=== PATIENT | female | born 1955 ===

== ENCOUNTER 2018-05-30 10:29 | Emergency (ER) | payer OTHER ==
[~2018-05-30] VITALS: Ht 165.1 cm; Wt 97.5 kg
[~2018-05-30 10:29] MED LIST: AMLO5 PO; NARCAN4 MG NS; Nyamyc15 GM TP; OXYC10TA19; PREG75 PO
[2018-05-30 11:00] LABS: BASOPHILS ABSOLUTE AUTO 0.07 K/mm3 (0.00-0.23); BASOPHILS PERCENT AUTO 1 % (0-2); EOSINOPHILS ABSOLUTE AUTO 0.19 K/mm3 (0.00-0.68); EOSINOPHILS PERCENT AUTO 2 % (0-6); Hematocrit 42.1 % (33.0-51.0); Hemoglobin 13.3 g/dL (11.5-16.0); IMMATURE GRAN ABSOLUTE AUTO 0.04 K/mm3 (0.00-0.10); IMMATURE GRAN PERCENT AUTO 0 % (0-1); LYMPHOCYTES ABSOLUTE AUTO 2.17 K/mm3 (0.84-5.20); LYMPHOCYTES PERCENT AUTO 20 % (21-46); MONOCYTES ABSOLUTE AUTO 0.64 K/mm3 (0.16-1.47); MONOCYTES PERCENT AUTO 6 % (4-13); Mean Corpuscular HGB Conc 31.6 g/dL (31.5-36.5); Mean Corpuscular Volume 92 fL (80-100); Mean Platelet Volume 9.4 fL (9.1-12.4); NEUTROPHILS ABSOLUTE AUTO 7.63 K/mm3 (1.96-9.15); NEUTROPHILS PERCENT AUTO 71 % (41-73); Platelet Count 291 K/mm3 (150-400); RDW Coefficient Variation 13.8 % (11.7-14.2); RDW Standard Deviation 47.1 fL (35.1-46.3); Red Blood Cell Count 4.59 M/mm3 (3.80-5.20); White Blood Cell Count 10.74 K/mm3 (4.00-11.30)
[2018-05-30 11:32] LABS: Alanine Aminotransfer (ALT/SGP 18 U/L (12-78); Albumin, Blood 2.9 g/dL (3.4-5.0); Albumin/Globulin Ratio 0.7 (0.8-1.8); Alk Phos 85 U/L (50-136); Anion Gap 10 mmol/L (6-16); Aspartate Aminotrans (AST/SGOT 23 U/L (12-37); Bilirubin, Total 0.5 mg/dL (0.1-1.0); Blood Urea Nitrogen 13 mg/dL (8-24); CO2, Blood 24 mmol/L (21-32); Chloride, Blood 104 mmol/L (98-108); Creatinine, Blood 0.65 mg/dL (0.40-1.00); Globulin, Blood 4.3 g/dL (2.2-4.0); Glomerular Filtration Rate >60 (60-); Glucose, Blood 186 mg/dL (70-99); Potassium, Blood 4.2 mmol/L (3.5-5.5); Sodium, Blood 138 mmol/L (136-145); Total Protein, Blood 7.2 g/dL (6.4-8.2)
[2018-05-30 13:06] LABS: Source, Urine Clean Catch
[2018-05-30 13:09] LABS: Bilirubin, Urine Neg (Neg); Blood, Urine 3+ (Neg); Glucose Qualitative, Urine Neg (Neg); Ketones, Urine Neg (Neg); Leukocyte Esterase, Urine 3+ (Neg); Nitrite, Urine Neg (Neg); Protein, Urine 2+ (Neg); Urobilinogen, Urine NORM (Normal); pH, Urine 6.5 (5.0-8.0)
[2018-05-30 13:24] LABS: Appearance, Urine Hazy (Clear); Color, Urine Yellow (P-Yellow)
[2018-05-30 13:25] LABS: Bacteria Many /hpf; Squamous Epithelial Cells Mod /hpf (Few); White Blood Cells, Urine TNTC /hpf (0-5)
[2018-05-30] MEDS ORDERED: CEPH500 PO (13:33)
== END 2018-05-30 14:40 | disposition home or self-care (01) ==
LOC: ER 10:29
PROVIDERS: Emergency Medicine
DX: N30.90 Cystitis, unspecified without hematuria (principal); K59.00 Constipation, unspecified; E78.5 Hyperlipidemia, unspecified; I10 Essential (primary) hypertension; Z79.899 Other long term (current) drug therapy; Z79.891 Long term (current) use of opiate analgesic
CPT/HCPCS: 36415; 74177; 80053; 81001; 85025; 87077; 87086; 87186; 96361; 96374; 96375; 99284-25; J1885; J2405; J7030; Q9967

== ENCOUNTER 2018-06-06 18:44 | Emergency (ER) | payer OTHER ==
[~2018-06-06] VITALS: Ht 165.1 cm; Wt 96.6 kg
[~2018-06-06 18:44] MED LIST changes: +CEPH500 PO
[2018-06-06 23:00] LABS: Calcium, Ionized (POC) 1.14 mmol/L (1.10-1.46); Chloride (POC) 104 mmol/L (98-108); Creatinine (POC) 0.5 mg/dL (0.6-1.0); Glucose (ISTAT POC) 96 mg/dL (70-99); Hemoglobin (POC) 13.3 g/dL (12.0-16.0); Potassium (POC) 4.1 mmol/L (3.5-5.5); Sodium (POC) 141 mmol/L (135-148); Total CO2 (POC) 22 mmol/L (21-32)
== END 2018-06-06 23:34 | disposition home or self-care (01) ==
LOC: ER 18:44
PROVIDERS: Emergency Medicine
DX: M79.604 Pain in right leg (principal); M79.605 Pain in left leg; Z79.891 Long term (current) use of opiate analgesic; Z79.899 Other long term (current) drug therapy; I10 Essential (primary) hypertension; Z87.891 Personal history of nicotine dependence
CPT/HCPCS: 36415; 80047; 85014; 93971; 99284-25

== ENCOUNTER 2018-07-21 17:45 | Inpatient (IN) | payer OTHER ==
[~2018-07-21] VITALS: Ht 162.6 cm; Wt 102.7 kg
[~2018-07-21 17:45] MED LIST changes: +Nyamyc15 GM TOP; -Nyamyc15 GM TP
[2018-07-21 19:38] LABS: BASOPHILS ABSOLUTE AUTO 0.03 K/mm3 (0.00-0.23); BASOPHILS PERCENT AUTO 1 % (0-2); EOSINOPHILS ABSOLUTE AUTO 0.23 K/mm3 (0.00-0.68); EOSINOPHILS PERCENT AUTO 5 % (0-6); Hematocrit 47.5 % (33.0-51.0); Hemoglobin 14.7 g/dL (11.5-16.0); IMMATURE GRAN ABSOLUTE AUTO 0.02 K/mm3 (0.00-0.10); IMMATURE GRAN PERCENT AUTO 0 % (0-1); LYMPHOCYTES ABSOLUTE AUTO 2.24 K/mm3 (0.84-5.20); LYMPHOCYTES PERCENT AUTO 45 % (21-46); MONOCYTES ABSOLUTE AUTO 0.48 K/mm3 (0.16-1.47); MONOCYTES PERCENT AUTO 10 % (4-13); Mean Corpuscular HGB 27.3 pg (26.0-34.0); Mean Corpuscular HGB Conc 30.9 g/dL (31.5-36.5); Mean Corpuscular Volume 88 fL (80-100); Mean Platelet Volume 9.8 fL (9.1-12.4); NEUTROPHILS ABSOLUTE AUTO 1.96 K/mm3 (1.96-9.15); NEUTROPHILS PERCENT AUTO 40 % (41-73); Platelet Count 202 K/mm3 (150-400); RDW Coefficient Variation 15.7 % (11.7-14.2); RDW Standard Deviation 50.9 fL (35.1-46.3); Red Blood Cell Count 5.38 M/mm3 (3.80-5.20); White Blood Cell Count 4.96 K/mm3 (4.00-11.30)
[2018-07-21 20:00] LABS: Alanine Aminotransfer (ALT/SGP 24 U/L (12-78); Albumin, Blood 2.9 g/dL (3.4-5.0); Albumin/Globulin Ratio 0.6 (0.8-1.8); Alk Phos 85 U/L (50-136); Anion Gap 5 mmol/L (6-16); Aspartate Aminotrans (AST/SGOT 55 U/L (12-37); Bilirubin, Total 0.3 mg/dL (0.1-1.0); Blood Urea Nitrogen 14 mg/dL (8-24); CO2, Blood 27 mmol/L (21-32); Calcium, Blood 8.4 mg/dL (8.5-10.1); Chloride, Blood 104 mmol/L (98-108); Creatinine, Blood 0.58 mg/dL (0.40-1.00); Globulin, Blood 4.9 g/dL (2.2-4.0); Glomerular Filtration Rate >60 (60-); Glucose, Blood 158 mg/dL (70-99); Potassium, Blood 4.2 mmol/L (3.5-5.5); Sodium, Blood 136 mmol/L (136-145); Total Protein, Blood 7.8 g/dL (6.4-8.2)
[2018-07-21 20:53] LABS: Source, Urine Clean Catch
[2018-07-21 20:56] LABS: Bilirubin, Urine Neg (Neg); Blood, Urine 2+ (Neg); Glucose Qualitative, Urine Neg (Neg); Ketones, Urine Neg (Neg); Leukocyte Esterase, Urine Neg (Neg); Nitrite, Urine Neg (Neg); Protein, Urine Neg (Neg); Urobilinogen, Urine NORM (Normal)
[2018-07-21 21:02] LABS: Appearance, Urine Clear (Clear); Color, Urine Yellow (P-Yellow)
[2018-07-21 21:05] LABS: Bacteria Not Seen /hpf; Squamous Epithelial Cells Not Seen /hpf (Few); White Blood Cells, Urine 0-2 /hpf (0-5)
[2018-07-21] MEDS ORDERED: LINZESS290 MCG PO (21:53)
[2018-07-21] MEDS ORDERED: PREG150 PO (21:53)
[2018-07-21] MEDS ORDERED: OXYC5 PO (21:53)
[2018-07-21] MEDS ORDERED: ACET325 PO (21:54)
[2018-07-21] MEDS ORDERED: Zanaflex4 MG PO (21:54)
[2018-07-22 00:12] LABS: Creatine Kinase MB 3.3 ng/mL (0.0-3.6); Creatine Kinase MB Index 0.3 (0.0-4.0)
[2018-07-22 04:53] LABS: Hemoglobin 14.2 g/dL (11.5-16.0); Mean Corpuscular HGB Conc 31.6 g/dL (31.5-36.5); Mean Corpuscular Volume 86 fL (80-100); Mean Platelet Volume 9.8 fL (9.1-12.4); Platelet Count 220 K/mm3 (150-400); RDW Coefficient Variation 15.7 % (11.7-14.2); Red Blood Cell Count 5.26 M/mm3 (3.80-5.20); White Blood Cell Count 8.22 K/mm3 (4.00-11.30)
[2018-07-22 05:11] LABS: Alanine Aminotransfer (ALT/SGP 24 U/L (12-78); Albumin, Blood 2.8 g/dL (3.4-5.0); Albumin/Globulin Ratio 0.6 (0.8-1.8); Alk Phos 79 U/L (50-136); Anion Gap 9 mmol/L (6-16); Aspartate Aminotrans (AST/SGOT 54 U/L (12-37); Bilirubin, Total 0.5 mg/dL (0.1-1.0); Blood Urea Nitrogen 13 mg/dL (8-24); Bun/Creatinine Ratio 18.4 (12.0-20.0); CO2, Blood 22 mmol/L (21-32); Calcium, Blood 8.2 mg/dL (8.5-10.1); Chloride, Blood 108 mmol/L (98-108); Creatinine, Blood 0.71 mg/dL (0.40-1.00); Globulin, Blood 4.4 g/dL (2.2-4.0); Glomerular Filtration Rate >60 (60-); Glucose, Blood 154 mg/dL (70-99); Sodium, Blood 139 mmol/L (136-145); Total Protein, Blood 7.2 g/dL (6.4-8.2)
--- NOTE | 2018-07-22 06:28 | NUR ---
SHIFT SUMMARY PT ARRIVED TO ROOM APPROX 0130. LIFTING ASSISTANCE NEEDED TO GET FROM STRETCHER TO BED. C/O PAIN AND MOANING CONSTANTLY. MEDICATED FOR PAIN X3 PAIN NOT RELEIVED GOT ORDER FOR OT IV DILAUDID. HR 138 DR PAIGE ORDERED IV METOPROLOL. HR WENT TO 103 AFTER ADMINISTRATION BUT BACK UP INTO 120'S HOUR OR SO AFTER. CONSTANT MOANING EVEN AFTER PAIN MEDS. ANY TOUCH OR REPOSITION SHE WILL SCREAM OUT IN PAIN. NOT ABLE TO MOVE LEGS. GONZALEZ DRAINING.
--- NOTE | 2018-07-22 08:30 | NUR ---
PATIENT DID NOT EAT BREAKFST THIS SHIFT DUE TO BEING NPO AT THIS TIME.
--- NOTE | 2018-07-22 12:23 | NUR ---
PATIENT DID NOT EAT LUNCH THIS SHIFT DUE TO BEING NPO AT THIS TIME.
--- NOTE | 2018-07-22 15:23 | NUR ---
PT TO DAY SURGURY VIA BED AT THIS TIME. MEDICATED WITH 1MG DILAUDID IV AND 4MG OF ZOFRAN IV PRIOR TO TRANSFER. CEFAZOLIN SENT WITH DAY SURGERY RN'S.
--- NOTE | 2018-07-22 15:25 | NUR ---
INTO SDS VIA BED. PT REPORTS 9/10 LEFT THIGH PAIN. PT WAS MEDICATED FOR PAIN AND NAUSEA PRIOR TO DEPARTURE FROM ROOM 306.TEMP 100.4. HR TRENDING 120-130'S. LUNGS COARSE THROUGH OUT. MOIST, NON-PRODUCTIVE COUGH NOTED. SATS TRENDING IN THE 80'S- O2 VIA NASAL CANULA APPLIED AND TITRATED UP TO 4 LITERS TO KEEP SATS>90%. DUO NEB GIVEN. HISTORY AND ALLERGIES REVIEWED. NPO STATUS CONFIRMED.
--- NOTE | 2018-07-22 16:30 | NUR ---
PT CONTINUES TO REPORT 9/10 LEFT THIGH PAIN. HR CONTINUES 120'S. TEMP 101.3. MAINTAINS SATS>90% ON 4 LITERS NASAL CANULA. BP 142/65. MED WITH FENTANYL 50 MCG IVP X [address] DEL ROSARIO ORDERS.
--- NOTE | 2018-07-22 16:41 | NUR ---
LEFT THIGH WOUND DEMARCATED THE AREA APPEARS TO BE GETTING LARGER. THERE IS A BLISTER IN THE CENTER OF TH WOUND BED. THE SURROUNDING DEMARCATED AREA APPEARS PURPLISH IN COLOR.
--- NOTE | 2018-07-22 17:35 | NUR ---
DR. CUEVAS UPDATED THAT PT TEMP 101.3. HR TRENDING 120-130'S, AND THAT LUNGS COARSE THROUGH OUT. MADE AWARE THAT PT REQUIRING 4 LITERS NASAL CANULA TO MAINTAIN SATS>90%. DR. CUEVAS MADE AWARE OF THE APPEARANCE OF THE LEFT THIGH WOUND AND THAT THE AREA HAS BEEN DEMARCATED. ORDER GIVEN FOR STAT CXR AND LACTIC ACID.
--- NOTE | 2018-07-22 17:49 | NUR ---
PATIENT DID NOT EAT DINNER THIS SHIFT DUE TO BEING NPO AT THIS TIME.
--- NOTE | 2018-07-22 18:24 | NUR ---
STAT PORTABLE CHEST XRAY DONE AND LACTIC ACID DRAWN AND SENT TO LAB.
--- NOTE | 2018-07-22 19:14 | NUR ---
07/22/181913 Jasmina Sheridan NO PAS PLACED DUE TO EMERGENCY PER PHYSICIAN
--- NOTE | 2018-07-22 20:00 | NUR ---
ASSUMED CARE OF PT PT TO ICU 6 FROM OR. REPORT RCV'D FROM DR. DEL ROSARIO. PT TO ROOM INTUBATED BEING BAGGED BY MEDICAL STAFF. RT AT BEDSIDE TO ASSIST IN PLACING PT ON VENT. VENT SETTINGS AC 14/400/5/50%. PROPOFOL STARTED AT 45 MCG/KG/MIN TO ASSIST IN SEDATION. PT HAS GONZALEZ ON ARRIVAL THAT IS DRAINING CLEAR YELLOW URINE. WOUND VAC PLACED ON PT'S LEFT BUTTOCK. SEROSANGUOUS FLUID DRAINING. ON ASSESSMENT PT HAS MULTIPLE PRESSURE ULCERS ON HER BUTTOCKS BILATERALLY, HIPS, COCCYX AND AN AREA OF WEEPING BLISTERS ON HER RIGHT UPPER ARM. PT PLACED IN CONTACT PRECAUTIONS DUE TO POSSIBILITY OF NECROTIZING SOFT TISSUE INFECTION PER DR. LAFLEUR. VSS AT THIS TIME. DR LAFLEUR TO TAKE PT BACK TO OR IN THE MORNING AROUND 10 AM. PT'S AT BEDSIDE, STATES THAT " HAD SURGERY IN DECEMBER ON HER NECK" AND THAT SHE WAS IN [facility] 04/2018 BECAUSE SHE WAS "HAVING TROUBLE WALKING". PER , WAS MAKING [employer] AND WAS ABLE TO USE THE WALKER BUT HER INSURANCE MADE HER LEAVE. PT'S STATES [facility] COMES TO THEIR HOME 4 TIMES A WEEK BUT THAT HE IS "HAVING A HARD TIME TAKING CARE OF HER". STATES THAT NEEDS TO HAVE CT DONE ON HER NECK BUT THAT SHE IS UNABLE TO LAY FLAT ENOUGH FOR PROCEDURE TO BE DONE. PT'S STATES THAT HE SLEEPS IN A RECLINER IN THE PT'S ROOM SO THAT HE CAN ASSIST HER TO "GET UP AND USE THE RESTROOM". PER , PRIOR TO ADMISSION PT HAS BEEN "WHEELCHAIR FOR QUITE AWHILE" AND THAT PRIOR TO ADMISSION PT "FELL AND WAS BEDBOUND FOR 2-3 DAYS". STATES THAT HE "TRIED HIS BEST TO CLEAN HER UP BUT SHE WAS INCONTINENT AND HE WAS UNABLE TO GET ASSISTANCE". STATES THAT HE "HOPES PT WILL BE RELEASED TO REHAB FACILITY FOR MORE ASSISTANCE". SEE FULL SHIFT ASSESSMENT.
[2018-07-22 21:34] LABS: PCO2 Arterial 44.5 mmHg (35-45); pH Blood Arterial 7.33 (7.35-7.45)
--- NOTE | 2018-07-23 00:47 | NUR ---
PT'S OFELIA RING IS PLACED IN LABELED SPECIMIN CUP IN LOCK BOX.
--- NOTE | 2018-07-23 03:17 | NUR ---
PT NOW HAS BLISTERS ON HER RIGHT OUTER THIGH AND RIGHT INNER KNEE CONSISTENT WITH BLISTERS FOUND ON LIANA (DR LAFLEUR AWARE). DURING BED BATH AND SKIN CARE PT WAS GRIMACING, HR, AND RR INCREASED DESPITE SEDATION AND PAIN MEDICATION ADMINISTRATION. PT WAS VERY STIFF WITH LEGS PULLED UP AND TOGETHER. PT GRIMACED WHILE LOTION WAS BEING APPLIED TO LEGS AND HAD FACIAL GRIMACING.
[2018-07-23 03:29] LABS: Hematocrit 42.7 % (33.0-51.0); Hemoglobin 13.5 g/dL (11.5-16.0); Mean Corpuscular HGB 27.4 pg (26.0-34.0); Mean Corpuscular HGB Conc 31.6 g/dL (31.5-36.5); Mean Corpuscular Volume 87 fL (80-100); Mean Platelet Volume 9.3 fL (9.1-12.4); Platelet Count 200 K/mm3 (150-400); RDW Coefficient Variation 15.5 % (11.7-14.2); RDW Standard Deviation 49.8 fL (35.1-46.3); Red Blood Cell Count 4.93 M/mm3 (3.80-5.20); White Blood Cell Count 4.85 K/mm3 (4.00-11.30)
[2018-07-23 03:45] LABS: Anion Gap 9 mmol/L (6-16); Blood Urea Nitrogen 10 mg/dL (8-24); Bun/Creatinine Ratio 16.3 (12.0-20.0); CO2, Blood 24 mmol/L (21-32); Calcium, Blood 7.8 mg/dL (8.5-10.1); Chloride, Blood 107 mmol/L (98-108); Creatinine, Blood 0.61 mg/dL (0.40-1.00); Glomerular Filtration Rate >60 (60-); Glucose, Blood 271 mg/dL (70-99); Potassium, Blood 3.7 mmol/L (3.5-5.5); Sodium, Blood 140 mmol/L (136-145)
--- NOTE | 2018-07-23 06:03 | NUR ---
SHIFT SUMMARY PT INTUBATED WITH VENT SETTINGS AC 14/400/5/35% AND SEDATED WITH PROPOFOL 55 MCG/KG/MIN. PT OPENS EYES TO HER NAME AND IS ABLE TO FOLLOW COMMANDS. PT WAKES EASILY WITH REDUCTION OF PROPOFOL AND HAS INCREASED RR AND HR WELL FACIAL GRIMACING WITH ANY REPOSITIONING. PT'S LEGS ARE CONTRACTED AND STIFF.(SEE PREVIOUS NOTE) PT APPEARS TO BE IN SEVERE PAIN WHEN SKIN CARE AND BATHING DONE ON PT'S LOWER BODY INCLUDING EV AREA AND LEGS BILATERALLY. GONZALEZ PATENT AND DRAINING, 2800 ML URINARY OUTPUT OVERNIGHT. WOUND VAC INTACT DRAINING 500 ML OF SEROSANGUINOUS FLUID. PT HAS BEEN AFEBRILE AND VSS THROUGHOUT SHIFT. PLEASE SEE PREVIOUS NOTES. WILL REPORT TO DAYSHIFT NURSE.
--- NOTE | 2018-07-23 07:20 | NUR ---
START OF SHIFT NOTE: RECEIVED REPORT FROM DARYA ENCINAS, ASSUMED CARE, PATIENT IS MECHANICALLY VENTILATED AT THIS TIME, SETTINGS A/C 14/5 VT 400, FiO2 35 %, PROPOFOL AT 55, HOWEVER, PATIENT WILL GRIMACE WITH SLIGHTEST TOUCH, BLISTERS AND DRY SKIN NOTED ON RIGHT UPPER ARM IN DELTOID AREA, BLISTERING AND REDNESS ALSO NOTED ON RIGHT LOWER EXTREMITY, PATIENT HAS WOUND VAC IN PLACE DUE TO ABSCESS ON LEFT BUTTOCK, GONZALEZ CATHETER IN PLACE, DRAINING LIGHT YELLOW URINE, OVERALL SKIN APPEARANCE IS DRY AND SCALY,PATIENT IN NSR, LS CLEAR BUT DIMINISHED, BT'S HYPOACTIVE, PATIENT FOR POSSIBLE I&D LATER TODAY, CALL LIGHT IN REACH, WILL CONTINUE TO MONITOR.
--- NOTE | 2018-07-23 10:34 | NUR ---
DR. CUEVAS IN TO SEE PATIENT, NEW ORDERS RECEIVED, DR. LAFLEUR ALSO AT BEDSIDE, UPDATED ON PATIENT CONDITION, IN TO SEE PATIENT, SIGNED CONSENT FOR PROCEDURE TODAY, LEROY BLANDON, NOTIFIED THAT CONSENT IS ON HAND.
--- NOTE | 2018-07-23 12:15 | NUR ---
07/23/18 1215 Qamar Smith PATIENT ARRIVED TO OR FROM ICU INTUBATED, GONZALEZ CATH IN PLACE, PATIENT ON SCHEDULED ABX, PATIENT RETURNED TO ICU INTUBATED
--- NOTE | 2018-07-23 12:30 | NUR ---
pATIENT WAS TAKEN TO OR WITH BED AND TRANSPORT VENT AT 11:25, AT [facility], SIGNED CONSENT, PATIENT WAS RETURNED TO ROOM AT 12:20, PER JERRELL SAHU NO MORE TISSUE WAS REMOVED, NEW WOUND VAC APPLIED TO BE CHANGED EVERY 3 DAYS, PATIENT REPOSITIONED IN BED, PLACEDON MONITOR, HOOKED UP TO IV MEDICATIONS, CALL LIGHT IN REACH,WILL CONTINUE TO MONITOR.
--- NOTE | 2018-07-23 14:56 | NUR ---
DR. ANAYA IN TO SEE PATIENT, PROPOFOL OFF TO WAKE PATIENT AND POSSIBLY EXTUBATE.
--- NOTE | 2018-07-23 15:41 | NUR ---
PER DR. ANAYA, PROPOFOL OFF, PATIENT ON PRESSURE SUPPORT, PATIENT IS ABLE TO FOLLOW COMMANDS, AWAKE, ABLE TO ANSWER YES AND NO QUESTION BY NODDING OR SHAKING HEAD, SPONTANEOUS BREATHING TRIAL ONGOING, IF PATIENT DOES WELL, EXTUBATE IN 15 MINUTES.
--- NOTE | 2018-07-23 16:30 | NUR ---
PATIENT WAS EXTUBATED AT 16:30, RAY MOORE RT, AT BEDSIDE EXTUBATING PATIENT, ALSO THIS RN WAS PRESENT, PATIENT TOLERATED WELL, GOOD COUGH, SECRETIONS SUCTIONED, PATIENT ABLE TO VERBALIZE NEEDS, ANSWERS APPROPRIATELY, C/O GENERALIZED PAIN OVERALL, CALL LIGHT IN REACH, WILL CONTINUE TO MONITOR.
--- NOTE | 2018-07-23 17:40 | NUR ---
SHIFT SUMMARY NOTE: PATIENT MECHANICALLY VENTILATED AT BEGINNING OF SHIFT, SETTINGS: 16/5 VT 400, FiO2 35 %, PATIENT HAS WOUND VAC ON LEFT BUTTOCK, WILL RETURN TO OR FOR I&D TODAY, BLISTERS NOTED DURING SHIFT ASSESSMENT ON RIGHT SHOULDER AND RIGHT LATERAL AND MEDIAL LEG, DR. ANAYA, DR. CUEVAS, AND DR. LAFLEUR AWARE, GONZALEZ CATHETER IN PLACE, PATIENT IS IN EXTREME PAIN, GRIMACES DESPITE SEDATION WITH PROPOFOL AT 55 MCG, MEDICATED WITH 25 MCG OF FENTANYL, PATIENT APPEARED LESS PAINFUL AND WAS SLEEPING, TAKEN TO OR AT 1100 AM, RETURNED AT 1230, CONTINUES TO BE INTUBATED, WOUND VAC WAS CHANGED DURING PROCEDURE, NO OUTPUT OF YET, PATIENT WAS PLACED ON SPONTANEOUS BREATHING TRIAL, AND EXTUBATED AT 1630, TOLERATED WELL, ABLE TO VERBALIZE NEEDS WITHOUT ANY PROBLEM, FOLLOWS COMMANDS, MEDICATED FOR PAIN WITH FENTANYL, REPOSITIONED, PLACED ON 2L NC AND SATING AT 95 %, CALL LIGHT IN REACH, WILL CONTINUE TO MONITOR, AND GIVE REPORT TO ONCOMING DISPATCH ASSOCIATE.
--- NOTE | 2018-07-23 22:06 | NUR ---
ASSUMED CARE OF PT PT PLEASANT, ALERT, AND ORIENTED LAYING IN BED. PT REPORTS SEVERE 10/10 PAIN WITH REPOSITIONING DUE TO ARTHRITIS AND PREVIOUS NECK SURGERY. GONZALEZ PATENT AND DRAINING. WOUND VAC ON LEFT BUTTOCKS, DRAINING MINIMAL SEROSANGUIOUS FLUID. PT ON 2L O2 VIA NC. SEE FULL SHIFT SUMMARY.
[2018-07-24 06:08] LABS: BASOPHILS ABSOLUTE AUTO 0.01 K/mm3 (0.00-0.23); BASOPHILS PERCENT AUTO 0 % (0-2); EOSINOPHILS PERCENT AUTO 0 % (0-6); Hematocrit 36.4 % (33.0-51.0); Hemoglobin 11.5 g/dL (11.5-16.0); IMMATURE GRAN ABSOLUTE AUTO 0.01 K/mm3 (0.00-0.10); IMMATURE GRAN PERCENT AUTO 0 % (0-1); LYMPHOCYTES ABSOLUTE AUTO 1.74 K/mm3 (0.84-5.20); LYMPHOCYTES PERCENT AUTO 30 % (21-46); MONOCYTES ABSOLUTE AUTO 0.58 K/mm3 (0.16-1.47); MONOCYTES PERCENT AUTO 10 % (4-13); Mean Corpuscular HGB 27.6 pg (26.0-34.0); Mean Corpuscular HGB Conc 31.6 g/dL (31.5-36.5); Mean Corpuscular Volume 88 fL (80-100); Mean Platelet Volume 9.2 fL (9.1-12.4); NEUTROPHILS ABSOLUTE AUTO 3.46 K/mm3 (1.96-9.15); NEUTROPHILS PERCENT AUTO 60 % (41-73); Platelet Count 176 K/mm3 (150-400); RDW Coefficient Variation 15.6 % (11.7-14.2); Red Blood Cell Count 4.16 M/mm3 (3.80-5.20)
[2018-07-24 06:28] LABS: Anion Gap 6 mmol/L (6-16); Blood Urea Nitrogen 9 mg/dL (8-24); Bun/Creatinine Ratio 16.1 (12.0-20.0); CO2, Blood 27 mmol/L (21-32); Calcium, Blood 7.7 mg/dL (8.5-10.1); Chloride, Blood 113 mmol/L (98-108); Creatinine, Blood 0.56 mg/dL (0.40-1.00); Glomerular Filtration Rate >60 (60-); Glucose, Blood 146 mg/dL (70-99); Potassium, Blood 3.8 mmol/L (3.5-5.5); Sodium, Blood 146 mmol/L (136-145)
[2018-07-24 06:30] LABS: Vancomycin, Trough 15.3 ug/mL (5.0-10.0)
--- NOTE | 2018-07-24 07:15 | NUR ---
START OF SHIFT NOTE: RECEIVED REPORT FROM CE PHILLIPS RN, ASSUMED CARE, PATIENT IS RESTING COMFORTABLY AT THIS TIME, CONTINUOUS TO C/O CHRONIC PAIN, BUT STATED "THE PAIN MEDICATION TOOK THE EDGE OFF", SECOND PIV STARTED ON MARCIE D/T MULTIPLE ANTIBIOTIC INFUSIONS, TOLERATED WELL, PATIENT ABLE TO SWALLOW SOME ICE CHIPS, LUNGS SOUNDS DIMINISHED, PATIENT RECEIVING BREATHING TREATMENT, NSR, GONZALEZ CATHETER IN PLACE, BLISTERS ON RIGHT SHOULDER AND RIGHT LATERAL AND MEDIAL LEG ARE UNCHANGED, NO CHANGE IN SIZE AND APPEARANCE NOTED, DR. CUEVAS IN TO SEE PATIENT, NEW ORDERS RECEIVED, CALL LIGHT IN REACH, WILL CONTINUE TO MONITOR.
--- NOTE | 2018-07-24 10:00 | NUR ---
DR. ANAYA IN TO SEE PATIENT, CHEST XRAY ORDERED, DONE, NO NEW ORDERS RECEIVED FROM DR. ANAYA.
--- NOTE | 2018-07-24 10:30 | NUR ---
DR. LAFLEUR IN TO SEE PATIENT, NO NEW ORDERS RECEIVED.
--- NOTE | 2018-07-24 16:26 | NUR ---
FAMILY AT BEDSIDE, UPDATE GIVEN TO AND SON.
--- NOTE | 2018-07-24 17:55 | NUR ---
SHIFT SUMMARY NOTE: PATIENT IS ALERT AND ORIENTED, 2L NC SATING IN MID TO UPPER 90'S, SINUS TACHY, HYPOACTIVE BOWEL TONES, GONZALEZ CATHETER IN PLACE WITH URINE OUTPUT OF 2.5 L, RECEIVED DILAUDID 1 MG IV FREQUENTLY FOR GENERALIZED PAIN, MOSTLY 12/31, REPOSITIONED FREQUENTLY, HAS WOUND VAC TO LEFT BUTTOCK AND BLISTERS ON RIGHT SHOULDER AND RIGHT LATERAL AND MEDIAL LEG, C/O SPASMS WITH SLIGHTEST TOUCH, CONTINUES ON VANCOMYCIN, ZOSYN, AND CLEOCIN, PATIENT IS NOW ON GENERAL DIET, FINGER FOODS D/T POSITIONING WHILE EATING, EATS WITH GOOD APPETITE, DRINKS GOOD AMOUNT OF WATER, PATIENT IS NOW SURGICAL/MEDICAL STATUS WITH TELEMETRY, AND SON AT BEDSIDE, UPDATE ON PATIENT CONDITION PROVIDED, CALL LIGHT IN REACH, WILL CONTINUE TO MONITOR AND GIVE REPORT TO ONCOMING YARDING SUPERVISOR.
--- NOTE | 2018-07-24 18:43 | NUR ---
REPORT CALLED TO DARYA ROSENTHAL, ON MEDICAL FLOOR, PATIENT TO GO TO ROOM 231, WILL PACK UP ALL BELONGINGS AND PATIENT WILL BE MOVED VIA BED.
[2018-07-25 05:43] LABS: Anion Gap 7 mmol/L (6-16); Blood Urea Nitrogen 12 mg/dL (8-24); CO2, Blood 27 mmol/L (21-32); Calcium, Blood 7.7 mg/dL (8.5-10.1); Chloride, Blood 107 mmol/L (98-108); Creatinine, Blood 0.57 mg/dL (0.40-1.00); Glomerular Filtration Rate >60 (60-); Glucose, Blood 168 mg/dL (70-99); Potassium, Blood 3.5 mmol/L (3.5-5.5); Sodium, Blood 141 mmol/L (136-145)
--- NOTE | 2018-07-25 07:43 | NUR ---
SUMMARY: NO ACUTE CHANGE TONIGHT. PT VSS, A/O, TELE WNL. WOUND VAC INTACT, NO NEW DRAINAGE NOTED. PT GIVEN IV ANTIBIOTICS POSITIONED FOR COMFORT. PO AND IV PAIN MEDS GIVEN PRN SEE EMAR. MEPALIX PLACED AT COCCYX. PT ABLE TO SLEEP WELL, NO SAFETY CONCERNS AT THIS TIME.
--- NOTE | 2018-07-25 11:02 | NUR ---
pt worked with pt/ot still hurting additional po oxy given earlier pt had only 1 tab vs 2 tab
--- NOTE | 2018-07-25 11:36 | NUR ---
dr santiago office called message left no dermatology on for consult will call again this afternoon
--- NOTE | 2018-07-25 13:35 | NUR ---
dr martinez office called to see pt after clinic
--- NOTE | 2018-07-25 14:45 | NUR ---
PT VISITING WITH SPOUSE 2 TAB PO OXY GIVEN WILL REPOSITION IN 45 MIN
--- NOTE | 2018-07-25 16:11 | NUR ---
dr martinez by to see pt [facility] biopsy to r upper arm
--- NOTE | 2018-07-26 05:56 | NUR ---
PT VSS T/O NIGHT. PT REMAINS VERY PAINFUL W/EVEN SLIGHT MVMT. PAIN MGD PER EMAR, PT APPEARS TO SLEEP SOUNDLY AFTER MED GIVEN. PT IS RESISTANT FOR NON PHARM OPTIONS FOR PAIN CONTROL, IS ABLE TO BE DISTRACTED EASILY. PT ONLY ALLOWING MINIMAL REPOSITIONING, NEEDS MUCH ENCOURAGEMENT TO PARTICIPATE W/MOBILITY. WOUND VAC INTACT W/SMALL AMT SS DRCORONA. PT EDIS REG PO, NO C/O N/V. PT USING CALL LIGHT FOR ASSISTANCE, WILL CONT TO MONITOR UNTIL REP GIVEN TO ONCOMING RN.
--- NOTE | 2018-07-26 11:13 | NUR ---
ECHOCARDIOGRAM COMPLETE
--- NOTE | 2018-07-26 14:21 | NUR ---
PT TO CT AT THIS TIME. PT VERY PAINFUL WITH TRANSFER TO [facility]. PT WAS GIVEN FENTANYL TO HELP PT TOLERATE CT SCAN.
--- NOTE | 2018-07-26 19:25 | NUR ---
SHIFT SUMMARY PT HAS BEEN PAINFUL T/O THE DAY. SHE IS RESISTANT TO REPOSITIONING R/T PAIN. SHE HAS HAD PO PAIN MEDICATION ROUTINELY. SHE REPORTS HER PAIN IS 7/10 OR GREATER AT BASELINE. PT EDUCATED ABOUT IMPORTANCE OF REPOSITIONING AND ASSISTED. WOUND VAC DRESSING CHANGED TODAY. VSS. REPORT GIVEN TO RAYMOND LACKEY.
--- NOTE | 2018-07-27 04:48 | NUR ---
PT HAD NO CHANGES T/O NIGHT, PT REMAINS PAINFUL W/ANY MOVEMENT, ONLY ALLOWING MINIMAL REPOSITIONING. PT MEDICATED PER EMAR, APPEARS PT SLEEP IN BETWEEN ROUNDINGS. 1LO2 NC IN PLACE, PT ENC TO COUGH AND DEEP BREATHE. WOUND VAC INTACT W/GOOD SX, SMALL AMT SS DRNG. PT USING CALL LIGHT FOR ASSISTANCE, WILL CONT TO MONITOR UNTIL REP GIVEN TO ONCOMING RN.
--- NOTE | 2018-07-27 18:19 | NUR ---
SHIFT SUMMARY PT HAS HAD NO CHANGES T/O SHIFT. PT STILL HAS ONLY REPOSITIONING WHEN TOLERATED DUE TO PAIN WITH ANY MVMT. MEDICATED PER EMAR. WOUND VAC DRAINING SS FLUID, FOAM COMPRESSED WITH NO LEAKS.
--- NOTE | 2018-07-28 06:07 | NUR ---
SHIFT SUMMARY: NO ACUTE CHANGES OVER NIGHT. PT PAINFUL; COMPLAINING OF PAIN IN LEGS AND BACK. DESCRIBES PAIN CRAMPING. MANAGED WITH PO PAIN MEDS PER EMAR. GIVEN 10 MG OXY AND TYLENOL. PT REPOSITIONED FREQ. WOUND VAC DRAINING SS FLUID. GONZALEZ PATENT AND DRAINING.
[2018-07-28 06:30] LABS: Hematocrit 39.1 % (33.0-51.0); Hemoglobin 12.3 g/dL (11.5-16.0); Mean Corpuscular HGB 27.3 pg (26.0-34.0); Mean Corpuscular HGB Conc 31.5 g/dL (31.5-36.5); Mean Corpuscular Volume 87 fL (80-100); Mean Platelet Volume 9.8 fL (9.1-12.4); Platelet Count 234 K/mm3 (150-400); RDW Coefficient Variation 15.2 % (11.7-14.2); RDW Standard Deviation 48.6 fL (35.1-46.3); Red Blood Cell Count 4.51 M/mm3 (3.80-5.20); White Blood Cell Count 8.34 K/mm3 (4.00-11.30)
[2018-07-28 06:51] LABS: Albumin, Blood 2.5 g/dL (3.4-5.0); Anion Gap 7 mmol/L (6-16); Blood Urea Nitrogen 8 mg/dL (8-24); CO2, Blood 29 mmol/L (21-32); Calcium, Blood 8.2 mg/dL (8.5-10.1); Chloride, Blood 103 mmol/L (98-108); Glomerular Filtration Rate >60 (60-); Glucose, Blood 125 mg/dL (70-99); Phosphorus, Blood 2.5 mg/dL (2.5-4.9); Potassium, Blood 3.4 mmol/L (3.5-5.5); Sodium, Blood 139 mmol/L (136-145)
--- NOTE | 2018-07-28 07:45 | NUR ---
PERMISSION TO TREAT PATIENT GAVE STUDENT NURSE PERMISSION TO TREAT AND ACCESS RECORDS ON 07/28/2018
--- NOTE | 2018-07-29 04:33 | NUR ---
SHIFT SUMMARY: PT S/P I&D. PROVENA WOUND VAC IN PLACE; FOAM COMPRESSED; DRAINING SS FLUID. PAIN MANAGED WITH OXY Q6. TYLENOL GIVEN FOR FEVER OF 101. TEMP DECREASED TO 97.9. PT REPOSITIONED SEVERAL TIMES THROUGHOUT NIGHT. GONZALEZ PATENT AND DRAINING. PT REPORTS BEING COMFORTABLE AND IS IN NO APARENT DISTRESS.
[2018-07-29 04:58] LABS: BASOPHILS ABSOLUTE AUTO 0.02 K/mm3 (0.00-0.23); BASOPHILS PERCENT AUTO 0 % (0-2); EOSINOPHILS ABSOLUTE AUTO 0.29 K/mm3 (0.00-0.68); EOSINOPHILS PERCENT AUTO 4 % (0-6); Hematocrit 38.8 % (33.0-51.0); IMMATURE GRAN ABSOLUTE AUTO 0.03 K/mm3 (0.00-0.10); IMMATURE GRAN PERCENT AUTO 0 % (0-1); LYMPHOCYTES PERCENT AUTO 33 % (21-46); MONOCYTES ABSOLUTE AUTO 0.87 K/mm3 (0.16-1.47); MONOCYTES PERCENT AUTO 11 % (4-13); Mean Corpuscular HGB 26.8 pg (26.0-34.0); Mean Corpuscular HGB Conc 30.9 g/dL (31.5-36.5); Mean Corpuscular Volume 87 fL (80-100); Mean Platelet Volume 9.3 fL (9.1-12.4); NEUTROPHILS ABSOLUTE AUTO 4.28 K/mm3 (1.96-9.15); NEUTROPHILS PERCENT AUTO 52 % (41-73); Platelet Count 248 K/mm3 (150-400); RDW Coefficient Variation 15.1 % (11.7-14.2); RDW Standard Deviation 48.4 fL (35.1-46.3); Red Blood Cell Count 4.48 M/mm3 (3.80-5.20); White Blood Cell Count 8.19 K/mm3 (4.00-11.30)
[2018-07-29 05:18] LABS: Anion Gap 6 mmol/L (6-16); Blood Urea Nitrogen 5 mg/dL (8-24); Bun/Creatinine Ratio 10.9 (12.0-20.0); CO2, Blood 30 mmol/L (21-32); Calcium, Blood 8.3 mg/dL (8.5-10.1); Chloride, Blood 105 mmol/L (98-108); Creatinine, Blood 0.46 mg/dL (0.40-1.00); Glomerular Filtration Rate >60 (60-); Glucose, Blood 118 mg/dL (70-99); Potassium, Blood 3.5 mmol/L (3.5-5.5); Sodium, Blood 141 mmol/L (136-145)
--- NOTE | 2018-07-29 18:42 | NUR ---
SUMMARY NO ACUTE CHANGES THROUGH THE DAY. PT IS TOLERATING PO INTAKE. PAIN MANAGED WITH PO MEDICATION. WOUND VAC WAS CHANGED THIS AFTERNOON, WOUND REMAINS WNL. PT TOLERATED PROCEDURE WITH NO PROBLEMS. NEW IV STARTED IN FA. WCMARIUM. CALL LIGHT IN REACH.
--- NOTE | 2018-07-30 07:30 | NUR ---
PT SLEEPY WAKES BREIFLY THEN FALLS BACK TO SLEEP
--- NOTE | 2018-07-30 08:15 | NUR ---
PT STILL SLEEPING BREAKFST TRAY DELIVERED WILL HOLD PO MEDS
--- NOTE | 2018-07-30 08:51 | NUR ---
SUMMARY PT REQUIRING IV SUBLIMAZE AND MUSCLE RELAXANT FOR IMPROVED PAIN CONTROL. GONZALEZ AND WOUND VAC MAINTAINED.
--- NOTE | 2018-07-30 09:22 | NUR ---
IV MEDS GIVEN PT STILL ASLEEP
--- NOTE | 2018-07-30 10:19 | NUR ---
PT AWAKE REPOSITIONED PT HAD SMALL LOOSE BM MEDS GIVEN PT STATED SHE HAD NOT SLEPT WELL LAST NIGHT AND WAS HAVING MUSCLE SPASMS AND TOOK A MUSCLE RELAXER STATED SHE FEELS MUCH BETTER PAIN CURRENTLY 6/10 HEATED UP BREAKFAST
--- NOTE | 2018-07-30 16:10 | NUR ---
PT HAD ANOTHER BM ALSO REPOSTIONED PT TENDS TO WANT TO STAY LONGER ON HER SIDE THAT IS AFFECTED WE CONT TO ENCOURAGE HER TO STAY ON THE OTHERSIDE PO OXY GIVEN
--- NOTE | 2018-07-30 17:26 | NUR ---
PT HAD ANOTHER MED SIZE BM AND REPSOSITIONED
--- NOTE | 2018-07-31 07:57 | NUR ---
SUMMARY PT REPORTED MUSCLE RELAXANTS AND IV PAIN MEDS HELPED PAIN.
--- NOTE | 2018-07-31 10:04 | NUR ---
dr botello by to see pt
--- NOTE | 2018-07-31 11:40 | NUR ---
PT REQ MORE PAIN MEDS 1 TAB MUSCLE REALAXER GIVEN NOT DUE FOR ORAL PAIN MEDS YET
--- NOTE | 2018-07-31 17:33 | NUR ---
PT EATING DINNER AT BEDSIDE EARLIER REMOVED SUTURES TO R ARM
[2018-08-01 06:02] LABS: BASOPHILS ABSOLUTE AUTO 0.04 K/mm3 (0.00-0.23); BASOPHILS PERCENT AUTO 1 % (0-2); EOSINOPHILS ABSOLUTE AUTO 0.24 K/mm3 (0.00-0.68); EOSINOPHILS PERCENT AUTO 3 % (0-6); Hematocrit 36.4 % (33.0-51.0); Hemoglobin 11.3 g/dL (11.5-16.0); IMMATURE GRAN ABSOLUTE AUTO 0.03 K/mm3 (0.00-0.10); IMMATURE GRAN PERCENT AUTO 0 % (0-1); LYMPHOCYTES PERCENT AUTO 31 % (21-46); MONOCYTES ABSOLUTE AUTO 0.95 K/mm3 (0.16-1.47); MONOCYTES PERCENT AUTO 12 % (4-13); Mean Corpuscular HGB 26.6 pg (26.0-34.0); Mean Corpuscular Volume 86 fL (80-100); Mean Platelet Volume 9.8 fL (9.1-12.4); NEUTROPHILS ABSOLUTE AUTO 4.21 K/mm3 (1.96-9.15); NEUTROPHILS PERCENT AUTO 53 % (41-73); Platelet Count 261 K/mm3 (150-400); RDW Coefficient Variation 15.3 % (11.7-14.2); RDW Standard Deviation 48.2 fL (35.1-46.3); Red Blood Cell Count 4.25 M/mm3 (3.80-5.20); White Blood Cell Count 7.97 K/mm3 (4.00-11.30)
[2018-08-01 06:24] LABS: Albumin, Blood 2.4 g/dL (3.4-5.0); Anion Gap 7 mmol/L (6-16); Blood Urea Nitrogen 6 mg/dL (8-24); Bun/Creatinine Ratio 12.5 (12.0-20.0); CO2, Blood 27 mmol/L (21-32); Calcium, Blood 8.3 mg/dL (8.5-10.1); Chloride, Blood 105 mmol/L (98-108); Creatinine, Blood 0.48 mg/dL (0.40-1.00); Glomerular Filtration Rate >60 (60-); Glucose, Blood 136 mg/dL (70-99); Phosphorus, Blood 3.1 mg/dL (2.5-4.9); Potassium, Blood 3.8 mmol/L (3.5-5.5); Sodium, Blood 139 mmol/L (136-145)
--- NOTE | 2018-08-01 07:27 | NUR ---
SUMMARY PT CONTINUES TO REQUIRE MUSCLE RELAXANTS AND PAIN MEDS. REPOSITIONING PER STAFF. WOUND VAC REMAINS INTACT AND ACTIVE.
--- NOTE | 2018-08-01 13:58 | NUR ---
PATIENT PERMISSION PATIENT GAVE PERMISSION FOR THIS STUDENT NURSE TO PROVIDE CARE ON 08/02/2018 FROM 0630 TO 1200.
--- NOTE | 2018-08-02 04:09 | NUR ---
SUMMARY: NO ACUTE CHANGE OVERNIGHT. A/O, USING CALL LIGHT, VSS. Q2 TURNS AND MEDICATED FOR CHRONIC PAIN PER EMAR. WOUND VAC WNL, MINIMAL DRAINAGE. NO ACUTE CONCERNS THIS AM. TELE STABLE FOR SEVERAL DAYS, DC'D. WILL CTM AND REPORT TO DAY RN
--- NOTE | 2018-08-02 14:05 | NUR ---
Pt gave consent to this student nurse to assists care on 08/03/18.
--- NOTE | 2018-08-02 18:16 | NUR ---
SHIFT SUMMARY PT CONTINUES TO HAVE PAIN IN BLE AND BACK. INCREASED PAIN WITH ANY MVMT, DENIES BEING ABLE TO STRAIGHTEN LEGS OR MOVE THEM MUCH INDEPENDENTLY AT ALL. 2 PERSON MAX ASSIST FOR REPOSITIONING Q1-2. PAIN MANAGED WITH 1 OXYCONTIN Q4 AND 8MG ZANAFLEX Q8 FOR MUSCLE SPASMS. WOUND VAC DRESSING CHANGED THIS SHIFT, MINIMIAL SS OUTPUT IN CANISTER. PLAN IS TO DC TO SNF WHEN BED AVAILABLE.
--- NOTE | 2018-08-03 01:08 | NUR ---
A MUST. I ASKED ABOUT TURNING HER IN BED AND PATIENT EDUCATION ON BED SORES. PATIENT STATED..."I HAD A HARD DAY AND NEED REST."
--- NOTE | 2018-08-03 05:10 | NUR ---
PT HAD NO ACUTE CHANGES T/O NIGHT, VSS. PAIN AND SPASMS MGD PER EMAR. PT REMAINS PAINFUL W/ANY MOVEMENT, NEEDING ENC AND MOTIVATION TO ASSIST W/REPOSITIONING. WOUND VAC INTACT W/SS DRNG NOTED. PT REPOSITIONED FREQUENTLY EDIS. PT EDIS REG PO, NO C/O N/V. PT USING CALL LIGHT FOR ASSISTANCE, WILL CONT TO MONITOR UNTIL REP GIVEN TO ONCOMING RN.
--- NOTE | 2018-08-03 15:52 | NUR ---
REPORT CALLED TO ANAYELI LACKEY AT [facility]. ALL PT PERSONAL BELONGINGS PACKED UP AND NOTIFIED OF PLAN.
--- NOTE | 2018-08-03 16:34 | NUR ---
PT PICKED UP BY [facility] AT THIS TIME. DISCHARGE PACKET SENT WITH EMS.
== END 2018-08-03 17:30 | DRG 853 ==
LOC: ER 17:45 → MEDS 17:46 → ICUE 23:05 → SURS 23:05 → MEDS 23:05 → ER 07-22 01:16 → MEDS 07-22 01:34 → ICUE 07-22 19:57 → SURS 07-24 19:46
PROVIDERS: Emergency Medicine; Internal Medicine; Internal Medicine Critical Care Medicine; Surgery; ADMIT Internal Medicine
PROC: 0JB90ZZ Excision of Buttock Subcutaneous Tissue and Fascia, Open Approach (ICD-10-PCS; principal; 2018-07-22 15:15)
PROC: 0JQ90ZZ Repair Buttock Subcutaneous Tissue and Fascia, Open Approach (ICD-10-PCS; 2018-07-23)
PROC: 0BH17EZ Insertion of Endotracheal Airway into Trachea, Via Natural or Artificial Opening (ICD-10-PCS; 2018-07-23)
PROC: 5A1945Z Respiratory Ventilation, 24-96 Consecutive Hours (ICD-10-PCS; 2018-07-23)
PROC: 0HBBXZX Excision of Right Upper Arm Skin, External Approach, Diagnostic (ICD-10-PCS; 2018-07-25)
DX: A41.9 Sepsis, unspecified organism (principal); J96.21 Acute and chronic respiratory failure with hypoxia; L02.31 Cutaneous abscess of buttock; M62.82 Rhabdomyolysis; L03.317 Cellulitis of buttock; E87.0 Hyperosmolality and hypernatremia; L12.0 Bullous pemphigoid; W19.XXXA Unspecified fall, initial encounter; Y92.9 Unspecified place or not applicable; I10 Essential (primary) hypertension; Z87.891 Personal history of nicotine dependence; Z68.39 Body mass index [BMI] 39.0-39.9, adult; E66.9 Obesity, unspecified; R62.7 Adult failure to thrive; Z74.01 Bed confinement status; R32 Unspecified urinary incontinence; L98.9 Disorder of the skin and subcutaneous tissue, unspecified; E87.70 Fluid overload, unspecified; R59.0 Localized enlarged lymph nodes; R73.9 Hyperglycemia, unspecified; M79.3 Panniculitis, unspecified; E88.81 Metabolic syndrome and other insulin resistance; E16.2 Hypoglycemia, unspecified
CPT/HCPCS: 31720; 36415; 36600; 51702; 71045; 71260; 76882; 80048; 80053; 80069; 80202; 81001; 82550; 82553; 82803; 82947; 83036; 83605; 85025; 85027; 87070; 87071; 87075; 87205; 88305; 88312; 93306; 94002; 94003; 94640; 96361-59; 96374-59; 96375-59; 96376-59; 97163; 97167; 97530; 99284-25; C9113; J0690; J1100; J1170; J1650; J1940; J2250; J2405; J2543; J2710; J3010; J3370; J7030; J7050; J7120; Q9967

== ENCOUNTER 2019-01-14 20:21 | Emergency (ER) | payer OTHER ==
[~2019-01-14] VITALS: Ht 165.1 cm; Wt 97.5 kg
[~2019-01-14 20:21] MED LIST changes: +ACET325 PO; +LINZESS290 MCG PO; +OXYC5 PO; +PREG150 PO; +Zanaflex4 MG PO
[2019-01-14] MEDS ORDERED: METF500 PO (20:42)
[2019-01-14] MEDS ORDERED: Fentanyl1 EAC2 TOP (20:42)
--- NOTE | 2019-01-14 23:57 | NUR ---
INTO SDS VIA [employer].HISTORY AND ALLERGIES REVIEWED. NPO SINCE 1900. LUNGS DIMINISHED IN THE BASES-SATS>90% ON RA. PT REPORTS 9/10 DISCOMFORT-GENERALIZED. PT APPEARS QUITE ANXIOUS, BUT COOPERATIVE AT THIS TIME.
--- NOTE | 2019-01-15 00:07 | NUR ---
01/15/19 0007 Jamie Crespo PATIENT DETERMINED TO BE ASA APPROPRIATE FOR PROPOFOL SEDATION PRIOR TO START OF PROCEDURE BY . 3-LEAD EKG REVIEWED WITH PHYSICIAN PRIOR TO START OF PROCEDURE.PATIENT CONFIRMS NPO STATUS AND AGREES WITH SCHEDULED PROCEDURE.History, Chart, Medications and Allergies reviewed before start of procedure.MONITOR INTACT WITH CONTINUOUS PULSE OXIMETRY AND INTERMITTENT BP.O2 VIA N/C INTACT THROUGHOUT SEDATION/PROCEDURE.Bite Block Placed
--- NOTE | 2019-01-15 01:01 | NUR ---
RELEASED TO [facility] FOR RETURN [facility] AFTER REPORT CALLED. PT IS ON LOCKHART PAD WITH CHUX, EV CARE AND ATTENDS PLACED PRIOR TO TRANSFER TO [facility]. INSTRUCTIONS WRITTEN BY DR HARRIS.
== END 2019-01-14 23:37 | disposition other institution (70) ==
LOC: ER 20:21
DX: K22.2 Esophageal obstruction (principal); Z79.899 Other long term (current) drug therapy; Z79.84 Long term (current) use of oral hypoglycemic drugs; Z79.891 Long term (current) use of opiate analgesic; I10 Essential (primary) hypertension; Z87.891 Personal history of nicotine dependence
CPT/HCPCS: 82947; 99285; J2704; J7120

== ENCOUNTER → 2019-05-29 | Outpatient (CLI) | payer OTHER ==
[~2019-05-29] MED LIST changes: +Fentanyl1 EAC2 TOP; +METF500 PO
== END | disposition home or self-care (01) ==
LOC: LAB SHORT 07:57 → PLD 07:57
DX: L60.2 Onychogryphosis (principal); B35.1 Tinea unguium
CPT/HCPCS: 88305; 88312

== ENCOUNTER → 2019-06-08 | Outpatient (CLI) | payer OTHER ==
[2019-06-08 11:11] LABS: Anion Gap 6 mmol/L (6-16); Blood Urea Nitrogen 9 mg/dL (8-24); Bun/Creatinine Ratio 19.8 (12.0-20.0); CO2, Blood 33 mmol/L (21-32); Calcium, Blood 8.6 mg/dL (8.5-10.1); Chloride, Blood 98 mmol/L (98-108); Creatinine, Blood 0.46 mg/dL (0.40-1.00); Glomerular Filtration Rate >60 (60-); Glucose, Blood 232 mg/dL (70-99); Potassium, Blood 4.2 mmol/L (3.5-5.5); Sodium, Blood 137 mmol/L (136-145)
== END | disposition home or self-care (01) ==
LOC: LAB UVN 08:40 → EDSTATUS 11:25 → LAB UVN 11:26
PROVIDERS: Nurse Practitioner Family
DX: E11.9 Type 2 diabetes mellitus without complications (principal); I10 Essential (primary) hypertension; G47.39 Other sleep apnea
CPT/HCPCS: 80048

== ENCOUNTER → 2019-06-08 | Outpatient (CLI) | payer OTHER ==
[2019-06-08 12:26] LABS: Appearance, Urine Turbid (Clear); Bilirubin, Urine Neg (Neg); Blood, Urine 4+ (Neg); Color, Urine Yellow (P-Yellow); Glucose Qualitative, Urine 3+ (Neg); Ketones, Urine 1+ (Neg); Leukocyte Esterase, Urine 3+ (Neg); Nitrite, Urine Neg (Neg); Protein, Urine 2+ (Neg); Urobilinogen, Urine NORM (Normal)
[2019-06-08 12:37] LABS: Red Blood Cells, Urine 50-100 /hpf (0-2); White Blood Cells, Urine TNTC /hpf (0-5)
[2019-06-08 12:38] LABS: Bacteria Many /hpf; Squamous Epithelial Cells Not Seen /hpf (Few)
[2019-06-08 14:59] LABS: Hematocrit 42.7 % (33.0-51.0); Hemoglobin 12.4 g/dL (11.5-16.0); Mean Corpuscular HGB 24.8 pg (26.0-34.0); Mean Corpuscular Volume 86 fL (80-100); Mean Platelet Volume 9.5 fL (9.1-12.4); Platelet Count 261 K/mm3 (150-400); RDW Coefficient Variation 16.6 % (11.7-14.2); RDW Standard Deviation 52.3 fL (35.1-46.3); Red Blood Cell Count 4.99 M/mm3 (3.80-5.20); White Blood Cell Count 8.53 K/mm3 (4.00-11.30)
== END | disposition home or self-care (01) ==
LOC: LAB UVN 10:50 → EDSTATUS 11:26
PROVIDERS: Nurse Practitioner Family
DX: N39.0 Urinary tract infection, site not specified (principal); R53.1 Weakness; E11.9 Type 2 diabetes mellitus without complications; I10 Essential (primary) hypertension
CPT/HCPCS: 81001; 83036; 85027; 87077; 87086; 87186

== ENCOUNTER → 2019-08-30 | Outpatient (CLI) | payer OTHER | END | disposition home or self-care (01) | LOC: LAB UVN 06:12 → EDSTATUS 10:39 | DX: E11.9 Type 2 diabetes mellitus without complications (principal) | CPT/HCPCS: 83036 ==

== ENCOUNTER → 2019-10-27 | Outpatient (CLI) | payer OTHER ==
[2019-10-27 06:21] LABS: Alanine Aminotransfer (ALT/SGP 26 U/L (12-78); Albumin, Blood 2.8 g/dL (3.4-5.0); Albumin/Globulin Ratio 0.6 (0.8-1.8); Alk Phos 90 U/L (50-136); Anion Gap 5 mmol/L (6-16); Aspartate Aminotrans (AST/SGOT 22 U/L (12-37); Bilirubin, Direct <0.1 mg/dL (0.0-0.3); Bilirubin, Indirect Unable to Calculate mg/dL (0.1-0.7); Bilirubin, Total 0.4 mg/dL (0.1-1.0); Blood Urea Nitrogen 12 mg/dL (8-24); Bun/Creatinine Ratio 29.7 (12.0-20.0); CO2, Blood 31 mmol/L (21-32); CPK Creatine Kinase 32 U/L (26-193); Calcium, Blood 8.9 mg/dL (8.5-10.1); Chloride, Blood 101 mmol/L (98-108); Globulin, Blood 4.5 g/dL (2.2-4.0); Glomerular Filtration Rate >60 (60-); Glucose, Blood 170 mg/dL (70-99); Potassium, Blood 4.4 mmol/L (3.5-5.5); Sodium, Blood 137 mmol/L (136-145); Total Protein, Blood 7.3 g/dL (6.4-8.2)
[2019-10-30 19:52] LABS: CHOL/HDL RATIO 5.9; Cholesterol 207 mg/dL (50-200); HDL Cholesterol 35 mg/dL (>39); Low Density Lipoprotein Chol 139 mg/dL (0-110); Triglycerides 164 mg/dL (30-160); Very Low Density Lipoprot Chol 32 mg/dL (6-32)
== END | disposition home or self-care (01) ==
LOC: LAB UVN 04:10 → EDSTATUS 11:18
PROVIDERS: Nurse Practitioner Adult Health
DX: E11.42 Type 2 diabetes mellitus with diabetic polyneuropathy (principal)
CPT/HCPCS: 80053; 80061; 82248; 82550

== ENCOUNTER → 2020-01-05 | Outpatient (CLI) | payer OTHER ==
[~2020-01-05] MED LIST changes: +AMOCLA875 PO; +ATOR20 PO; +Adult Glycerin1 EACH PR; +CEFTRIAXON1 GM/50 M1 IV; +DOCU100 PO; +FENTANYL1 EA11 TD; -Fentanyl1 EAC2 TOP; +JUVEN PACKET1 EAC3 PO; -METF500 PO; +METFORMIN ER1000 M1 PO; +MIRALAX17 GM PO; +Milk Of Ma400 MG/5 M PO; +OMEP20ER PO; +ONDA4 PO; -PREG150 PO; +PREG200 PO; +Prinivil10 MG PO; +SENN187 PO; +TIZANIDINE HCL2 M2 PO
[2020-01-05 20:05] LABS: Hematocrit 41.6 % (33.0-51.0); Hemoglobin 12.2 g/dL (11.5-16.0); Mean Corpuscular HGB Conc 29.3 g/dL (31.5-36.5); Mean Corpuscular Volume 89 fL (80-100); Mean Platelet Volume 10.6 fL (9.1-12.4); Platelet Count 257 K/mm3 (150-400); RDW Coefficient Variation 17.7 % (11.7-14.2); RDW Standard Deviation 57.1 fL (35.1-46.3); Red Blood Cell Count 4.69 M/mm3 (3.80-5.20); White Blood Cell Count 15.61 K/mm3 (4.00-11.30)
[2020-01-05 20:27] LABS: Bun/Creatinine Ratio 28.2 (12.0-20.0); Calcium, Blood 8.9 mg/dL (8.5-10.1); Creatinine, Blood 1.56 mg/dL (0.40-1.00); Potassium, Blood 4.7 mmol/L (3.5-5.5)
== END ==
LOC: EDSTATUS 09:11 → LAB UVN 18:17
PROVIDERS: Physician Assistant
DX: E11.9 Type 2 diabetes mellitus without complications (principal); I10 Essential (primary) hypertension
CPT/HCPCS: 80048; 85027

== ENCOUNTER → 2020-02-13 | Outpatient (CLI) | payer OTHER ==
[~2020-02-13] MED LIST changes: +Colace100 MG PO; +FENTANYL1 EA13 TOP; +GAVILAX17 GM PO; +METFORMIN HCL1000 MG PO
[2020-02-13 06:32] LABS: BASOPHILS ABSOLUTE AUTO 0.03 K/mm3 (0.00-0.23); BASOPHILS PERCENT AUTO 0 % (0-2); EOSINOPHILS ABSOLUTE AUTO 0.28 K/mm3 (0.00-0.68); EOSINOPHILS PERCENT AUTO 2 % (0-6); Hematocrit 38.2 % (33.0-51.0); Hemoglobin 11.5 g/dL (11.5-16.0); IMMATURE GRAN ABSOLUTE AUTO 0.04 K/mm3 (0.00-0.10); IMMATURE GRAN PERCENT AUTO 0 % (0-1); LYMPHOCYTES PERCENT AUTO 27 % (21-46); MONOCYTES ABSOLUTE AUTO 1.02 K/mm3 (0.16-1.47); MONOCYTES PERCENT AUTO 9 % (4-13); Mean Corpuscular HGB 25.8 pg (26.0-34.0); Mean Corpuscular HGB Conc 30.1 g/dL (31.5-36.5); Mean Corpuscular Volume 86 fL (80-100); Mean Platelet Volume 10.7 fL (9.1-12.4); NEUTROPHILS ABSOLUTE AUTO 7.19 K/mm3 (1.96-9.15); NEUTROPHILS PERCENT AUTO 61 % (41-73); Platelet Count 268 K/mm3 (150-400); RDW Coefficient Variation 17.6 % (11.7-14.2); RDW Standard Deviation 55.3 fL (35.1-46.3); Red Blood Cell Count 4.45 M/mm3 (3.80-5.20); White Blood Cell Count 11.76 K/mm3 (4.00-11.30)
[2020-02-13 06:57] LABS: Anion Gap 5 mmol/L (6-16); Blood Urea Nitrogen 45 mg/dL (8-24); Bun/Creatinine Ratio 60.6 (12.0-20.0); CO2, Blood 32 mmol/L (21-32); Calcium, Blood 8.6 mg/dL (8.5-10.1); Chloride, Blood 102 mmol/L (98-108); Creatinine, Blood 0.74 mg/dL (0.40-1.00); Glomerular Filtration Rate >60 (60-); Glucose, Blood 110 mg/dL (70-99); Potassium, Blood 3.9 mmol/L (3.5-5.5); Sodium, Blood 139 mmol/L (136-145)
== END | disposition home or self-care (01) ==
LOC: LAB UVN 06:24 → EDSTATUS 10:47
PROVIDERS: Nurse Practitioner Adult Health
DX: R10.9 Unspecified abdominal pain (principal)
CPT/HCPCS: 80048; 85025

== ENCOUNTER 2020-02-16 15:55 | Inpatient (IN) | payer OTHER ==
[~2020-02-16] VITALS: Ht 165.1 cm; Wt 95.8 kg
[~2020-02-16 15:55] MED LIST changes: -AZIT500 PO; -CEFU500T30 PO; -CYCL10 PO; -Colace100 MG PO; -DULCOLAX STOOL100 MG PO; -FENTANYL TOP; -FENTANYL1 EA13 TOP; -GAVILAX17 GM PO; -METF500 PO; -METFORMIN HCL1000 MG PO; -NYSTOP15 GM TOP; -PREG50; -Senokotxtra17.2 MG PO; -VISBIOME PO
[2020-02-16] MEDS ORDERED: ATOR20 PO (16:25)
[2020-02-16] MEDS ORDERED: GAVILAX17 GM PO (16:26)
[2020-02-16] MEDS ORDERED: Colace100 MG PO (16:26)
[2020-02-16] MEDS ORDERED: SENN187 PO (16:26)
[2020-02-16] MEDS ORDERED: Prinivil10 MG PO (16:26)
[2020-02-16] MEDS ORDERED: PREG200 PO (16:27)
[2020-02-16] MEDS ORDERED: JUVEN PACKET1 EAC3 PO (16:27)
[2020-02-16] MEDS ORDERED: METFORMIN HCL1000 MG PO (16:28)
[2020-02-16] MEDS ORDERED: OMEP20ER PO (16:28)
[2020-02-16] MEDS ORDERED: FENTANYL1 EA13 TOP (16:29)
[2020-02-16] MEDS ORDERED: OXYC5 PO (16:30)
[2020-02-16 16:49] LABS: Source, Urine Voided
[2020-02-16 16:57] LABS: Hemoglobin 12.2 g/dL (11.5-16.0); Mean Corpuscular HGB 25.9 pg (26.0-34.0); Mean Corpuscular HGB Conc 30.5 g/dL (31.5-36.5); Mean Corpuscular Volume 85 fL (80-100); Mean Platelet Volume 10.2 fL (9.1-12.4); Platelet Count 253 K/mm3 (150-400); RDW Standard Deviation 56.3 fL (35.1-46.3); Red Blood Cell Count 4.71 M/mm3 (3.80-5.20); White Blood Cell Count 19.97 K/mm3 (4.00-11.30)
[2020-02-16 16:59] LABS: Appearance, Urine Turbid (Clear); Bilirubin, Urine Neg (Neg); Blood, Urine 5+ (Neg); Color, Urine Yellow (P-Yellow); Glucose Qualitative, Urine Neg (Neg); Ketones, Urine 1+ (Neg); Leukocyte Esterase, Urine 3+ (Neg); Nitrite, Urine Pos (Neg); Protein, Urine 3+ (Neg); Urobilinogen, Urine NORM (Normal)
[2020-02-16 17:09] LABS: Bacteria Mod /hpf; Red Blood Cells, Urine 50-100 /hpf (0-2); Squamous Epithelial Cells Rare /hpf (Few); White Blood Cells, Urine TNTC /hpf (0-5)
[2020-02-16 17:11] LABS: Albumin, Blood 1.9 g/dL (3.4-5.0); Albumin/Globulin Ratio 0.4 (0.8-1.8); Bilirubin, Total 0.4 mg/dL (0.1-1.0); Bun/Creatinine Ratio 28.1 (12.0-20.0); Calcium, Blood 6.3 mg/dL (8.5-10.1); Creatinine, Blood 1.6 mg/dL (0.40-1.00); Globulin, Blood 5.1 g/dL (2.2-4.0); Potassium, Blood 6.8 mmol/L (3.5-5.5)
[2020-02-16 17:20] LABS: BAND PERCENT MAN 28 % (0-8); BASOPHILS PERCENT MAN 0 % (0-2); EOSINOPHILS PERCENT MAN 0 % (0-6); LYMPHOCYTES ABSOLUTE MAN 0.59 K/mm3 (0.84-5.20); LYMPHOCYTES PERCENT MAN 3 % (21-46); MONOCYTES ABSOLUTE MAN 0.59 K/mm3 (0.16-1.47); MONOCYTES PERCENT MAN 3 % (4-13); NEUTROPHILS ABSOLUTE MAN 18.77 K/mm3 (1.96-9.15); SEG NEUTROPHILS PERCENT MAN 66 % (41-73); TOTAL CELLS COUNTED 100
[2020-02-16 18:12] LABS: PCO2 Arterial 47.6 mmHg (35-45); PO2 Arterial 75.3 mmHg (80-100); pH Blood Arterial 7.34 (7.35-7.45)
[2020-02-16 20:55] LABS: Calcium, Ionized (POC) 0.96 mmol/L (1.10-1.46); Chloride (POC) 101 mmol/L (98-108); Creatinine (POC) 2.5 mg/dL (0.6-1.0); Glucose (ISTAT POC) 104 mg/dL (70-99); Potassium (POC) 5.4 mmol/L (3.5-5.5); Sodium (POC) 131 mmol/L (135-148); Total CO2 (POC) 23 mmol/L (21-32)
[2020-02-17 01:03] LABS: Adenovirus Not Detected (NOT DETECT); Bordetella pertussis Not Detected (NOT DETECT); Chlamydophila pneumoniae Not Detected (NOT DETECT); Coronavirus 229E Not Detected (NOT DETECT); Coronavirus HKU1 Not Detected (NOT DETECT); Coronavirus NL63 Not Detected (NOT DETECT); Coronavirus OC43 Not Detected (NOT DETECT); Human Metapneumovirus Not Detected (NOT DETECT); Human Rhinovirus/Enterovirus Not Detected (NOT DETECT); Influenza A/2009-H1 Not Detected (NOT DETECT); Influenza A/H1 Not Detected (NOT DETECT); Influenza A/H3 Not Detected (NOT DETECT); Influenza B Not Detected (NOT DETECT); Mycoplasma pneumoniae Not Detected (NOT DETECT); Parainfluenza Virus 1 Not Detected (NOT DETECT); Parainfluenza Virus 2 Not Detected (NOT DETECT); Parainfluenza Virus 3 Not Detected (NOT DETECT); Parainfluenza Virus 4 Not Detected (NOT DETECT); Respiratory Syncytial Virus Not Detected (NOT DETECT); SARS-Cov-2 (COVID-19), BioFire Not Detected (NOT DETECT)
[2020-02-17 04:03] LABS: BASOPHILS ABSOLUTE AUTO 0.04 K/mm3 (0.00-0.23); BASOPHILS PERCENT AUTO 0 % (0-2); Hematocrit 36.7 % (33.0-51.0); Hemoglobin 10.9 g/dL (11.5-16.0); LYMPHOCYTES ABSOLUTE AUTO 1.03 K/mm3 (0.84-5.20); LYMPHOCYTES PERCENT AUTO 6 % (21-46); MONOCYTES ABSOLUTE AUTO 0.88 K/mm3 (0.16-1.47); MONOCYTES PERCENT AUTO 5 % (4-13); Mean Corpuscular HGB 25.5 pg (26.0-34.0); Mean Corpuscular HGB Conc 29.7 g/dL (31.5-36.5); Mean Corpuscular Volume 86 fL (80-100); Mean Platelet Volume 10.4 fL (9.1-12.4); Platelet Count 237 K/mm3 (150-400); RDW Coefficient Variation 18.2 % (11.7-14.2); RDW Standard Deviation 57.7 fL (35.1-46.3); Red Blood Cell Count 4.27 M/mm3 (3.80-5.20); White Blood Cell Count 17.31 K/mm3 (4.00-11.30)
[2020-02-17 04:09] LABS: EOSINOPHILS ABSOLUTE AUTO 0.05 K/mm3 (0.00-0.68); EOSINOPHILS PERCENT AUTO 0 % (0-6); IMMATURE GRAN ABSOLUTE AUTO 1.51 K/mm3 (0.00-0.10); IMMATURE GRAN PERCENT AUTO 9 % (0-1); NEUTROPHILS PERCENT AUTO 80 % (41-73)
[2020-02-17 04:20] LABS: BAND PERCENT MAN 9 % (0-8); BASOPHILS PERCENT MAN 0 % (0-2); EOSINOPHILS PERCENT MAN 0 % (0-6); LYMPHOCYTES ABSOLUTE MAN 1.21 K/mm3 (0.84-5.20); LYMPHOCYTES PERCENT MAN 7 % (21-46); MONOCYTES ABSOLUTE MAN 0.17 K/mm3 (0.16-1.47); MONOCYTES PERCENT MAN 1 % (4-13); NEUTROPHILS ABSOLUTE MAN 15.92 K/mm3 (1.96-9.15); SEG NEUTROPHILS PERCENT MAN 83 % (41-73); TOTAL CELLS COUNTED 100
[2020-02-17 04:29] LABS: Magnesium, Blood 1.4 mg/dL (1.6-2.4)
[2020-02-17 04:41] LABS: Albumin, Blood 1.7 g/dL (3.4-5.0); Albumin/Globulin Ratio 0.4 (0.8-1.8); Bilirubin, Total 0.3 mg/dL (0.1-1.0); Creatinine, Blood 1.89 mg/dL (0.40-1.00); Globulin, Blood 4.4 g/dL (2.2-4.0); Phosphorus, Blood 4.5 mg/dL (2.5-4.9); Potassium, Blood 5.4 mmol/L (3.5-5.5); Total Protein, Blood 6.1 g/dL (6.4-8.2)
[2020-02-17 04:43] LABS: Calcium, Blood 8.5 mg/dL (8.5-10.1)
[2020-02-17 17:28] LABS: Bun/Creatinine Ratio 40.8 (12.0-20.0); Calcium, Blood 8.1 mg/dL (8.5-10.1); Creatinine, Blood 1.69 mg/dL (0.40-1.00); Potassium, Blood 5.6 mmol/L (3.5-5.5)
[2020-02-17 17:29] LABS: Vancomycin, Trough 16.7 ug/mL (5.0-10.0)
[2020-02-18 03:57] LABS: Hematocrit 34.9 % (33.0-51.0); Hemoglobin 10.4 g/dL (11.5-16.0); Mean Corpuscular HGB 26.3 pg (26.0-34.0); Mean Corpuscular HGB Conc 29.8 g/dL (31.5-36.5); Mean Corpuscular Volume 88 fL (80-100); Mean Platelet Volume 9.9 fL (9.1-12.4); Platelet Count 199 K/mm3 (150-400); RDW Coefficient Variation 18.6 % (11.7-14.2); RDW Standard Deviation 60.4 fL (35.1-46.3); Red Blood Cell Count 3.96 M/mm3 (3.80-5.20); White Blood Cell Count 19.72 K/mm3 (4.00-11.30)
[2020-02-18 04:08] LABS: Albumin, Blood 1.5 g/dL (3.4-5.0); Anion Gap 4 mmol/L (6-16); Blood Urea Nitrogen 62 mg/dL (8-24); Bun/Creatinine Ratio 40.3 (12.0-20.0); CO2, Blood 25 mmol/L (21-32); Calcium, Blood 7.5 mg/dL (8.5-10.1); Chloride, Blood 110 mmol/L (98-108); Creatinine, Blood 1.54 mg/dL (0.40-1.00); Glomerular Filtration Rate 36 (60-); Glucose, Blood 130 mg/dL (70-99); Phosphorus, Blood 4.8 mg/dL (2.5-4.9); Sodium, Blood 139 mmol/L (136-145)
[2020-02-18 05:37] LABS: BAND PERCENT MAN 6 % (0-8); BASOPHILS PERCENT MAN 0 % (0-2); EOSINOPHILS ABSOLUTE MAN 0.59 K/mm3 (0.00-0.68); EOSINOPHILS PERCENT MAN 3 % (0-6); LYMPHOCYTES ABSOLUTE MAN 1.97 K/mm3 (0.84-5.20); LYMPHOCYTES PERCENT MAN 10 % (21-46); MONOCYTES ABSOLUTE MAN 0.39 K/mm3 (0.16-1.47); MONOCYTES PERCENT MAN 2 % (4-13); NEUTROPHILS ABSOLUTE MAN 16.76 K/mm3 (1.96-9.15); SEG NEUTROPHILS PERCENT MAN 79 % (41-73); TOTAL CELLS COUNTED 100
[2020-02-19 07:57] LABS: BASOPHILS ABSOLUTE AUTO 0.05 K/mm3 (0.00-0.23); BASOPHILS PERCENT AUTO 0 % (0-2); EOSINOPHILS ABSOLUTE AUTO 0.24 K/mm3 (0.00-0.68); EOSINOPHILS PERCENT AUTO 2 % (0-6); Hematocrit 33.4 % (33.0-51.0); Hemoglobin 9.7 g/dL (11.5-16.0); IMMATURE GRAN PERCENT AUTO 1 % (0-1); LYMPHOCYTES PERCENT AUTO 8 % (21-46); MONOCYTES ABSOLUTE AUTO 0.82 K/mm3 (0.16-1.47); MONOCYTES PERCENT AUTO 6 % (4-13); Mean Corpuscular HGB 25.3 pg (26.0-34.0); Mean Corpuscular Volume 87 fL (80-100); Mean Platelet Volume 10.2 fL (9.1-12.4); NEUTROPHILS PERCENT AUTO 84 % (41-73); Platelet Count 155 K/mm3 (150-400); RDW Coefficient Variation 18.9 % (11.7-14.2); RDW Standard Deviation 60.5 fL (35.1-46.3); Red Blood Cell Count 3.83 M/mm3 (3.80-5.20); White Blood Cell Count 14.31 K/mm3 (4.00-11.30)
[2020-02-19 08:21] LABS: Albumin, Blood 1.5 g/dL (3.4-5.0); Anion Gap 5 mmol/L (6-16); Blood Urea Nitrogen 45 mg/dL (8-24); Bun/Creatinine Ratio 40.5 (12.0-20.0); CO2, Blood 23 mmol/L (21-32); Calcium, Blood 8.1 mg/dL (8.5-10.1); Chloride, Blood 116 mmol/L (98-108); Creatinine, Blood 1.11 mg/dL (0.40-1.00); Glomerular Filtration Rate 53 (60-); Glucose, Blood 79 mg/dL (70-99); Phosphorus, Blood 2.9 mg/dL (2.5-4.9); Potassium, Blood 4.4 mmol/L (3.5-5.5); Sodium, Blood 144 mmol/L (136-145)
[2020-02-20 08:22] LABS: BASOPHILS ABSOLUTE AUTO 0.03 K/mm3 (0.00-0.23); BASOPHILS PERCENT AUTO 0 % (0-2); EOSINOPHILS ABSOLUTE AUTO 0.22 K/mm3 (0.00-0.68); EOSINOPHILS PERCENT AUTO 2 % (0-6); Hematocrit 31.9 % (33.0-51.0); Hemoglobin 9.6 g/dL (11.5-16.0); IMMATURE GRAN ABSOLUTE AUTO 0.11 K/mm3 (0.00-0.10); IMMATURE GRAN PERCENT AUTO 1 % (0-1); LYMPHOCYTES ABSOLUTE AUTO 1.56 K/mm3 (0.84-5.20); LYMPHOCYTES PERCENT AUTO 14 % (21-46); MONOCYTES PERCENT AUTO 10 % (4-13); Mean Corpuscular HGB 25.6 pg (26.0-34.0); Mean Corpuscular HGB Conc 30.1 g/dL (31.5-36.5); Mean Corpuscular Volume 85 fL (80-100); Mean Platelet Volume 9.9 fL (9.1-12.4); NEUTROPHILS ABSOLUTE AUTO 7.89 K/mm3 (1.96-9.15); NEUTROPHILS PERCENT AUTO 72 % (41-73); Platelet Count 151 K/mm3 (150-400); RDW Coefficient Variation 18.9 % (11.7-14.2); RDW Standard Deviation 58.8 fL (35.1-46.3); Red Blood Cell Count 3.75 M/mm3 (3.80-5.20); White Blood Cell Count 10.91 K/mm3 (4.00-11.30)
[2020-02-20 08:43] LABS: Anion Gap 5 mmol/L (6-16); Blood Urea Nitrogen 31 mg/dL (8-24); Bun/Creatinine Ratio 35.2 (12.0-20.0); CO2, Blood 26 mmol/L (21-32); Calcium, Blood 8.1 mg/dL (8.5-10.1); Chloride, Blood 115 mmol/L (98-108); Creatinine, Blood 0.88 mg/dL (0.40-1.00); Glomerular Filtration Rate >60 (60-); Glucose, Blood 174 mg/dL (70-99); Potassium, Blood 3.9 mmol/L (3.5-5.5); Sodium, Blood 146 mmol/L (136-145)
[2020-02-21 05:23] LABS: BASOPHILS ABSOLUTE AUTO 0.02 K/mm3 (0.00-0.23); BASOPHILS PERCENT AUTO 0 % (0-2); EOSINOPHILS ABSOLUTE AUTO 0.26 K/mm3 (0.00-0.68); EOSINOPHILS PERCENT AUTO 3 % (0-6); Hematocrit 32.2 % (33.0-51.0); Hemoglobin 9.9 g/dL (11.5-16.0); IMMATURE GRAN ABSOLUTE AUTO 0.08 K/mm3 (0.00-0.10); IMMATURE GRAN PERCENT AUTO 1 % (0-1); LYMPHOCYTES ABSOLUTE AUTO 1.43 K/mm3 (0.84-5.20); LYMPHOCYTES PERCENT AUTO 16 % (21-46); MONOCYTES ABSOLUTE AUTO 0.56 K/mm3 (0.16-1.47); MONOCYTES PERCENT AUTO 6 % (4-13); Mean Corpuscular HGB 25.9 pg (26.0-34.0); Mean Corpuscular HGB Conc 30.7 g/dL (31.5-36.5); Mean Corpuscular Volume 84 fL (80-100); Mean Platelet Volume 10.8 fL (9.1-12.4); NEUTROPHILS ABSOLUTE AUTO 6.36 K/mm3 (1.96-9.15); NEUTROPHILS PERCENT AUTO 73 % (41-73); Platelet Count 160 K/mm3 (150-400); RDW Coefficient Variation 18.4 % (11.7-14.2); RDW Standard Deviation 56.4 fL (35.1-46.3); Red Blood Cell Count 3.82 M/mm3 (3.80-5.20); White Blood Cell Count 8.71 K/mm3 (4.00-11.30)
[2020-02-21 05:59] LABS: Anion Gap 6 mmol/L (6-16); Blood Urea Nitrogen 28 mg/dL (8-24); Bun/Creatinine Ratio 38.3 (12.0-20.0); CO2, Blood 26 mmol/L (21-32); Calcium, Blood 7.9 mg/dL (8.5-10.1); Chloride, Blood 112 mmol/L (98-108); Creatinine, Blood 0.73 mg/dL (0.40-1.00); Glomerular Filtration Rate >60 (60-); Glucose, Blood 153 mg/dL (70-99); Potassium, Blood 3.9 mmol/L (3.5-5.5); Sodium, Blood 144 mmol/L (136-145)
[2020-02-24] MEDS ORDERED: CEFU500T30 PO (09:43)
== END 2020-02-24 11:07 | disposition home or self-care (01) | DRG 871 ==
LOC: ER 15:55 → ICUW 20:04 → MEDS 20:04 → ICUW 22:13 → MEDS 02-19 14:42
PROVIDERS: Internal Medicine; Nurse Practitioner Acute Care; Physician Assistant; Student in an Organized Health Care Education/Training Program; ADMIT Internal Medicine
PROC: 3E043XZ Introduction of Vasopressor into Central Vein, Percutaneous Approach (ICD-10-PCS; principal; 2020-02-16)
PROC: 02HV33Z Insertion of Infusion Device into Superior Vena Cava, Percutaneous Approach (ICD-10-PCS; 2020-02-16)
DX: A41.51 Sepsis due to Escherichia coli [E. coli] (principal); L89.323 Pressure ulcer of left buttock, stage 3; L89.223 Pressure ulcer of left hip, stage 3; J18.9 Pneumonia, unspecified organism; J96.01 Acute respiratory failure with hypoxia; R65.21 Severe sepsis with septic shock; G93.41 Metabolic encephalopathy; J96.02 Acute respiratory failure with hypercapnia; N17.9 Acute kidney failure, unspecified; Z16.24 Resistance to multiple antibiotics; N10 Acute pyelonephritis; Z20.828 Contact with and (suspected) exposure to other viral communicable diseases; E83.52 Hypercalcemia; F32.9 Major depressive disorder, single episode, unspecified; I10 Essential (primary) hypertension; K76.0 Fatty (change of) liver, not elsewhere classified; G89.29 Other chronic pain; Z66 Do not resuscitate; E87.5 Hyperkalemia; E83.42 Hypomagnesemia; E11.9 Type 2 diabetes mellitus without complications; Z74.01 Bed confinement status; Z87.891 Personal history of nicotine dependence
CPT/HCPCS: 0202U; 36415; 36556; 36600; 51702; 71045; 74176; 80047; 80048; 80053; 80069; 80202; 81001; 82330; 82803; 82947; 83605; 83690; 83735; 84100; 84145; 85014; 85025; 87040; 87077; 87086; 87186; 92526; 92610; 93005; 93010; 94762; 96365-59; 96366-59; 96368; 96375-59; 99285-25; A9270-GY; C1751; C9113; J0610; J0692; J0696; J1650; J1815; J2270; J2405; J2543; J3010; J3370; J3475; J7030; J7050; J7060; J7070; J7120; U0003

== ENCOUNTER → 2020-02-16 | Outpatient (CLI) | payer OTHER ==
[~2020-02-16] MED LIST changes: +AZIT500 PO; +CEFU500T30 PO; +CYCL10 PO; +DULCOLAX STOOL100 MG PO; +FENTANYL TOP; +METF500 PO; +NYSTOP15 GM TOP; +PREG50; +Senokotxtra17.2 MG PO; +VISBIOME PO
[2020-02-16 14:03] LABS: Hematocrit 44.4 % (33.0-51.0); Hemoglobin 13.1 g/dL (11.5-16.0); Mean Corpuscular HGB 25.4 pg (26.0-34.0); Mean Corpuscular HGB Conc 29.5 g/dL (31.5-36.5); Mean Corpuscular Volume 86 fL (80-100); Mean Platelet Volume 10.7 fL (9.1-12.4); Platelet Count 290 K/mm3 (150-400); RDW Coefficient Variation 18.3 % (11.7-14.2); Red Blood Cell Count 5.15 M/mm3 (3.80-5.20); White Blood Cell Count 22.84 K/mm3 (4.00-11.30)
== END | disposition home or self-care (01) ==
LOC: EDSTATUS 11:22 → LAB UVN 13:58
PROVIDERS: Family Medicine
DX: E11.42 Type 2 diabetes mellitus with diabetic polyneuropathy (principal); G93.49 Other encephalopathy; R53.82 Chronic fatigue, unspecified
CPT/HCPCS: 85027

== ENCOUNTER 2020-03-04 00:29 | Inpatient (IN) | payer OTHER ==
[~2020-03-04] VITALS: Ht 165.1 cm; Wt 98.0 kg
[~2020-03-04 00:29] MED LIST changes: +CEFU500T30 PO; +Colace100 MG PO; +FENTANYL1 EA13 TOP; +GAVILAX17 GM PO; +METFORMIN HCL1000 MG PO
[2020-03-04 00:44] LABS: PCO2 Arterial 65.3 mmHg (35-45); PO2 Arterial 103 mmHg (80-100); pH Blood Arterial 7.33 (7.35-7.45)
[2020-03-04 00:52] LABS: BASOPHILS ABSOLUTE AUTO 0.06 K/mm3 (0.00-0.23); BASOPHILS PERCENT AUTO 1 % (0-2); EOSINOPHILS ABSOLUTE AUTO 0.09 K/mm3 (0.00-0.68); EOSINOPHILS PERCENT AUTO 1 % (0-6); Hematocrit 35.8 % (33.0-51.0); Hemoglobin 10.4 g/dL (11.5-16.0); IMMATURE GRAN ABSOLUTE AUTO 0.05 K/mm3 (0.00-0.10); IMMATURE GRAN PERCENT AUTO 0 % (0-1); LYMPHOCYTES ABSOLUTE AUTO 1.53 K/mm3 (0.84-5.20); LYMPHOCYTES PERCENT AUTO 12 % (21-46); MONOCYTES PERCENT AUTO 11 % (4-13); Mean Corpuscular HGB 25.8 pg (26.0-34.0); Mean Corpuscular HGB Conc 29.1 g/dL (31.5-36.5); Mean Corpuscular Volume 89 fL (80-100); Mean Platelet Volume 10.1 fL (9.1-12.4); NEUTROPHILS ABSOLUTE AUTO 9.32 K/mm3 (1.96-9.15); NEUTROPHILS PERCENT AUTO 76 % (41-73); Platelet Count 335 K/mm3 (150-400); RDW Coefficient Variation 18.3 % (11.7-14.2); RDW Standard Deviation 59.7 fL (35.1-46.3); Red Blood Cell Count 4.03 M/mm3 (3.80-5.20); White Blood Cell Count 12.35 K/mm3 (4.00-11.30)
[2020-03-04 01:08] LABS: Source, Urine Clean Catch
[2020-03-04] MEDS ORDERED: ATOR20 PO (01:13)
[2020-03-04] MEDS ORDERED: Prinivil10 MG PO (01:13)
[2020-03-04 01:14] LABS: Alanine Aminotransfer (ALT/SGP 10 U/L (12-78); Albumin, Blood 1.5 g/dL (3.4-5.0); Albumin/Globulin Ratio 0.3 (0.8-1.8); Alk Phos 112 U/L (50-136); Anion Gap 6 mmol/L (6-16); Aspartate Aminotrans (AST/SGOT 13 U/L (12-37); Bilirubin, Total 0.3 mg/dL (0.1-1.0); Blood Urea Nitrogen 20 mg/dL (8-24); Bun/Creatinine Ratio 37.3 (12.0-20.0); CO2, Blood 33 mmol/L (21-32); Chloride, Blood 104 mmol/L (98-108); Creatinine, Blood 0.54 mg/dL (0.40-1.00); Globulin, Blood 4.8 g/dL (2.2-4.0); Glomerular Filtration Rate >60 (60-); Glucose, Blood 207 mg/dL (70-99); Potassium, Blood 3.5 mmol/L (3.5-5.5); Sodium, Blood 143 mmol/L (136-145); Total Protein, Blood 6.3 g/dL (6.4-8.2); Troponin I 0.024 ng/mL (0.000-0.040)
[2020-03-04] MEDS ORDERED: DULCOLAX STOOL100 MG PO (01:14)
[2020-03-04] MEDS ORDERED: JUVEN PACKET1 EAC3 PO (01:14)
[2020-03-04] MEDS ORDERED: Senokotxtra17.2 MG PO (01:14)
[2020-03-04] MEDS ORDERED: METF500 PO (01:15)
[2020-03-04] MEDS ORDERED: PREG50 (01:15)
[2020-03-04] MEDS ORDERED: OMEP20ER PO (01:15)
[2020-03-04] MEDS ORDERED: CYCL10 PO (01:16)
[2020-03-04 01:19] LABS: Bilirubin, Urine Neg (Neg); Blood, Urine 4+ (Neg); Glucose Qualitative, Urine Neg (Neg); Ketones, Urine Neg (Neg); Leukocyte Esterase, Urine 3+ (Neg); Nitrite, Urine Neg (Neg); Protein, Urine 3+ (Neg); Urobilinogen, Urine NORM (Normal)
[2020-03-04 01:21] LABS: Appearance, Urine Hazy (Clear); Color, Urine Yellow (P-Yellow)
[2020-03-04 01:25] LABS: Amorphous Mod (0-Heavy); Bacteria Mod /hpf; Squamous Epithelial Cells Few /hpf (Few); White Blood Cells, Urine TNTC /hpf (0-5)
[2020-03-04] MEDS ORDERED: OXYC5 PO (01:41)
[2020-03-04] MEDS ORDERED: FENTANYL TOP (01:41)
[2020-03-04] MEDS ORDERED: MIRALAX17 GM PO (05:29)
[2020-03-04 05:46] LABS: BASOPHILS ABSOLUTE AUTO 0.07 K/mm3 (0.00-0.23); BASOPHILS PERCENT AUTO 1 % (0-2); EOSINOPHILS ABSOLUTE AUTO 0.08 K/mm3 (0.00-0.68); EOSINOPHILS PERCENT AUTO 1 % (0-6); Hematocrit 35.5 % (33.0-51.0); Hemoglobin 10.2 g/dL (11.5-16.0); IMMATURE GRAN ABSOLUTE AUTO 0.04 K/mm3 (0.00-0.10); IMMATURE GRAN PERCENT AUTO 0 % (0-1); LYMPHOCYTES ABSOLUTE AUTO 1.67 K/mm3 (0.84-5.20); LYMPHOCYTES PERCENT AUTO 14 % (21-46); MONOCYTES ABSOLUTE AUTO 1.64 K/mm3 (0.16-1.47); MONOCYTES PERCENT AUTO 13 % (4-13); Mean Corpuscular HGB 26.1 pg (26.0-34.0); Mean Corpuscular HGB Conc 28.7 g/dL (31.5-36.5); Mean Corpuscular Volume 91 fL (80-100); Mean Platelet Volume 10.1 fL (9.1-12.4); NEUTROPHILS ABSOLUTE AUTO 8.86 K/mm3 (1.96-9.15); NEUTROPHILS PERCENT AUTO 72 % (41-73); Platelet Count 304 K/mm3 (150-400); RDW Coefficient Variation 18.5 % (11.7-14.2); RDW Standard Deviation 61.7 fL (35.1-46.3); Red Blood Cell Count 3.91 M/mm3 (3.80-5.20); White Blood Cell Count 12.36 K/mm3 (4.00-11.30)
[2020-03-04 06:06] LABS: Alanine Aminotransfer (ALT/SGP 15 U/L (12-78); Albumin, Blood 1.5 g/dL (3.4-5.0); Albumin/Globulin Ratio 0.3 (0.8-1.8); Alk Phos 108 U/L (50-136); Anion Gap 3 mmol/L (6-16); Aspartate Aminotrans (AST/SGOT 11 U/L (12-37); Bilirubin, Total 0.2 mg/dL (0.1-1.0); Blood Urea Nitrogen 17 mg/dL (8-24); CO2, Blood 35 mmol/L (21-32); Chloride, Blood 106 mmol/L (98-108); Creatinine, Blood 0.43 mg/dL (0.40-1.00); Globulin, Blood 4.5 g/dL (2.2-4.0); Glomerular Filtration Rate >60 (60-); Glucose, Blood 143 mg/dL (70-99); Potassium, Blood 3.6 mmol/L (3.5-5.5); Sodium, Blood 144 mmol/L (136-145)
--- NOTE | 2020-03-04 06:35 | NUR ---
SHIFT SUMMARY: GLENNA AROUSES EASILY AND RESPONDS APPROPRIATELY. VSS W/IMPROVING TACHYCARDIA. O2 @ 2 L VIA NC. SHE REPORTS 9/10 PAIN IN HER LEFT LEG AT REST. SHE CRIES OUT WOEFULLY WITH ANY MOVEMENT. FENTANYL PATCH IN PLACE TO LEFT ARM. SHE STATES THAT SHE ALSO TAKES OXYCODONE. GONZALEZ HANGING ABOVE FLOOR, DRAINING CLOUDY, YELLOW URINE. SHE STATES THAT THE PRESSURE ULCER ON HER LEFT GLUTEUS HAS BEEN PRESENT FOR 3-4 YEARS. DRESSING REMOVED, WOUND CLEANSED, AND FRESH DRESSING PLACED. LEFT GREAT TOENAIL IS ABSENT. SHE IS REQUESTING PO INTAKE, NPO STATUS DISCUSSED. SHE IS LYING IN BED WITH THE CALL LIGHT IN REACH. WILL REPORT TO DAY SHIFT RN.
[2020-03-04 08:17] LABS: PO2 Arterial 120 mmHg (80-100)
[2020-03-04 08:19] LABS: PCO2 Arterial 79.3 mmHg (35-45); pH Blood Arterial 7.26 (7.35-7.45)
[2020-03-04 11:23] LABS: Campylobacter Sp Not Detected (NOT DETECT)
[2020-03-04 11:24] LABS: Adenovirus F 40/41 Not Detected (NOT DETECT); Astrovirus Not Detected (NOT DETECT); Cryptosporidium Not Detected (NOT DETECT); Cyclospora Cayetanensis Not Detected (NOT DETECT); E. Coli O157 Not Detected (NOT DETECT); Entamoeba Histolytica Not Detected (NOT DETECT); Enteroaggregative E. coli-EAEC Not Detected (NOT DETECT); Enteropathogenic E. coli-EPEC Not Detected (NOT DETECT); Enterotoxigenic E. coli-ETEC Not Detected (NOT DETECT); Giardia Lamblia Not Detected (NOT DETECT); Norovirus GI/GII Not Detected (NOT DETECT); Plesiomonas Shigelloides Not Detected (NOT DETECT); Rotavirus A Not Detected (NOT DETECT); Salmonella Sp Not Detected (NOT DETECT); Sapovirus Not Detected (NOT DETECT); Shiga Toxin-prod E. coli-STEC Not Detected (NOT DETECT); Shigella/Enteroin E. coli-EIEC Not Detected (NOT DETECT); Vibrio Cholerae Not Detected (NOT DETECT); Vibrio Sp Not Detected (NOT DETECT); Yersinia Enterocolitica Not Detected (NOT DETECT)
--- NOTE | 2020-03-04 14:19 | NUR ---
HOSPITALIST NOTIFIED HOSPITALIST NOTIFIED OF CRITICAL LACTIC ACID OF 3.7 & RESP STATUS. PT'S O2 SATS ARE 88-90% ON RA. SHE WAS PLACED ON 1 L VIA NC. RESP ARE SHALLOW, PT REFUSES TO DB&C AT THIS TIME, SHE IS A&O X3, VSS.
--- NOTE | 2020-03-04 15:23 | NUR ---
BIPAP INITIATED AT THIS TIME, PT IS TOLERATING WNL, CURRENT SETTING ARE 10/5, FIO2 30%, O2 SATS 94%, 1,000 ML NS BOLUS INFUSING PER STAT ORDER. PT IS RESTING COMFORTABLY AT THIS TIME. CALL LIGHT IN REACH.
--- NOTE | 2020-03-04 19:58 | NUR ---
SUMMARY PT HAS TOLERATED THE BIPAP WITH NO PROBLEMS, FIO2 30%, VSS, O2 VIA NC @ 1L DURING BREAKS FROM BIPAP, NS BOLUS WAS COMPLETED ORDERED, ABX INFUSED, PT REMAINS A&O X3, SHE IS VERY PAINFUL WITH ANY KIND OF STIMULATION AND YELLS OUT WHEN REPOSITIONED. PT PREFERS TO LAY ON HER RIGHT SIDE DUE TO A "WOUND" ON HER LEFT AND REFUSES TO BE REPOSITIONED OFTEN. EDUCATION WAS PROVIDED, PT REPOSTITIONED TOLERATED. PAIN MANAGED PER EMAR, PT IS TOLERATING PO INTAKE. PT'S WAS AT THE BEDSIDE THIS EVENING. REPORT GIVEN TO VIVIAN LACKEY.
[2020-03-05 04:03] LABS: BASOPHILS ABSOLUTE AUTO 0.06 K/mm3 (0.00-0.23); BASOPHILS PERCENT AUTO 1 % (0-2); EOSINOPHILS ABSOLUTE AUTO 0.12 K/mm3 (0.00-0.68); EOSINOPHILS PERCENT AUTO 1 % (0-6); Hemoglobin 9.1 g/dL (11.5-16.0); IMMATURE GRAN ABSOLUTE AUTO 0.05 K/mm3 (0.00-0.10); IMMATURE GRAN PERCENT AUTO 0 % (0-1); LYMPHOCYTES ABSOLUTE AUTO 1.68 K/mm3 (0.84-5.20); LYMPHOCYTES PERCENT AUTO 13 % (21-46); MONOCYTES PERCENT AUTO 9 % (4-13); Mean Corpuscular HGB 26.1 pg (26.0-34.0); Mean Corpuscular HGB Conc 29.4 g/dL (31.5-36.5); Mean Corpuscular Volume 89 fL (80-100); Mean Platelet Volume 9.9 fL (9.1-12.4); NEUTROPHILS ABSOLUTE AUTO 9.78 K/mm3 (1.96-9.15); NEUTROPHILS PERCENT AUTO 76 % (41-73); Platelet Count 246 K/mm3 (150-400); RDW Coefficient Variation 18.3 % (11.7-14.2); RDW Standard Deviation 59.2 fL (35.1-46.3); Red Blood Cell Count 3.49 M/mm3 (3.80-5.20); White Blood Cell Count 12.89 K/mm3 (4.00-11.30)
[2020-03-05 04:19] LABS: Albumin, Blood 1.6 g/dL (3.4-5.0); Anion Gap 3 mmol/L (6-16); Blood Urea Nitrogen 10 mg/dL (8-24); Bun/Creatinine Ratio 21.2 (12.0-20.0); CO2, Blood 34 mmol/L (21-32); Calcium, Blood 7.4 mg/dL (8.5-10.1); Chloride, Blood 105 mmol/L (98-108); Creatinine, Blood 0.47 mg/dL (0.40-1.00); Glomerular Filtration Rate >60 (60-); Glucose, Blood 128 mg/dL (70-99); Phosphorus, Blood 2.6 mg/dL (2.5-4.9); Potassium, Blood 3.3 mmol/L (3.5-5.5); Sodium, Blood 142 mmol/L (136-145)
--- NOTE | 2020-03-05 06:28 | NUR ---
SHIFT SUMMARY PT PAINFUL AND TEARFUL T/O SHIFT. PT REPOSITIONED Q 2 HRS AND NEEDED FOR COMFORT. PT MEDICATED PER EMAR AND PROVIDED WITH UNINTERUPTED REST WHILE SLEEPING. PT ALTERNATED BETWEEN BIPAP AND NASAL CANULA T/O NIGHT. PT ALERT AND ORIENTED. BP STABLE. HR STABLE. PT REPORTS NO CP OR PRESSURE. OXYGEN SATURATION MAINTAINED ABOVE 92%. WILL CONTINUE TO MONITOR UNTIL REPORT GIVEN TO DAYSHIFT RN.
--- NOTE | 2020-03-05 19:56 | NUR ---
NO ACUTE EVENTS THIS SHIFT, PATIENT ON NASAL CANNULA THIS SHIFT AND TOLERATED WELL. PATIENT EXTREMELY PAINFUL IN LOWER EXTREMITIES WITH MOVEMENT, REPOSITIONED Q2 WITH X2 ASSIST AND PILLOWS. PATIENT ENDORSED RELIEF WITH OXY AND FLEXERIL. AT THIS POINT SEPSIS IS THOUGHT TO BE R/T PNA, IV ABX CONTINUED.
--- NOTE | 2020-03-06 04:58 | NUR ---
SHIFT SUMMARY PT A&O, ANSWERING APPROPRIATELY; MOANS AND CALLS OUT IN PAIN W/ ANY TOUCH OR MOVEMENT; REPOSITIONED Q2 W/ ASSISTANCE AND LIFT SHEET; MEDICATED FOR PAIN PER EMAR; VSS; DENIES CHEST PAIN; O2 SATS >93 ON 2L NC; BIPAP IN PLACE FOR 1-2 HRS AT A TIME; RT AT BEDSIDE FOR ASSESSMENT 3X THIS SHIFT; GONZALEZ PATENT AND DRAINING CLOUDY YELLOW URINE; CALL LIGHT IN REACH; BED IN LOWEST POSITION; WILL CONTINUE TO MONITOR CLOSELY UNTIL HAND OFF TO DAY SHIFT RN.
[2020-03-06 05:25] LABS: PCO2 Arterial 57.3 mmHg (35-45); PO2 Arterial 102 mmHg (80-100)
[2020-03-06 05:34] LABS: BASOPHILS ABSOLUTE AUTO 0.03 K/mm3 (0.00-0.23); BASOPHILS PERCENT AUTO 0 % (0-2); EOSINOPHILS ABSOLUTE AUTO 0.13 K/mm3 (0.00-0.68); EOSINOPHILS PERCENT AUTO 2 % (0-6); Hematocrit 28.9 % (33.0-51.0); Hemoglobin 8.4 g/dL (11.5-16.0); IMMATURE GRAN ABSOLUTE AUTO 0.03 K/mm3 (0.00-0.10); IMMATURE GRAN PERCENT AUTO 0 % (0-1); LYMPHOCYTES ABSOLUTE AUTO 1.55 K/mm3 (0.84-5.20); LYMPHOCYTES PERCENT AUTO 19 % (21-46); MONOCYTES ABSOLUTE AUTO 0.84 K/mm3 (0.16-1.47); MONOCYTES PERCENT AUTO 10 % (4-13); Mean Corpuscular HGB 25.5 pg (26.0-34.0); Mean Corpuscular HGB Conc 29.1 g/dL (31.5-36.5); Mean Corpuscular Volume 88 fL (80-100); NEUTROPHILS PERCENT AUTO 69 % (41-73); RDW Coefficient Variation 18.1 % (11.7-14.2); RDW Standard Deviation 59.1 fL (35.1-46.3); Red Blood Cell Count 3.29 M/mm3 (3.80-5.20); White Blood Cell Count 8.28 K/mm3 (4.00-11.30)
[2020-03-06 05:35] LABS: Mean Platelet Volume 10.3 fL (9.1-12.4); Platelet Count 183 K/mm3 (150-400)
[2020-03-06 05:57] LABS: Albumin, Blood 1.4 g/dL (3.4-5.0); Anion Gap 5 mmol/L (6-16); Blood Urea Nitrogen 9 mg/dL (8-24); Bun/Creatinine Ratio 16.5 (12.0-20.0); CO2, Blood 31 mmol/L (21-32); Calcium, Blood 7.6 mg/dL (8.5-10.1); Chloride, Blood 105 mmol/L (98-108); Creatinine, Blood 0.55 mg/dL (0.40-1.00); Glomerular Filtration Rate >60 (60-); Glucose, Blood 106 mg/dL (70-99); Phosphorus, Blood 2.8 mg/dL (2.5-4.9); Potassium, Blood 3.3 mmol/L (3.5-5.5); Sodium, Blood 141 mmol/L (136-145); Vancomycin, Trough 10.9 ug/mL (5.0-10.0)
--- NOTE | 2020-03-06 14:19 | NUR ---
REPORT GIVEN TO BRANDIN LACKEY ON MEDICAL.
--- NOTE | 2020-03-06 14:49 | NUR ---
ASSUMED CARE [id number] FROM DARYA CAST . PT ALERT AND ORIENTED. CRIES OUT IN PAIN WITH ANY MOVEMENT. PT HAS MEPILEX TO BOTTOM OTHERWISE SKIN CDI. AT BEDSIDE.
--- NOTE | 2020-03-06 17:42 | NUR ---
PT TRANSFERRED FROM PCU THIS SHIFT. GONZALEZ REMOVED. PT IS VERY PAINFUL WHEN MOVED . ALERT AND ORIENTED. CALL LIGHT WITHIN REACH.
--- NOTE | 2020-03-07 04:25 | NUR ---
SHIFT SUMMARY PT COMPLAINING OF PAIN WHENEVER AWAKE. YELLING OUT IN PAIN FREQUENTLY. REPORTS PAIN IS MORE SEVERE WITH MOVEMENT. BLE'S CONTRACTED, MORE SEVERE IN LLE. PT UNABLE TO STRAIGHTEN LEGS. MEDICATED PER EMAR AND REPOSITIONED FOR COMFORT. DECUBITUS TO LEFT GLUTEAL CLEANED AND REDRESSED WITH MEPILEX. PT INCONTINENT OF BOWEL AND BLADDER. VOIDING WELL AFTER CATHETER REMOVAL. LARGE LOOSE BM THIS SHIFT. PT REMAINED ON RA WITH O2 SATS IN THE LOW TO MID 90'S. DENIES SOB. VITAL SIGNS STABLE. NO ACUTE CHANGES THIS SHIFT. WILL CONTINUE TO MONITOR AND REPORT TO DAY RN.
[2020-03-07] MEDS ORDERED: AZIT500 PO (15:21)
[2020-03-07] MEDS ORDERED: AMOCLA875 PO (15:22)
[2020-03-07] MEDS ORDERED: NYSTOP15 GM TOP (15:22)
[2020-03-07] MEDS ORDERED: VISBIOME PO (15:24)
--- NOTE | 2020-03-07 15:37 | NUR ---
DISCHARGED BACK TO [facility] AT 1510 BY [facility]. PACKET WITH HARD SCRIPT AND HER BELONGINGS WENT WITH HER. REPORT CALLED TO [facility] DARYA.
== END 2020-03-07 15:12 | DRG 871 ==
LOC: ER 00:29 → PCU 04:13 → MEDS 03-06 13:46
PROVIDERS: Emergency Medicine; Internal Medicine; ADMIT Internal Medicine
DX: A41.9 Sepsis, unspecified organism (principal); L89.153 Pressure ulcer of sacral region, stage 3; G93.41 Metabolic encephalopathy; J18.9 Pneumonia, unspecified organism; J96.21 Acute and chronic respiratory failure with hypoxia; J96.22 Acute and chronic respiratory failure with hypercapnia; E87.2 Acidosis; K52.1 Toxic gastroenteritis and colitis; Z20.828 Contact with and (suspected) exposure to other viral communicable diseases; E86.0 Dehydration; F03.90 Unspecified dementia, unspecified severity, without behavioral disturbance, psychotic disturbance, mood disturbance, and anxiety; F32.9 Major depressive disorder, single episode, unspecified; G89.4 Chronic pain syndrome; F41.9 Anxiety disorder, unspecified; I10 Essential (primary) hypertension; K76.0 Fatty (change of) liver, not elsewhere classified; R65.20 Severe sepsis without septic shock; Z86.14 Personal history of Methicillin resistant Staphylococcus aureus infection; Z87.891 Personal history of nicotine dependence; T36.95XA Adverse effect of unspecified systemic antibiotic, initial encounter; Z74.01 Bed confinement status; E87.6 Hypokalemia; E66.9 Obesity, unspecified; Z68.34 Body mass index [BMI] 34.0-34.9, adult; Y95 Nosocomial condition
CPT/HCPCS: 0097U; 36415; 36600; 51702; 71045; 71260; 80053; 80069; 80202; 81001; 82803; 82947; 83605; 84484; 85025; 87040; 87086; 93005; 93010; 94660; 94762; 96361-59; 96365-59; 99285-25; A9270-GY; J0456; J0696; J1650; J2543; J3370; J7030; J7050; P9046; Q9967; U0003

== ENCOUNTER → 2020-03-21 | Outpatient (CLI) | payer OTHER ==
[~2020-03-21] MED LIST changes: +AZIT500 PO; +CYCL10 PO; +DULCOLAX STOOL100 MG PO; +FENTANYL TOP; +METF500 PO; +NYSTOP15 GM TOP; +PREG50; +Senokotxtra17.2 MG PO; +VISBIOME PO
[2020-03-21 18:32] LABS: Source, Urine Clean Catch
[2020-03-21 19:47] LABS: Bilirubin, Urine Neg (Neg); Blood, Urine 5+ (Neg); Glucose Qualitative, Urine Neg (Neg); Ketones, Urine Neg (Neg); Leukocyte Esterase, Urine 3+ (Neg); Nitrite, Urine Neg (Neg); Protein, Urine 3+ (Neg); Urobilinogen, Urine NORM (Normal); pH, Urine 6.5 (5.0-8.0)
[2020-03-21 19:50] LABS: Hematocrit 38.2 % (33.0-51.0); Hemoglobin 11.3 g/dL (11.5-16.0); Mean Corpuscular HGB 26.2 pg (26.0-34.0); Mean Corpuscular HGB Conc 29.6 g/dL (31.5-36.5); Mean Corpuscular Volume 88 fL (80-100); Mean Platelet Volume 10.7 fL (9.1-12.4); Platelet Count 310 K/mm3 (150-400); RDW Coefficient Variation 18.3 % (11.7-14.2); RDW Standard Deviation 60.3 fL (35.1-46.3); Red Blood Cell Count 4.32 M/mm3 (3.80-5.20); White Blood Cell Count 11.05 K/mm3 (4.00-11.30)
[2020-03-21 19:56] LABS: Appearance, Urine Turbid (Clear); Color, Urine Yellow (P-Yellow)
[2020-03-21 19:57] LABS: Amorphous Mod (0-Heavy); Bacteria Mod /hpf; Red Blood Cells, Urine 0-2 /hpf (0-2); Squamous Epithelial Cells Not Seen /hpf (Few); White Blood Cells, Urine TNTC /hpf (0-5); Yeast/Fungi Urine Many /hpf
[2020-03-21 20:50] LABS: Anion Gap 5 mmol/L (6-16); Blood Urea Nitrogen 34 mg/dL (8-24); Bun/Creatinine Ratio 40.9 (12.0-20.0); CO2, Blood 38 mmol/L (21-32); Calcium, Blood 8.8 mg/dL (8.5-10.1); Chloride, Blood 101 mmol/L (98-108); Creatinine, Blood 0.83 mg/dL (0.40-1.00); Glomerular Filtration Rate >60 (60-); Glucose, Blood 138 mg/dL (70-99); Potassium, Blood 2.9 mmol/L (3.5-5.5); Sodium, Blood 144 mmol/L (136-145)
== END | disposition home or self-care (01) ==
LOC: EDSTATUS 09:48 → LAB UVN 18:30
PROVIDERS: Family Medicine
DX: N39.0 Urinary tract infection, site not specified (principal); R65.21 Severe sepsis with septic shock
CPT/HCPCS: 80048; 81001; 85027

== ENCOUNTER → 2020-03-28 | Outpatient (CLI) | payer OTHER ==
[2020-03-28 04:52] LABS: Anion Gap 3 mmol/L (6-16); Blood Urea Nitrogen 27 mg/dL (8-24); Bun/Creatinine Ratio 35.3 (12.0-20.0); CO2, Blood 36 mmol/L (21-32); Calcium, Blood 8.2 mg/dL (8.5-10.1); Chloride, Blood 107 mmol/L (98-108); Creatinine, Blood 0.76 mg/dL (0.40-1.00); Glomerular Filtration Rate >60 (60-); Glucose, Blood 103 mg/dL (70-99); Sodium, Blood 146 mmol/L (136-145)
== END | disposition home or self-care (01) ==
LOC: LAB UVN 04:18 → EDSTATUS 11:05
PROVIDERS: Family Medicine
DX: I10 Essential (primary) hypertension (principal)
CPT/HCPCS: 80048; 83036

== ENCOUNTER → 2020-04-02 | Outpatient (CLI) | payer OTHER ==
[2020-04-02 17:38] LABS: Hematocrit 40.3 % (33.0-51.0); Hemoglobin 12.1 g/dL (11.5-16.0); Mean Corpuscular HGB 25.7 pg (26.0-34.0); Mean Corpuscular Volume 86 fL (80-100); Mean Platelet Volume 11.4 fL (9.1-12.4); Platelet Count 259 K/mm3 (150-400); RDW Coefficient Variation 18.4 % (11.7-14.2); RDW Standard Deviation 58.2 fL (35.1-46.3); White Blood Cell Count 8.08 K/mm3 (4.00-11.30)
[2020-04-02 18:41] LABS: Alanine Aminotransfer (ALT/SGP 11 U/L (12-78); Albumin, Blood 1.8 g/dL (3.4-5.0); Albumin/Globulin Ratio 0.4 (0.8-1.8); Alk Phos 155 U/L (50-136); Anion Gap 6 mmol/L (6-16); Aspartate Aminotrans (AST/SGOT 24 U/L (12-37); Bilirubin, Total 0.3 mg/dL (0.1-1.0); Blood Urea Nitrogen 34 mg/dL (8-24); Bun/Creatinine Ratio 42.5 (12.0-20.0); CO2, Blood 28 mmol/L (21-32); Calcium, Blood 8.1 mg/dL (8.5-10.1); Chloride, Blood 107 mmol/L (98-108); Globulin, Blood 5.1 g/dL (2.2-4.0); Glomerular Filtration Rate >60 (60-); Glucose, Blood 113 mg/dL (70-99); Potassium, Blood 4.6 mmol/L (3.5-5.5); Sodium, Blood 141 mmol/L (136-145); Total Protein, Blood 6.9 g/dL (6.4-8.2)
[2020-04-02 18:45] LABS: Thyroid Stimulating Hormone 0.398 uIU/mL (0.360-4.800)
== END | disposition home or self-care (01) ==
LOC: EDSTATUS 11:06 → LAB UVN 17:05
PROVIDERS: Nurse Practitioner Adult Health
DX: U07.1 COVID-19 (principal); E11.42 Type 2 diabetes mellitus with diabetic polyneuropathy; I10 Essential (primary) hypertension
CPT/HCPCS: 80053; 82306; 84443; 85027

== ENCOUNTER → 2020-05-04 | Outpatient (CLI) | payer OTHER | END | disposition home or self-care (01) | LOC: EDSTATUS 09:02 → LAB UVN 09:10 | DX: E55.9 Vitamin D deficiency, unspecified (principal) | CPT/HCPCS: 82306 ==

== ENCOUNTER → 2020-05-15 | Outpatient (CLI) | payer OTHER ==
[~2020-05-15] MED LIST changes: +Cyclobenzaprine5 MG PO; +POTCHL20ER PO; +PREGABALIN PO; +TUMS500 MG PO; +VISBIOME 112.51 EACH PO
== END | disposition home or self-care (01) ==
LOC: LAB SHORT 14:02 → LAB 14:02
DX: S31.829D Unspecified open wound of left buttock, subsequent encounter (principal); L08.9 Local infection of the skin and subcutaneous tissue, unspecified
CPT/HCPCS: 87070; 87075; 87077; 87147; 87186; 87205

== ENCOUNTER 2020-06-04 00:31 | Day surgery (SDC) | payer OTHER ==
[~2020-06-04 00:31] MED LIST changes: -Cyclobenzaprine5 MG PO; -POTCHL20ER PO; -PREGABALIN PO; -TUMS500 MG PO; -VISBIOME 112.51 EACH PO
== END 2020-06-04 22:43 | disposition home or self-care (01) ==
LOC: WOUND 00:31
DX: L89.222 Pressure ulcer of left hip, stage 2 (principal); L89.212 Pressure ulcer of right hip, stage 2; E11.622 Type 2 diabetes mellitus with other skin ulcer; E11.42 Type 2 diabetes mellitus with diabetic polyneuropathy; I10 Essential (primary) hypertension; J44.9 Chronic obstructive pulmonary disease, unspecified; G47.30 Sleep apnea, unspecified; Z87.891 Personal history of nicotine dependence
CPT/HCPCS: A9270; G0463

== ENCOUNTER 2020-06-11 00:18 | Day surgery (SDC) | payer OTHER | END 2020-06-11 23:08 | disposition home or self-care (01) | LOC: WOUND 00:18 | DX: L89.213 Pressure ulcer of right hip, stage 3 (principal); L89.222 Pressure ulcer of left hip, stage 2; E11.42 Type 2 diabetes mellitus with diabetic polyneuropathy; R77.0 Abnormality of albumin; I10 Essential (primary) hypertension; G47.30 Sleep apnea, unspecified; Z79.899 Other long term (current) drug therapy; Z20.822 Contact with and (suspected) exposure to COVID-19 | CPT/HCPCS: A9270; G0463 ==

== ENCOUNTER 2020-06-18 00:19 | Day surgery (SDC) | payer OTHER | END 2020-06-18 22:46 | disposition home or self-care (01) | LOC: WOUND 00:19 | DX: L89.213 Pressure ulcer of right hip, stage 3 (principal); L89.222 Pressure ulcer of left hip, stage 2; E11.42 Type 2 diabetes mellitus with diabetic polyneuropathy; R77.0 Abnormality of albumin; I10 Essential (primary) hypertension | CPT/HCPCS: A9270 ==

== ENCOUNTER 2020-06-25 00:08 | Day surgery (SDC) | payer OTHER | END 2020-06-25 23:45 | LOC: WOUND 00:08 | DX: L89.213 Pressure ulcer of right hip, stage 3 (principal); L89.222 Pressure ulcer of left hip, stage 2; E11.42 Type 2 diabetes mellitus with diabetic polyneuropathy; R77.0 Abnormality of albumin; I10 Essential (primary) hypertension; G47.30 Sleep apnea, unspecified; G37.9 Demyelinating disease of central nervous system, unspecified; R32 Unspecified urinary incontinence | CPT/HCPCS: A9270 ==

== ENCOUNTER 2020-07-02 00:36 | Day surgery (SDC) | payer OTHER | END 2020-07-02 22:47 | disposition home or self-care (01) | LOC: WOUND 00:36 | DX: L89.222 Pressure ulcer of left hip, stage 2 (principal); L89.212 Pressure ulcer of right hip, stage 2; L89.892 Pressure ulcer of other site, stage 2; E11.622 Type 2 diabetes mellitus with other skin ulcer; L97.822 Non-pressure chronic ulcer of other part of left lower leg with fat layer exposed; E11.42 Type 2 diabetes mellitus with diabetic polyneuropathy; L03.114 Cellulitis of left upper limb; R77.0 Abnormality of albumin; I10 Essential (primary) hypertension; G47.30 Sleep apnea, unspecified; G37.9 Demyelinating disease of central nervous system, unspecified; M42.9 Spinal osteochondrosis, unspecified; R16.0 Hepatomegaly, not elsewhere classified; K59.09 Other constipation | CPT/HCPCS: 87070; 87075; 87077; 87147; 87186; 87205; A9270 ==

== ENCOUNTER 2020-07-09 01:07 | Day surgery (SDC) | payer OTHER | END 2020-07-09 23:40 | disposition home or self-care (01) | LOC: WOUND 01:07 | DX: L89.892 Pressure ulcer of other site, stage 2 (principal); L89.222 Pressure ulcer of left hip, stage 2; L89.212 Pressure ulcer of right hip, stage 2; E11.622 Type 2 diabetes mellitus with other skin ulcer; L97.122 Non-pressure chronic ulcer of left thigh with fat layer exposed; L03.114 Cellulitis of left upper limb; E11.42 Type 2 diabetes mellitus with diabetic polyneuropathy; A49.02 Methicillin resistant Staphylococcus aureus infection, unspecified site; I10 Essential (primary) hypertension; G47.30 Sleep apnea, unspecified; G37.9 Demyelinating disease of central nervous system, unspecified; R77.0 Abnormality of albumin; M42.9 Spinal osteochondrosis, unspecified; R16.0 Hepatomegaly, not elsewhere classified; K59.09 Other constipation | CPT/HCPCS: A9270 ==

== ENCOUNTER 2020-07-16 00:32 | Day surgery (SDC) | payer OTHER | END 2020-07-16 23:02 | disposition home or self-care (01) | LOC: WOUND 00:32 | DX: L89.213 Pressure ulcer of right hip, stage 3 (principal); L89.222 Pressure ulcer of left hip, stage 2; L03.114 Cellulitis of left upper limb; A49.02 Methicillin resistant Staphylococcus aureus infection, unspecified site; E88.09 Other disorders of plasma-protein metabolism, not elsewhere classified; E11.42 Type 2 diabetes mellitus with diabetic polyneuropathy; I10 Essential (primary) hypertension | CPT/HCPCS: A9270 ==

== ENCOUNTER 2020-07-23 00:45 | Day surgery (SDC) | payer OTHER | END 2020-07-23 22:52 | disposition home or self-care (01) | LOC: WOUND 00:45 | DX: L89.213 Pressure ulcer of right hip, stage 3 (principal); L89.222 Pressure ulcer of left hip, stage 2; B95.62 Methicillin resistant Staphylococcus aureus infection as the cause of diseases classified elsewhere; E11.42 Type 2 diabetes mellitus with diabetic polyneuropathy; R77.0 Abnormality of albumin; I10 Essential (primary) hypertension | CPT/HCPCS: A9270 ==

== ENCOUNTER 2020-07-30 00:11 | Day surgery (SDC) | payer OTHER | END 2020-07-30 22:49 | disposition home or self-care (01) | LOC: WOUND 00:11 | DX: E11.622 Type 2 diabetes mellitus with other skin ulcer (principal); L98.492 Non-pressure chronic ulcer of skin of other sites with fat layer exposed; L89.212 Pressure ulcer of right hip, stage 2; L89.222 Pressure ulcer of left hip, stage 2; E11.42 Type 2 diabetes mellitus with diabetic polyneuropathy; R77.0 Abnormality of albumin; A49.02 Methicillin resistant Staphylococcus aureus infection, unspecified site; I10 Essential (primary) hypertension | CPT/HCPCS: A9270 ==

== ENCOUNTER 2020-08-06 00:29 | Day surgery (SDC) | payer OTHER | END 2020-08-06 22:39 | disposition home or self-care (01) | LOC: WOUND 00:29 | DX: E11.622 Type 2 diabetes mellitus with other skin ulcer (principal); L98.492 Non-pressure chronic ulcer of skin of other sites with fat layer exposed; I10 Essential (primary) hypertension; G47.30 Sleep apnea, unspecified; G37.9 Demyelinating disease of central nervous system, unspecified | CPT/HCPCS: A9270 ==

== ENCOUNTER 2020-08-13 00:24 | Day surgery (SDC) | payer OTHER | END 2020-08-13 23:13 | disposition home or self-care (01) | LOC: WOUND 00:24 | DX: L89.222 Pressure ulcer of left hip, stage 2 (principal); L89.212 Pressure ulcer of right hip, stage 2; B95.62 Methicillin resistant Staphylococcus aureus infection as the cause of diseases classified elsewhere; R77.0 Abnormality of albumin; E11.42 Type 2 diabetes mellitus with diabetic polyneuropathy; I10 Essential (primary) hypertension; M42.16 Adult osteochondrosis of spine, lumbar region; G37.9 Demyelinating disease of central nervous system, unspecified | CPT/HCPCS: A9270 ==

== ENCOUNTER 2020-08-20 00:20 | Day surgery (SDC) | payer OTHER | END 2020-08-20 22:38 | disposition home or self-care (01) | LOC: WOUND 00:20 | DX: L89.223 Pressure ulcer of left hip, stage 3 (principal); L89.212 Pressure ulcer of right hip, stage 2; E11.42 Type 2 diabetes mellitus with diabetic polyneuropathy; R77.0 Abnormality of albumin | CPT/HCPCS: A9270; G0463 ==

== ENCOUNTER → 2020-08-22 | Outpatient (CLI) | payer OTHER ==
[~2020-08-22] MED LIST changes: +Cyclobenzaprine5 MG PO; +POTCHL20ER PO; +PREGABALIN PO; +TUMS500 MG PO; +VISBIOME 112.51 EACH PO
[2020-08-22 08:38] LABS: Albumin, Blood 2.3 g/dL (3.4-5.0); Prealbumin, Blood 15.7 mg/dL (20.0-40.0)
== END | disposition home or self-care (01) ==
LOC: EDSTATUS 07:45 → LAB UVN 07:58
PROVIDERS: Family Medicine
DX: E11.42 Type 2 diabetes mellitus with diabetic polyneuropathy (principal); L89.213 Pressure ulcer of right hip, stage 3; R77.0 Abnormality of albumin
CPT/HCPCS: 82040; 84134

== ENCOUNTER 2020-08-27 00:49 | Day surgery (SDC) | payer OTHER ==
[~2020-08-27 00:49] MED LIST changes: -Cyclobenzaprine5 MG PO; -POTCHL20ER PO; -PREGABALIN PO; -TUMS500 MG PO; -VISBIOME 112.51 EACH PO
== END 2020-08-27 22:51 | disposition home or self-care (01) ==
LOC: WOUND 00:49
DX: L89.223 Pressure ulcer of left hip, stage 3 (principal); L89.212 Pressure ulcer of right hip, stage 2; E11.42 Type 2 diabetes mellitus with diabetic polyneuropathy; R77.0 Abnormality of albumin; I10 Essential (primary) hypertension; G47.30 Sleep apnea, unspecified
CPT/HCPCS: A9270; G0463

== ENCOUNTER 2020-09-03 01:05 | Day surgery (SDC) | payer OTHER | END 2020-09-03 22:40 | disposition home or self-care (01) | LOC: WOUND 01:05 | DX: L89.223 Pressure ulcer of left hip, stage 3 (principal); L89.212 Pressure ulcer of right hip, stage 2; E11.42 Type 2 diabetes mellitus with diabetic polyneuropathy; R77.0 Abnormality of albumin; I10 Essential (primary) hypertension | CPT/HCPCS: G0463 ==

== ENCOUNTER 2020-09-17 00:12 | Day surgery (SDC) | payer OTHER | END 2020-09-17 23:20 | disposition home or self-care (01) | LOC: WOUND 00:12 | DX: L89.223 Pressure ulcer of left hip, stage 3 (principal); L89.213 Pressure ulcer of right hip, stage 3; E11.42 Type 2 diabetes mellitus with diabetic polyneuropathy; R77.0 Abnormality of albumin | CPT/HCPCS: A9270 ==

== ENCOUNTER → 2020-09-28 | Outpatient (CLI) | payer OTHER ==
[~2020-09-28] MED LIST changes: +Cyclobenzaprine5 MG PO; +POTCHL20ER PO; +PREGABALIN PO; +TUMS500 MG PO; +VISBIOME 112.51 EACH PO
== END | disposition home or self-care (01) ==
LOC: EDSTATUS 13:43 → LAB UVN 23:32
DX: L89.223 Pressure ulcer of left hip, stage 3 (principal)
CPT/HCPCS: 87070; 87075; 87077; 87147; 87186; 87205

== ENCOUNTER 2020-10-01 00:11 | Day surgery (SDC) | payer OTHER ==
[~2020-10-01 00:11] MED LIST changes: -Cyclobenzaprine5 MG PO; -POTCHL20ER PO; -PREGABALIN PO; -TUMS500 MG PO; -VISBIOME 112.51 EACH PO
== END 2020-10-01 22:39 | disposition home or self-care (01) ==
LOC: WOUND 00:11
DX: L89.223 Pressure ulcer of left hip, stage 3 (principal); L89.212 Pressure ulcer of right hip, stage 2; E11.42 Type 2 diabetes mellitus with diabetic polyneuropathy; I10 Essential (primary) hypertension; R77.0 Abnormality of albumin
CPT/HCPCS: 87070; 87075; 87077; 87186; 87205; A9270; G0463

== ENCOUNTER → 2020-10-01 | Outpatient (CLI) | payer OTHER ==
[2020-10-02 07:24] LABS: Alanine Aminotransfer (ALT/SGP 10 U/L (12-78); Albumin, Blood 2.4 g/dL (3.4-5.0); Albumin/Globulin Ratio 0.6 (0.8-1.8); Alk Phos 93 U/L (50-136); Anion Gap 3 mmol/L (6-16); Aspartate Aminotrans (AST/SGOT 15 U/L (12-37); Bilirubin, Total 0.4 mg/dL (0.1-1.0); Blood Urea Nitrogen 25 mg/dL (8-24); Bun/Creatinine Ratio 32.7 (12.0-20.0); C-REACTIVE PROTEIN, EXT RANGE 0.571 mg/dL (0.000-0.300); CO2, Blood 32 mmol/L (21-32); Calcium, Blood 8.7 mg/dL (8.5-10.1); Chloride, Blood 102 mmol/L (98-108); Creatinine, Blood 0.77 mg/dL (0.40-1.00); Glomerular Filtration Rate >60 (60-); Glucose, Blood 138 mg/dL (70-99); Potassium, Blood 4.5 mmol/L (3.5-5.5); Sodium, Blood 137 mmol/L (136-145); Total Protein, Blood 6.4 g/dL (6.4-8.2)
== END | disposition home or self-care (01) ==
LOC: EDSTATUS 13:44 → LAB UVN 23:30
PROVIDERS: Internal Medicine
DX: E11.42 Type 2 diabetes mellitus with diabetic polyneuropathy (principal); N17.8 Other acute kidney failure; E87.6 Hypokalemia; E55.9 Vitamin D deficiency, unspecified; I10 Essential (primary) hypertension
CPT/HCPCS: 80053; 86140

== ENCOUNTER → 2020-10-02 | Outpatient (CLI) | payer OTHER ==
[~2020-10-02] MED LIST changes: +Cyclobenzaprine5 MG PO; +POTCHL20ER PO; +PREGABALIN PO; +TUMS500 MG PO; +VISBIOME 112.51 EACH PO
[2020-10-02 11:04] LABS: Hematocrit 39.9 % (33.0-51.0); Hemoglobin 12.3 g/dL (11.5-16.0); Mean Corpuscular HGB 26.6 pg (26.0-34.0); Mean Corpuscular HGB Conc 30.8 g/dL (31.5-36.5); Mean Corpuscular Volume 86 fL (80-100); Mean Platelet Volume 10.2 fL (9.1-12.4); Platelet Count 235 K/mm3 (150-400); RDW Coefficient Variation 15.6 % (11.7-14.2); RDW Standard Deviation 48.6 fL (35.1-46.3); Red Blood Cell Count 4.62 M/mm3 (3.80-5.20); White Blood Cell Count 7.77 K/mm3 (4.00-11.30)
== END | disposition home or self-care (01) ==
LOC: LAB UVN 10:57 → EDSTATUS 13:45
PROVIDERS: Internal Medicine
DX: J96.01 Acute respiratory failure with hypoxia (principal); R65.21 Severe sepsis with septic shock; N39.0 Urinary tract infection, site not specified; N10 Acute pyelonephritis; Z74.09 Other reduced mobility
CPT/HCPCS: 85027

== ENCOUNTER → 2020-10-03 | Outpatient (CLI) | payer OTHER ==
[2020-10-03 06:11] LABS: BASOPHILS ABSOLUTE AUTO 0.04 K/mm3 (0.00-0.23); BASOPHILS PERCENT AUTO 0 % (0-2); EOSINOPHILS ABSOLUTE AUTO 0.18 K/mm3 (0.00-0.68); EOSINOPHILS PERCENT AUTO 2 % (0-6); Hematocrit 42.1 % (33.0-51.0); Hemoglobin 12.9 g/dL (11.5-16.0); IMMATURE GRAN ABSOLUTE AUTO 0.02 K/mm3 (0.00-0.10); IMMATURE GRAN PERCENT AUTO 0 % (0-1); LYMPHOCYTES ABSOLUTE AUTO 3.18 K/mm3 (0.84-5.20); LYMPHOCYTES PERCENT AUTO 33 % (21-46); MONOCYTES PERCENT AUTO 7 % (4-13); Mean Corpuscular HGB 26.9 pg (26.0-34.0); Mean Corpuscular HGB Conc 30.6 g/dL (31.5-36.5); Mean Corpuscular Volume 88 fL (80-100); Mean Platelet Volume 10.9 fL (9.1-12.4); NEUTROPHILS ABSOLUTE AUTO 5.39 K/mm3 (1.96-9.15); NEUTROPHILS PERCENT AUTO 57 % (41-73); Platelet Count 227 K/mm3 (150-400); RDW Coefficient Variation 15.8 % (11.7-14.2); RDW Standard Deviation 50.3 fL (35.1-46.3); White Blood Cell Count 9.51 K/mm3 (4.00-11.30)
== END | disposition home or self-care (01) ==
LOC: LAB UVN 06:05 → EDSTATUS 13:46
PROVIDERS: Internal Medicine
DX: E11.42 Type 2 diabetes mellitus with diabetic polyneuropathy (principal); E87.6 Hypokalemia; R77.0 Abnormality of albumin
CPT/HCPCS: 85025; 85651

== ENCOUNTER 2020-10-08 07:48 | Day surgery (SDC) | payer OTHER ==
[~2020-10-08 07:48] MED LIST changes: -Cyclobenzaprine5 MG PO; -POTCHL20ER PO; -PREGABALIN PO; -TUMS500 MG PO; -VISBIOME 112.51 EACH PO
== END 2020-10-10 22:50 | disposition home or self-care (01) ==
LOC: WOUND 07:48
DX: L89.223 Pressure ulcer of left hip, stage 3 (principal); L89.212 Pressure ulcer of right hip, stage 2; E11.42 Type 2 diabetes mellitus with diabetic polyneuropathy; R77.0 Abnormality of albumin; I10 Essential (primary) hypertension
CPT/HCPCS: A9270; G0463

== ENCOUNTER 2020-10-15 02:54 | Day surgery (SDC) | payer OTHER | END 2020-10-15 23:01 | disposition home or self-care (01) | LOC: WOUND 02:54 | DX: L89.223 Pressure ulcer of left hip, stage 3 (principal); L89.212 Pressure ulcer of right hip, stage 2; E11.42 Type 2 diabetes mellitus with diabetic polyneuropathy; R77.0 Abnormality of albumin | CPT/HCPCS: A9270; G0463 ==

== ENCOUNTER 2020-10-24 12:16 | Inpatient (IN) | payer OTHER, MEDICARE ==
[~2020-10-24] VITALS: Ht 165.1 cm; Wt 92.0 kg
[~2020-10-24 12:16] MED LIST changes: -Cyclobenzaprine5 MG PO; -POTCHL20ER PO; -PREGABALIN PO; -TUMS500 MG PO; -VISBIOME 112.51 EACH PO
[2020-10-24 13:18] LABS: Source, Urine Catheter
[2020-10-24 13:22] LABS: Appearance, Urine Cloudy (Clear); Bilirubin, Urine Neg (Neg); Blood, Urine 3+ (Neg); Color, Urine Yellow (P-Yellow); Glucose Qualitative, Urine Neg (Neg); Ketones, Urine Neg (Neg); Leukocyte Esterase, Urine 3+ (Neg); Nitrite, Urine Neg (Neg); Protein, Urine 1+ (Neg); Urobilinogen, Urine NORM (Normal)
[2020-10-24 13:38] LABS: BASOPHILS ABSOLUTE AUTO 0.06 K/mm3 (0.00-0.23); BASOPHILS PERCENT AUTO 0 % (0-2); EOSINOPHILS ABSOLUTE AUTO 0.06 K/mm3 (0.00-0.68); EOSINOPHILS PERCENT AUTO 0 % (0-6); Hematocrit 41.8 % (33.0-51.0); Hemoglobin 12.6 g/dL (11.5-16.0); IMMATURE GRAN ABSOLUTE AUTO 0.08 K/mm3 (0.00-0.10); IMMATURE GRAN PERCENT AUTO 1 % (0-1); LYMPHOCYTES ABSOLUTE AUTO 2.05 K/mm3 (0.84-5.20); LYMPHOCYTES PERCENT AUTO 12 % (21-46); MONOCYTES ABSOLUTE AUTO 0.69 K/mm3 (0.16-1.47); MONOCYTES PERCENT AUTO 4 % (4-13); Mean Corpuscular HGB 26.2 pg (26.0-34.0); Mean Corpuscular HGB Conc 30.1 g/dL (31.5-36.5); Mean Corpuscular Volume 87 fL (80-100); NEUTROPHILS ABSOLUTE AUTO 13.64 K/mm3 (1.96-9.15); NEUTROPHILS PERCENT AUTO 82 % (41-73); RDW Coefficient Variation 16.2 % (11.7-14.2); RDW Standard Deviation 51.1 fL (35.1-46.3); Red Blood Cell Count 4.81 M/mm3 (3.80-5.20); White Blood Cell Count 16.58 K/mm3 (4.00-11.30)
[2020-10-24 13:55] LABS: Alanine Aminotransfer (ALT/SGP 23 U/L (12-78); Albumin, Blood 2.5 g/dL (3.4-5.0); Albumin/Globulin Ratio 0.6 (0.8-1.8); Alk Phos 124 U/L (50-136); Anion Gap 4 mmol/L (6-16); Aspartate Aminotrans (AST/SGOT 37 U/L (12-37); Bilirubin, Total 0.6 mg/dL (0.1-1.0); Blood Urea Nitrogen 14 mg/dL (8-24); Bun/Creatinine Ratio 20.1 (12.0-20.0); CO2, Blood 27 mmol/L (21-32); Calcium, Blood 8.3 mg/dL (8.5-10.1); Chloride, Blood 106 mmol/L (98-108); Globulin, Blood 4.5 g/dL (2.2-4.0); Glomerular Filtration Rate >60 (60-); Glucose, Blood 155 mg/dL (70-99); Potassium, Blood 4.6 mmol/L (3.5-5.5); Sodium, Blood 137 mmol/L (136-145)
[2020-10-24 14:32] LABS: White Blood Cells, Urine 50-100 /hpf (0-5)
[2020-10-24 14:34] LABS: Bacteria Many /hpf; Mucus Light (0-Heavy); Renal Epithelial Few /hpf (0-Rare); Squamous Epithelial Cells Few /hpf (Few)
[2020-10-24] MEDS ORDERED: PREGABALIN PO (14:43)
[2020-10-24] MEDS ORDERED: OMEP20ER PO (14:44)
[2020-10-24] MEDS ORDERED: OXYC5 PO (14:55)
[2020-10-24] MEDS ORDERED: Cyclobenzaprine5 MG PO (14:55)
[2020-10-24] MEDS ORDERED: POTCHL20ER PO (14:56)
[2020-10-24 15:13] LABS: Mean Platelet Volume 10.6 fL (9.1-12.4); Platelet Count 202 K/mm3 (150-400)
[2020-10-25 04:19] LABS: BASOPHILS ABSOLUTE AUTO 0.02 K/mm3 (0.00-0.23); BASOPHILS PERCENT AUTO 0 % (0-2); EOSINOPHILS ABSOLUTE AUTO 0.17 K/mm3 (0.00-0.68); EOSINOPHILS PERCENT AUTO 2 % (0-6); Hematocrit 34.8 % (33.0-51.0); Hemoglobin 10.6 g/dL (11.5-16.0); IMMATURE GRAN ABSOLUTE AUTO 0.03 K/mm3 (0.00-0.10); IMMATURE GRAN PERCENT AUTO 0 % (0-1); LYMPHOCYTES ABSOLUTE AUTO 2.58 K/mm3 (0.84-5.20); LYMPHOCYTES PERCENT AUTO 26 % (21-46); MONOCYTES ABSOLUTE AUTO 0.73 K/mm3 (0.16-1.47); MONOCYTES PERCENT AUTO 7 % (4-13); Mean Corpuscular HGB 26.4 pg (26.0-34.0); Mean Corpuscular HGB Conc 30.5 g/dL (31.5-36.5); Mean Corpuscular Volume 87 fL (80-100); Mean Platelet Volume 10.4 fL (9.1-12.4); NEUTROPHILS ABSOLUTE AUTO 6.57 K/mm3 (1.96-9.15); NEUTROPHILS PERCENT AUTO 65 % (41-73); Platelet Count 182 K/mm3 (150-400); RDW Coefficient Variation 16.5 % (11.7-14.2); RDW Standard Deviation 51.6 fL (35.1-46.3); Red Blood Cell Count 4.01 M/mm3 (3.80-5.20)
[2020-10-25 04:48] LABS: Anion Gap 2 mmol/L (6-16); Blood Urea Nitrogen 11 mg/dL (8-24); Bun/Creatinine Ratio 18.6 (12.0-20.0); CO2, Blood 30 mmol/L (21-32); Calcium, Blood 8.2 mg/dL (8.5-10.1); Chloride, Blood 106 mmol/L (98-108); Creatinine, Blood 0.59 mg/dL (0.40-1.00); Glomerular Filtration Rate >60 (60-); Glucose, Blood 149 mg/dL (70-99); Potassium, Blood 3.9 mmol/L (3.5-5.5); Sodium, Blood 138 mmol/L (136-145)
--- NOTE | 2020-10-25 18:16 | NUR ---
SHIFT SUMMARY NO ACUTE EVENTS THIS SHIFT, VSS. PATIENT ALERT AND ORIENTED, CALLS APPROPRIATELY. PATIENT REPOSITIONED T/O SHIFT, PATIENT CALLS OUT IN PAIN WITH EACH REPOSITONING AND IS INCONTINENT. HEEL PROTECTORS IN PLACE. IV FLUIDS CONTINUED PER EMAR. PATIENT APPEARS TO TOLERATE PO INTAKE WELL, ENDORSES HAVING AN IMPROVED APPETITE. WOUND DRESSINGS IN PLACE.
--- NOTE | 2020-10-25 20:00 | NUR ---
ASSUMED CARE PT IS ALERT AND ORIENTED. VERY PAINFUL. VITALS ARE STABLE WITH SATS ABOVE 92% ON ROOM AIR. DENIES CHEST PAIN AND SOB. PT LYING ON LEFT SIDE WITH PILLOW IN BETWEEN LEGS AND PRESSURE BOOTS IN PLACE. CALL LIGHT IS WITHIN REACH. WILL CONTINUE TO MONITOR.
--- NOTE | 2020-10-26 06:05 | NUR ---
SHIFT SUMMARY PT VERY PLEASANT ALERT AND ORIENTED X4. VITALS ARE STABLE AND SATS ARE 92 AND ABOVE ON ROOM AIR. THERE HAVE BEEN NO ACUTE CHANGES. PT IS VERY PAINFUL AND TAKING PAIN MEDS Q6. PT'S LEGS ARE CONTRACTURED AND SPASMODIC REQUIRES Q2 TURNS. WOUND PICTURES ARE IN CHART. PT IS INCONT OF STOOL AND URINE. USES CALL LIGHT APPROPRIETLY.
[2020-10-26 07:37] LABS: BASOPHILS ABSOLUTE AUTO 0.03 K/mm3 (0.00-0.23); BASOPHILS PERCENT AUTO 1 % (0-2); EOSINOPHILS PERCENT AUTO 3 % (0-6); Hematocrit 37.1 % (33.0-51.0); Hemoglobin 11.4 g/dL (11.5-16.0); IMMATURE GRAN ABSOLUTE AUTO 0.01 K/mm3 (0.00-0.10); IMMATURE GRAN PERCENT AUTO 0 % (0-1); LYMPHOCYTES ABSOLUTE AUTO 2.34 K/mm3 (0.84-5.20); LYMPHOCYTES PERCENT AUTO 39 % (21-46); MONOCYTES ABSOLUTE AUTO 0.53 K/mm3 (0.16-1.47); MONOCYTES PERCENT AUTO 9 % (4-13); Mean Corpuscular HGB 26.1 pg (26.0-34.0); Mean Corpuscular HGB Conc 30.7 g/dL (31.5-36.5); Mean Corpuscular Volume 85 fL (80-100); Mean Platelet Volume 10.2 fL (9.1-12.4); NEUTROPHILS ABSOLUTE AUTO 2.85 K/mm3 (1.96-9.15); NEUTROPHILS PERCENT AUTO 48 % (41-73); Platelet Count 201 K/mm3 (150-400); RDW Coefficient Variation 16.2 % (11.7-14.2); RDW Standard Deviation 50.4 fL (35.1-46.3); Red Blood Cell Count 4.37 M/mm3 (3.80-5.20); White Blood Cell Count 5.96 K/mm3 (4.00-11.30)
[2020-10-26 07:55] LABS: Anion Gap 3 mmol/L (6-16); Blood Urea Nitrogen 9 mg/dL (8-24); Bun/Creatinine Ratio 13.5 (12.0-20.0); CO2, Blood 31 mmol/L (21-32); Calcium, Blood 8.6 mg/dL (8.5-10.1); Chloride, Blood 104 mmol/L (98-108); Creatinine, Blood 0.67 mg/dL (0.40-1.00); Glomerular Filtration Rate >60 (60-); Glucose, Blood 135 mg/dL (70-99); Potassium, Blood 3.9 mmol/L (3.5-5.5); Sodium, Blood 138 mmol/L (136-145); Vancomycin, Trough 16.4 ug/mL (5.0-10.0)
--- NOTE | 2020-10-26 15:25 | NUR ---
NO ACUTE EVENTS THIS SHIFT, VSS. PATIENT ALERT AND ORIENTED, COOPERATIVE WITH CARE. PATIENT COMPLAINS OF PAIN IN LEGS, MEDICATED PER EMAR. PATIENT REPOSITIONED T/O SHIFT. REPORT GIVEN TO JACKIE LACKEY ON MEDICAL.
--- NOTE | 2020-10-26 16:30 | NUR ---
PATIENT TRANSFERRED FROM PCU 10 TO ROOM 301, REPORTS RECEIVED FROM ERICK. PAOLO, ON RA. AT BEDSIDE. WOUNDS TO HIPS BILATERALLY, REDENESS TO COCCYX. Q2 HOURS TURN. INCONTIENT OF URINE/STOOL. A/O X4, PLEASANT AND COOPERATIVE WITH CARE. CONTRACTURES TO BLE, VERY PAINFUL WITH REPOSITIONING. MEDICATING WITH TYLENOL, OXYCODONE AND FENTANYL PATCH IN PLACE TO R SHOULDER. PATIENT ORIENTED TO ROOM AND USE OF CALL LIGHT. FALL PRECAUTIONS IN PLACE PER UNIT PROTOCOL.
--- NOTE | 2020-10-27 04:15 | NUR ---
SHIFT SUMMARY ASSUMED CARE OF PT AT 1900. PT IS A/OX4. HEART SOUNDS REGULAR. LUNG SOUNDS CLEAR. PT C/O PAIN IN HER LEAGS AND BACK, MEDICATED PER EAMR. PT LEGS ARE COMPLETLY CONTRACTED. PT WAS INCONTIENT T/O THE NIGHT. PT DRESSINGS WERE CHANGED ON HER HIP WOUNDS, WITH TRIPLE ANTIBIOTIC APPLIED. CALL LIGHT IN REACH, BED IN LOWEST POSITON.
[2020-10-27 04:40] LABS: BASOPHILS ABSOLUTE AUTO 0.03 K/mm3 (0.00-0.23); BASOPHILS PERCENT AUTO 0 % (0-2); EOSINOPHILS ABSOLUTE AUTO 0.21 K/mm3 (0.00-0.68); EOSINOPHILS PERCENT AUTO 3 % (0-6); Hematocrit 36.4 % (33.0-51.0); Hemoglobin 11.3 g/dL (11.5-16.0); IMMATURE GRAN ABSOLUTE AUTO 0.02 K/mm3 (0.00-0.10); IMMATURE GRAN PERCENT AUTO 0 % (0-1); LYMPHOCYTES ABSOLUTE AUTO 2.94 K/mm3 (0.84-5.20); LYMPHOCYTES PERCENT AUTO 42 % (21-46); MONOCYTES ABSOLUTE AUTO 0.59 K/mm3 (0.16-1.47); MONOCYTES PERCENT AUTO 8 % (4-13); Mean Corpuscular HGB 26.2 pg (26.0-34.0); Mean Corpuscular Volume 85 fL (80-100); Mean Platelet Volume 10.3 fL (9.1-12.4); NEUTROPHILS ABSOLUTE AUTO 3.21 K/mm3 (1.96-9.15); NEUTROPHILS PERCENT AUTO 46 % (41-73); Platelet Count 202 K/mm3 (150-400); RDW Coefficient Variation 16.2 % (11.7-14.2); RDW Standard Deviation 50.5 fL (35.1-46.3); Red Blood Cell Count 4.31 M/mm3 (3.80-5.20)
--- NOTE | 2020-10-27 17:57 | NUR ---
NO ACUTE CHANGES THIS SHIFT. PATIENT A/OX4, PLEASANT AND COOPERATIVE WITH CARE. TURNING Q2 HOURS, INCONTINENT OF URINE/STOOL. VERY PAINFUL WITH REPOSITIONING, LEGS CONTRACTURED. MEPILEX DRESSINGS TO BILATERAL HIP PRESSURE ULCERS REMAIN C/D/I. OXYCODONE/TYLENOL AND FENTANYL PATCH USED TO TREAT PAIN. 20G IV TO R FA WNL AND SL. PATIENT FROM [facility] AND PLAN IS TO RETURN WHEN STABLE.
--- NOTE | 2020-10-28 06:23 | NUR ---
SUMMARY: PT A/OX4, CALLS APPROPRIATELY AND SPECIFIES NEEDS. SHE REMAINS ON BEDREST W/BLE CONTRACTURES AND SEVERELY LIMITED ROM TO LEGS. TURN SCHEDULE MAINTAINED AND LEG PAIN MANAGED FENTANYL PATCH AND OXYCONDONE PRN. ATTENDS CHANGED PRN FOR URINARY INCONTINENCE. DX'S TO BILAT HIP WOUNDS REMAIN C/D/I. ABX BEING RECIEVED PER EMAR. NO ACUTE CHANGES, VSS/AFEBRILE. [facility] [place] AND REPORT TO DAY RN.
[2020-10-28] MEDS ORDERED: VISBIOME 112.51 EACH PO (08:50)
[2020-10-28] MEDS ORDERED: TUMS500 MG PO (08:51)
[2020-10-28] MEDS ORDERED: CEPH500 PO (08:52)
[2020-10-28 12:53] LABS: SARS-Cov-2 (COVID-19) PCR, MMC NEGATIVE (NEGATIVE)
--- NOTE | 2020-10-28 14:49 | NUR ---
DISCHARGE PATIENT DISCHARGED BACK TO [facility]. DISCHARGE MEDICATIONS AND INSTRUCTIONS SENT IN PACKET WITH [facility] TRANSPORT DRIVERS. PATIENT TRANPORTED BY CHRISTOPHER. HARD COPY SCRIPTS IN PACKET. IV REMOVED WITHOUT ISSUE. BELONGINGS WITH PATIENT. REPORT CALLED TO NURSE LEE.
== END 2020-10-28 14:38 | DRG 871 ==
LOC: ER 12:16 → PCU 16:17 → MEDS 16:17 → PCU 20:00 → MEDS 10-26 16:16
PROVIDERS: Emergency Medicine; Internal Medicine; ADMIT Family Medicine
DX: A41.51 Sepsis due to Escherichia coli [E. coli] (principal); L89.893 Pressure ulcer of other site, stage 3; J18.9 Pneumonia, unspecified organism; L89.323 Pressure ulcer of left buttock, stage 3; N39.0 Urinary tract infection, site not specified; R65.20 Severe sepsis without septic shock; Z20.822 Contact with and (suspected) exposure to COVID-19; I10 Essential (primary) hypertension; E78.5 Hyperlipidemia, unspecified; G89.29 Other chronic pain; K75.81 Nonalcoholic steatohepatitis (NASH); M54.2 Cervicalgia; L89.312 Pressure ulcer of right buttock, stage 2; F41.9 Anxiety disorder, unspecified; M19.90 Unspecified osteoarthritis, unspecified site; Z86.14 Personal history of Methicillin resistant Staphylococcus aureus infection; Z90.49 Acquired absence of other specified parts of digestive tract; Z98.890 Other specified postprocedural states; Z79.2 Long term (current) use of antibiotics; Z79.899 Other long term (current) drug therapy
CPT/HCPCS: 36415; 71045; 76882; 80048; 80053; 80202; 81001; 83036; 83605; 84145; 85025; 87040; 87077; 87086; 87186; 94667; 94668; 94760; 96365; 96367; 99285-25; A9270; J0456; J0696; J1650; J3370; J7030; J7050; J7120; U0004

== ENCOUNTER → 2020-10-24 | Outpatient (CLI) | payer OTHER ==
[~2020-10-24] MED LIST changes: +Cyclobenzaprine5 MG PO; +POTCHL20ER PO; +PREGABALIN PO; +TUMS500 MG PO; +VISBIOME 112.51 EACH PO
[2020-10-24 11:01] LABS: Hematocrit 40.9 % (33.0-51.0); Hemoglobin 12.6 g/dL (11.5-16.0); Mean Corpuscular HGB 26.4 pg (26.0-34.0); Mean Corpuscular HGB Conc 30.8 g/dL (31.5-36.5); Mean Corpuscular Volume 86 fL (80-100); Mean Platelet Volume 10.2 fL (9.1-12.4); Platelet Count 211 K/mm3 (150-400); RDW Coefficient Variation 16.2 % (11.7-14.2); RDW Standard Deviation 50.7 fL (35.1-46.3); Red Blood Cell Count 4.78 M/mm3 (3.80-5.20)
[2020-10-24 11:22] LABS: Anion Gap 1 mmol/L (6-16); Blood Urea Nitrogen 14 mg/dL (8-24); Bun/Creatinine Ratio 20.1 (12.0-20.0); CO2, Blood 33 mmol/L (21-32); Calcium, Blood 8.7 mg/dL (8.5-10.1); Chloride, Blood 100 mmol/L (98-108); Glomerular Filtration Rate >60 (60-); Glucose, Blood 165 mg/dL (70-99); Potassium, Blood 4.6 mmol/L (3.5-5.5); Sodium, Blood 134 mmol/L (136-145)
== END | disposition home or self-care (01) ==
LOC: LAB UVN 06:24 → EDSTATUS 10:46
PROVIDERS: Family Medicine
DX: A49.02 Methicillin resistant Staphylococcus aureus infection, unspecified site (principal); L89.212 Pressure ulcer of right hip, stage 2; L89.223 Pressure ulcer of left hip, stage 3; R13.12 Dysphagia, oropharyngeal phase
CPT/HCPCS: 80048; 82565; 85027

== ENCOUNTER → 2020-10-31 | Outpatient (CLI) | payer OTHER ==
[~2020-10-31] MED LIST changes: +Cyclobenzaprine5 MG PO; +POTCHL20ER PO; +PREGABALIN PO; +TUMS500 MG PO; +VISBIOME 112.51 EACH PO
[2020-10-31 06:17] LABS: BASOPHILS ABSOLUTE AUTO 0.05 K/mm3 (0.00-0.23); BASOPHILS PERCENT AUTO 1 % (0-2); EOSINOPHILS ABSOLUTE AUTO 0.25 K/mm3 (0.00-0.68); EOSINOPHILS PERCENT AUTO 3 % (0-6); Hematocrit 37.9 % (33.0-51.0); Hemoglobin 11.7 g/dL (11.5-16.0); IMMATURE GRAN ABSOLUTE AUTO 0.03 K/mm3 (0.00-0.10); IMMATURE GRAN PERCENT AUTO 0 % (0-1); LYMPHOCYTES ABSOLUTE AUTO 3.63 K/mm3 (0.84-5.20); LYMPHOCYTES PERCENT AUTO 41 % (21-46); MONOCYTES ABSOLUTE AUTO 0.73 K/mm3 (0.16-1.47); MONOCYTES PERCENT AUTO 8 % (4-13); Mean Corpuscular HGB 26.7 pg (26.0-34.0); Mean Corpuscular HGB Conc 30.9 g/dL (31.5-36.5); Mean Corpuscular Volume 86 fL (80-100); Mean Platelet Volume 10.3 fL (9.1-12.4); NEUTROPHILS PERCENT AUTO 47 % (41-73); Platelet Count 230 K/mm3 (150-400); RDW Coefficient Variation 16.8 % (11.7-14.2); Red Blood Cell Count 4.39 M/mm3 (3.80-5.20); White Blood Cell Count 8.79 K/mm3 (4.00-11.30)
[2020-10-31 06:25] LABS: Anion Gap 3 mmol/L (6-16); Blood Urea Nitrogen 13 mg/dL (8-24); Bun/Creatinine Ratio 19.6 (12.0-20.0); CO2, Blood 31 mmol/L (21-32); Calcium, Blood 8.6 mg/dL (8.5-10.1); Chloride, Blood 103 mmol/L (98-108); Creatinine, Blood 0.66 mg/dL (0.40-1.00); Glomerular Filtration Rate >60 (60-); Glucose, Blood 109 mg/dL (70-99); Potassium, Blood 4.4 mmol/L (3.5-5.5); Sodium, Blood 137 mmol/L (136-145)
== END | disposition home or self-care (01) ==
LOC: LAB UVN 06:03 → EDSTATUS 10:48
PROVIDERS: Family Medicine
DX: A41.02 Sepsis due to Methicillin resistant Staphylococcus aureus (principal); J18.9 Pneumonia, unspecified organism; N39.0 Urinary tract infection, site not specified; D72.829 Elevated white blood cell count, unspecified; I10 Essential (primary) hypertension; R00.0 Tachycardia, unspecified; E78.5 Hyperlipidemia, unspecified; L89.323 Pressure ulcer of left buttock, stage 3; L89.223 Pressure ulcer of left hip, stage 3; L89.312 Pressure ulcer of right buttock, stage 2; L89.212 Pressure ulcer of right hip, stage 2; I82.409 Acute embolism and thrombosis of unspecified deep veins of unspecified lower extremity; G89.29 Other chronic pain; Z87.39 Personal history of other diseases of the musculoskeletal system and connective tissue; Z86.59 Personal history of other mental and behavioral disorders
CPT/HCPCS: 80048; 85025

== ENCOUNTER → 2020-11-04 | Outpatient (CLI) | payer OTHER ==
[2020-11-04 23:03] LABS: Hematocrit 36.4 % (33.0-51.0); Hemoglobin 11.4 g/dL (11.5-16.0); Mean Corpuscular HGB 26.4 pg (26.0-34.0); Mean Corpuscular HGB Conc 31.3 g/dL (31.5-36.5); Mean Corpuscular Volume 84 fL (80-100); Mean Platelet Volume 10.4 fL (9.1-12.4); Platelet Count 242 K/mm3 (150-400); RDW Coefficient Variation 16.5 % (11.7-14.2); RDW Standard Deviation 50.8 fL (35.1-46.3); Red Blood Cell Count 4.32 M/mm3 (3.80-5.20); White Blood Cell Count 9.64 K/mm3 (4.00-11.30)
[2020-11-04 23:11] LABS: Anion Gap 3 mmol/L (6-16); Blood Urea Nitrogen 12 mg/dL (8-24); Bun/Creatinine Ratio 17.2 (12.0-20.0); CO2, Blood 33 mmol/L (21-32); Calcium, Blood 8.5 mg/dL (8.5-10.1); Chloride, Blood 103 mmol/L (98-108); Glomerular Filtration Rate >60 (60-); Glucose, Blood 133 mg/dL (70-99); Potassium, Blood 4.3 mmol/L (3.5-5.5); Sodium, Blood 139 mmol/L (136-145)
== END | disposition home or self-care (01) ==
LOC: EDSTATUS 10:50 → LAB UVN 20:40
PROVIDERS: Internal Medicine
DX: A49.02 Methicillin resistant Staphylococcus aureus infection, unspecified site (principal); J18.1 Lobar pneumonia, unspecified organism
CPT/HCPCS: 80048; 85027

== ENCOUNTER 2020-11-05 00:15 | Day surgery (SDC) | payer OTHER | END 2020-11-05 22:41 | disposition home or self-care (01) | LOC: WOUND 00:15 | DX: E11.42 Type 2 diabetes mellitus with diabetic polyneuropathy (principal); L89.212 Pressure ulcer of right hip, stage 2; L89.223 Pressure ulcer of left hip, stage 3; R77.0 Abnormality of albumin; I10 Essential (primary) hypertension | CPT/HCPCS: A9270; G0463 ==

== ENCOUNTER 2020-11-19 03:23 | Day surgery (SDC) | payer OTHER | END 2020-11-19 23:42 | disposition home or self-care (01) | LOC: WOUND 03:23 | DX: L89.223 Pressure ulcer of left hip, stage 3 (principal); L89.212 Pressure ulcer of right hip, stage 2; E11.42 Type 2 diabetes mellitus with diabetic polyneuropathy; R77.0 Abnormality of albumin | CPT/HCPCS: A9270; G0463 ==

== ENCOUNTER → 2020-11-19 | Outpatient (CLI) | payer OTHER ==
[2020-11-19 23:42] LABS: BASOPHILS ABSOLUTE AUTO 0.03 K/mm3 (0.00-0.23); BASOPHILS PERCENT AUTO 0 % (0-2); EOSINOPHILS ABSOLUTE AUTO 0.23 K/mm3 (0.00-0.68); EOSINOPHILS PERCENT AUTO 3 % (0-6); Hematocrit 34.6 % (33.0-51.0); Hemoglobin 10.8 g/dL (11.5-16.0); IMMATURE GRAN ABSOLUTE AUTO 0.02 K/mm3 (0.00-0.10); IMMATURE GRAN PERCENT AUTO 0 % (0-1); LYMPHOCYTES PERCENT AUTO 39 % (21-46); MONOCYTES ABSOLUTE AUTO 0.74 K/mm3 (0.16-1.47); MONOCYTES PERCENT AUTO 10 % (4-13); Mean Corpuscular HGB 26.3 pg (26.0-34.0); Mean Corpuscular HGB Conc 31.2 g/dL (31.5-36.5); Mean Corpuscular Volume 84 fL (80-100); Mean Platelet Volume 10.4 fL (9.1-12.4); NEUTROPHILS ABSOLUTE AUTO 3.51 K/mm3 (1.96-9.15); NEUTROPHILS PERCENT AUTO 47 % (41-73); Platelet Count 205 K/mm3 (150-400); RDW Coefficient Variation 16.4 % (11.7-14.2); RDW Standard Deviation 50.5 fL (35.1-46.3); White Blood Cell Count 7.43 K/mm3 (4.00-11.30)
[2020-11-20 00:03] LABS: Anion Gap 2 mmol/L (6-16); Blood Urea Nitrogen 12 mg/dL (8-24); Bun/Creatinine Ratio 17.4 (12.0-20.0); CO2, Blood 32 mmol/L (21-32); Calcium, Blood 8.4 mg/dL (8.5-10.1); Chloride, Blood 105 mmol/L (98-108); Creatinine, Blood 0.69 mg/dL (0.40-1.00); Glomerular Filtration Rate >60 (60-); Glucose, Blood 185 mg/dL (70-99); Potassium, Blood 4.3 mmol/L (3.5-5.5); Sodium, Blood 139 mmol/L (136-145)
== END | disposition home or self-care (01) ==
LOC: EDSTATUS 10:51 → LAB UVN 23:37
PROVIDERS: Internal Medicine
DX: I10 Essential (primary) hypertension (principal)
CPT/HCPCS: 80048; 85025

== ENCOUNTER 2020-12-03 00:42 | Day surgery (SDC) | payer OTHER | END 2020-12-03 23:25 | disposition home or self-care (01) | LOC: WOUND 00:42 | DX: L89.223 Pressure ulcer of left hip, stage 3 (principal); L89.212 Pressure ulcer of right hip, stage 2; E11.42 Type 2 diabetes mellitus with diabetic polyneuropathy; R77.0 Abnormality of albumin | CPT/HCPCS: A9270; G0463 ==

== ENCOUNTER 2020-12-17 06:27 | Day surgery (SDC) | payer OTHER | END 2020-12-17 22:44 | disposition home or self-care (01) | LOC: WOUND 06:27 | DX: L89.223 Pressure ulcer of left hip, stage 3 (principal); L89.212 Pressure ulcer of right hip, stage 2; R77.0 Abnormality of albumin; E11.42 Type 2 diabetes mellitus with diabetic polyneuropathy | CPT/HCPCS: G0463 ==

== ENCOUNTER → 2021-01-13 | Outpatient (CLI) | payer OTHER ==
[2021-01-13 23:10] LABS: Hematocrit 38.2 % (33.0-51.0); Hemoglobin 11.6 g/dL (11.5-16.0); Mean Corpuscular HGB Conc 30.4 g/dL (31.5-36.5); Mean Corpuscular Volume 86 fL (80-100); Mean Platelet Volume 10.4 fL (9.1-12.4); Platelet Count 206 K/mm3 (150-400); RDW Coefficient Variation 16.1 % (11.7-14.2); RDW Standard Deviation 50.3 fL (35.1-46.3); Red Blood Cell Count 4.47 M/mm3 (3.80-5.20); White Blood Cell Count 11.24 K/mm3 (4.00-11.30)
[2021-01-13 23:18] LABS: Anion Gap 4 mmol/L (6-16); Blood Urea Nitrogen 12 mg/dL (8-24); Bun/Creatinine Ratio 17.9 (12.0-20.0); CO2, Blood 33 mmol/L (21-32); Calcium, Blood 8.4 mg/dL (8.5-10.1); Chloride, Blood 101 mmol/L (98-108); Creatinine, Blood 0.67 mg/dL (0.40-1.00); Glomerular Filtration Rate >60 (60-); Glucose, Blood 205 mg/dL (70-99); Potassium, Blood 3.7 mmol/L (3.5-5.5); Sodium, Blood 138 mmol/L (136-145)
== END | disposition home or self-care (01) ==
LOC: EDSTATUS 10:26 → LAB UVN 19:01
PROVIDERS: Internal Medicine
DX: A41.89 Other specified sepsis (principal); G37.9 Demyelinating disease of central nervous system, unspecified; I10 Essential (primary) hypertension
CPT/HCPCS: 80048; 85027

== ENCOUNTER → 2021-01-15 | Outpatient (CLI) | payer OTHER | END | disposition home or self-care (01) | LOC: EDSTATUS 10:32 → LAB UVN 15:56 | DX: A41.89 Other specified sepsis (principal); G37.9 Demyelinating disease of central nervous system, unspecified; E11.42 Type 2 diabetes mellitus with diabetic polyneuropathy; I10 Essential (primary) hypertension | CPT/HCPCS: 83036 ==

== ENCOUNTER 2021-03-28 11:36 | Emergency (ER) | payer OTHER ==
[~2021-03-28] VITALS: Ht 167.6 cm; Wt 111.1 kg
[2021-03-28 14:33] LABS: Source, Urine Catheter
[2021-03-28 14:43] LABS: Appearance, Urine Hazy (Clear); Bilirubin, Urine Neg (Neg); Blood, Urine 5+ (Neg); Color, Urine Yellow (P-Yellow); Glucose Qualitative, Urine Neg (Neg); Ketones, Urine Neg (Neg); Leukocyte Esterase, Urine 3+ (Neg); Nitrite, Urine Pos (Neg); Protein, Urine 2+ (Neg); Urobilinogen, Urine NORM (Normal); pH, Urine 6.5 (5.0-8.0)
[2021-03-28 15:00] LABS: White Blood Cells, Urine 50-100 /hpf (0-5)
[2021-03-28 15:01] LABS: Red Blood Cells, Urine 50-100 /hpf (0-2)
[2021-03-28 15:03] LABS: Bacteria Many /hpf; Mucus Light (0-Heavy); Squamous Epithelial Cells Mod /hpf (Few)
[2021-03-28 15:45] LABS: Alanine Aminotransfer (ALT/SGP 9 U/L (12-78); Albumin, Blood 2.4 g/dL (3.4-5.0); Albumin/Globulin Ratio 0.6 (0.8-1.8); Alk Phos 97 U/L (50-136); Anion Gap 1 mmol/L (6-16); Aspartate Aminotrans (AST/SGOT 7 U/L (12-37); BASOPHILS ABSOLUTE AUTO 0.02 K/mm3 (0.00-0.23); BASOPHILS PERCENT AUTO 0 % (0-2); Bilirubin, Total 0.6 mg/dL (0.1-1.0); Blood Urea Nitrogen 6 mg/dL (8-24); Bun/Creatinine Ratio 13.6 (12.0-20.0); CO2, Blood 37 mmol/L (21-32); Calcium, Blood 9.1 mg/dL (8.5-10.1); Chloride, Blood 102 mmol/L (98-108); Creatinine, Blood 0.44 mg/dL (0.40-1.00); EOSINOPHILS ABSOLUTE AUTO 0.02 K/mm3 (0.00-0.68); EOSINOPHILS PERCENT AUTO 0 % (0-6); Globulin, Blood 4.2 g/dL (2.2-4.0); Glomerular Filtration Rate >60 (60-); Glucose, Blood 123 mg/dL (70-99); Hematocrit 39.8 % (33.0-51.0); Hemoglobin 11.5 g/dL (11.5-16.0); IMMATURE GRAN ABSOLUTE AUTO 0.05 K/mm3 (0.00-0.10); IMMATURE GRAN PERCENT AUTO 1 % (0-1); LYMPHOCYTES ABSOLUTE AUTO 1.32 K/mm3 (0.84-5.20); LYMPHOCYTES PERCENT AUTO 16 % (21-46); MONOCYTES PERCENT AUTO 7 % (4-13); Mean Corpuscular HGB 25.2 pg (26.0-34.0); Mean Corpuscular HGB Conc 28.9 g/dL (31.5-36.5); Mean Corpuscular Volume 87 fL (80-100); Mean Platelet Volume 10.2 fL (9.1-12.4); NEUTROPHILS ABSOLUTE AUTO 6.22 K/mm3 (1.96-9.15); NEUTROPHILS PERCENT AUTO 76 % (41-73); Platelet Count 186 K/mm3 (150-400); Potassium, Blood 4.5 mmol/L (3.5-5.5); RDW Coefficient Variation 15.6 % (11.7-14.2); RDW Standard Deviation 49.6 fL (35.1-46.3); Red Blood Cell Count 4.56 M/mm3 (3.80-5.20); Sodium, Blood 140 mmol/L (136-145); Total Protein, Blood 6.6 g/dL (6.4-8.2); White Blood Cell Count 8.23 K/mm3 (4.00-11.30)
[2021-03-28] MEDS ORDERED: CEFD300 PO (16:54)
== END 2021-03-28 18:02 | disposition home or self-care (01) ==
LOC: ER 11:36
PROVIDERS: Emergency Medicine
DX: N39.0 Urinary tract infection, site not specified (principal); G82.20 Paraplegia, unspecified; Z79.899 Other long term (current) drug therapy; Z79.891 Long term (current) use of opiate analgesic; I10 Essential (primary) hypertension
CPT/HCPCS: 51701; 71045; 80053; 81001; 85025; 87086; 96365-59; 99284-25; J0696; J7030

== ENCOUNTER → 2021-04-22 | Outpatient (CLI) | payer OTHER ==
[~2021-04-22] MED LIST changes: +CEFD300 PO; +CYCLOBENZAPRINE5 MG PO; +DOXY100 PO; +LACT PO; +Naloxone HC1 MG/1 ML; +PANT20 PO; +Ventolin5 MG/1 ML INH; +Zofran8 MG PT
== END | disposition home or self-care (01) ==
LOC: LAB UVN 04:30 → EDSTATUS 10:12
DX: E11.42 Type 2 diabetes mellitus with diabetic polyneuropathy (principal)
CPT/HCPCS: 83036

== ENCOUNTER 2021-05-04 12:49 | Inpatient (IN) | payer OTHER ==
[~2021-05-04] VITALS: Ht 167.6 cm; Wt 93.8 kg
[~2021-05-04 12:49] MED LIST changes: -CYCLOBENZAPRINE5 MG PO; -DOXY100 PO; -LACT PO; -Naloxone HC1 MG/1 ML; -PANT20 PO; -Ventolin5 MG/1 ML INH; -Zofran8 MG PT
[2021-05-04 13:41] LABS: BASOPHILS ABSOLUTE AUTO 0.05 K/mm3 (0.00-0.23); BASOPHILS PERCENT AUTO 0 % (0-2); EOSINOPHILS ABSOLUTE AUTO 0.04 K/mm3 (0.00-0.68); EOSINOPHILS PERCENT AUTO 0 % (0-6); Hematocrit 42.7 % (33.0-51.0); Hemoglobin 12.5 g/dL (11.5-16.0); IMMATURE GRAN ABSOLUTE AUTO 0.11 K/mm3 (0.00-0.10); IMMATURE GRAN PERCENT AUTO 1 % (0-1); LYMPHOCYTES ABSOLUTE AUTO 1.12 K/mm3 (0.84-5.20); LYMPHOCYTES PERCENT AUTO 5 % (21-46); MONOCYTES ABSOLUTE AUTO 1.17 K/mm3 (0.16-1.47); MONOCYTES PERCENT AUTO 6 % (4-13); Mean Corpuscular HGB 25.2 pg (26.0-34.0); Mean Corpuscular HGB Conc 29.3 g/dL (31.5-36.5); Mean Corpuscular Volume 86 fL (80-100); Mean Platelet Volume 9.5 fL (9.1-12.4); NEUTROPHILS PERCENT AUTO 88 % (41-73); Platelet Count 181 K/mm3 (150-400); RDW Coefficient Variation 16.8 % (11.7-14.2); RDW Standard Deviation 52.2 fL (35.1-46.3); Red Blood Cell Count 4.97 M/mm3 (3.80-5.20); White Blood Cell Count 20.59 K/mm3 (4.00-11.30)
[2021-05-04 14:05] LABS: Alanine Aminotransfer (ALT/SGP 14 U/L (12-78); Albumin, Blood 2.6 g/dL (3.4-5.0); Albumin/Globulin Ratio 0.7 (0.8-1.8); Alk Phos 96 U/L (50-136); Anion Gap 2 mmol/L (6-16); Aspartate Aminotrans (AST/SGOT 12 U/L (12-37); Bilirubin, Total 0.7 mg/dL (0.1-1.0); Blood Urea Nitrogen 8 mg/dL (8-24); Bun/Creatinine Ratio 15.7 (12.0-20.0); CO2, Blood 37 mmol/L (21-32); Calcium, Blood 8.7 mg/dL (8.5-10.1); Chloride, Blood 102 mmol/L (98-108); Creatinine, Blood 0.51 mg/dL (0.40-1.00); Globulin, Blood 3.7 g/dL (2.2-4.0); Glomerular Filtration Rate >60 (60-); Glucose, Blood 144 mg/dL (70-99); Potassium, Blood 4.8 mmol/L (3.5-5.5); Sodium, Blood 141 mmol/L (136-145); Total Protein, Blood 6.3 g/dL (6.4-8.2)
[2021-05-04 14:06] LABS: Source, Urine Catheter
[2021-05-04 14:15] LABS: Appearance, Urine Clear (Clear); Bilirubin, Urine Neg (Neg); Blood, Urine 4+ (Neg); Color, Urine Yellow (P-Yellow); Glucose Qualitative, Urine Neg (Neg); Ketones, Urine 1+ (Neg); Leukocyte Esterase, Urine 3+ (Neg); Nitrite, Urine Neg (Neg); Protein, Urine 2+ (Neg); Specific Gravity, Urine 1.015 (1.003-1.022); Urobilinogen, Urine NORM (Normal); pH, Urine 6.5 (5.0-8.0)
[2021-05-04 14:31] LABS: Red Blood Cells, Urine 25-50 /hpf (0-2)
[2021-05-04 14:32] LABS: Amorphous Mod (0-Heavy); Bacteria Many /hpf; Mucus Light (0-Heavy); Squamous Epithelial Cells Mod /hpf (Few)
[2021-05-04 15:12] LABS: Influenza A, PCR NEGATIVE (NEGATIVE); Influenza B, PCR NEGATIVE (NEGATIVE); Resp Syncytial Virus, PCR NEGATIVE (NEGATIVE); SARS-Cov-2 (COVID-19) PCR, MMC NEGATIVE (NEGATIVE)
[2021-05-04] MEDS ORDERED: CYCLOBENZAPRINE5 MG PO (16:03)
[2021-05-04] MEDS ORDERED: METF500 PO (16:04)
[2021-05-04] MEDS ORDERED: PANT20 PO (16:05)
[2021-05-04] MEDS ORDERED: PREG200 PO (16:06)
[2021-05-04] MEDS ORDERED: Zofran8 MG PT (16:08)
[2021-05-04 17:30] LABS: Base Excess Venous 5.5 mmol/L; Bicarbonate Venous 27.2 mmol/L (24.0-30.0); PCO2 Venous 93.9 mmHg (38-42); PO2 Venous 189 mmHg (38-42); pH Blood Venous 7.17 (7.34-7.37)
[2021-05-04 20:44] LABS: PO2 Arterial 80.4 mmHg (80-100)
[2021-05-04 20:46] LABS: PCO2 Arterial 103 mmHg (35-45); pH Blood Arterial 7.13 (7.35-7.45)
--- NOTE | 2021-05-04 22:00 | NUR ---
ASSUMED CARE OF PT AT 2119 FROM ER, CAME IN FROM [facility]. PATIENT ON BIPAP UPON ARRIVAL (35% FIO2 24/10). VERY LETHARGIC AND HARD TO AROUSE, WOULD OPEN EYES AND GRUNT WITH BEING MOVED. KOURTNEY AT BEDSIDE. 75MCG FENTANYL PATCH WAS REMOVED AND DISPOSED OF PROPERLY. WITH ABG RESULTING IN RESP ACIDOSIS, ORDERS FOR 0.4 NARCAN. AFTER ADMINISTERING PATIENT BECAME MORE AROUSABLE AND BEGAN MOANING/YELLING OUT AND RR INCREASED. ORDERS FOR XFER TO ICU AND NARCAN DRIP ORDERED.
--- NOTE | 2021-05-04 23:00 | NUR ---
Assumed care. Report received from PCU nurse. Pt arrived from PCU, on Bipap, vital signs stable. Pt was awake, responded to any stimuli with nonverbal indicators of pain. IV access in L/AC. Pt put on naloxone drip at 1mg/hr. Nichols catheter inserted. See shift assessment for further details.
[2021-05-04 23:57] LABS: Base Excess Venous 3.9 mmol/L; Bicarbonate Venous 26.9 mmol/L (24.0-30.0); PCO2 Venous 55.7 mmHg (38-42); PO2 Venous 201 mmHg (38-42); pH Blood Venous 7.34 (7.34-7.37)
[2021-05-05 04:57] LABS: PCO2 Venous 51.6 mmHg (38-42); PO2 Venous 80.4 mmHg (38-42); pH Blood Venous 7.39 (7.34-7.37)
[2021-05-05 05:10] LABS: BASOPHILS ABSOLUTE AUTO 0.05 K/mm3 (0.00-0.23); BASOPHILS PERCENT AUTO 0 % (0-2); EOSINOPHILS ABSOLUTE AUTO 0.01 K/mm3 (0.00-0.68); EOSINOPHILS PERCENT AUTO 0 % (0-6); Hematocrit 36.5 % (33.0-51.0); Hemoglobin 10.5 g/dL (11.5-16.0); IMMATURE GRAN ABSOLUTE AUTO 0.12 K/mm3 (0.00-0.10); IMMATURE GRAN PERCENT AUTO 1 % (0-1); LYMPHOCYTES ABSOLUTE AUTO 1.47 K/mm3 (0.84-5.20); LYMPHOCYTES PERCENT AUTO 7 % (21-46); MONOCYTES ABSOLUTE AUTO 1.06 K/mm3 (0.16-1.47); MONOCYTES PERCENT AUTO 5 % (4-13); Mean Corpuscular HGB 25.1 pg (26.0-34.0); Mean Corpuscular HGB Conc 28.8 g/dL (31.5-36.5); Mean Corpuscular Volume 87 fL (80-100); Mean Platelet Volume 10.1 fL (9.1-12.4); NEUTROPHILS ABSOLUTE AUTO 17.87 K/mm3 (1.96-9.15); NEUTROPHILS PERCENT AUTO 87 % (41-73); Platelet Count 187 K/mm3 (150-400); RDW Coefficient Variation 16.7 % (11.7-14.2); RDW Standard Deviation 53.2 fL (35.1-46.3); Red Blood Cell Count 4.18 M/mm3 (3.80-5.20); White Blood Cell Count 20.58 K/mm3 (4.00-11.30)
[2021-05-05 05:33] LABS: Alanine Aminotransfer (ALT/SGP 11 U/L (12-78); Albumin, Blood 2.1 g/dL (3.4-5.0); Albumin/Globulin Ratio 0.5 (0.8-1.8); Alk Phos 79 U/L (50-136); Anion Gap 2 mmol/L (6-16); Aspartate Aminotrans (AST/SGOT 13 U/L (12-37); Bilirubin, Total 0.8 mg/dL (0.1-1.0); Blood Urea Nitrogen 12 mg/dL (8-24); Bun/Creatinine Ratio 21.2 (12.0-20.0); CO2, Blood 32 mmol/L (21-32); Calcium, Blood 8.2 mg/dL (8.5-10.1); Chloride, Blood 108 mmol/L (98-108); Creatinine, Blood 0.57 mg/dL (0.40-1.00); Globulin, Blood 3.9 g/dL (2.2-4.0); Glomerular Filtration Rate >60 (60-); Glucose, Blood 137 mg/dL (70-99); Magnesium, Blood 1.4 mg/dL (1.6-2.4); Potassium, Blood 4.3 mmol/L (3.5-5.5); Sodium, Blood 142 mmol/L (136-145)
[2021-05-05 05:40] LABS: Source, Urine Catheter
[2021-05-05 05:45] LABS: Bilirubin, Urine Neg (Neg); Blood, Urine 4+ (Neg); Glucose Qualitative, Urine Neg (Neg); Ketones, Urine Neg (Neg); Leukocyte Esterase, Urine 3+ (Neg); Nitrite, Urine Neg (Neg); Protein, Urine 2+ (Neg); Urobilinogen, Urine NORM (Normal)
[2021-05-05 06:09] LABS: Appearance, Urine Turbid (Clear); Color, Urine Yellow (P-Yellow)
[2021-05-05 06:10] LABS: Squamous Epithelial Cells Few /hpf (Few); White Blood Cells, Urine TNTC /hpf (0-5)
[2021-05-05 06:11] LABS: Amorphous Light (0-Heavy); Bacteria Many /hpf
--- NOTE | 2021-05-05 06:45 | NUR ---
Family contact. Spoke with at 1257, he said that the family wants full care continued at this time for the patient.
--- NOTE | 2021-05-05 06:46 | NUR ---
Shift summary. Pt continues in bed, on 02, 5 L/min via NC, sats >93%. Pt alert and oriented, able to use call light and communicate needs. Pt has vancomycin running at 83 ml/hr, IV in R/upper arm. Nichols catheter inserted upon arrival but removed during shift due to urine leaking around catheter. Pt continues to c/o of pain in lower extremities, reports little relief from pharmacological pain management. Dr Arora contacted during shift, orders obtained for IV fentanyl prn. contacted and updated with pt condition, was able to transfer call into room and have patient speak with him. See shift assessment for further details, will continue to monitor and report off to dayshift RN.
--- NOTE | 2021-05-05 07:30 | NUR ---
ASSUMED PT CARE BEDSIDE REPORT WITH NASIMA LACKEY AT 0700, ASSUME PT CARE AT THIS TIME. PT RESTING, EYES CLOSED, RESP EVEN AND NONLABORED. WAKES TO VERBAL STIMULI. PT ALERT AND ORIENTED. ANSWERS QUESTIONS APPROPRIATELY. DR MILLIGAN ROUNDED THIS AM. DISCUSSED STATUS CHANGE. 20G TO RIGHT UPPER ARM, SITE WNL, DRESSING C/D/I. NS INFUSING AT 125ML/HR. MAGNESIUM STARTED FOR A LEVEL OF 1.4. SKIN INTACT. LUNG SOUNDS COARSE. O2 PER NC DECREASED FROM 5L TO 2.5L. SATS >92%. SBP >90. HR 100S, SINUS, 1ST DEGREE BLOCK. PT DENIES CP, DENIES SOB. C/O GENERALIZED PAIN TO BODY, MOSTLY LEGS. SEE FULL ASSESSMENT.
--- NOTE | 2021-05-05 08:20 | NUR ---
DR STEWART TO ROOM FOR EVAL.
--- NOTE | 2021-05-05 14:15 | NUR ---
PTS SPOUSE WILLAM AT BEDSIDE. UPDATE PROVIDED. PT DRINKING A CHOCOLATE MILKSHAKE.
--- NOTE | 2021-05-05 16:45 | NUR ---
ROOM ASSIGNMENT RECEIVED 304.
--- NOTE | 2021-05-05 17:30 | NUR ---
SHIFT SUMMARY PT REMAINS ALERT AND ORIENTED. USES CALL LIGHT APPROPRIATELY. SKIN INTACT. 20G TO RIGHT BICEP, SITE WNL, DRESSING C/D/I. NS INF AT 125ML/HR. PT INCONTINENT OF URINE. LEGS VERY CONTRACTED, SUPER PAINFUL WITH ANY AND ALL MOVEMENT. PT PASSING GAS, NO BM TODAY. ON BOWEL CARE. PT TOLERATING PO WITHOUT ISSUE. SATS >90% ON ROOM AIR. PT HAS NONPRODUCTIVE WET COUGH OCCASSIONALY. SBP WNL. MED STATUS. WILL CONTINUE TO MONITOR AND REPORT TO ONCOMING SHIFT.
--- NOTE | 2021-05-05 18:30 | NUR ---
PT TO ROOM 308 WITH STAFF. ALL BELONGINGS SENT.
--- NOTE | 2021-05-05 23:05 | NUR ---
65 year old Female ICU transfer after being admitted with AMS UTI suspected & suspected pneumonia. On 1 l NC sats greater than 90%. PT has behaviors ongoing screaming ho ho ho almost continously and wanting staff to continually reposition her & change incontinent urine. Medicated for pain of 5/10 with minimal effect. Uses fent patch 75 mcg q 72 hours per scanner operator care facility records. PT had been given narcan several times & required narcan gtt in ICU. 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 Intermittantly redirects from screaming & talks calmly then resumes behavior.
--- NOTE | 2021-05-06 01:54 | NUR ---
DR MARTINEZ updated on PT's constant loud vocalizations & discussed PT's baseline rx fentanyl patch 75 mcg & flexeril & oxycodone & current oral & IV meds. rx Melatonin 5 mg po now & Q HS. Await pharmacy processing & will administer RX, reminded of rounding schedule & expectations to control loud vocalizations.
[2021-05-06 05:42] LABS: BASOPHILS ABSOLUTE AUTO 0.04 K/mm3 (0.00-0.23); BASOPHILS PERCENT AUTO 0 % (0-2); EOSINOPHILS ABSOLUTE AUTO 0.17 K/mm3 (0.00-0.68); EOSINOPHILS PERCENT AUTO 1 % (0-6); Hematocrit 34.7 % (33.0-51.0); Hemoglobin 10.1 g/dL (11.5-16.0); IMMATURE GRAN ABSOLUTE AUTO 0.04 K/mm3 (0.00-0.10); IMMATURE GRAN PERCENT AUTO 0 % (0-1); LYMPHOCYTES ABSOLUTE AUTO 1.29 K/mm3 (0.84-5.20); LYMPHOCYTES PERCENT AUTO 10 % (21-46); MONOCYTES PERCENT AUTO 7 % (4-13); Mean Corpuscular HGB 24.9 pg (26.0-34.0); Mean Corpuscular HGB Conc 29.1 g/dL (31.5-36.5); Mean Corpuscular Volume 86 fL (80-100); Mean Platelet Volume 9.9 fL (9.1-12.4); NEUTROPHILS ABSOLUTE AUTO 10.04 K/mm3 (1.96-9.15); NEUTROPHILS PERCENT AUTO 81 % (41-73); Platelet Count 177 K/mm3 (150-400); RDW Coefficient Variation 16.7 % (11.7-14.2); RDW Standard Deviation 52.7 fL (35.1-46.3); Red Blood Cell Count 4.05 M/mm3 (3.80-5.20); White Blood Cell Count 12.38 K/mm3 (4.00-11.30)
[2021-05-06 06:08] LABS: Anion Gap 4 mmol/L (6-16); Blood Urea Nitrogen 9 mg/dL (8-24); Bun/Creatinine Ratio 16.3 (12.0-20.0); CO2, Blood 29 mmol/L (21-32); Calcium, Blood 8.2 mg/dL (8.5-10.1); Chloride, Blood 109 mmol/L (98-108); Creatinine, Blood 0.55 mg/dL (0.40-1.00); Glomerular Filtration Rate >60 (60-); Glucose, Blood 111 mg/dL (70-99); Potassium, Blood 4.4 mmol/L (3.5-5.5); Sodium, Blood 142 mmol/L (136-145); Vancomycin, Trough 16.6 ug/mL (5.0-10.0)
--- NOTE | 2021-05-06 16:55 | NUR ---
PT IS A/OX4, PLEASANT AND COOPERATIVE. THE PT IS ON 1L/MIN O2 VIA NC AT REST AND APPEARS TO BE BREATHING EASILY AT REST. THE PT YELLS OUT WITH POSITIONING DUE TO PAIN IN HER CONTRACTURED LEGS. THE PT WAS MEDICATED FOR PAIN T/O THE DAY. PT WAS REPOSTIONED T/O THE DAY. PTS IS AT THE BEDSIDE AT THIS TIME. PT APPEARS TO BE MORE CALM WHEN HER IS AT THE BEDSIDE. CALL LIGHT IN REACH. WILL CONTINUE TO MONITOR AND ASSESS FOR CHANGES
[2021-05-07 06:08] LABS: BASOPHILS ABSOLUTE AUTO 0.03 K/mm3 (0.00-0.23); BASOPHILS PERCENT AUTO 0 % (0-2); EOSINOPHILS PERCENT AUTO 2 % (0-6); Hematocrit 36.1 % (33.0-51.0); Hemoglobin 10.5 g/dL (11.5-16.0); IMMATURE GRAN ABSOLUTE AUTO 0.03 K/mm3 (0.00-0.10); IMMATURE GRAN PERCENT AUTO 0 % (0-1); LYMPHOCYTES ABSOLUTE AUTO 1.22 K/mm3 (0.84-5.20); LYMPHOCYTES PERCENT AUTO 14 % (21-46); MONOCYTES ABSOLUTE AUTO 0.56 K/mm3 (0.16-1.47); MONOCYTES PERCENT AUTO 7 % (4-13); Mean Corpuscular HGB 24.4 pg (26.0-34.0); Mean Corpuscular HGB Conc 29.1 g/dL (31.5-36.5); Mean Corpuscular Volume 84 fL (80-100); Mean Platelet Volume 10.2 fL (9.1-12.4); NEUTROPHILS ABSOLUTE AUTO 6.53 K/mm3 (1.96-9.15); NEUTROPHILS PERCENT AUTO 76 % (41-73); Platelet Count 203 K/mm3 (150-400); RDW Coefficient Variation 16.8 % (11.7-14.2); RDW Standard Deviation 51.9 fL (35.1-46.3); Red Blood Cell Count 4.31 M/mm3 (3.80-5.20); White Blood Cell Count 8.57 K/mm3 (4.00-11.30)
--- NOTE | 2021-05-07 06:46 | NUR ---
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 PT has purwick external female cath which drains over 4000 ml clear yellow urine, and PT also had multiple urine soaked attends as well. Incont of bowel several times. Very very very stiff rigid contractured bilat le with 1 le crossed. Less emotional & able to communicate , 1 l o2
[2021-05-07 07:39] LABS: Anion Gap 7 mmol/L (6-16); Blood Urea Nitrogen 6 mg/dL (8-24); Bun/Creatinine Ratio 12.8 (12.0-20.0); CO2, Blood 27 mmol/L (21-32); Calcium, Blood 8.5 mg/dL (8.5-10.1); Chloride, Blood 111 mmol/L (98-108); Creatinine, Blood 0.47 mg/dL (0.40-1.00); Glomerular Filtration Rate >60 (60-); Glucose, Blood 105 mg/dL (70-99); Magnesium, Blood 1.5 mg/dL (1.6-2.4); Potassium, Blood 4.5 mmol/L (3.5-5.5); Sodium, Blood 145 mmol/L (136-145)
[2021-05-07] MEDS ORDERED: Ventolin5 MG/1 ML INH (11:52)
[2021-05-07] MEDS ORDERED: Naloxone HC1 MG/1 ML (11:53)
[2021-05-07] MEDS ORDERED: LACT PO (11:53)
[2021-05-07] MEDS ORDERED: CEFD300 PO (11:54)
[2021-05-07 12:56] LABS: Influenza A, PCR NEGATIVE (NEGATIVE); Influenza B, PCR NEGATIVE (NEGATIVE); Resp Syncytial Virus, PCR NEGATIVE (NEGATIVE); SARS-Cov-2 (COVID-19) PCR, MMC NEGATIVE (NEGATIVE)
[2021-05-31] MEDS ORDERED: DOXY100 PO (13:07)
== END 2021-05-07 15:14 | DRG 917 ==
LOC: ER 12:49 → ERHOLD 16:04 → ICUE 16:04 → MEDS 16:04 → PCU 21:22 → ICUE 22:30 → MEDS 05-05 18:40
PROVIDERS: Internal Medicine; Nurse Practitioner Acute Care; Physician Assistant; Student in an Organized Health Care Education/Training Program; ADMIT Internal Medicine
PROC: 5A09357 Assistance with Respiratory Ventilation, Less than 24 Consecutive Hours, Continuous Positive Airway Pressure (ICD-10-PCS; principal; 2021-05-04)
DX: T40.2X1A Poisoning by other opioids, accidental (unintentional), initial encounter (principal); A41.9 Sepsis, unspecified organism; J18.9 Pneumonia, unspecified organism; J96.01 Acute respiratory failure with hypoxia; J96.02 Acute respiratory failure with hypercapnia; G92.8 Other toxic encephalopathy; R65.20 Severe sepsis without septic shock; N39.0 Urinary tract infection, site not specified; G37.9 Demyelinating disease of central nervous system, unspecified; Z20.822 Contact with and (suspected) exposure to COVID-19; E83.42 Hypomagnesemia; J44.9 Chronic obstructive pulmonary disease, unspecified; E11.9 Type 2 diabetes mellitus without complications; I10 Essential (primary) hypertension; F41.1 Generalized anxiety disorder; F32.9 Major depressive disorder, single episode, unspecified; G89.4 Chronic pain syndrome; Z90.49 Acquired absence of other specified parts of digestive tract; Z98.890 Other specified postprocedural states; L89.891 Pressure ulcer of other site, stage 1
CPT/HCPCS: 0241U; 36415; 36600; 51701; 51703; 71045; 80048; 80053; 80202; 81001; 82803; 82947; 83605; 83735; 83880; 85025; 87040; 87077; 87086; 87186; 87449; 92610; 93005; 93010; 93306; 94640; 94660; 94761; 94762; 96365; 96367; 99285-25; A9270; C9113; J0456; J0696; J1650; J1885; J2310; J2405; J2765; J3010; J3370; J3475; J7030; J7040; J7050

== ENCOUNTER → 2021-05-30 | Outpatient (CLI) | payer OTHER ==
[~2021-05-30] MED LIST changes: +CYCLOBENZAPRINE5 MG PO; +DOXY100 PO; +LACT PO; +Naloxone HC1 MG/1 ML; +PANT20 PO; +Ventolin5 MG/1 ML INH; +Zofran8 MG PT
[2021-05-30 16:56] LABS: Source, Urine Clean Catch
[2021-05-30 17:04] LABS: Bilirubin, Urine Neg (Neg); Blood, Urine 5+ (Neg); Color, Urine Yellow (P-Yellow); Glucose Qualitative, Urine Neg (Neg); Ketones, Urine Neg (Neg); Leukocyte Esterase, Urine Neg (Neg); Nitrite, Urine Neg (Neg); Protein, Urine 2+ (Neg); Urobilinogen, Urine NORM (Normal)
[2021-05-30 17:08] LABS: BASOPHILS ABSOLUTE AUTO 0.04 K/mm3 (0.00-0.23); BASOPHILS PERCENT AUTO 1 % (0-2); EOSINOPHILS ABSOLUTE AUTO 0.16 K/mm3 (0.00-0.68); EOSINOPHILS PERCENT AUTO 2 % (0-6); Hematocrit 39.3 % (33.0-51.0); Hemoglobin 11.2 g/dL (11.5-16.0); IMMATURE GRAN ABSOLUTE AUTO 0.03 K/mm3 (0.00-0.10); IMMATURE GRAN PERCENT AUTO 0 % (0-1); LYMPHOCYTES ABSOLUTE AUTO 1.92 K/mm3 (0.84-5.20); LYMPHOCYTES PERCENT AUTO 23 % (21-46); MONOCYTES ABSOLUTE AUTO 0.59 K/mm3 (0.16-1.47); MONOCYTES PERCENT AUTO 7 % (4-13); Mean Corpuscular HGB 25.2 pg (26.0-34.0); Mean Corpuscular HGB Conc 28.5 g/dL (31.5-36.5); Mean Corpuscular Volume 88 fL (80-100); NEUTROPHILS PERCENT AUTO 67 % (41-73); Platelet Count 214 K/mm3 (150-400); RDW Coefficient Variation 19.1 % (11.7-14.2); RDW Standard Deviation 61.6 fL (35.1-46.3); Red Blood Cell Count 4.45 M/mm3 (3.80-5.20); White Blood Cell Count 8.34 K/mm3 (4.00-11.30)
[2021-05-30 17:22] LABS: Appearance, Urine Hazy (Clear); Granular Casts Rare /lpf (0)
[2021-05-30 17:23] LABS: Bacteria Mod /hpf; Mucus Light (0-Heavy); Red Blood Cells, Urine 0-2 /hpf (0-2); Squamous Epithelial Cells Rare /hpf (Few); White Blood Cells, Urine 0-2 /hpf (0-5)
[2021-05-30 17:27] LABS: Anion Gap 1 mmol/L (6-16); Blood Urea Nitrogen 7 mg/dL (8-24); Bun/Creatinine Ratio 15.1 (12.0-20.0); CO2, Blood 34 mmol/L (21-32); Calcium, Blood 8.4 mg/dL (8.5-10.1); Chloride, Blood 102 mmol/L (98-108); Creatinine, Blood 0.47 mg/dL (0.40-1.00); Glomerular Filtration Rate >60 (60-); Glucose, Blood 142 mg/dL (70-99); Potassium, Blood 4.4 mmol/L (3.5-5.5); Sodium, Blood 137 mmol/L (136-145)
== END | disposition home or self-care (01) ==
LOC: EDSTATUS 10:20 → LAB UVN 15:30
PROVIDERS: Internal Medicine
DX: E11.42 Type 2 diabetes mellitus with diabetic polyneuropathy (principal); G37.9 Demyelinating disease of central nervous system, unspecified; N39.0 Urinary tract infection, site not specified
CPT/HCPCS: 80048; 81001; 85025; 87086

== ENCOUNTER → 2021-08-18 | Outpatient (CLI) | payer OTHER ==
[2021-08-18 21:31] LABS: Hematocrit 40.1 % (33.0-51.0); Hemoglobin 12.3 g/dL (11.5-16.0); Mean Corpuscular HGB 26.2 pg (26.0-34.0); Mean Corpuscular HGB Conc 30.7 g/dL (31.5-36.5); Mean Corpuscular Volume 85 fL (80-100); Mean Platelet Volume 9.9 fL (9.1-12.4); Platelet Count 258 K/mm3 (150-400); RDW Coefficient Variation 16.5 % (11.7-14.2); RDW Standard Deviation 51.7 fL (35.1-46.3); White Blood Cell Count 9.59 K/mm3 (4.00-11.30)
[2021-08-18 21:42] LABS: Anion Gap 8 mmol/L (6-16); Blood Urea Nitrogen 14 mg/dL (8-24); Bun/Creatinine Ratio 23.6 (12.0-20.0); CO2, Blood 28 mmol/L (21-32); Calcium, Blood 9.2 mg/dL (8.5-10.1); Chloride, Blood 103 mmol/L (98-108); Creatinine, Blood 0.59 mg/dL (0.40-1.00); Glomerular Filtration Rate >60 (60-); Glucose, Blood 141 mg/dL (70-99); Sodium, Blood 139 mmol/L (136-145)
[2021-08-19 06:05] LABS: Appearance, Urine Cloudy (Clear); Bilirubin, Urine Neg (Neg); Blood, Urine 5+ (Neg); Color, Urine Yellow (P-Yellow); Glucose Qualitative, Urine Neg (Neg); Ketones, Urine Neg (Neg); Leukocyte Esterase, Urine 3+ (Neg); Nitrite, Urine Neg (Neg); Protein, Urine 2+ (Neg); Urobilinogen, Urine NORM (Normal); pH, Urine 6.5 (5.0-8.0)
[2021-08-19 06:19] LABS: White Blood Cells, Urine TNTC /hpf (0-5)
[2021-08-19 06:20] LABS: Bacteria Many /hpf; Squamous Epithelial Cells Few /hpf (Few)
== END | disposition home or self-care (01) ==
LOC: EDSTATUS 13:06 → LAB UVN 19:15
PROVIDERS: Internal Medicine
DX: N39.0 Urinary tract infection, site not specified (principal)
CPT/HCPCS: 80048; 81001; 85027; 87077; 87086; 87186

== ENCOUNTER → 2021-09-23 | Outpatient (CLI) | payer OTHER ==
[2021-09-23 22:37] LABS: Source, Urine Clean Catch
[2021-09-23 23:03] LABS: Appearance, Urine Hazy (Clear); Bilirubin, Urine Neg (Neg); Blood, Urine 4+ (Neg); Glucose Qualitative, Urine Neg (Neg); Ketones, Urine Neg (Neg); Leukocyte Esterase, Urine 3+ (Neg); Nitrite, Urine Neg (Neg); Protein, Urine 2+ (Neg); Urobilinogen, Urine NORM (Normal)
[2021-09-23 23:15] LABS: Color, Urine Pale Yellow (P-Yellow)
[2021-09-23 23:16] LABS: Amorphous Light (0-Heavy); Bacteria Many /hpf; Red Blood Cells, Urine 0-2 /hpf (0-2); Squamous Epithelial Cells Few /hpf (Few); Triple Phosphate Crystals Rare /hpf; White Blood Cells, Urine 25-50 /hpf (0-5)
== END ==
LOC: EDSTATUS 12:00 → LAB UVN 22:35
PROVIDERS: Internal Medicine
DX: R39.9 Unspecified symptoms and signs involving the genitourinary system (principal)
CPT/HCPCS: 81001; 87077; 87086; 87186

== ENCOUNTER → 2021-09-30 | Outpatient (CLI) | payer OTHER | END | disposition home or self-care (01) | LOC: LAB UVN 05:20 → EDSTATUS 12:02 | DX: E11.42 Type 2 diabetes mellitus with diabetic polyneuropathy (principal); E11.22 Type 2 diabetes mellitus with diabetic chronic kidney disease; N18.9 Chronic kidney disease, unspecified | CPT/HCPCS: 83036 ==

== ENCOUNTER → 2021-11-13 | Outpatient (CLI) | payer OTHER | END | disposition home or self-care (01) | LOC: LAB UVN 09:00 | DX: I12.9 Hypertensive chronic kidney disease with stage 1 through stage 4 chronic kidney disease, or unspecified chronic kidney disease (principal); N18.2 Chronic kidney disease, stage 2 (mild); N39.0 Urinary tract infection, site not specified ==

== ENCOUNTER → 2022-02-15 | Outpatient (CLI) | payer OTHER ==
[~2022-02-15] MED LIST changes: +ALBU90OI INH; +Acetaminophen650 M1 PO; +Aspir 8181 MG PO; +CEPH250A; +CIPR500 PO; +Calcium Carbon500 MG PO; +DULCOLAX400 MG/5 M PO; +FENTANYL1 EA11 TOP; +FERSU300 PO; +LYRICA200 M1 PO; +MICONAZOLE NITR85 GM TOP; +OXYM.05NI; +ROXICODONE5 MG PO; +SENNA LAXATIVE8.6 MG PO
[2022-02-15 15:38] LABS: Source, Urine Clean Catch
[2022-02-15 15:48] LABS: Appearance, Urine Cloudy (Clear); Bilirubin, Urine Neg (Neg); Blood, Urine 5+ (Neg); Glucose Qualitative, Urine Neg (Neg); Ketones, Urine Neg (Neg); Leukocyte Esterase, Urine 3+ (Neg); Nitrite, Urine Neg (Neg); Protein, Urine 2+ (Neg); Urobilinogen, Urine NORM (Normal); pH, Urine 6.5 (5.0-8.0)
[2022-02-15 15:51] LABS: BASOPHILS ABSOLUTE AUTO 0.06 K/mm3 (0.00-0.23); BASOPHILS PERCENT AUTO 1 % (0-2); EOSINOPHILS ABSOLUTE AUTO 0.27 K/mm3 (0.00-0.68); EOSINOPHILS PERCENT AUTO 3 % (0-6); Hematocrit 36.2 % (33.0-51.0); Hemoglobin 9.9 g/dL (11.5-16.0); IMMATURE GRAN ABSOLUTE AUTO 0.02 K/mm3 (0.00-0.10); IMMATURE GRAN PERCENT AUTO 0 % (0-1); LYMPHOCYTES ABSOLUTE AUTO 2.54 K/mm3 (0.84-5.20); LYMPHOCYTES PERCENT AUTO 32 % (21-46); MONOCYTES ABSOLUTE AUTO 0.63 K/mm3 (0.16-1.47); MONOCYTES PERCENT AUTO 8 % (4-13); Mean Corpuscular HGB 21.4 pg (26.0-34.0); Mean Corpuscular HGB Conc 27.3 g/dL (31.5-36.5); Mean Corpuscular Volume 78 fL (80-100); Mean Platelet Volume 10.2 fL (9.1-12.4); NEUTROPHILS ABSOLUTE AUTO 4.47 K/mm3 (1.96-9.15); NEUTROPHILS PERCENT AUTO 56 % (41-73); Platelet Count 277 K/mm3 (150-400); RDW Coefficient Variation 17.7 % (11.7-14.2); RDW Standard Deviation 49.5 fL (35.1-46.3); Red Blood Cell Count 4.62 M/mm3 (3.80-5.20); White Blood Cell Count 7.99 K/mm3 (4.00-11.30)
[2022-02-15 16:01] LABS: Color, Urine Pale Yellow (P-Yellow)
[2022-02-15 16:02] LABS: Bun/Creatinine Ratio 19.2 (12.0-20.0); Creatinine, Blood 0.52 mg/dL (0.40-1.00)
[2022-02-15 16:08] LABS: Bacteria Many /hpf; Squamous Epithelial Cells Few /hpf (Few); White Blood Cells, Urine 25-50 /hpf (0-5)
== END ==
LOC: EDSTATUS 08:26 → LAB UVN 15:00
PROVIDERS: Nurse Practitioner Family
DX: E11.42 Type 2 diabetes mellitus with diabetic polyneuropathy (principal); E11.22 Type 2 diabetes mellitus with diabetic chronic kidney disease; N18.2 Chronic kidney disease, stage 2 (mild)
CPT/HCPCS: 80048; 81001; 85025; 87086

== ENCOUNTER → 2022-02-18 | Outpatient (CLI) | payer OTHER ==
[2022-02-18 13:42] LABS: Appearance, Urine Turbid (Clear); Bilirubin, Urine Neg (Neg); Blood, Urine 3+ (Neg); Color, Urine Yellow (P-Yellow); Glucose Qualitative, Urine Neg (Neg); Ketones, Urine Neg (Neg); Leukocyte Esterase, Urine 3+ (Neg); Nitrite, Urine Neg (Neg); Protein, Urine 2+ (Neg); Specific Gravity, Urine 1.015 (1.003-1.022); Urobilinogen, Urine NORM (Normal)
[2022-02-18 14:29] LABS: Bacteria Many /hpf; Squamous Epithelial Cells Few /hpf (Few); White Blood Cells, Urine TNTC /hpf (0-5)
[2022-02-18 14:30] LABS: Renal Epithelial Rare /hpf (0-Rare); Transitional Epithelial Cells Few /hpf (0-Rare)
[2022-02-19 09:51] LABS: Stool Occult Bld Immuno 1 Negative (NEGATIVE)
== END ==
LOC: EDSTATUS 08:36 → LAB UVN 11:44
PROVIDERS: Internal Medicine
DX: N39.0 Urinary tract infection, site not specified (principal)
CPT/HCPCS: 81001; 87086; G0328

== ENCOUNTER 2022-04-04 15:42 | Inpatient (IN) | payer OTHER ==
[~2022-04-04] VITALS: Ht 165.1 cm; Wt 84.5 kg
[~2022-04-04 15:42] MED LIST changes: -ALBU90OI INH; -CEPH250A; -MICONAZOLE NITR85 GM TOP; -OXYM.05NI
[2022-04-04 16:08] LABS: Base Excess Venous 5.4 mmol/L; Bicarbonate Venous 26.3 mmol/L (24.0-30.0); PCO2 Venous 81.9 mmHg (38-42)
[2022-04-04 16:09] LABS: pH Blood Venous 7.22 (7.34-7.37)
[2022-04-04 16:13] LABS: BASOPHILS ABSOLUTE AUTO 0.06 K/mm3 (0.00-0.23); BASOPHILS PERCENT AUTO 0 % (0-2); EOSINOPHILS ABSOLUTE AUTO 0.07 K/mm3 (0.00-0.68); EOSINOPHILS PERCENT AUTO 1 % (0-6); Hematocrit 45.7 % (33.0-51.0); Hemoglobin 12.8 g/dL (11.5-16.0); IMMATURE GRAN ABSOLUTE AUTO 0.08 K/mm3 (0.00-0.10); IMMATURE GRAN PERCENT AUTO 1 % (0-1); LYMPHOCYTES ABSOLUTE AUTO 2.04 K/mm3 (0.84-5.20); LYMPHOCYTES PERCENT AUTO 14 % (21-46); MONOCYTES ABSOLUTE AUTO 0.74 K/mm3 (0.16-1.47); MONOCYTES PERCENT AUTO 5 % (4-13); Mean Corpuscular HGB 24.7 pg (26.0-34.0); Mean Corpuscular Volume 88 fL (80-100); Mean Platelet Volume 9.8 fL (9.1-12.4); NEUTROPHILS ABSOLUTE AUTO 11.23 K/mm3 (1.96-9.15); NEUTROPHILS PERCENT AUTO 79 % (41-73); Platelet Count 210 K/mm3 (150-400); RDW Coefficient Variation 27.4 % (11.7-14.2); RDW Standard Deviation 86.2 fL (35.1-46.3); Red Blood Cell Count 5.18 M/mm3 (3.80-5.20); White Blood Cell Count 14.22 K/mm3 (4.00-11.30)
[2022-04-04 16:49] LABS: Albumin, Blood 2.6 g/dL (3.4-5.0); Albumin/Globulin Ratio 0.6 (0.8-1.8); Bilirubin, Total 0.3 mg/dL (0.1-1.0); Bun/Creatinine Ratio 19.6 (12.0-20.0); Calcium, Blood 8.7 mg/dL (8.5-10.1); Creatinine, Blood 0.56 mg/dL (0.40-1.00); Globulin, Blood 4.3 g/dL (2.2-4.0); Potassium, Blood 4.9 mmol/L (3.5-5.5); Total Protein, Blood 6.9 g/dL (6.4-8.2)
[2022-04-04] MEDS ORDERED: CEPH250A (17:46)
[2022-04-04 19:05] LABS: Influenza A, PCR NEGATIVE (NEGATIVE); Influenza B, PCR NEGATIVE (NEGATIVE); Resp Syncytial Virus, PCR NEGATIVE (NEGATIVE); SARS-Cov-2 (COVID-19) PCR, MMC NEGATIVE (NEGATIVE)
[2022-04-04 23:21] LABS: Base Excess Venous 4.9 mmol/L; Bicarbonate Venous 26.8 mmol/L (24.0-30.0); PCO2 Venous 78.7 mmHg (38-42); pH Blood Venous 7.23 (7.34-7.37)
[2022-04-05 04:24] LABS: Base Excess Venous 6.4 mmol/L; Bicarbonate Venous 29.2 mmol/L (24.0-30.0); PCO2 Venous 50.2 mmHg (38-42)
[2022-04-05 04:33] LABS: BASOPHILS ABSOLUTE AUTO 0.05 K/mm3 (0.00-0.23); BASOPHILS PERCENT AUTO 0 % (0-2); EOSINOPHILS ABSOLUTE AUTO 0.03 K/mm3 (0.00-0.68); EOSINOPHILS PERCENT AUTO 0 % (0-6); Hemoglobin 11.4 g/dL (11.5-16.0); IMMATURE GRAN ABSOLUTE AUTO 0.08 K/mm3 (0.00-0.10); IMMATURE GRAN PERCENT AUTO 1 % (0-1); LYMPHOCYTES ABSOLUTE AUTO 1.54 K/mm3 (0.84-5.20); LYMPHOCYTES PERCENT AUTO 12 % (21-46); MONOCYTES ABSOLUTE AUTO 0.64 K/mm3 (0.16-1.47); MONOCYTES PERCENT AUTO 5 % (4-13); Mean Platelet Volume 9.3 fL (9.1-12.4); NEUTROPHILS PERCENT AUTO 82 % (41-73); Platelet Count 183 K/mm3 (150-400); White Blood Cell Count 13.04 K/mm3 (4.00-11.30)
[2022-04-05 04:35] LABS: Hematocrit 41.4 % (33.0-51.0); Mean Corpuscular HGB 24.6 pg (26.0-34.0); Mean Corpuscular HGB Conc 27.5 g/dL (31.5-36.5); Mean Corpuscular Volume 89 fL (80-100); Red Blood Cell Count 4.64 M/mm3 (3.80-5.20)
[2022-04-05 05:00] LABS: Albumin, Blood 2.2 g/dL (3.4-5.0); Albumin/Globulin Ratio 0.6 (0.8-1.8); Bilirubin, Total 0.6 mg/dL (0.1-1.0); Bun/Creatinine Ratio 20.2 (12.0-20.0); Calcium, Blood 8.1 mg/dL (8.5-10.1); Creatinine, Blood 0.45 mg/dL (0.40-1.00); Globulin, Blood 3.6 g/dL (2.2-4.0); Magnesium, Blood 1.9 mg/dL (1.6-2.4); Potassium, Blood 4.6 mmol/L (3.5-5.5); Total Protein, Blood 5.8 g/dL (6.4-8.2)
--- NOTE | 2022-04-05 05:45 | NUR ---
SHIFT SUMMARY ASSUMED CARE OF PT AT 2230. PT WAS NONVERBAL UPON ADMISSION ASSESSMENT BUT IS NOT A/OX2-3 AND FORGETFUL. PT ABLE TO MAKE NEEDS KNOWN. PT REMAINED ON THE BIPAP FROM ARRIVAL UNTIL 0500 IN THE AM, WHERE SHE IS NOW 5L ON OXIMIZER. SATURATIONS REMAINED ABOVE 95%. PT JENNIFER OUT IN PAIN, HOSPITALIST NOTIFED AND REVEIWED PT CHART. PT HAS CONTRACTED LEGS, WHICH SHE CAN BARELY OPEN TO CHANGE THE ATTENDS. PT IS INCONTIENT OF URINE. PT HAS A PRESSURE SORE ON HER L HIP, WOUND CLEANED AND DRESSING CHANGED. PICTURES IN CHART.
--- NOTE | 2022-04-06 01:43 | NUR ---
DURING MY FIRST ROUND VISIT TO PT, APPROXIMATELY 2012 HRS, AFTER MY ASSESSMENT OF PT, I ASKED THE RN TO GET A VBG ORDER PRIOR TO PT GOING TO SLEEP. PT DID HAVE A NORMAL ABG AT AROUND 5AM THAT DAY BUT HAD NOT HAD ONE SINCE. HER VBG'S PRIOR TO THAT SHOWED CRITICALLY HIGH CO2 LEVELS AND MY CONCERN, EVEN THOUGH HER EARLY AM VBG WAS WNL, WAS THAT HER CO2 LEVELS HAD RISEN DURING THE DAY WHILE ONLY BEING ON 3L O2. AFTER MY REQUEST, THE RN MENTIONED THE 'GOOD' ABG TO STATE THAT A NEW VBG WAS NOT INDICATED AND ALSO POINTED OUT THAT THE PT HAD AN ABG ORDERED FOR THE NEXT MORNING. SHE DID, HOWEVER, STATE THAT SHE WOULD TALK TO THE DOCTOR WHEN DONE WITH HER CURRENT PT ROUNDS. TO MY KNOWLEDGE, THERE ARE NO NOTES IN PT CHART TO INDICATE OTHERWISE, THE RN DID NOT REQUEST A VBG FROM THE DOCTOR, HENCE NO ORDER. EVEN THOUGH THE PT DOES HAVE AN ABG ORDERED FOR THE FOLLOWING MORNING, I FELT IT WOULD BE PRUDENT TO GET VALUES PRIOR TO HER SLEEPING TO DETERMINE IF BIPAP WOULD BE INDICATED FOR THE PT DURING THE NIGHT.
[2022-04-06 04:15] LABS: PCO2 Arterial 70.8 mmHg (35-45); PO2 Arterial 78.1 mmHg (80-100); pH Blood Arterial 7.27 (7.35-7.45)
[2022-04-06 04:29] LABS: Hemoglobin 9.9 g/dL (11.5-16.0); Platelet Count 152 K/mm3 (150-400); White Blood Cell Count 5.71 K/mm3 (4.00-11.30)
[2022-04-06 04:48] LABS: Hematocrit 36.1 % (33.0-51.0); Mean Corpuscular HGB 24.6 pg (26.0-34.0); Mean Corpuscular HGB Conc 27.4 g/dL (31.5-36.5); Mean Corpuscular Volume 90 fL (80-100); Red Blood Cell Count 4.03 M/mm3 (3.80-5.20)
[2022-04-06 04:55] LABS: Albumin, Blood 1.9 g/dL (3.4-5.0); Anion Gap 4 mmol/L (6-16); Blood Urea Nitrogen 9 mg/dL (8-24); Bun/Creatinine Ratio 23.8 (12.0-20.0); CO2, Blood 31 mmol/L (21-32); Calcium, Blood 8.5 mg/dL (8.5-10.1); Chloride, Blood 108 mmol/L (98-108); Creatinine, Blood 0.38 mg/dL (0.40-1.00); Glomerular Filtration Rate 110 (60-); Glucose, Blood 117 mg/dL (70-99); Phosphorus, Blood 2.4 mg/dL (2.5-4.9); Potassium, Blood 4.4 mmol/L (3.5-5.5); Sodium, Blood 143 mmol/L (136-145)
--- NOTE | 2022-04-06 06:17 | NUR ---
Patient is A/Ox4. C/O leg pain that is chronic in nature for patient. Repositioning and heat therapy helps. Limited motion in LLE d/t contractures. Maintains over 92% on 2-3L NC or Bipap 20/10 with 40% Fi02. RT gave patient a break from bipap, critical ABG this AM and patient was placed back on bipap. Patient has claustrophobia and wasn't tolerating bipap, hospitalist contacted and meds ordered; Patient is tolerating now. LS dim t/o with shallow breathing pattern noted. Patients nose was clogged and she was unable to breathe through it, nasal spray was ordered and provided much relief. Purewick draining yellow urine, with some spilling into brief. Will report to franca LACKEY.
--- NOTE | 2022-04-06 18:44 | NUR ---
END OF SHIFT: NEURO: PATIENT ALERT AND OREINTED, BUT CAN WAX AND WANE AT TIMES, PATIENT ANXIOUS ESPECIALLY WITH BIPAP IN PLACE. PATIENT HAS NUMBNESS TINGLING AND POTENTIALLY FREQUENT SPASMS OF THE LOWER LEGS. CAN MAKE NEEDS KNOWN, COOPERATIVE WITH MOST CARE, PAINFUL TO TOUCH, SCREAMS OUT WITH REPOSITIONS. Q2 TURNS NEEDED AND PROVIDED PATIENT CANNOT REPOSITION, UNABLE TO MOVE BLE, WEAKER RIGHT ARM, AND GEN WEAK LEFT ARM. CARDIAC: ST TO SR NORMOTENSIVE, DENIES CHEST PAIN/PRESSURE OF SOB AT REST. PULM: BIPAP NEEDED WHILE SLEEPING BUT REFUSES MOST OF THE DAY DID BARGAIN AND PLANS TO [facility]RI[facility] DURING THE NIGHT, INCREASED PAIN MEDS BY PROVIDER, WHICH HELPED PREVIOUS NIGHT WITH COMPLIANCE WITH BIPAP. PATIENT HAS BEEN >88 TYPICALLY 94% WITH .5-2L [facility]IA [facility] TELEVISION ANNOUNCER NOTED WHEEZES ON ROBIN TREATMENT WAS GIVEN, IMPROVED. GI/: PATIENT HAS BEEN BM FREE TODAY, PURWICK IN PLACE, DRAINING CLEAR YELLOW, STILL LEAKING BUT IMPROVED SATURATION FOR PROTECTION OF LEFT HIP WOUND. PATIENT AGREEABLE AND DEVICE WAS CHANGED, ALONG WITH TUBING AND CANISTER.BOWEL TONES ACTIVE NO CONCERN WITH APEPITITE AT THIS TIME. SKIN/WOUND: DRESSING CHANGED, ON BILAT HIPS. LEFT WORSE THAN RIGHT, CALCIUM ALGANATE ON LEFT DUE TO 2 SMALL OPENINGS ON PRESSURE ULCER, MEPILEXS ON BOTH HIPS. PATIENT HAD INCREASE IN RED SPOTCHES ON BACK AND FLANK, DETERIORATED WITH ZOSYN AND IMPROVED WITH BENADRYL. NO CONCERNS FROM FAMILY THIS RN OR PATIENT AT THIS TIME, WILL CONTINUE TO MONITORUNTIL SHIFT CHANGE.
[2022-04-07 04:48] LABS: PCO2 Arterial 50.8 mmHg (35-45); pH Blood Arterial 7.42 (7.35-7.45)
--- NOTE | 2022-04-07 06:13 | NUR ---
Patient remained A/Ox4 with periods of intermittent confusion. Patient had significantly more pain this shift than previous evening. Medicated per emar and repositioned q2. Patient remained on bipap from 2100 to current (20/ 30%), ABG was drawn with some improvement. Patients face and orbital area is quite puffy, fluids were already DC'd on dayshift. VSS. Will report to dayshift RN.
--- NOTE | 2022-04-07 19:21 | NUR ---
DAY SHIFT SUMMARY PT ORIENTED X4, SR ON TELEMETRY. VSS, TITRATED DOWN TO 2L NC. PAIN AND CONTRACTURES IN LOWER EXTREMITIES BASELINE. Q2 TURN. IV LASIX GIVEN PER DR. THOMSON AND NEW ORDERS FOR NYSTATIN POWDER AND HOME OXYCODONE. INCONTINENT AND SOFT BM X2. PUREWIC REMOVED D/T BLEEDING NOTED ON REMOVAL AND CONCERN FOR TRAUMA AND INABILITY TO VISUALIZE TISSUE. PT HAS BRIEF AND PADDING IN PLACE. WILL PASS ON TO NOC RN
[2022-04-08 06:01] LABS: Albumin, Blood 2.1 g/dL (3.4-5.0); Anion Gap 3 mmol/L (6-16); Blood Urea Nitrogen 8 mg/dL (8-24); Bun/Creatinine Ratio 15.7 (12.0-20.0); CO2, Blood 35 mmol/L (21-32); Calcium, Blood 8.7 mg/dL (8.5-10.1); Chloride, Blood 105 mmol/L (98-108); Creatinine, Blood 0.51 mg/dL (0.40-1.00); Glomerular Filtration Rate 103 (60-); Glucose, Blood 93 mg/dL (70-99); Phosphorus, Blood 3.7 mg/dL (2.5-4.9); Potassium, Blood 3.8 mmol/L (3.5-5.5); Sodium, Blood 143 mmol/L (136-145)
--- NOTE | 2022-04-08 06:04 | NUR ---
SHIFT SUMMARY PT A&O X4 THROUGHOUT SHIFT. VSS. PT DENIES SOB OR DYSPNEA. O2 >97% ON 2 L; THIS RN TRIED TO WEEN OFF OXYGEN, PT 02 DESAT TO LOW 80'S ESPECIALLY WHEN SLEEPING OR RELAXED. THIS RN PUT PT ON 1 - 1.5 L O2 AND PT HAS MAINTAINED O2 SATS >92%. DYSPNEA NOTED DURING MOVEMENT, MOSTLY WHEN TURNING AND REPOSITIONING DUE TO PAIN. PT REMINDED TO TAKE SLOW, DEEP BREATHS WHICH SEEMS TO HELP AND CALM PT. PT REPORTS CHRONIC PAIN, MEDICATED PER EMAR, REPOSITIONED Q2 AND PRN, AND WARM BLANKETS OFFERED TO HELP RELIEVE AND CONTROL PAIN. NO OTHER CHANGES THROUGHOUT SHIFT. PT SLEPT MOST OF SHIFT. CALL LIGHT IN REACH AND BED IN LOWEST POSITION
[2022-04-08] MEDS ORDERED: MICONAZOLE NITR85 GM TOP (14:00)
[2022-04-08] MEDS ORDERED: VISBIOME 112.51 EACH PO (14:01)
[2022-04-08] MEDS ORDERED: OXYM.05NI (14:01)
[2022-04-08] MEDS ORDERED: ALBU90OI INH (14:02)
[2022-04-08] MEDS ORDERED: AMOCLA875 PO (14:02)
[2022-04-08 14:42] LABS: SARS-Cov-2 (COVID-19) PCR, MMC NEGATIVE (NEGATIVE)
--- NOTE | 2022-04-08 16:50 | NUR ---
PT DISCHARGED TO [facility] AT 1635. PT TRANSFERED VIA AMBULANCE TRANSPORT. DISCHARGE PACKET GIVEN TO AMBULANCE TRANSPORT STAFF AND TRANSFERED WITH PT. PT ON 1L NC SATTING IN THE 90'S. PT SLID FROM HOSPITAL BED TO [facility] FOR TRANSPORT, REPORTED PAIN TO HER LEGS AND FEET.
== END 2022-04-08 16:30 | disposition home or self-care (01) | DRG 871 ==
LOC: ER 15:42 → PCU 20:45
PROVIDERS: Internal Medicine; Nurse Practitioner Acute Care; Student in an Organized Health Care Education/Training Program; ADMIT Internal Medicine
PROC: 3E03329 Introduction of Other Anti-infective into Peripheral Vein, Percutaneous Approach (ICD-10-PCS; principal; 2022-04-04)
PROC: 5A09357 Assistance with Respiratory Ventilation, Less than 24 Consecutive Hours, Continuous Positive Airway Pressure (ICD-10-PCS; 2022-04-04)
PROC: 5A0935A Assistance with Respiratory Ventilation, Less than 24 Consecutive Hours, High Flow/Velocity Cannula (ICD-10-PCS; 2022-04-05)
DX: A41.9 Sepsis, unspecified organism (principal); G92.8 Other toxic encephalopathy; J18.9 Pneumonia, unspecified organism; J96.01 Acute respiratory failure with hypoxia; J96.02 Acute respiratory failure with hypercapnia; J69.0 Pneumonitis due to inhalation of food and vomit; G37.8 Other specified demyelinating diseases of central nervous system; F11.20 Opioid dependence, uncomplicated; J44.0 Chronic obstructive pulmonary disease with (acute) lower respiratory infection; E87.29 Other acidosis; L03.115 Cellulitis of right lower limb; L03.116 Cellulitis of left lower limb; E87.70 Fluid overload, unspecified; E83.39 Other disorders of phosphorus metabolism; E78.5 Hyperlipidemia, unspecified; G89.4 Chronic pain syndrome; E11.9 Type 2 diabetes mellitus without complications; Z20.822 Contact with and (suspected) exposure to COVID-19; I10 Essential (primary) hypertension; G35 Multiple sclerosis; F41.1 Generalized anxiety disorder; L89.229 Pressure ulcer of left hip, unspecified stage; F32.9 Major depressive disorder, single episode, unspecified; R16.0 Hepatomegaly, not elsewhere classified; K76.0 Fatty (change of) liver, not elsewhere classified; Z87.440 Personal history of urinary (tract) infections; Z90.49 Acquired absence of other specified parts of digestive tract; Z86.14 Personal history of Methicillin resistant Staphylococcus aureus infection; Z79.82 Long term (current) use of aspirin; Z74.01 Bed confinement status; Z79.1 Long term (current) use of non-steroidal anti-inflammatories (NSAID); Z79.02 Long term (current) use of antithrombotics/antiplatelets; Z79.899 Other long term (current) drug therapy; Z79.84 Long term (current) use of oral hypoglycemic drugs; Z98.890 Other specified postprocedural states; Z87.891 Personal history of nicotine dependence
CPT/HCPCS: 0241U; 36415; 36600; 71045; 71260; 80053; 80069; 82803; 82947; 83605; 83735; 83880; 84145; 84484; 85025; 85027; 87040; 93005; 93010; 94640; 94660; 94664; 94760; 94762; 96374; 96375; 99285-25; A9270; C1751; J0456; J0696; J1650; J1885; J1940; J2270; J2310; J2543; J3010; J3370; J7030; J7050; J7060; Q9967; U0004

== ENCOUNTER → 2022-04-04 | Outpatient (CLI) | payer OTHER ==
[2022-04-04 15:58] LABS: BASOPHILS ABSOLUTE AUTO 0.05 K/mm3 (0.00-0.23); BASOPHILS PERCENT AUTO 0 % (0-2); EOSINOPHILS ABSOLUTE AUTO 0.08 K/mm3 (0.00-0.68); EOSINOPHILS PERCENT AUTO 1 % (0-6); Hemoglobin 11.1 g/dL (11.5-16.0); IMMATURE GRAN ABSOLUTE AUTO 0.07 K/mm3 (0.00-0.10); IMMATURE GRAN PERCENT AUTO 1 % (0-1); LYMPHOCYTES ABSOLUTE AUTO 1.85 K/mm3 (0.84-5.20); LYMPHOCYTES PERCENT AUTO 14 % (21-46); MONOCYTES ABSOLUTE AUTO 0.77 K/mm3 (0.16-1.47); MONOCYTES PERCENT AUTO 6 % (4-13); NEUTROPHILS PERCENT AUTO 79 % (41-73); Platelet Count 240 K/mm3 (150-400); White Blood Cell Count 13.62 K/mm3 (4.00-11.30)
[2022-04-04 16:22] LABS: Albumin, Blood 2.6 g/dL (3.4-5.0); Albumin/Globulin Ratio 0.6 (0.8-1.8); Bilirubin, Total 0.2 mg/dL (0.1-1.0); Bun/Creatinine Ratio 23.2 (12.0-20.0); Calcium, Blood 8.6 mg/dL (8.5-10.1); Creatinine, Blood 0.47 mg/dL (0.40-1.00); Globulin, Blood 4.1 g/dL (2.2-4.0); Thyroid Stimulating Hormone 0.48 uIU/mL (0.360-4.800); Total Protein, Blood 6.7 g/dL (6.4-8.2)
[2022-04-04 16:37] LABS: Hematocrit 38.4 % (33.0-51.0); Mean Corpuscular HGB 25.6 pg (26.0-34.0); Mean Corpuscular HGB Conc 28.9 g/dL (31.5-36.5); Mean Corpuscular Volume 89 fL (80-100); Red Blood Cell Count 4.33 M/mm3 (3.80-5.20)
== END | disposition home or self-care (01) ==
LOC: EDSTATUS 08:49 → LAB UVN 15:05
PROVIDERS: Internal Medicine
DX: R50.9 Fever, unspecified (principal); R05.9 Cough, unspecified
CPT/HCPCS: 80053; 84443; 85025

== ENCOUNTER → 2022-06-11 | Outpatient (CLI) | payer OTHER ==
[~2022-06-11] MED LIST changes: +ALBU90OI INH; +BISA10S PR; +CEFP200 PO; +CEPH250A; +FLUT1DIS2 INH; +Fleet Enema132 ML PR; +MICONAZOLE NITR85 GM TOP; +OXAYDO5 M1 PO; +OXYM.05NI; -ROXICODONE5 MG PO
[2022-06-12 11:15] LABS: Source, Urine Voided
[2022-06-12 12:42] LABS: Appearance, Urine Hazy (Clear); Bilirubin, Urine Neg (Neg); Blood, Urine 1+ (Neg); Color, Urine Yellow (P-Yellow); Glucose Qualitative, Urine Neg (Neg); Ketones, Urine Neg (Neg); Leukocyte Esterase, Urine 3+ (Neg); Nitrite, Urine Pos (Neg); Protein, Urine 1+ (Neg); Urobilinogen, Urine NORM (Normal)
[2022-06-12 13:05] LABS: White Blood Cells, Urine 25-50 /hpf (0-5)
[2022-06-12 13:08] LABS: Bacteria Many /hpf; Red Blood Cells, Urine 0-2 /hpf (0-2); Squamous Epithelial Cells Few /hpf (Few)
== END ==
LOC: LAB UVN 11:14 → EDSTATUS 06-12 10:01 → LAB UVN 06-12 11:09
PROVIDERS: Orthopaedic Surgery
DX: R50.9 Fever, unspecified (principal)
CPT/HCPCS: 81001; 87077; 87086; 87186

== ENCOUNTER → 2022-06-12 | Outpatient (CLI) | payer OTHER ==
[2022-06-12 12:51] LABS: Hematocrit 41.4 % (33.0-51.0); Hemoglobin 12.9 g/dL (11.5-16.0); Mean Corpuscular HGB 28.7 pg (26.0-34.0); Mean Corpuscular HGB Conc 31.2 g/dL (31.5-36.5); Mean Corpuscular Volume 92 fL (80-100); Mean Platelet Volume 9.9 fL (9.1-12.4); Platelet Count 231 K/mm3 (150-400); RDW Coefficient Variation 14.6 % (11.7-14.2); RDW Standard Deviation 46.6 fL (35.1-46.3); Red Blood Cell Count 4.49 M/mm3 (3.80-5.20); White Blood Cell Count 8.91 K/mm3 (4.00-11.30)
== END ==
LOC: EDSTATUS 10:02 → LAB UVN 11:20
PROVIDERS: Orthopaedic Surgery
DX: R50.9 Fever, unspecified (principal)
CPT/HCPCS: 85027

== ENCOUNTER 2022-07-20 07:50 | Inpatient (IN) | payer OTHER ==
[~2022-07-20] VITALS: Ht 165.1 cm; Wt 86.7 kg
[~2022-07-20 07:50] MED LIST changes: -BISA10S PR; -CEFP200 PO; -FLUT1DIS2 INH; -Fleet Enema132 ML PR
[2022-07-20 08:23] LABS: PCO2 Arterial 52.3 mmHg (35-45); PO2 Arterial 60.6 mmHg (80-100); pH Blood Arterial 7.37 (7.35-7.45)
[2022-07-20 08:45] LABS: BASOPHILS ABSOLUTE AUTO 0.05 K/mm3 (0.00-0.23); BASOPHILS PERCENT AUTO 0 % (0-2); EOSINOPHILS ABSOLUTE AUTO 0.14 K/mm3 (0.00-0.68); EOSINOPHILS PERCENT AUTO 1 % (0-6); Hematocrit 44.8 % (33.0-51.0); Hemoglobin 14.2 g/dL (11.5-16.0); IMMATURE GRAN ABSOLUTE AUTO 0.09 K/mm3 (0.00-0.10); IMMATURE GRAN PERCENT AUTO 1 % (0-1); LYMPHOCYTES ABSOLUTE AUTO 1.07 K/mm3 (0.84-5.20); LYMPHOCYTES PERCENT AUTO 8 % (21-46); MONOCYTES ABSOLUTE AUTO 0.44 K/mm3 (0.16-1.47); MONOCYTES PERCENT AUTO 3 % (4-13); Mean Corpuscular HGB 28.6 pg (26.0-34.0); Mean Corpuscular HGB Conc 31.7 g/dL (31.5-36.5); Mean Corpuscular Volume 90 fL (80-100); Mean Platelet Volume 9.6 fL (9.1-12.4); NEUTROPHILS ABSOLUTE AUTO 11.86 K/mm3 (1.96-9.15); NEUTROPHILS PERCENT AUTO 87 % (41-73); Platelet Count 245 K/mm3 (150-400); RDW Coefficient Variation 14.1 % (11.7-14.2); RDW Standard Deviation 45.7 fL (35.1-46.3); Red Blood Cell Count 4.97 M/mm3 (3.80-5.20); White Blood Cell Count 13.65 K/mm3 (4.00-11.30)
[2022-07-20 08:52] LABS: Albumin, Blood 2.8 g/dL (3.4-5.0); Albumin/Globulin Ratio 0.6 (0.8-1.8); Bilirubin, Total 0.8 mg/dL (0.1-1.0); Bun/Creatinine Ratio 25.9 (12.0-20.0); Calcium, Blood 9.1 mg/dL (8.5-10.1); Creatinine, Blood 0.5 mg/dL (0.40-1.00); Globulin, Blood 4.6 g/dL (2.2-4.0); Potassium, Blood 4.4 mmol/L (3.5-5.5); Total Protein, Blood 7.4 g/dL (6.4-8.2)
--- NOTE | 2022-07-20 12:30 | NUR ---
INITIAL ASSESSMENT: Report recieved from Laure CHENG RN. Pt arrived via gurney and was slid over to the bed. She moans and yells out with repositioning. She is contracted in the BLE, she has her thighs clamped together. She is alert and oriented. When not moving she states she has no pain. She falls back asleep easily when not disturbed. HRR, ST in the 120s-130s. She is slightly febrile with a temp of 99.7 teemporally. LS DIM T/O with some wheezing and coarseness noted in the left upper lobes, pt is on AIRVO 50L 88%, biox is in the high 90s-FIO2 will be titrated down as saturations tolerate. BT+. PPP. PT has some weakness noted to BUE. She denies N/T. Pt states over at the group home the staff were giving her Oxycodone every 4 hours and is asking if the hospital staff will be doing the same. Pt educated regarding current tx plan and reassured her pain needs will be addressed. is at bedside-update provided.
[2022-07-20] MEDS ORDERED: BISA10S PR (14:07)
[2022-07-20] MEDS ORDERED: FLUT1DIS2 INH (14:07)
[2022-07-20] MEDS ORDERED: Fleet Enema132 ML PR (14:08)
--- NOTE | 2022-07-20 18:24 | NUR ---
Summary: Patient arrived from the ER this shift to PCU 07. When she is awake she is oriented x4. She has intermittently C/O pain in her BLE. When she is left undistrubed she rests. HRR, initially ST in the 130s, rate is now do into the 80s. LS DIM T/O with EXP wheezes and coarse. She has been on HNC 50L, Fio2 has been turned down from 88% to 45%, biox is still 98%. BT+. PPP, she has some trace edeme to BLE. BLE are contracted and extremely painful. 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 Photots taken. BP has been stable. Repositioned Q2. Patient has had no acute changes this shift. Will report to oncoming RN.
[2022-07-21 04:15] LABS: Source, Urine Straight Cath
[2022-07-21 04:18] LABS: Bilirubin, Urine Neg (Neg); Blood, Urine 2+ (Neg); Glucose Qualitative, Urine Neg (Neg); Ketones, Urine Neg (Neg); Leukocyte Esterase, Urine 3+ (Neg); Nitrite, Urine Neg (Neg); Protein, Urine 2+ (Neg); Urobilinogen, Urine NORM (Normal)
[2022-07-21 04:24] LABS: BASOPHILS ABSOLUTE AUTO 0.05 K/mm3 (0.00-0.23); BASOPHILS PERCENT AUTO 0 % (0-2); EOSINOPHILS ABSOLUTE AUTO 0.05 K/mm3 (0.00-0.68); EOSINOPHILS PERCENT AUTO 0 % (0-6); Hematocrit 35.3 % (33.0-51.0); Hemoglobin 11.2 g/dL (11.5-16.0); IMMATURE GRAN ABSOLUTE AUTO 0.12 K/mm3 (0.00-0.10); IMMATURE GRAN PERCENT AUTO 1 % (0-1); LYMPHOCYTES ABSOLUTE AUTO 1.68 K/mm3 (0.84-5.20); LYMPHOCYTES PERCENT AUTO 8 % (21-46); MONOCYTES ABSOLUTE AUTO 1.01 K/mm3 (0.16-1.47); MONOCYTES PERCENT AUTO 5 % (4-13); Mean Corpuscular HGB 28.8 pg (26.0-34.0); Mean Corpuscular HGB Conc 31.7 g/dL (31.5-36.5); Mean Corpuscular Volume 91 fL (80-100); Mean Platelet Volume 9.5 fL (9.1-12.4); NEUTROPHILS ABSOLUTE AUTO 18.48 K/mm3 (1.96-9.15); NEUTROPHILS PERCENT AUTO 86 % (41-73); Platelet Count 230 K/mm3 (150-400); RDW Coefficient Variation 14.3 % (11.7-14.2); RDW Standard Deviation 46.8 fL (35.1-46.3); Red Blood Cell Count 3.89 M/mm3 (3.80-5.20); White Blood Cell Count 21.39 K/mm3 (4.00-11.30)
[2022-07-21 05:16] LABS: Magnesium, Blood 1.7 mg/dL (1.6-2.4)
--- NOTE | 2022-07-21 06:32 | NUR ---
SHIFT SUMMARY PATIENT ALERT AND ORIENTED X4, ALTHOUGH HAD DIFFICULTY REMEMBERING THE DATE. VITAL SIGNS STABLE. PATIENT BEDREST DUE TO BLE CONTRACTURES. MEDICATED PER EMAR FOR PAIN. LUNG SOUNDS DIMINISHED T/O WITH LEFT LUNG COARSE. PATIENT TITRATED DOWN TO 1 LITER VIA NASAL CANULA SATING AT 94%, ATTEMPTED TO TITRATE TO ROOM AIR BUT PATIENT DESATED TO 87%. SINUS RHYTHM WITH 1ST DEGREE HB ON TELE. PURWICK IN PLACE FOR INCONTINENCE. NO ACUTE ISSUES NOTED OVERNIGHT. CALL LIGHT WITHIN REACH.
[2022-07-21 06:38] LABS: Albumin/Globulin Ratio 0.6 (0.8-1.8); Bilirubin, Total 0.7 mg/dL (0.1-1.0); Bun/Creatinine Ratio 26.4 (12.0-20.0); Calcium, Blood 8.3 mg/dL (8.5-10.1); Creatinine, Blood 0.38 mg/dL (0.40-1.00); Globulin, Blood 3.6 g/dL (2.2-4.0); Total Protein, Blood 5.6 g/dL (6.4-8.2)
[2022-07-21 06:43] LABS: Appearance, Urine Cloudy (Clear); Color, Urine Yellow (P-Yellow)
[2022-07-21 06:51] LABS: Bacteria Rare /hpf; Red Blood Cells, Urine 0-2 /hpf (0-2); Squamous Epithelial Cells Rare /hpf (Few); White Blood Cells, Urine 0-2 /hpf (0-5)
--- NOTE | 2022-07-21 07:30 | NUR ---
INITIAL ASSESSMENT: Patient is lying in bed resting on her right side, she is resting with her eyes closed easily awakens with assessment. She is oriented x4. She reports her BLE are in 8/10 pain, the patient states, "they're okay." She describes her pain as sharp and cramping, she states its worse with movement. HRR, SR to ST in the 90s-115. LS Dim with crackles in the bases, biox is mid to low 90s on 2.5 L NC. BT+, she had two bowel movements yesterday. She has a purewick in place, draining dark orange urine. PPP. PT is able to wiggle toes and minimally move her feet up and down but cannot move her legs without being in severe pain. VSS. PT states her back and arms are a little itchy, pt states this is easy. Patient is able to take am medications with a sip of water. Patient denies other needs at this time. Call light in reach.
--- NOTE | 2022-07-21 17:10 | NUR ---
SUMMARY: Patient has been alert and oriented T/O the shift. She has chronic pain in her BLE, she has been medicated with lyrcia, felxaril, and oxycodone. HR was regular when on telemetry, however she was down graded to medical with no telemetry. LS with some crackles noted in the bases, fluids DC'd. Biox has been mid 90s on 3L O2 via NC. BT+, attends in place. Patient has been incontinent, she has a purewick in place but it has been leaking at times into her attends. BLE contracted and spastic. VSS T/O the shift. Will report to oncoming RN.
--- NOTE | 2022-07-22 06:49 | NUR ---
SHIFT SUMMARY OVERNIGHT, PATIENT ORIENTED X4. DROWSY AT TIMES, BUT WAKES UP APPROPRIATELY. PAINFUL LOWER EXTREMITIES, MEDICATED FOR PAIN PER MAR WITH FLEXERIL, OXYCODONE, AND LYRICA. NO TELE ORDERS. SBP 90-110S. HR 90S PER PULSE OX. 3L NC, RESPIRATIONS EVEN AND UNLABORED. PUREWICK IN PLACE; 275CC OF ORANGE/IVAN OUTPUT ABLE TO BE COLLECTED, IN ADDITION TO AMOUNT THAT WAS LEAKED INTO HER ATTENDS AND WAS CHANGED. NO BM OVERNIGHT. WOUND TO LEFT HIP STABLE, NO DRAINAGE PRESENT; CLEAN MEPILEX IN PLACE. TURNED Q2. PATIENT REQUESTING TO WAIT TO BE TURNED THIS MORNING UNTIL BED BATH COMPLETED.
[2022-07-22 10:45] LABS: BASOPHILS ABSOLUTE AUTO 0.03 K/mm3 (0.00-0.23); BASOPHILS PERCENT AUTO 0 % (0-2); EOSINOPHILS ABSOLUTE AUTO 0.25 K/mm3 (0.00-0.68); EOSINOPHILS PERCENT AUTO 2 % (0-6); Hematocrit 33.3 % (33.0-51.0); Hemoglobin 10.2 g/dL (11.5-16.0); IMMATURE GRAN ABSOLUTE AUTO 0.03 K/mm3 (0.00-0.10); IMMATURE GRAN PERCENT AUTO 0 % (0-1); LYMPHOCYTES ABSOLUTE AUTO 1.69 K/mm3 (0.84-5.20); LYMPHOCYTES PERCENT AUTO 16 % (21-46); MONOCYTES ABSOLUTE AUTO 0.62 K/mm3 (0.16-1.47); MONOCYTES PERCENT AUTO 6 % (4-13); Mean Corpuscular HGB 28.3 pg (26.0-34.0); Mean Corpuscular HGB Conc 30.6 g/dL (31.5-36.5); Mean Corpuscular Volume 92 fL (80-100); Mean Platelet Volume 9.3 fL (9.1-12.4); NEUTROPHILS ABSOLUTE AUTO 7.88 K/mm3 (1.96-9.15); NEUTROPHILS PERCENT AUTO 75 % (41-73); Platelet Count 193 K/mm3 (150-400); RDW Coefficient Variation 14.6 % (11.7-14.2); RDW Standard Deviation 49.7 fL (35.1-46.3); Red Blood Cell Count 3.61 M/mm3 (3.80-5.20)
[2022-07-22 11:13] LABS: Bun/Creatinine Ratio 19.1 (12.0-20.0); Calcium, Blood 8.2 mg/dL (8.5-10.1); Creatinine, Blood 0.52 mg/dL (0.40-1.00); Potassium, Blood 4.2 mmol/L (3.5-5.5)
--- NOTE | 2022-07-22 16:28 | NUR ---
PT TRANSFERED TO ROOM 331 FROM PCU 7- REPORT FROM [facility], BED TO BED SLIDE TX. SCD'S CONNECTED. OXYGEN AT 4L NC, 94%. PT IS SLEEPY, HELD FLEXORIL. ASKED ABOUT PAIN AND CALMLY STATED 8/10- STATES IT'S ALWAYS 8/10 AND THAT SHE IS USED TO IT. NO OVERT SS OF PAIN, PT FALLS ASLEEP AND APPEARS COOMFORTABLE. CALL LIGHT IN REACH. DRINKING PO FLUIDS. INCONT, ATTENDS IN PLACE. AWARE OF SAFETY, TO CALL AND NOT GET UP WITHOUT ASSIST
--- NOTE | 2022-07-22 19:30 | NUR ---
SUMMARY- PT A/O X4, USES CALL LIGHT. DEPENDANT IN CARE, INCONT URINE. CHRONIC PAIN CONTROLLED WITH RX MEDS, STATES PAIN NEVER GOES BELOW 8/10 BUT NO OVERT SS OF PAIN PT FALLS ASLEEP SOON AFTER REPORTED PAIN. SCD'S IN USE. BLOOD SUGARS IN GOOD RANGE. TOLERATING FOOD AND FLUIDS. OXYGEN 4L NC, RESP EVEN UNLABORED, RESOLVING LLL PNEUMONIA. REPORT TO NOC DARYA LEIVA.
--- NOTE | 2022-07-23 05:00 | NUR ---
RN LABOR DELIVERY SUMMARY NO ACUTE EVENTS THROUGHOUT THE NIGHT. A&OX4. PATIENT EFFECTIVELY COMMUNICATES NEEDS. VSS. RR EVEN AND UNLABORED ON 4L O2. PATIENT'S REPORTED BASEINE IS 2L O2. SEMI-PRODUCTIVE COUGH NOTED. SPUTUM SAMPLE COLLECTION NEEDED. PAIN ASSESSED AND MEDICATED PER EMAR. PATIENT REQUIRES EXTENSIVE ASSISTANCE WITH BED MOBILITY, Q2-HOUR TURNING TO PREVENT SKIN BREAKDOWN. PURWICK IN PLACE AND DRAINING. PATIENT IS TOLERATING ABO THERAPY. BED LOW AND LOCKED. CALL LIGHT WITHIN REACH. THIS RN WILL CONTINUE TO MONITOR.
[2022-07-23] MEDS ORDERED: MICONAZOLE NITR85 GM TOP (11:15)
[2022-07-23] MEDS ORDERED: AZIT500 PO (11:15)
[2022-07-23] MEDS ORDERED: CEFP200 PO (11:16)
--- NOTE | 2022-07-23 17:04 | NUR ---
DISCHARGED PT IS ALERT AND ORIENTED X4. CONTRACTURED, INCONTINENT, 4L NC. PT HAS CHRONIC PAIN RELATED TO DISEASE PROCESS HER PAIN HAS BEEN DIFFICULT TO CONTROL. TREATED PER EMAR. TRANSPORTED BY CHRISTOPHER.
== END 2022-07-23 16:59 | DRG 871 ==
LOC: ER 07:50 → PCU 07:51 → MEDS 07-22 14:54
PROVIDERS: Emergency Medicine; Internal Medicine; Nurse Practitioner Acute Care; ADMIT Internal Medicine
PROC: 5A0935A Assistance with Respiratory Ventilation, Less than 24 Consecutive Hours, High Flow/Velocity Cannula (ICD-10-PCS; 2022-07-20)
PROC: 3E03329 Introduction of Other Anti-infective into Peripheral Vein, Percutaneous Approach (ICD-10-PCS; principal; 2022-07-21)
PROC: 4A033R1 Measurement of Arterial Saturation, Peripheral, Percutaneous Approach (ICD-10-PCS; 2022-07-21)
DX: A41.9 Sepsis, unspecified organism (principal); G92.8 Other toxic encephalopathy; J18.9 Pneumonia, unspecified organism; J96.01 Acute respiratory failure with hypoxia; J44.0 Chronic obstructive pulmonary disease with (acute) lower respiratory infection; F11.20 Opioid dependence, uncomplicated; G37.9 Demyelinating disease of central nervous system, unspecified; G35 Multiple sclerosis; R65.20 Severe sepsis without septic shock; E11.9 Type 2 diabetes mellitus without complications; G89.4 Chronic pain syndrome; I10 Essential (primary) hypertension; F41.1 Generalized anxiety disorder; F32.9 Major depressive disorder, single episode, unspecified; R16.0 Hepatomegaly, not elsewhere classified; K76.0 Fatty (change of) liver, not elsewhere classified; T40.605A Adverse effect of unspecified narcotics, initial encounter; L89.90 Pressure ulcer of unspecified site, unspecified stage; B96.89 Other specified bacterial agents as the cause of diseases classified elsewhere; B95.62 Methicillin resistant Staphylococcus aureus infection as the cause of diseases classified elsewhere; Z90.49 Acquired absence of other specified parts of digestive tract; Z98.890 Other specified postprocedural states; Z79.82 Long term (current) use of aspirin; Z74.01 Bed confinement status; Z79.02 Long term (current) use of antithrombotics/antiplatelets; Z79.899 Other long term (current) drug therapy; Z79.84 Long term (current) use of oral hypoglycemic drugs; Z79.51 Long term (current) use of inhaled steroids; Z79.2 Long term (current) use of antibiotics; Z86.14 Personal history of Methicillin resistant Staphylococcus aureus infection; Z79.4 Long term (current) use of insulin; Z87.440 Personal history of urinary (tract) infections; Z87.891 Personal history of nicotine dependence
CPT/HCPCS: 36415; 36600; 71045; 80048; 80053; 81001; 82803; 82947; 83605; 83735; 84145; 85025; 87040; 87070; 87077; 87086; 87186; 87205; 93005; 93010; 94640; 94664; 94760; 94761; 94762; 96361; 96365; 96366; 96367; 96372; 96375; 96376; 99285-25; A9270; C1751; G0378; J0295; J0456; J0696; J1650; J1885; J2310; J3010; J7030; J7050; J7120

== ENCOUNTER 2022-12-26 10:12 | Emergency (ER) | payer OTHER ==
[~2022-12-26] VITALS: Ht 165.1 cm; Wt 87.5 kg
[~2022-12-26 10:12] MED LIST changes: +ATOR20; +BISA10S PR; +CEFP200 PO; +CRANBERRY450 M1 PO; +Calcium Carbon500 MG; +FAMO20 PO; +FLUT1DIS2 INH; +Fleet Enema132 ML PR
[2022-12-26 10:35] LABS: BASOPHILS ABSOLUTE AUTO 0.06 K/mm3 (0.00-0.23); BASOPHILS PERCENT AUTO 1 % (0-2); EOSINOPHILS ABSOLUTE AUTO 0.02 K/mm3 (0.00-0.68); EOSINOPHILS PERCENT AUTO 0 % (0-6); Hematocrit 31.2 % (33.0-51.0); Hemoglobin 9.5 g/dL (11.5-16.0); IMMATURE GRAN ABSOLUTE AUTO 0.04 K/mm3 (0.00-0.10); IMMATURE GRAN PERCENT AUTO 0 % (0-1); LYMPHOCYTES ABSOLUTE AUTO 1.26 K/mm3 (0.84-5.20); LYMPHOCYTES PERCENT AUTO 12 % (21-46); MONOCYTES ABSOLUTE AUTO 0.68 K/mm3 (0.16-1.47); MONOCYTES PERCENT AUTO 7 % (4-13); Mean Corpuscular HGB 25.6 pg (26.0-34.0); Mean Corpuscular HGB Conc 30.4 g/dL (31.5-36.5); Mean Corpuscular Volume 84 fL (80-100); Mean Platelet Volume 10.2 fL (9.1-12.4); NEUTROPHILS ABSOLUTE AUTO 8.46 K/mm3 (1.96-9.15); NEUTROPHILS PERCENT AUTO 80 % (41-73); Platelet Count 281 K/mm3 (150-400); RDW Coefficient Variation 16.3 % (11.7-14.2); RDW Standard Deviation 49.4 fL (35.1-46.3); Red Blood Cell Count 3.71 M/mm3 (3.80-5.20); White Blood Cell Count 10.52 K/mm3 (4.00-11.30)
[2022-12-26 10:54] LABS: Albumin, Blood 2.6 g/dL (3.4-5.0); Albumin/Globulin Ratio 0.6 (0.8-1.8); Bilirubin, Total 0.4 mg/dL (0.1-1.0); Bun/Creatinine Ratio 63.6 (12.0-20.0); Calcium, Blood 8.1 mg/dL (8.5-10.1); Creatinine, Blood 0.52 mg/dL (0.40-1.00); Globulin, Blood 4.2 g/dL (2.2-4.0); Magnesium, Blood 1.7 mg/dL (1.6-2.4); Phosphorus, Blood 1.5 mg/dL (2.5-4.9); Potassium, Blood 4.7 mmol/L (3.5-5.5); Total Protein, Blood 6.8 g/dL (6.4-8.2)
[2022-12-26 12:02] LABS: Influenza A, PCR NEGATIVE (NEGATIVE); Influenza B, PCR NEGATIVE (NEGATIVE); Resp Syncytial Virus, PCR NEGATIVE (NEGATIVE); SARS-Cov-2 (COVID-19) PCR, MMC NEGATIVE (NEGATIVE)
[2022-12-26 13:45] LABS: Source, Urine Straight Cath
[2022-12-26] MEDS ORDERED: CEPH500 PO (14:06)
[2022-12-26 14:36] LABS: Bilirubin, Urine Neg (Neg); Blood, Urine 2+ (Neg); Glucose Qualitative, Urine 2+ (Neg); Ketones, Urine 1+ (Neg); Leukocyte Esterase, Urine 3+ (Neg); Nitrite, Urine Neg (Neg); Protein, Urine Neg (Neg); Urobilinogen, Urine NORM (Normal)
[2022-12-26 14:47] VITALS: BP 132/123
[2022-12-26 14:48] LABS: Appearance, Urine Clear (Clear); Color, Urine Pale Yellow (P-Yellow)
[2022-12-26 14:50] LABS: Bacteria Mod /hpf; Red Blood Cells, Urine 0-2 /hpf (0-2); Squamous Epithelial Cells Rare /hpf (Few)
== END 2022-12-26 14:50 ==
LOC: ER 10:12
PROVIDERS: Emergency Medicine
DX: N39.0 Urinary tract infection, site not specified (principal); Z87.891 Personal history of nicotine dependence; Z79.82 Long term (current) use of aspirin; Z79.84 Long term (current) use of oral hypoglycemic drugs; Z79.890 Hormone replacement therapy; Z79.1 Long term (current) use of non-steroidal anti-inflammatories (NSAID); Z79.899 Other long term (current) drug therapy; Z79.51 Long term (current) use of inhaled steroids; J44.9 Chronic obstructive pulmonary disease, unspecified; I10 Essential (primary) hypertension; E11.9 Type 2 diabetes mellitus without complications; Z86.14 Personal history of Methicillin resistant Staphylococcus aureus infection
CPT/HCPCS: 0241U; 51798; 71045; 74177; 80053; 81001; 83690; 83735; 84100; 84484; 85025; 86850; 86900; 86901; 93005; 93010; 96361; 96365; 96375; 99285-25; A9270; J0696; J2405; J3010; J7030; Q9967

== ENCOUNTER 2023-01-14 21:42 | Emergency (ER) | payer OTHER ==
[~2023-01-14] VITALS: Ht 165.1 cm; Wt 86.2 kg
[2023-01-14 22:14] LABS: BASOPHILS ABSOLUTE AUTO 0.05 K/mm3 (0.00-0.23); BASOPHILS PERCENT AUTO 0 % (0-2); EOSINOPHILS ABSOLUTE AUTO 0.19 K/mm3 (0.00-0.68); EOSINOPHILS PERCENT AUTO 2 % (0-6); Hematocrit 20.8 % (33.0-51.0); IMMATURE GRAN ABSOLUTE AUTO 0.06 K/mm3 (0.00-0.10); IMMATURE GRAN PERCENT AUTO 1 % (0-1); LYMPHOCYTES ABSOLUTE AUTO 2.22 K/mm3 (0.84-5.20); LYMPHOCYTES PERCENT AUTO 18 % (21-46); MONOCYTES ABSOLUTE AUTO 0.93 K/mm3 (0.16-1.47); MONOCYTES PERCENT AUTO 8 % (4-13); Mean Corpuscular HGB 22.6 pg (26.0-34.0); Mean Corpuscular HGB Conc 28.8 g/dL (31.5-36.5); Mean Corpuscular Volume 79 fL (80-100); Mean Platelet Volume 10.5 fL (9.1-12.4); NEUTROPHILS ABSOLUTE AUTO 8.67 K/mm3 (1.96-9.15); NEUTROPHILS PERCENT AUTO 72 % (41-73); NRBC ABSOLUTE 0.03 K/mm3 (0.00-0.02); NRBC Auto 0.2 /100 WBC (0.0-0.2); Platelet Count 358 K/mm3 (150-400); RDW Coefficient Variation 16.9 % (11.7-14.2); RDW Standard Deviation 48.2 fL (35.1-46.3); Red Blood Cell Count 2.65 M/mm3 (3.80-5.20); White Blood Cell Count 12.12 K/mm3 (4.00-11.30)
[2023-01-14 22:29] LABS: Albumin, Blood 2.2 g/dL (3.4-5.0); Albumin/Globulin Ratio 0.6 (0.8-1.8); Bilirubin, Total 0.4 mg/dL (0.1-1.0); Bun/Creatinine Ratio 26.8 (12.0-20.0); Calcium, Blood 8.2 mg/dL (8.5-10.1); Creatinine, Blood 0.63 mg/dL (0.40-1.00); Globulin, Blood 3.4 g/dL (2.2-4.0); Potassium, Blood 4.7 mmol/L (3.5-5.5); Total Protein, Blood 5.6 g/dL (6.4-8.2)
[2023-01-14 22:42] LABS: International Normalized Ratio 1.04; Prothrombin Time Results 10.9 Sec (9.7-11.5)
[2023-01-15 02:00] VITALS: BP 102/75
[2023-01-15 02:04] LABS: Influenza A, PCR NEGATIVE (NEGATIVE); Influenza B, PCR NEGATIVE (NEGATIVE); Resp Syncytial Virus, PCR NEGATIVE (NEGATIVE); SARS-Cov-2 (COVID-19) PCR, MMC NEGATIVE (NEGATIVE)
== END 2023-01-15 02:20 | disposition short-term general hospital (02) ==
LOC: ER 21:42
PROVIDERS: Emergency Medicine; Student in an Organized Health Care Education/Training Program
DX: K92.2 Gastrointestinal hemorrhage, unspecified (principal); I95.9 Hypotension, unspecified; D62 Acute posthemorrhagic anemia; R07.9 Chest pain, unspecified; Z20.822 Contact with and (suspected) exposure to COVID-19; Z79.82 Long term (current) use of aspirin; Z79.899 Other long term (current) drug therapy; Z79.84 Long term (current) use of oral hypoglycemic drugs; Z79.2 Long term (current) use of antibiotics; I10 Essential (primary) hypertension; Z87.440 Personal history of urinary (tract) infections; E11.9 Type 2 diabetes mellitus without complications; J44.9 Chronic obstructive pulmonary disease, unspecified; Z86.14 Personal history of Methicillin resistant Staphylococcus aureus infection; Z87.891 Personal history of nicotine dependence
CPT/HCPCS: 0241U; 36430; 71260; 74177; 80053; 82272; 83690; 84484; 85025; 85610; 85730; 86850; 86900; 86901; 86923; 93005; 93010; 96365-59; 96367; 96375-59; 99285-25; C9113; J0696; J3010; J7030; P9016; Q9967

== ENCOUNTER 2023-03-11 05:57 | Inpatient (IN) | payer OTHER ==
[2023-03-11] VITALS (7 sets, daily range): BP systolic 84–108; BP diastolic 52–66
[~2023-03-11] VITALS: Ht 165.1 cm; Wt 86.9 kg
[2023-03-11 06:35] LABS: BASOPHILS ABSOLUTE AUTO 0.05 K/mm3 (0.00-0.23); BASOPHILS PERCENT AUTO 0 % (0-2); EOSINOPHILS ABSOLUTE AUTO 0.03 K/mm3 (0.00-0.68); EOSINOPHILS PERCENT AUTO 0 % (0-6); Hematocrit 39.1 % (33.0-51.0); Hemoglobin 11.9 g/dL (11.5-16.0); IMMATURE GRAN ABSOLUTE AUTO 0.09 K/mm3 (0.00-0.10); IMMATURE GRAN PERCENT AUTO 1 % (0-1); LYMPHOCYTES ABSOLUTE AUTO 0.52 K/mm3 (0.84-5.20); LYMPHOCYTES PERCENT AUTO 3 % (21-46); MONOCYTES PERCENT AUTO 4 % (4-13); Mean Corpuscular HGB 24.8 pg (26.0-34.0); Mean Corpuscular HGB Conc 30.4 g/dL (31.5-36.5); Mean Corpuscular Volume 82 fL (80-100); Mean Platelet Volume 9.4 fL (9.1-12.4); NEUTROPHILS ABSOLUTE AUTO 15.64 K/mm3 (1.96-9.15); NEUTROPHILS PERCENT AUTO 92 % (41-73); Platelet Count 251 K/mm3 (150-400); RDW Coefficient Variation 19.9 % (11.7-14.2); RDW Standard Deviation 59.4 fL (35.1-46.3); Red Blood Cell Count 4.79 M/mm3 (3.80-5.20); White Blood Cell Count 17.03 K/mm3 (4.00-11.30)
[2023-03-11 06:46] LABS: Albumin, Blood 2.6 g/dL (3.4-5.0); Albumin/Globulin Ratio 0.6 (0.8-1.8); Bilirubin, Total 0.3 mg/dL (0.1-1.0); Bun/Creatinine Ratio 15.9 (12.0-20.0); Calcium, Blood 8.7 mg/dL (8.5-10.1); Creatinine, Blood 0.63 mg/dL (0.40-1.00); Globulin, Blood 4.1 g/dL (2.2-4.0); Potassium, Blood 4.4 mmol/L (3.5-5.5); Total Protein, Blood 6.7 g/dL (6.4-8.2)
[2023-03-11 06:46] LABS: Source, Urine Foley catheter
[2023-03-11 06:48] LABS: Base Excess Venous 4.6 mmol/L; Bicarbonate Venous 27.9 mmol/L (24.0-30.0); PCO2 Venous 46.7 mmHg (38-42); pH Blood Venous 7.41 (7.34-7.37)
[2023-03-11 06:49] LABS: Appearance, Urine Turbid (Clear); Bilirubin, Urine Neg (Neg); Blood, Urine 4+ (Neg); Color, Urine Yellow (P-Yellow); Glucose Qualitative, Urine Neg (Neg); Ketones, Urine 1+ (Neg); Leukocyte Esterase, Urine 3+ (Neg); Nitrite, Urine Pos (Neg); Protein, Urine 3+ (Neg); Specific Gravity, Urine 1.015 (1.003-1.022); Urobilinogen, Urine NORM (Normal)
[2023-03-11 06:56] LABS: Bacteria Many /hpf; Red Blood Cells, Urine 50-100 /hpf (0-2); Squamous Epithelial Cells Rare /hpf (Few); White Blood Cells, Urine TNTC /hpf (0-5)
[2023-03-11] MEDS ORDERED: NALOXONE HCL4 MG (07:06)
[2023-03-11] MEDS ORDERED: FLUTICASONE-SA1 EAC8 (07:06)
[2023-03-11] MEDS ORDERED: PREG25 (07:06)
[2023-03-11] MEDS ORDERED: SUCRALFATE114 (07:08)
[2023-03-11 07:20] LABS: Influenza A, PCR NEGATIVE (NEGATIVE); Influenza B, PCR NEGATIVE (NEGATIVE); Resp Syncytial Virus, PCR NEGATIVE (NEGATIVE); SARS-Cov-2 (COVID-19) PCR, MMC NEGATIVE (NEGATIVE)
[2023-03-11] MEDS ORDERED: ASCO500 PO (10:05)
[2023-03-11] MEDS ORDERED: D-MANNOSE PO (10:06)
[2023-03-11] MEDS ORDERED: FERSU300 PO (10:06)
[2023-03-11] MEDS ORDERED: DULCOLAX400 MG/5 M PO (10:07)
[2023-03-11] MEDS ORDERED: OMEP20ER PO (10:08)
--- NOTE | 2023-03-11 11:49 | NUR ---
ADMIT TO PCU: PATIENT ARRIVAL TO PCU AT 0945. USED SLIDE SHEET TO TRANSFER. ADRIANNARLA. ALERT AND ORIENTED X3-4. VERY SLEEPY. ABLE TO ANSWER QUESTIONS APPROP. BED/CHAIR FAST, FROM [facility] WHERE PATIENT RESIDES. STATES SHE USES DARY LIFT TO WHEELCHAIR BUT IS UNABLE TO WHEEL HER SELF AROUND. CONTRACTURES IN BILATERAL LOWER EXTREMTIES AT BASELINE. PATIENT STATES SHE HAS SOME NERVE DAMAGE. ABLE TO WIGGLE BILATERAL TOES. NO LIMITATIONS TO UPPER EXTREMITY MOVEMENTS. ON 4L NASAL CANNULA SATING MID 90'S. DENIES SOB. EVEN AND UNLABORED RESPIRATIONS. LUNGS SOUNDING CLEAR AND DIM IN BASES. OCCASIONAL PRODUCTIVE COUGH. TELE SHOWING SR/ST WITH HR 90-110'S. DENIES CHEST PAIN/PRESSURE/PALPITATIONS. PPP. SBP 80-90'S. NS INFUSING PER EMAR. ABX INFUSED. BOWEL TONES PRESENT. DARK GREEN STOOL PRESENT ON ADMIT. BED BATH GIVEN. TEMP GONZALEZ CATH IN PLACE DRAINING CLEAR/YELLOW URINE, CATH CARE COMPLETED. SEE CHART FOR PICTURE OF HEALED PRESSURE ULCER ON LEFT BUTTOCK/HIP. SLIGHT REDNESS TO COCCYX ON ADMISSION, MEPILEX IN PLACE. Q2 TURNING AND NEEDED. HOME MEDS RECONCILED. DR. CUEVAS CALLED TO UPDATE ON MED REC AND MAG LAB LEVELS. NO NEW ORDERS FOR THIS RN TO PLACE. PATIENT ORIENTED TO ROOM/UNIT. WILLAM CALLED AND UPDATED. CALL LIGHT IN REACH. ACHS BLOOD SUGARS.
--- NOTE | 2023-03-11 18:14 | NUR ---
SHIFT SUMMARY: NO ACUTE CHANGES. PATIENT PAIN MANAGED WITH IV FENTANYL. Q2 TURNING AND NEEDED. PATIENT EATING WNL. GONZALEZ CATH REMOVED. TEMP WNL. NO EVENTS ON TELE. VITAL SIGNS STABLE. AT BEDSIDE AND UPDATED. ACHS BLOOD SUGARS. SEE PREVIOUS NOTES FOR UPDATES.
[2023-03-12 00:09] VITALS: BP 115/77
[2023-03-12 04:07] VITALS: BP 114/67
[2023-03-12 04:16] LABS: BASOPHILS ABSOLUTE AUTO 0.04 K/mm3 (0.00-0.23); BASOPHILS PERCENT AUTO 0 % (0-2); EOSINOPHILS ABSOLUTE AUTO 0.17 K/mm3 (0.00-0.68); EOSINOPHILS PERCENT AUTO 1 % (0-6); Hematocrit 33.7 % (33.0-51.0); Hemoglobin 9.8 g/dL (11.5-16.0); IMMATURE GRAN ABSOLUTE AUTO 0.04 K/mm3 (0.00-0.10); IMMATURE GRAN PERCENT AUTO 0 % (0-1); LYMPHOCYTES ABSOLUTE AUTO 1.41 K/mm3 (0.84-5.20); LYMPHOCYTES PERCENT AUTO 11 % (21-46); MONOCYTES ABSOLUTE AUTO 0.67 K/mm3 (0.16-1.47); MONOCYTES PERCENT AUTO 5 % (4-13); Mean Corpuscular HGB 24.4 pg (26.0-34.0); Mean Corpuscular HGB Conc 29.1 g/dL (31.5-36.5); Mean Corpuscular Volume 84 fL (80-100); Mean Platelet Volume 9.7 fL (9.1-12.4); NEUTROPHILS ABSOLUTE AUTO 10.82 K/mm3 (1.96-9.15); NEUTROPHILS PERCENT AUTO 82 % (41-73); Platelet Count 222 K/mm3 (150-400); RDW Coefficient Variation 20.2 % (11.7-14.2); RDW Standard Deviation 62.5 fL (35.1-46.3); Red Blood Cell Count 4.01 M/mm3 (3.80-5.20); White Blood Cell Count 13.15 K/mm3 (4.00-11.30)
[2023-03-12 04:50] LABS: Albumin/Globulin Ratio 0.6 (0.8-1.8); Bilirubin, Total 0.4 mg/dL (0.1-1.0); Bun/Creatinine Ratio 18.5 (12.0-20.0); Calcium, Blood 7.9 mg/dL (8.5-10.1); Creatinine, Blood 0.54 mg/dL (0.40-1.00); Globulin, Blood 3.6 g/dL (2.2-4.0); Potassium, Blood 3.7 mmol/L (3.5-5.5); Total Protein, Blood 5.6 g/dL (6.4-8.2)
--- NOTE | 2023-03-12 04:51 | NUR ---
SHIFT SUMMARY ASSUMED CARE OF PT AT 1900. PT IS A/OX4. HEART SOUNDS REGULAR. PT WORE 1L NC AT START OF SHIFT BUT RA SINCE MIDNIGHT, SATS ABOVE 95%. PT TURNED Q2. PT MEDICATED PER EMAR FOR PAIN. PT BLOOD PRESSURES STABLE.
[2023-03-12 07:22] VITALS: BP 123/66
--- NOTE | 2023-03-12 08:11 | NUR ---
CALLED DR. HINES I CALLED DR. HINES ABOUT RESTARTING THE PT'S HOME FENT PATCH OF 75 MCG Q3D. HE STATED THAT WAS FINE AND HE WILL PUT IN THE ORDER IN 10-20 MINUTES. ALSO, HE WANTS TO TALK TO HIS SENIOR ABOUT STATUS CHANGING AND POSSIBLE CHANGES TO ANTIBIOTICS.
--- NOTE | 2023-03-12 12:11 | NUR ---
MORNING SUMMARY PT IS A&OX4, AND CAN MAKE HER NEEDS KNOWN. SHE IS BEDREST AT BASELINE AND A Q2 TURN. SHE HAS A PURWICK SET UP AND IT WAS CHANGED THIS AM DURING A BEDBATH. NO REPORTS OF ANGINA OR CHEST PRESSURE. PT WAS PLACED ON 1L NC AFTER BEING MEDICATED W/ FENTANYL DUE TO SP02 DROPPING TO 88%. PT NOW SATURATING >90% ON RA. SHE IS BEING TRANSFERED TO ROOM 342. REPORT GIVEN TO SUMEET LACKEY. NO ACUTE EVENTS THIS AM.
--- NOTE | 2023-03-12 12:28 | NUR ---
RN TO RN REPORT RECIVED VIA PHONE AT 1200, PATIENT RECEIVED TO UNIT AT 1225.
[2023-03-12 12:38] VITALS: BP 129/76
[2023-03-12 17:05] VITALS: BP 108/59
[2023-03-12 19:55] VITALS: BP 121/65
[2023-03-13 04:40] VITALS: BP 132/74
[2023-03-13 07:24] VITALS: BP 148/90
--- NOTE | 2023-03-13 07:46 | NUR ---
SHIFT SUMMARY PATIENT A/Ox4, PLEASANT, COOPERATIVE. PAIN MANAGED PER JUL. CONTINUES ON IV ABX FOR PNEUMONIA, SpO2 95% RA. DENIES SOB/DIFFICULTY BREATHING. NO ACUTE CHANGES NOTED OVERNIGHT. BED LOCKED AND IN LOWEST POSITION, CALL LIGHT WITHIN REACH.
[2023-03-13 08:58] LABS: BASOPHILS ABSOLUTE AUTO 0.02 K/mm3 (0.00-0.23); BASOPHILS PERCENT AUTO 0 % (0-2); EOSINOPHILS ABSOLUTE AUTO 0.13 K/mm3 (0.00-0.68); EOSINOPHILS PERCENT AUTO 2 % (0-6); Hematocrit 34.8 % (33.0-51.0); Hemoglobin 10.1 g/dL (11.5-16.0); IMMATURE GRAN ABSOLUTE AUTO 0.02 K/mm3 (0.00-0.10); IMMATURE GRAN PERCENT AUTO 0 % (0-1); LYMPHOCYTES ABSOLUTE AUTO 1.25 K/mm3 (0.84-5.20); LYMPHOCYTES PERCENT AUTO 20 % (21-46); MONOCYTES ABSOLUTE AUTO 0.45 K/mm3 (0.16-1.47); MONOCYTES PERCENT AUTO 7 % (4-13); Mean Corpuscular HGB 24.5 pg (26.0-34.0); Mean Corpuscular Volume 85 fL (80-100); Mean Platelet Volume 9.5 fL (9.1-12.4); NEUTROPHILS ABSOLUTE AUTO 4.34 K/mm3 (1.96-9.15); NEUTROPHILS PERCENT AUTO 70 % (41-73); Platelet Count 218 K/mm3 (150-400); RDW Coefficient Variation 19.7 % (11.7-14.2); RDW Standard Deviation 60.7 fL (35.1-46.3); Red Blood Cell Count 4.12 M/mm3 (3.80-5.20); White Blood Cell Count 6.21 K/mm3 (4.00-11.30)
[2023-03-13 09:32] LABS: Bun/Creatinine Ratio 12.3 (12.0-20.0); Calcium, Blood 8.4 mg/dL (8.5-10.1); Creatinine, Blood 0.57 mg/dL (0.40-1.00)
[2023-03-13 09:35] LABS: Vancomycin, Trough 22.3 ug/mL (5.0-10.0)
--- NOTE | 2023-03-13 11:53 | NUR ---
FACILITY DISHCARGE ORDERS RECEIVED. PATIENT IS AGREEABLE TO THE PLAN. REPORT CALLED TO [facility] WHERE THE PATIENT LIVES. [facility] [employer] AT 1330. ORDERS SENT TO FACILITY VIA FAX AND SECURE EMAIL. IV REMOVED INTACT. WILL CONT TO [facility] UNTIL DISCHARGE.
== END 2023-03-13 14:40 | DRG 871 ==
LOC: ER 05:57 → PCU 07:35 → MEDS 03-12 12:15 → ENPENDDIS 03-13 10:20 → MEDS 03-13 14:40
PROVIDERS: Family Medicine; Student in an Organized Health Care Education/Training Program; ADMIT Hospitalist
PROC: 3E03329 Introduction of Other Anti-infective into Peripheral Vein, Percutaneous Approach (ICD-10-PCS; principal; 2023-03-11)
PROC: 0T9B70Z Drainage of Bladder with Drainage Device, Via Natural or Artificial Opening (ICD-10-PCS; 2023-03-11)
DX: A41.51 Sepsis due to Escherichia coli [E. coli] (principal); J18.9 Pneumonia, unspecified organism; J96.91 Respiratory failure, unspecified with hypoxia; F11.20 Opioid dependence, uncomplicated; N39.0 Urinary tract infection, site not specified; E11.9 Type 2 diabetes mellitus without complications; G35 Multiple sclerosis; E83.42 Hypomagnesemia; G89.4 Chronic pain syndrome; F41.1 Generalized anxiety disorder; F32.9 Major depressive disorder, single episode, unspecified; R65.20 Severe sepsis without septic shock; I10 Essential (primary) hypertension; J44.9 Chronic obstructive pulmonary disease, unspecified; E66.3 Overweight; Z87.19 Personal history of other diseases of the digestive system; Z79.899 Other long term (current) drug therapy; Z79.82 Long term (current) use of aspirin; Z79.84 Long term (current) use of oral hypoglycemic drugs; Z90.49 Acquired absence of other specified parts of digestive tract; Z98.890 Other specified postprocedural states; Z87.891 Personal history of nicotine dependence; Z86.19 Personal history of other infectious and parasitic diseases; Z74.01 Bed confinement status; Z68.29 Body mass index [BMI] 29.0-29.9, adult; Z11.52 Encounter for screening for COVID-19; Z99.81 Dependence on supplemental oxygen; Z86.14 Personal history of Methicillin resistant Staphylococcus aureus infection
CPT/HCPCS: 0241U; 36415; 51702; 71045; 80048; 80053; 80202; 81001; 82803; 82947; 83605; 83735; 84145; 85025; 87040; 87077; 87086; 87186; 93005; 93010; 94640; 94664; 94762; 96361-59; 96365-59; 96375-59; 99285-25; A9270; J0456; J0692; J0696; J1650; J1885; J3010; J3370; J3475; J7030; J7050

== ENCOUNTER 2023-04-02 22:30 | Inpatient (IN) | payer OTHER ==
[~2023-04-02] VITALS: Ht 172.7 cm; Wt 78.0 kg
[~2023-04-02 22:30] MED LIST changes: +ASCO500 PO; +D-MANNOSE PO; +FLUTICASONE-SA1 EAC8; +NALOXONE HCL4 MG; +PREG25; +SUCRALFATE114
[2023-04-02 23:07] LABS: BASOPHILS ABSOLUTE AUTO 0.03 K/mm3 (0.00-0.23); BASOPHILS PERCENT AUTO 0 % (0-2); EOSINOPHILS ABSOLUTE AUTO 0.08 K/mm3 (0.00-0.68); EOSINOPHILS PERCENT AUTO 1 % (0-6); Hematocrit 37.3 % (33.0-51.0); Hemoglobin 11.4 g/dL (11.5-16.0); IMMATURE GRAN ABSOLUTE AUTO 0.04 K/mm3 (0.00-0.10); IMMATURE GRAN PERCENT AUTO 0 % (0-1); LYMPHOCYTES ABSOLUTE AUTO 1.26 K/mm3 (0.84-5.20); LYMPHOCYTES PERCENT AUTO 9 % (21-46); MONOCYTES ABSOLUTE AUTO 0.65 K/mm3 (0.16-1.47); MONOCYTES PERCENT AUTO 5 % (4-13); Mean Corpuscular HGB 25.7 pg (26.0-34.0); Mean Corpuscular HGB Conc 30.6 g/dL (31.5-36.5); Mean Corpuscular Volume 84 fL (80-100); NEUTROPHILS ABSOLUTE AUTO 11.84 K/mm3 (1.96-9.15); NEUTROPHILS PERCENT AUTO 85 % (41-73); Platelet Count 228 K/mm3 (150-400); RDW Coefficient Variation 22.5 % (11.7-14.2); RDW Standard Deviation 69.1 fL (35.1-46.3); Red Blood Cell Count 4.43 M/mm3 (3.80-5.20)
[2023-04-02 23:10] LABS: Base Excess Venous -0.4 mmol/L; Bicarbonate Venous 24.1 mmol/L (24.0-30.0); PCO2 Venous 40.5 mmHg (38-42); pH Blood Venous 7.39 (7.34-7.37)
[2023-04-02 23:23] LABS: International Normalized Ratio 1.01; Prothrombin Time Results 10.6 Sec (9.7-11.5)
[2023-04-02 23:33] LABS: Albumin, Blood 2.4 g/dL (3.4-5.0); Albumin/Globulin Ratio 0.6 (0.8-1.8); Bilirubin, Direct 0.1 mg/dL (0.0-0.3); Bilirubin, Indirect 0.4 mg/dL (0.1-0.7); Bilirubin, Total 0.5 mg/dL (0.1-1.0); Bun/Creatinine Ratio 17.7 (12.0-20.0); Calcium, Blood 8.4 mg/dL (8.5-10.1); Creatinine, Blood 0.57 mg/dL (0.40-1.00); Globulin, Blood 4.1 g/dL (2.2-4.0); Magnesium, Blood 1.8 mg/dL (1.6-2.4); Phosphorus, Blood 2.8 mg/dL (2.5-4.9); Potassium, Blood 4.4 mmol/L (3.5-5.5); Total Protein, Blood 6.5 g/dL (6.4-8.2)
[2023-04-03 01:13] LABS: Source, Urine Straight Cath
[2023-04-03 01:17] LABS: Bilirubin, Urine Neg (Neg); Blood, Urine 2+ (Neg); Glucose Qualitative, Urine Neg (Neg); Ketones, Urine Neg (Neg); Leukocyte Esterase, Urine 3+ (Neg); Nitrite, Urine Pos (Neg); Protein, Urine 1+ (Neg); Specific Gravity, Urine 1.005 (1.003-1.022); Urobilinogen, Urine NORM (Normal)
[2023-04-03 01:20] LABS: Appearance, Urine Hazy (Clear); Color, Urine Pale Yellow (P-Yellow)
[2023-04-03 01:23] LABS: Bacteria Many /hpf; Red Blood Cells, Urine 0-2 /hpf (0-2); Squamous Epithelial Cells Not Seen /hpf (Few); White Blood Cells, Urine 50-100 /hpf (0-5)
[2023-04-03 01:44] LABS: Influenza A, PCR NEGATIVE (NEGATIVE); Influenza B, PCR NEGATIVE (NEGATIVE); Resp Syncytial Virus, PCR NEGATIVE (NEGATIVE); SARS-Cov-2 (COVID-19) PCR, MMC NEGATIVE (NEGATIVE)
[2023-04-03 03:28] VITALS: BP 113/55
[2023-04-03 04:52] LABS: BASOPHILS ABSOLUTE AUTO 0.03 K/mm3 (0.00-0.23); BASOPHILS PERCENT AUTO 0 % (0-2); EOSINOPHILS ABSOLUTE AUTO 0.11 K/mm3 (0.00-0.68); EOSINOPHILS PERCENT AUTO 1 % (0-6); Hematocrit 37.9 % (33.0-51.0); Hemoglobin 11.3 g/dL (11.5-16.0); IMMATURE GRAN ABSOLUTE AUTO 0.03 K/mm3 (0.00-0.10); IMMATURE GRAN PERCENT AUTO 0 % (0-1); LYMPHOCYTES ABSOLUTE AUTO 2.04 K/mm3 (0.84-5.20); LYMPHOCYTES PERCENT AUTO 19 % (21-46); MONOCYTES PERCENT AUTO 6 % (4-13); Mean Corpuscular HGB 25.4 pg (26.0-34.0); Mean Corpuscular HGB Conc 29.8 g/dL (31.5-36.5); Mean Corpuscular Volume 85 fL (80-100); Mean Platelet Volume 9.1 fL (9.1-12.4); NEUTROPHILS ABSOLUTE AUTO 8.05 K/mm3 (1.96-9.15); NEUTROPHILS PERCENT AUTO 74 % (41-73); Platelet Count 203 K/mm3 (150-400); RDW Coefficient Variation 22.5 % (11.7-14.2); RDW Standard Deviation 70.4 fL (35.1-46.3); Red Blood Cell Count 4.45 M/mm3 (3.80-5.20); White Blood Cell Count 10.86 K/mm3 (4.00-11.30)
[2023-04-03 05:15] LABS: Bun/Creatinine Ratio 16.1 (12.0-20.0); Calcium, Blood 8.1 mg/dL (8.5-10.1); Creatinine, Blood 0.62 mg/dL (0.40-1.00)
--- NOTE | 2023-04-03 06:15 | NUR ---
ARRIVAL TO PCU/SHIFT SUMMARY PT ARRIVED TO [facility] AT 0325 VIA GURNEY. PT SLID TO BED W/ 4P STAFF ASSIST. PT ENDORSES PARAPLEGIA DUE TO MS. 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 PT A&OX4 ON ARRIVAL, PLEASANT BUT PAINFUL. PT REPOSITIONED W/ PILLOWS T/O SHIFT TO ASSIST W/ PAIN. VSS. NSR ON TELE, HR 80'S. BP 113/55, PT DENIES CHEST PAIN/PRESSURE. PT ARRIVED TO PCU ON 4L VIA NC W/ SPO2 >95%. ABLE TO BE TITRATED DOWN TO 1.5L O2 W/ SPO2 >95%. BASELINE IS ROOM AIR. PT W/ MOIST COUGH, NO MUCUS PRODUCTION. IV FLUID BOLUS INFUSING PER ORDERS FROM DR. SAUCEDO. VANCO INFUSING PER EMAR. POWERGLIDE TO LIANA PLACED THIS SHIFT; PERIPHERAL IV CATHETER REMOVED DUE TO INFILTRATION. 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 PRESSURE ULCER ON COCCYX PRESENT ON ADMISSION, PHOTOS TAKEN AND MEPILEX PLACED. 1 DARK BM THIS SHIFT. PUREWICK IN PLACE DUE TO INCONTINENCE, PATENT AND DRAINING W/ SUCTION. NO OTHER EVENTS. CALL LIGHT WITHIN REACH, BED IN LOWEST POSITION. WILL REPORT TO ONCOMING RN.
[2023-04-03 07:13] VITALS: BP 120/65
[2023-04-03 14:58] VITALS: BP 123/89
[2023-04-03 14:59] VITALS: BP 123/89
--- NOTE | 2023-04-03 17:09 | NUR ---
SHIFT SUMMARY; PT ALERT AND ORIENTED X4, ABLE TO FOLLOW COMMANDS AND MAKE NEEDS KNOWN. BP AND HR STABLE. PT TITRATED TO RA THIS SHIFT, SPO2 >98%, RESPIRATIONS EVEN AND UNLABORED. AFEBRILE. ON AM ASSESSMENT RASH WAS NOTED ON PT FACE AND BACK, MD AWARE. PT DENIES ITCHING. NO ALLERGIES NOTED. PT WITH PUREWICK IN PLACE, APPROX 1100 ML OF URINARY OUTPUT. X2 BOWEL MOVEMENTS. PT WITH 9/10 THROUGHOUT THIS SHIFT, MEDICATED PER EMAR. AT BEDSIDE THIS EVENING, UPDATED ON PT CARE. REPOS Q2 TO MAINTAIN TO SKIN INTEGRITY. BED IN LOW, CALL LIGHT IN REACH, WILL REPORT TO ONCOMING RN.
[2023-04-03 20:01] VITALS: BP 149/85
[2023-04-04 00:03] VITALS: BP 125/67
[2023-04-04 03:16] VITALS: BP 162/92
--- NOTE | 2023-04-04 06:06 | NUR ---
END OF SHIFT NOTE NO ACUTE CHANGES THIS SHIFT. A&OX4, ABLE TO COMMUNICATE NEEDS WITH STAFF. HR 70-90'S, SR ON TELE. SBP 120-160'S, DENIES CHEST PAIN/PRESSURE. SPO2 >93% ON RA, DENIES SOB. AFEBRILE. PT PAINFUL T/O SHIFT; MEDICATED PER EMAR, REPOSITIONED Q2HRS. PUREWICK IN PLACE DRAINING YELLOW URINE TO SUCTION. NO BM THIS SHIFT. ATTENDS CHANGED TO KEEP C/D/I. NS INFUSING PER EMAR, POWERGLIDE TO LIANA. CALL LIGHT WITHIN REACH, BED IN LOWEST POSITION. WILL REPORT TO ONCOMING RN.
[2023-04-04 07:14] LABS: Bun/Creatinine Ratio 11.9 (12.0-20.0); Calcium, Blood 8.2 mg/dL (8.5-10.1); Creatinine, Blood 0.42 mg/dL (0.40-1.00); Potassium, Blood 3.7 mmol/L (3.5-5.5)
[2023-04-04 08:12] VITALS: BP 178/98
--- NOTE | 2023-04-04 08:24 | NUR ---
ASSUMTPTION OF CARE Pt alert, oriented x4; anxious but cooperative with care. Pt resting in bed, repositioned to left side. Pt bed saturated with urine, purewick in place, bedbath this am, replaced purewick and bedding. Pt reporting pain t/o, noted ble, medicated per emar. Pt denies chest pain/pressure, sob, nausea, dizziness and numb/tingling. Tele sinus 80's elevated bp, will monitor. Spo2 >90% on ra, breathing tachypnic, ls dim crackle to bases. Abd, soft, nontender, bt noted X4 quad. No edema noted. Open sore noted to intragluteal clef, dressing placed. Other vss. No other acute changes noted. Will continue to monitor.
[2023-04-04 12:13] VITALS: BP 150/85
[2023-04-04 15:07] LABS: Vancomycin, Trough 18.5 ug/mL (5.0-10.0)
[2023-04-04 15:34] VITALS: BP 149/90
--- NOTE | 2023-04-04 18:33 | NUR ---
Shift Summary Pt continues to have pain t/o shift, medicating per emar. Purewick in place this am, pt continues to pee around and soak attends, removed purewick. Q2 repositioning. OTher vss. Will continue to monitor. Urine never sent to culture, new orders to collect and send urine for culture.
[2023-04-04 20:18] VITALS: BP 122/61
--- NOTE | 2023-04-04 21:32 | NUR ---
ASSUMPTION OF CARE THIS RN ASSUMED CARE AT APPROX 1915. PT IS ALERT AND ORIENTED X4. ABLE TO COMMUNICATE NEEDS EFFECTIVELY NEEDED. COOPERATIVE WITH CARE. VSS. IS MEDICAL STATUS W/O TELEMETRY. BP STABLE. DENIES CHEST PAIN OR PRESSURE. ON ROOM AIR AT ASSUMPTION OF CARE. PLACED ON 2L VIA NC SATS 88-90% ON ROOM AIR. IS CURRENTLY >90%. REPORTING 8/10 CHRONIC PAIN THROUGHOUT, ESPECIALLY IN BLE. ADMINISTERED SCHEDULED PO LYRICA AND FLEXERIL. FENTANYL PATCH IN PLACE FROM PRIOR SHIFT. PLAN TO MEDICATE PER EMAR NEEDED. WITH JUSTIN LACKEY, CHANGED LINENS, GOWN, AND ATTENDS. PUREWICK PLACED FOR INCONTINENCE MANAGEMENT AND TO COLLECT SAMPLE FOR UA. NO BM NOTED AT THIS TIME. CALL LIGHT IN REACH.
[2023-04-05 02:48] VITALS: BP 121/68
--- NOTE | 2023-04-05 04:50 | NUR ---
UNABLE TO OBTAIN SAMPLE: PATIENT WITH VERY CONTRACTURED, 2 SEPERATE ATTEMPTS BY THIS RETAIL SALES REPRESENTATIVE AND ADDITIONAL ENGLISH HORN PLAYER, AND UNABLE TO PLACE STRAIGHT CATH. PATIENT, EDUCATED AND TOLERATED TO THE BEST OF HER ABILITY. SPOKE WITH HOSPITALIST AND OK TO DC ORDER IF UNABLE TO GET SAMPLE. WILL INFORM DAY TEAM AND PORT CAPTAIN.
[2023-04-05 05:20] LABS: BASOPHILS ABSOLUTE AUTO 0.03 K/mm3 (0.00-0.23); BASOPHILS PERCENT AUTO 0 % (0-2); EOSINOPHILS ABSOLUTE AUTO 0.24 K/mm3 (0.00-0.68); EOSINOPHILS PERCENT AUTO 4 % (0-6); Hematocrit 33.9 % (33.0-51.0); Hemoglobin 10.3 g/dL (11.5-16.0); IMMATURE GRAN ABSOLUTE AUTO 0.02 K/mm3 (0.00-0.10); IMMATURE GRAN PERCENT AUTO 0 % (0-1); LYMPHOCYTES ABSOLUTE AUTO 1.41 K/mm3 (0.84-5.20); LYMPHOCYTES PERCENT AUTO 21 % (21-46); MONOCYTES ABSOLUTE AUTO 0.52 K/mm3 (0.16-1.47); MONOCYTES PERCENT AUTO 8 % (4-13); Mean Corpuscular HGB 25.5 pg (26.0-34.0); Mean Corpuscular HGB Conc 30.4 g/dL (31.5-36.5); Mean Corpuscular Volume 84 fL (80-100); Mean Platelet Volume 9.1 fL (9.1-12.4); NEUTROPHILS ABSOLUTE AUTO 4.57 K/mm3 (1.96-9.15); NEUTROPHILS PERCENT AUTO 67 % (41-73); Platelet Count 195 K/mm3 (150-400); RDW Coefficient Variation 22.2 % (11.7-14.2); RDW Standard Deviation 69.1 fL (35.1-46.3); Red Blood Cell Count 4.04 M/mm3 (3.80-5.20); White Blood Cell Count 6.79 K/mm3 (4.00-11.30)
--- NOTE | 2023-04-05 05:47 | NUR ---
SHIFT SUMMARY NO ACUTE CHANGES SINCE PREVIOUS NOTES. PT REMAINS AOX4. SLEPT PERIODICALLY THROUGHOUT SHIFT, EASILY AROUSABLE TO VERBAL STIMULI. CONTINUES TO REPORT PAIN THROUGHOUT SHIFT, MANAGING PER EMAR AND W/ FREQUENT REPOSITIONING. VS REMAIN STABLE. PT REMAINS ON 2L VIA NC, SATS >90%. ATTEMPTED TO USE PUREWICK FOR URINARY INCONTINENCE AND TO COLLECT URINE SPECIMEN. PT VOIDS AROUND PUREWICK INTO ATTENDS. PUREWICK REMOVED. SEE JUSTIN RN's NOTE REGARDING ATTEMPT TO COLLECT SPECIMEN VIA STRAIGHT CATH. CHANGING ATTENDS PRN TO KEEP C/D/I. NO BM THIS SHIFT. CALL LIGHT IN REACH. WILL REPORT TO ONCOMING RN.
[2023-04-05 05:55] LABS: Albumin, Blood 2.1 g/dL (3.4-5.0); Anion Gap 3 mmol/L (6-16); Blood Urea Nitrogen 6 mg/dL (8-24); Bun/Creatinine Ratio 10.9 (12.0-20.0); CO2, Blood 27 mmol/L (21-32); Calcium, Blood 8.4 mg/dL (8.5-10.1); Chloride, Blood 114 mmol/L (98-108); Creatinine, Blood 0.55 mg/dL (0.40-1.00); Glomerular Filtration Rate 100 (60-); Glucose, Blood 125 mg/dL (70-99); Phosphorus, Blood 3.4 mg/dL (2.5-4.9); Potassium, Blood 3.9 mmol/L (3.5-5.5); Sodium, Blood 144 mmol/L (136-145)
[2023-04-05 08:52] VITALS: BP 112/54
[2023-04-05] MEDS ORDERED: AMOCLA875 PO (09:34)
[2023-04-05] MEDS ORDERED: IPRAT-ALBUT 0.5-3 ML INH (09:37)
[2023-04-05] MEDS ORDERED: VISBIOME 112.51 EACH PO (09:37)
[2023-04-05 11:26] VITALS: BP 153/88
--- NOTE | 2023-04-05 13:16 | NUR ---
Dischare summary Pt alert, oriented x4; anxious at times, cooperative with care. Pt resting in bed. Q2 repositioning. Pt reports chronic pain/leg spasms, medicated per emar. Pt nausous after breakfast, medicated per emar. Pt denies chest pain/pressure, sob, dizziness and numb/tingling. Bp elevated, hr stable. Spo2 >90% on 1-3l o2 via nc, home o2 eval, pt will continue on o2 at [facility]. Pt continues to be incontinent. Other vss. No other acute changes noted. Report given to [facility], pt left in wheelchair transport at 1131.
== END 2023-04-05 11:31 | disposition home or self-care (01) | DRG 871 ==
LOC: ER 22:30 → PCU 04-03 02:12
PROVIDERS: Internal Medicine; Student in an Organized Health Care Education/Training Program; ADMIT Internal Medicine
DX: A41.9 Sepsis, unspecified organism (principal); G92.8 Other toxic encephalopathy; J18.9 Pneumonia, unspecified organism; J96.21 Acute and chronic respiratory failure with hypoxia; J44.0 Chronic obstructive pulmonary disease with (acute) lower respiratory infection; N39.0 Urinary tract infection, site not specified; F11.20 Opioid dependence, uncomplicated; R65.20 Severe sepsis without septic shock; Z11.52 Encounter for screening for COVID-19; G35 Multiple sclerosis; E11.9 Type 2 diabetes mellitus without complications; G89.4 Chronic pain syndrome; I10 Essential (primary) hypertension; F41.1 Generalized anxiety disorder; F32.9 Major depressive disorder, single episode, unspecified; K76.0 Fatty (change of) liver, not elsewhere classified; I95.9 Hypotension, unspecified; R29.6 Repeated falls; Z22.322 Carrier or suspected carrier of Methicillin resistant Staphylococcus aureus; Z74.01 Bed confinement status; Z90.49 Acquired absence of other specified parts of digestive tract; Z87.891 Personal history of nicotine dependence; Z79.84 Long term (current) use of oral hypoglycemic drugs; Z28.21 Immunization not carried out because of patient refusal
CPT/HCPCS: 0241U; 36415; 71045; 80048; 80053; 80069; 80202; 81001; 82248; 82803; 82947; 83605; 83735; 83880; 84100; 84145; 85025; 85610; 85730; 87040; 93005; 93010; 94640; 94664; 94761; 94762; 96361; 96365; 96367; 96375; 99285-25; A9270; C1751; J0456; J0692; J0696; J1650; J2405; J3370; J7030; J7050

== ENCOUNTER 2023-04-20 21:15 | Inpatient (IN) | payer OTHER ==
[~2023-04-20] VITALS: Ht 165.1 cm; Wt 98.0 kg
[~2023-04-20 21:15] MED LIST changes: +IPRAT-ALBUT 0.5-3 ML INH; -LYRICA200 M1 PO; +PREG150 PO
[2023-04-20 21:58] LABS: BASOPHILS ABSOLUTE AUTO 0.05 K/mm3 (0.00-0.23); BASOPHILS PERCENT AUTO 0 % (0-2); EOSINOPHILS ABSOLUTE AUTO 0.14 K/mm3 (0.00-0.68); EOSINOPHILS PERCENT AUTO 1 % (0-6); IMMATURE GRAN ABSOLUTE AUTO 0.06 K/mm3 (0.00-0.10); IMMATURE GRAN PERCENT AUTO 0 % (0-1); LYMPHOCYTES ABSOLUTE AUTO 1.34 K/mm3 (0.84-5.20); LYMPHOCYTES PERCENT AUTO 9 % (21-46); MONOCYTES PERCENT AUTO 5 % (4-13); Mean Corpuscular HGB 26.1 pg (26.0-34.0); Mean Corpuscular HGB Conc 30.8 g/dL (31.5-36.5); Mean Corpuscular Volume 85 fL (80-100); NEUTROPHILS ABSOLUTE AUTO 12.06 K/mm3 (1.96-9.15); NEUTROPHILS PERCENT AUTO 84 % (41-73); Platelet Count 265 K/mm3 (150-400); RDW Coefficient Variation 21.2 % (11.7-14.2); RDW Standard Deviation 65.3 fL (35.1-46.3); Red Blood Cell Count 4.59 M/mm3 (3.80-5.20); White Blood Cell Count 14.35 K/mm3 (4.00-11.30)
[2023-04-20 22:18] LABS: Albumin, Blood 2.5 g/dL (3.4-5.0); Albumin/Globulin Ratio 0.6 (0.8-1.8); Bilirubin, Total 0.5 mg/dL (0.1-1.0); Bun/Creatinine Ratio 21.9 (12.0-20.0); Calcium, Blood 8.8 mg/dL (8.5-10.1); Creatinine, Blood 0.5 mg/dL (0.40-1.00); Globulin, Blood 4.4 g/dL (2.2-4.0); Potassium, Blood 4.3 mmol/L (3.5-5.5); Total Protein, Blood 6.9 g/dL (6.4-8.2)
[2023-04-20 23:23] LABS: Source, Urine Clean Catch
[2023-04-20 23:50] LABS: International Normalized Ratio 1.02; Prothrombin Time Results 10.7 Sec (9.7-11.5)
[2023-04-20 23:56] LABS: Bilirubin, Urine Neg (Neg); Blood, Urine 5+ (Neg); Glucose Qualitative, Urine Neg (Neg); Ketones, Urine Neg (Neg); Leukocyte Esterase, Urine 1+ (Neg); Nitrite, Urine Neg (Neg); Protein, Urine 2+ (Neg); Specific Gravity, Urine 1.015 (1.003-1.022); Urobilinogen, Urine NORM (Normal)
[2023-04-21 00:16] LABS: Appearance, Urine Hazy (Clear); Color, Urine Yellow (P-Yellow)
[2023-04-21 00:17] LABS: Amorphous Light (0-Heavy); Bacteria Mod /hpf; Red Blood Cells, Urine 50-100 /hpf (0-2); Squamous Epithelial Cells Few /hpf (Few); White Blood Cells, Urine 0-2 /hpf (0-5)
[2023-04-21 09:37] LABS: BASOPHILS ABSOLUTE AUTO 0.03 K/mm3 (0.00-0.23); BASOPHILS PERCENT AUTO 0 % (0-2); EOSINOPHILS ABSOLUTE AUTO 0.16 K/mm3 (0.00-0.68); EOSINOPHILS PERCENT AUTO 2 % (0-6); Hematocrit 36.5 % (33.0-51.0); Hemoglobin 11.1 g/dL (11.5-16.0); IMMATURE GRAN ABSOLUTE AUTO 0.03 K/mm3 (0.00-0.10); IMMATURE GRAN PERCENT AUTO 0 % (0-1); LYMPHOCYTES ABSOLUTE AUTO 1.54 K/mm3 (0.84-5.20); LYMPHOCYTES PERCENT AUTO 16 % (21-46); MONOCYTES ABSOLUTE AUTO 0.59 K/mm3 (0.16-1.47); MONOCYTES PERCENT AUTO 6 % (4-13); Mean Corpuscular HGB 26.2 pg (26.0-34.0); Mean Corpuscular HGB Conc 30.4 g/dL (31.5-36.5); Mean Corpuscular Volume 86 fL (80-100); Mean Platelet Volume 9.7 fL (9.1-12.4); NEUTROPHILS ABSOLUTE AUTO 7.51 K/mm3 (1.96-9.15); NEUTROPHILS PERCENT AUTO 76 % (41-73); Platelet Count 217 K/mm3 (150-400); RDW Standard Deviation 67.2 fL (35.1-46.3); Red Blood Cell Count 4.23 M/mm3 (3.80-5.20); White Blood Cell Count 9.86 K/mm3 (4.00-11.30)
[2023-04-21 10:20] VITALS: BP 136/79
[2023-04-21 11:05] LABS: Albumin, Blood 2.2 g/dL (3.4-5.0); Albumin/Globulin Ratio 0.5 (0.8-1.8); Bilirubin, Total 0.4 mg/dL (0.1-1.0); Bun/Creatinine Ratio 21.7 (12.0-20.0); Calcium, Blood 8.4 mg/dL (8.5-10.1); Creatinine, Blood 0.46 mg/dL (0.40-1.00); Globulin, Blood 4.1 g/dL (2.2-4.0); Percent Saturation 7.1 % (15.0-50.0); Potassium, Blood 4.4 mmol/L (3.5-5.5); Total Protein, Blood 6.3 g/dL (6.4-8.2)
[2023-04-21] MEDS ORDERED: FENTANYL1 EA10 TOP (11:28)
[2023-04-21] MEDS ORDERED: Florastor250 MG PO (11:33)
[2023-04-21 12:41] LABS: Influenza A, PCR NEGATIVE (NEGATIVE); Influenza B, PCR NEGATIVE (NEGATIVE); Resp Syncytial Virus, PCR NEGATIVE (NEGATIVE); SARS-Cov-2 (COVID-19) PCR, MMC NEGATIVE (NEGATIVE)
[2023-04-21 15:50] VITALS: BP 126/57
--- NOTE | 2023-04-21 17:44 | NUR ---
SHIFT SUMMARY- PT ALERT AND ORIENTD 2PA FOR REPOSITION IN BED, Q2 TURNS TO PREVENT FURTHER SKIN BREAKDOWN. PT HAS A STAGE 2 PRESSURE SORE ON HER COCCYX, SHE IS A PARAPLEDGIC CHRONIC PAIN LIFT ASSIST FOR TRANSFERS. IV IN THE LEFT HAND IS SL AT THIS TIME GUIACC POSITIVE IN ED. HGB HAS BEEN STABLE PER MD NO PLANS TO TRANSFER TO HIGHER LEVEL OF CARE. PT IN BED, CALL LIGHT IN REACH, SHE CAN USE IT IF SHE NEEDS TO. DROPLET ISO FOR Hx MRSA IN THE SPUTUM, COVID AND FLU NEGATIVE. PT HAS BEEN TITRATED DOWN TO HER BASELINE O2 LEVELS BY RT CURRENTLY ON 1L VIA NC. NO S&S OF DISTRESS, CLEAR LIQUID DIET ORDERED, AC/HS BLOOD SUGARS NO COVERAGE REQUIRED SO FAR.
[2023-04-21 20:12] VITALS: BP 110/65
--- NOTE | 2023-04-22 04:06 | NUR ---
SHIFT SUMMARY PATIENT HAD NO ACUTE CHANGES. AXOX 4 AND TWO PERSON ASSIST FOR Q2 REPOSITIONING. REPORTED CHRONIC PAIN X TWO AND OXYCODONE 5 MG GIVEN PER EMAR. PIV REMAINS INTACT. TELE MONITOR ST 111. ON 3L O2 NC AND 2L BASELINE. DENIES CHEST PAIN, SOB, AND N/V. VSS/AFEBRILE. CALL LIGHT IN REACH. BED IN LOWEST POSITION. WILL CONTINUE TO MONITOR UNTIL DAY SHIFT NURSE ASSUMES CARE.
[2023-04-22 05:09] VITALS: BP 107/63
[2023-04-22 05:24] LABS: Hematocrit 34.9 % (33.0-51.0); Hemoglobin 10.7 g/dL (11.5-16.0)
[2023-04-22 07:39] VITALS: BP 105/58
[2023-04-22] MEDS ORDERED: DULERA 100 MCG-13 GM INH (12:36)
[2023-04-22 13:42] LABS: Influenza A, PCR NEGATIVE (NEGATIVE); Influenza B, PCR NEGATIVE (NEGATIVE); Resp Syncytial Virus, PCR NEGATIVE (NEGATIVE); SARS-Cov-2 (COVID-19) PCR, MMC NEGATIVE (NEGATIVE)
--- NOTE | 2023-04-22 17:55 | NUR ---
PT DISCHARGED TO FACILITY. NO QUESTIONS OR CONCERNS.
== END 2023-04-22 17:08 | disposition home or self-care (01) | DRG 189 ==
LOC: ER 21:15 → MEDS 04-21 05:01 → PCU 04-21 05:01 → ER 04-21 05:01 → MEDS 04-21 09:41
PROVIDERS: Family Medicine; Internal Medicine; Student in an Organized Health Care Education/Training Program; ADMIT Student in an Organized Health Care Education/Training Program
DX: J96.21 Acute and chronic respiratory failure with hypoxia (principal); K92.1 Melena; R65.10 Systemic inflammatory response syndrome (SIRS) of non-infectious origin without acute organ dysfunction; F11.20 Opioid dependence, uncomplicated; G35 Multiple sclerosis; D50.9 Iron deficiency anemia, unspecified; E11.9 Type 2 diabetes mellitus without complications; G89.4 Chronic pain syndrome; I10 Essential (primary) hypertension; F41.1 Generalized anxiety disorder; R82.71 Bacteriuria; J44.9 Chronic obstructive pulmonary disease, unspecified; F32.9 Major depressive disorder, single episode, unspecified; K76.0 Fatty (change of) liver, not elsewhere classified; Z11.52 Encounter for screening for COVID-19; Z87.440 Personal history of urinary (tract) infections; Z74.01 Bed confinement status; Z79.899 Other long term (current) drug therapy; Z79.84 Long term (current) use of oral hypoglycemic drugs; Z79.51 Long term (current) use of inhaled steroids; Z79.2 Long term (current) use of antibiotics; Z79.52 Long term (current) use of systemic steroids; Z86.14 Personal history of Methicillin resistant Staphylococcus aureus infection; Z90.49 Acquired absence of other specified parts of digestive tract; Z98.890 Other specified postprocedural states; Z87.891 Personal history of nicotine dependence
CPT/HCPCS: 0241U; 36415; 71045; 80053; 81001; 82272; 82728; 82947; 83540; 83550; 83605; 83735; 84145; 84484; 85014; 85018; 85025; 85610; 86850; 86900; 86901; 87040; 87086; 93005; 93010; 94640; 94664; 94760; 96361; 96365; 96367; 99285-25; A9270; C9113; J0456; J0696; J7030; J7050

== ENCOUNTER 2023-09-19 11:55 | Inpatient (IN) | payer OTHER ==
[~2023-09-19] VITALS: Ht 165.1 cm; Wt 89.3 kg
[~2023-09-19 11:55] MED LIST changes: +DULERA 100 MCG-13 GM INH; +FENTANYL1 EA10 TOP; +Florastor250 MG PO
[2023-09-19 12:30] LABS: BASOPHILS ABSOLUTE AUTO 0.05 K/mm3 (0.00-0.23); BASOPHILS PERCENT AUTO 0 % (0-2); EOSINOPHILS ABSOLUTE AUTO 0.09 K/mm3 (0.00-0.68); EOSINOPHILS PERCENT AUTO 1 % (0-6); Hematocrit 45.8 % (33.0-51.0); Hemoglobin 14.5 g/dL (11.5-16.0); IMMATURE GRAN ABSOLUTE AUTO 0.08 K/mm3 (0.00-0.10); IMMATURE GRAN PERCENT AUTO 1 % (0-1); LYMPHOCYTES ABSOLUTE AUTO 0.82 K/mm3 (0.84-5.20); LYMPHOCYTES PERCENT AUTO 5 % (21-46); MONOCYTES ABSOLUTE AUTO 0.83 K/mm3 (0.16-1.47); MONOCYTES PERCENT AUTO 5 % (4-13); Mean Corpuscular HGB 27.8 pg (26.0-34.0); Mean Corpuscular HGB Conc 31.7 g/dL (31.5-36.5); Mean Corpuscular Volume 88 fL (80-100); Mean Platelet Volume 9.2 fL (9.1-12.4); NEUTROPHILS ABSOLUTE AUTO 15.33 K/mm3 (1.96-9.15); NEUTROPHILS PERCENT AUTO 89 % (41-73); Platelet Count 187 K/mm3 (150-400); RDW Coefficient Variation 17.1 % (11.7-14.2); RDW Standard Deviation 55.1 fL (35.1-46.3); Red Blood Cell Count 5.21 M/mm3 (3.80-5.20)
[2023-09-19 12:37] LABS: Albumin, Blood 2.9 g/dL (3.4-5.0); Albumin/Globulin Ratio 0.7 (0.8-1.8); Bilirubin, Total 0.4 mg/dL (0.1-1.0); Bun/Creatinine Ratio 26.8 (12.0-20.0); Calcium, Blood 8.8 mg/dL (8.5-10.1); Creatinine, Blood 0.56 mg/dL (0.40-1.00); Globulin, Blood 4.2 g/dL (2.2-4.0); Potassium, Blood 4.9 mmol/L (3.5-5.5); Total Protein, Blood 7.1 g/dL (6.4-8.2)
[2023-09-19] MEDS ORDERED: NS 1,000 ML IV SCH (12:40)
[2023-09-19] MEDS ORDERED: Azithromycin 500 MG in NS 250 ML IV ONE (12:40)
[2023-09-19] MEDS ORDERED: Cefepime HCl 2,000 MG in NS 100 ML IV ONE (12:40)
[2023-09-19] MEDS ORDERED: Ipratropium/Albuterol SulF 2.5-0.5MG/3 ML Amp INH ONE (12:45)
[2023-09-19] MEDS ORDERED: Albuterol 2.5 MG/3 ML VIAL INH SCH ×2 (12:45→14:05)
[2023-09-19 13:35] LABS: Source, Urine Straight Cath
[2023-09-19 13:44] LABS: Appearance, Urine Cloudy (Clear); Bilirubin, Urine Neg (Neg); Blood, Urine 2+ (Neg); Color, Urine Yellow (P-Yellow); Glucose Qualitative, Urine Neg (Neg); Ketones, Urine 1+ (Neg); Leukocyte Esterase, Urine 3+ (Neg); Nitrite, Urine Pos (Neg); Protein, Urine 2+ (Neg); Specific Gravity, Urine 1.015 (1.003-1.022); Urobilinogen, Urine NORM (Normal)
[2023-09-19 13:46] LABS: Influenza A, PCR NEGATIVE (NEGATIVE); Influenza B, PCR NEGATIVE (NEGATIVE); Resp Syncytial Virus, PCR NEGATIVE (NEGATIVE); SARS-Cov-2 (COVID-19) PCR, MMC NEGATIVE (NEGATIVE)
[2023-09-19 13:51] LABS: Amorphous Light (0-Heavy); Bacteria Many /hpf; Squamous Epithelial Cells Few /hpf (Few); White Blood Cells, Urine 50-100 /hpf (0-5)
[2023-09-19] MEDS ORDERED: MethylPREDNISolone Sod Succ 125 MG Vial IV ONE (14:10)
[2023-09-19] MEDS ORDERED: Lactated Ringer's 1,000 ML IV SCH (15:00)
[2023-09-19] MEDS ORDERED: Acetaminophen 325 MG TABLET PO PRN (15:00)
[2023-09-19] MEDS ORDERED: FentaNYL Citrate 50 MCG/ML 2 ML Injection IV PRN (15:30)
[2023-09-19] MEDS ORDERED: Insulin Regular 100 UNIT/ML 10ML Vial SC SCH (16:30)
[2023-09-19] MEDS ORDERED: Lactated Ringer's 1,000 ML IV ONE (17:50)
[2023-09-19] MEDS ORDERED: MethylPREDNISolone Sod Succ 125 MG Vial IV SCH (18:00)
[2023-09-19] MEDS ORDERED: CefTRIAXone Sodium 1,000 MG in NS 100 ML IV SCH (18:00)
[2023-09-19 18:51] VITALS: BP 132/77
[2023-09-19 19:32] VITALS: BP 113/61
[2023-09-19] MEDS ORDERED: Mometasone/Formoterol MDI 100/5 mcg 13 GM INH SCH (19:40)
[2023-09-19] MEDS ORDERED: Ipratropium/Albuterol SulF 2.5-0.5MG/3 ML Amp INH SCH (19:40)
[2023-09-19] MEDS ORDERED: Albuterol HFA200 ACT/6.7 GM INH INH PRN (19:45)
[2023-09-19] MEDS ORDERED: ONDA4 PO (20:11)
[2023-09-19] MEDS ORDERED: MORP15ER PO (20:14)
[2023-09-19] MEDS ORDERED: [UNRECOGNIZED DRUG - OTHER] TD (20:18)
[2023-09-19] MEDS ORDERED: Lactobacil 2-S.Thermo-Bifido 1 1 Cap PO SCH (21:00)
[2023-09-19 23:22] VITALS: BP 116/58
[2023-09-20 03:56] VITALS: BP 127/54
[2023-09-20 03:58] LABS: BASOPHILS ABSOLUTE AUTO 0.01 K/mm3 (0.00-0.23); BASOPHILS PERCENT AUTO 0 % (0-2); EOSINOPHILS PERCENT AUTO 0 % (0-6); Hematocrit 43.8 % (33.0-51.0); Hemoglobin 13.6 g/dL (11.5-16.0); IMMATURE GRAN ABSOLUTE AUTO 0.07 K/mm3 (0.00-0.10); IMMATURE GRAN PERCENT AUTO 1 % (0-1); LYMPHOCYTES ABSOLUTE AUTO 0.72 K/mm3 (0.84-5.20); LYMPHOCYTES PERCENT AUTO 5 % (21-46); MONOCYTES ABSOLUTE AUTO 0.08 K/mm3 (0.16-1.47); MONOCYTES PERCENT AUTO 1 % (4-13); Mean Corpuscular HGB 27.5 pg (26.0-34.0); Mean Corpuscular HGB Conc 31.1 g/dL (31.5-36.5); Mean Corpuscular Volume 89 fL (80-100); Mean Platelet Volume 9.6 fL (9.1-12.4); NEUTROPHILS ABSOLUTE AUTO 13.11 K/mm3 (1.96-9.15); NEUTROPHILS PERCENT AUTO 94 % (41-73); Platelet Count 170 K/mm3 (150-400); RDW Coefficient Variation 17.1 % (11.7-14.2); RDW Standard Deviation 55.5 fL (35.1-46.3); Red Blood Cell Count 4.95 M/mm3 (3.80-5.20); White Blood Cell Count 13.99 K/mm3 (4.00-11.30)
[2023-09-20 04:18] LABS: Bun/Creatinine Ratio 27.7 (12.0-20.0); Calcium, Blood 8.7 mg/dL (8.5-10.1); Creatinine, Blood 0.47 mg/dL (0.40-1.00); Potassium, Blood 4.5 mmol/L (3.5-5.5)
[2023-09-20 07:57] VITALS: BP 144/70
[2023-09-20] MEDS ORDERED: Sennosides 8.6 MG Tab PO SCH (09:00)
[2023-09-20] MEDS ORDERED: Ascorbic Acid 500 MG Tab PO SCH (09:00)
[2023-09-20] MEDS ORDERED: Polyethylene Glycol 3350 17 gm PO SCH (09:00)
[2023-09-20] MEDS ORDERED: Bisacodyl 10 MG Supp PR PRN (09:00)
[2023-09-20] MEDS ORDERED: Omeprazole 20 MG CapCR PO SCH (09:00)
[2023-09-20] MEDS ORDERED: Cranberry Extract 250MG W/30 MG Vitamin C Tab PO SCH (09:00)
[2023-09-20] MEDS ORDERED: Cyclobenzaprine HCl 10 MG Tab PO PRN (09:00)
[2023-09-20] MEDS ORDERED: Enoxaparin 40 MG/0.4 ML SYR SC SCH (09:00)
[2023-09-20] MEDS ORDERED: Pregabalin 50 MG Capsule PO SCH (09:00)
[2023-09-20] MEDS ORDERED: Morphine Sulfate 15 MG TABCR PO PRN (09:05)
[2023-09-20] MEDS ORDERED: Ferrous Sulfate 325 MG Tab PO SCH (09:15)
[2023-09-20 12:48] VITALS: BP 133/67
[2023-09-20] MEDS ORDERED: FentaNYL 25 MCG Patch TOP SCH (12:55)
[2023-09-20 16:45] VITALS: BP 129/62
[2023-09-20] MEDS ORDERED: NS 250 ML IV PRN (18:05)
[2023-09-20 19:20] VITALS: BP 137/65
[2023-09-20] MEDS ORDERED: Atorvastatin 10 MG Tab PO SCH (21:00)
[2023-09-21 04:07] VITALS: BP 148/74
[2023-09-21 04:44] LABS: BASOPHILS ABSOLUTE AUTO 0.01 K/mm3 (0.00-0.23); BASOPHILS PERCENT AUTO 0 % (0-2); EOSINOPHILS PERCENT AUTO 0 % (0-6); Hematocrit 42.4 % (33.0-51.0); Hemoglobin 13.5 g/dL (11.5-16.0); IMMATURE GRAN ABSOLUTE AUTO 0.06 K/mm3 (0.00-0.10); IMMATURE GRAN PERCENT AUTO 1 % (0-1); LYMPHOCYTES ABSOLUTE AUTO 0.74 K/mm3 (0.84-5.20); LYMPHOCYTES PERCENT AUTO 8 % (21-46); MONOCYTES ABSOLUTE AUTO 0.29 K/mm3 (0.16-1.47); MONOCYTES PERCENT AUTO 3 % (4-13); Mean Corpuscular HGB Conc 31.8 g/dL (31.5-36.5); Mean Corpuscular Volume 88 fL (80-100); NEUTROPHILS ABSOLUTE AUTO 8.72 K/mm3 (1.96-9.15); NEUTROPHILS PERCENT AUTO 89 % (41-73); Platelet Count 184 K/mm3 (150-400); RDW Coefficient Variation 17.2 % (11.7-14.2); RDW Standard Deviation 54.8 fL (35.1-46.3); Red Blood Cell Count 4.83 M/mm3 (3.80-5.20); White Blood Cell Count 9.82 K/mm3 (4.00-11.30)
[2023-09-21 05:10] LABS: Bun/Creatinine Ratio 29.1 (12.0-20.0); Calcium, Blood 9.3 mg/dL (8.5-10.1); Creatinine, Blood 0.45 mg/dL (0.40-1.00); Potassium, Blood 3.9 mmol/L (3.5-5.5)
[2023-09-21 07:40] VITALS: BP 148/73
[2023-09-21] MEDS ORDERED: PROBIOTIC1 EA13 PO (11:50)
[2023-09-21] MEDS ORDERED: CIPR500 PO (11:51)
[2023-09-21] MEDS ORDERED: PRED20 PO (11:52)
[2023-09-21 12:01] VITALS: BP 145/75
== END 2023-09-21 12:53 | DRG 871 ==
LOC: ER 11:55 → PCU 14:55
PROVIDERS: Student in an Organized Health Care Education/Training Program; ADMIT Family Medicine
DX: A41.9 Sepsis, unspecified organism (principal); J96.21 Acute and chronic respiratory failure with hypoxia; J44.1 Chronic obstructive pulmonary disease with (acute) exacerbation; N39.0 Urinary tract infection, site not specified; E87.20 Acidosis, unspecified; R65.20 Severe sepsis without septic shock; F41.1 Generalized anxiety disorder; I10 Essential (primary) hypertension; F32.9 Major depressive disorder, single episode, unspecified; G35 Multiple sclerosis; E11.9 Type 2 diabetes mellitus without complications; G89.4 Chronic pain syndrome; Z99.81 Dependence on supplemental oxygen; Z74.01 Bed confinement status; Z79.84 Long term (current) use of oral hypoglycemic drugs; Z79.51 Long term (current) use of inhaled steroids; Z86.14 Personal history of Methicillin resistant Staphylococcus aureus infection; Z87.891 Personal history of nicotine dependence
CPT/HCPCS: 0241U; 36415; 71045; 80048; 80053; 81001; 82947; 83605; 83880; 84145; 85025; 87040; 87077; 87086; 87186; 93005; 93010; 94640; 94644; 94645; 94664; 94762; 96361; 96365; 96367; 96375; 99285-25; A9270; J0456; J0692; J0696; J1650; J1815; J2930; J3010; J3370; J7030; J7050; J7120; P9612

== ENCOUNTER 2023-12-01 09:44 | Inpatient (IN) | payer OTHER ==
[~2023-12-01] VITALS: Ht 165.1 cm; Wt 82.9 kg
[2023-12-01] VITALS (22 sets, daily range): BP systolic 80–121; BP diastolic 45–81
[~2023-12-01 09:44] MED LIST changes: +ALBU90OI6 INH; +MIRALAX11910 PO; +MORP15ER PO; +PRED20 PO; +PROBIOTIC1 EA13 PO; +[UNRECOGNIZED DRUG - OTHER] TD
[2023-12-01] MEDS ORDERED: NS 1,000 ML IV SCH (10:45)
[2023-12-01 11:02] LABS: BASOPHILS ABSOLUTE AUTO 0.07 K/mm3 (0.00-0.23); BASOPHILS PERCENT AUTO 0 % (0-2); EOSINOPHILS ABSOLUTE AUTO 0.02 K/mm3 (0.00-0.68); EOSINOPHILS PERCENT AUTO 0 % (0-6); Hemoglobin 14.7 g/dL (11.5-16.0); IMMATURE GRAN ABSOLUTE AUTO 0.38 K/mm3 (0.00-0.10); IMMATURE GRAN PERCENT AUTO 1 % (0-1); LYMPHOCYTES ABSOLUTE AUTO 1.12 K/mm3 (0.84-5.20); LYMPHOCYTES PERCENT AUTO 4 % (21-46); MONOCYTES ABSOLUTE AUTO 1.03 K/mm3 (0.16-1.47); MONOCYTES PERCENT AUTO 4 % (4-13); Mean Corpuscular HGB 30.6 pg (26.0-34.0); Mean Corpuscular HGB Conc 33.4 g/dL (31.5-36.5); Mean Corpuscular Volume 92 fL (80-100); Mean Platelet Volume 9.7 fL (9.1-12.4); NEUTROPHILS ABSOLUTE AUTO 24.87 K/mm3 (1.96-9.15); NEUTROPHILS PERCENT AUTO 90 % (41-73); Platelet Count 220 K/mm3 (150-400); RDW Standard Deviation 50.9 fL (35.1-46.3); White Blood Cell Count 27.49 K/mm3 (4.00-11.30)
[2023-12-01 11:03] LABS: Source, Urine Straight Cath
[2023-12-01 11:08] LABS: Appearance, Urine Cloudy (Clear); Bilirubin, Urine Neg (Neg); Blood, Urine 3+ (Neg); Color, Urine Yellow (P-Yellow); Glucose Qualitative, Urine Neg (Neg); Ketones, Urine Neg (Neg); Leukocyte Esterase, Urine 3+ (Neg); Nitrite, Urine Pos (Neg); Protein, Urine 2+ (Neg); Urobilinogen, Urine NORM (Normal)
[2023-12-01 11:17] LABS: White Blood Cells, Urine TNTC /hpf (0-5)
[2023-12-01 11:19] LABS: Bacteria Many /hpf; Red Blood Cells, Urine 0-2 /hpf (0-2); Squamous Epithelial Cells Mod /hpf (Few)
[2023-12-01 11:22] LABS: Albumin, Blood 2.8 g/dL (3.4-5.0); Albumin/Globulin Ratio 0.7 (0.8-1.8); Bilirubin, Total 1.2 mg/dL (0.1-1.0); Bun/Creatinine Ratio 24.2 (12.0-20.0); Calcium, Blood 8.7 mg/dL (8.5-10.1); Creatinine, Blood 0.54 mg/dL (0.40-1.00); Globulin, Blood 3.9 g/dL (2.2-4.0); Magnesium, Blood 1.6 mg/dL (1.6-2.4); Potassium, Blood 4.6 mmol/L (3.5-5.5); Total Protein, Blood 6.7 g/dL (6.4-8.2)
[2023-12-01 11:30] LABS: BAND PERCENT MAN 1 % (0-8); BASOPHILS PERCENT MAN 0 % (0-2); EOSINOPHILS ABSOLUTE MAN 0.27 K/mm3 (0.00-0.68); EOSINOPHILS PERCENT MAN 1 % (0-6); LYMPHOCYTES % ATYPICAL MANUAL 1 % (0-0); LYMPHOCYTES ABSOLUTE MAN 1.92 K/mm3 (0.84-5.20); LYMPHOCYTES PERCENT MAN 6 % (21-46); MONOCYTES ABSOLUTE MAN 0.82 K/mm3 (0.16-1.47); MONOCYTES PERCENT MAN 3 % (4-13); NEUTROPHILS ABSOLUTE MAN 24.46 K/mm3 (1.96-9.15); SEG NEUTROPHILS PERCENT MAN 88 % (41-73); TOTAL CELLS COUNTED 100
[2023-12-01 11:44] LABS: Base Excess Venous -1.1 mmol/L; Bicarbonate Venous 23.2 mmol/L (24.0-30.0); PCO2 Venous 46 mmHg (38-42); pH Blood Venous 7.34 (7.34-7.37)
[2023-12-01 11:55] LABS: Influenza A, PCR NEGATIVE (NEGATIVE); Influenza B, PCR NEGATIVE (NEGATIVE); Resp Syncytial Virus, PCR NEGATIVE (NEGATIVE); SARS-Cov-2 (COVID-19) PCR, MMC NEGATIVE (NEGATIVE)
[2023-12-01] MEDS ORDERED: Azithromycin 500 MG in NS 250 ML IV ONE (12:05)
[2023-12-01] MEDS ORDERED: CefTRIAXone Sodium 1,000 MG in NS 50 ML IV ONE (12:05)
[2023-12-01] MEDS ORDERED: Acetaminophen 325 MG TABLET PO PRN (12:25)
[2023-12-01] MEDS ORDERED: Ondansetron HCl 2 MG / ML 2ML Vial IV PRN (12:25)
[2023-12-01] MEDS ORDERED: Lactated Ringer's 1,000 ML IV SCH ×2 (13:40→15:00)
[2023-12-01] MEDS ORDERED: Midodrine 5 MG Tab PO STA (13:55)
--- NOTE | 2023-12-01 18:03 | NUR ---
PT ARRIVED IN THE UNIT VIA GURNEY TRANSFERRED VIA SLIDER SHEET. PT IS BEDBOUND AT BASELINE PT HAS HX OF MS, USES WHEELCHAIR VIA LIFT. PT IS HERE FOR SEPSIS UTI/PNA. SECOND BAG OF BOLUS INFUSING DURING TRANSFER THIRD BAG OF LR RUNNING AT 150MLS/HR. PT IS ALERT AND ORINETED X4, ABLE TO ANSWER QUESTIONS APPROPRIATELY. NO CURRENT SKIN ISSUES NOTED, HAS NOTICEABLE SCARS FROM OLD PRESSURE ULCERS. VITALS HRR SR 90'S, SBP SOFT 80-100'S, SBP SUSTAINED 90-100'S MAP >65 AFTER BOLUS, SATS ABOVE 95% ON 2L OF O2, AFEBRILE. PT DENIES CHEST PAIN/PRESSURE. NO NAUSEA/VOMITING. PT INCONTINENT OF BOT BOWEL AND BLADDER. PUREWICK IN PLACE. NO OTHER ISSUES REPORTED FOR HTE SHIFT CALL LIGHTS IN REACH WILL REPORT TO ONCOMING SHIFT
[2023-12-01] MEDS ORDERED: Morphine Sulfate 15 MG TABCR PO PRN (22:25)
[2023-12-02 03:44] VITALS: BP 111/60
[2023-12-02 04:26] LABS: Hematocrit 37.9 % (33.0-51.0); Hemoglobin 12.4 g/dL (11.5-16.0); Mean Corpuscular HGB 30.7 pg (26.0-34.0); Mean Corpuscular HGB Conc 32.7 g/dL (31.5-36.5); Mean Corpuscular Volume 94 fL (80-100); Mean Platelet Volume 9.9 fL (9.1-12.4); Platelet Count 193 K/mm3 (150-400); RDW Coefficient Variation 15.2 % (11.7-14.2); RDW Standard Deviation 52.6 fL (35.1-46.3); Red Blood Cell Count 4.04 M/mm3 (3.80-5.20); White Blood Cell Count 19.93 K/mm3 (4.00-11.30)
[2023-12-02 04:49] LABS: Bun/Creatinine Ratio 20.2 (12.0-20.0); Calcium, Blood 8.6 mg/dL (8.5-10.1); Creatinine, Blood 0.5 mg/dL (0.40-1.00); Potassium, Blood 3.9 mmol/L (3.5-5.5)
--- NOTE | 2023-12-02 05:14 | NUR ---
SHIFT SUMMARY PT A&O X4, ABLE TO MAKE NEEDS KNOWN. VSS, AFEBRILE, SPO2 >92% ON 3L NC. LUNGS DIMINISHED IN THE BASES. PT WITH HISTORY OF MS AND CONTRACTURES OF BLE. SHE IS VERY PAINFUL WITH ANY MOVEMENT, ESPECIALLY WITH HAVING TO SIT UP IN BED FOR MEALS/ MEDS AND REPOSITIONING. SPOKE WITH MD AND RECEIVED ORDERS FOR PO MORPHINE, ADMINISTERED PER EMAR. PLAN FOR MOVE TO LIFT ROOM SO PT CAN BE UP IN CHAIR FOR MEALS. PW IN PLACE DRAINING YELLOW URINE. PT REPOSITIONED FREQUENTLY. SHE IS NOW RESTING QUIETLY, CALL LIGHT WITHIN REACH, BREATHING EVEN AND UNLABORED.
[2023-12-02] MEDS ORDERED: FentaNYL 25 MCG Patch TOP SCH (07:45)
[2023-12-02] MEDS ORDERED: Sod Phosphate/Sod Biphosphate 132 ML BTL PR PRN (07:45)
[2023-12-02] MEDS ORDERED: Bisacodyl 10 MG Supp PR PRN (07:50)
[2023-12-02] MEDS ORDERED: Cyclobenzaprine HCl 10 MG Tab PO PRN (07:50)
[2023-12-02] MEDS ORDERED: Ipratropium/Albuterol SulF 2.5-0.5MG/3 ML Amp INH SCH (08:00)
[2023-12-02] MEDS ORDERED: Albuterol HFA200 ACT/6.7 GM INH INH PRN (08:15)
[2023-12-02] MEDS ORDERED: Mometasone/Formoterol MDI 100/5 mcg 13 GM INH SCH (08:15)
--- NOTE | 2023-12-02 08:45 | NUR ---
AM ASSESSMENT: Pt crying out, states that she is having 8-9/10 pain in her BLE. Pt has hx MS and legs have contractures. Pt respositioned and medicated per orders. Pt states that she is feeling more comfortable after repositioning. LS diminished. HR reg. BT positive. Pulses palp. Purewick with clear, yellow urine. Call light in reach. Will continue to monitor.
[2023-12-02 08:58] VITALS: BP 122/52
[2023-12-02] MEDS ORDERED: Polyethylene Glycol 3350 17 gm PO SCH (09:00)
[2023-12-02] MEDS ORDERED: Enoxaparin 40 MG/0.4 ML SYR SC SCH (09:00)
[2023-12-02] MEDS ORDERED: Magnesium Hydroxide Conc 10 ML UDC PO SCH (09:00)
[2023-12-02] MEDS ORDERED: Ascorbic Acid 500 MG Tab PO SCH (09:00)
[2023-12-02] MEDS ORDERED: Omeprazole 20 MG CapCR PO SCH (09:00)
[2023-12-02] MEDS ORDERED: Pregabalin 50 MG Capsule PO SCH (09:00)
[2023-12-02] MEDS ORDERED: Ferrous Sulfate 325 MG Tab PO SCH (09:00)
[2023-12-02] MEDS ORDERED: Cranberry Extract 250MG W/30 MG Vitamin C Tab PO SCH (09:00)
[2023-12-02] MEDS ORDERED: Sennosides 8.6 MG Tab PO SCH (09:00)
[2023-12-02] MEDS ORDERED: CefTRIAXone Sodium 1,000 MG in NS 100 ML IV SCH (12:00)
[2023-12-02] MEDS ORDERED: NS 250 ML IV PRN (12:15)
[2023-12-02] MEDS ORDERED: Azithromycin 500 MG in NS 250 ML IV SCH (13:00)
[2023-12-02 15:34] VITALS: BP 115/68
--- NOTE | 2023-12-02 17:53 | NUR ---
Shift Summary: Pt resting in bed. States that she is feeling good. Pt has been on 2L o2 per NC throughout shift with biox 90-99. Pt desated to 85% on trial off oxygen this AM. WIll continue to titrate. Pt has been repositioned q2 throughout shift. Blanchable redness to coccyx and bilat hips noted. Scars from old pressure wounds noted on L hip. Pt has been painful but pain has been managed with home medication regime. Pt hopeful for discharge tomorrow. VSS throughout shift. Call light in reach. Will report to night RN.
[2023-12-02 19:33] VITALS: BP 107/69
[2023-12-02] MEDS ORDERED: Atorvastatin 10 MG Tab PO SCH (21:00)
[2023-12-02 23:49] VITALS: BP 106/58
[2023-12-03 03:26] VITALS: BP 125/75
[2023-12-03 04:11] LABS: Hematocrit 38.5 % (33.0-51.0); Hemoglobin 12.4 g/dL (11.5-16.0); Mean Corpuscular HGB 30.4 pg (26.0-34.0); Mean Corpuscular HGB Conc 32.2 g/dL (31.5-36.5); Mean Corpuscular Volume 94 fL (80-100); Mean Platelet Volume 9.7 fL (9.1-12.4); Platelet Count 183 K/mm3 (150-400); RDW Coefficient Variation 15.1 % (11.7-14.2); RDW Standard Deviation 52.7 fL (35.1-46.3); Red Blood Cell Count 4.08 M/mm3 (3.80-5.20); White Blood Cell Count 10.77 K/mm3 (4.00-11.30)
[2023-12-03 04:31] LABS: Bun/Creatinine Ratio 15.9 (12.0-20.0); Calcium, Blood 8.7 mg/dL (8.5-10.1); Creatinine, Blood 0.5 mg/dL (0.40-1.00); Potassium, Blood 4.2 mmol/L (3.5-5.5)
--- NOTE | 2023-12-03 05:56 | NUR ---
SHIFT SUMMARY PT A&O X4, ABLE TO MAKE NEEDS KNOWN. NO ACUTE EVENTS THIS SHIFT. VSS, AFEBRILE, SPO2 >92% ON 2L NC. PW IN PLACE DRAINING YELLOW URINE. PT REPOSITIONED FREQUENTLY. SHE STATES THAT SHE IS HOPING TO BE ABLE TO GO HOME TODAY. SHE IS NOW RESTING QUIETLY, CALL LIGHT WITHIN REACH, BREATHING EVEN AND UNLABORED.
[2023-12-03 07:20] VITALS: BP 123/64
[2023-12-03] MEDS ORDERED: VISBIOME 112.51 EACH PO (11:43)
[2023-12-03] MEDS ORDERED: CEFU500T30 PO (11:43)
--- NOTE | 2023-12-03 12:58 | NUR ---
CARE NOTE THIS RN GAVE REPORT TO JENIFER LACKEY AT [facility] AT APPROX. 1253.
--- NOTE | 2023-12-03 16:24 | NUR ---
TRANSFER NOTE PT LEFT PCU AT APPROX. 1500. THIS RN GAVE MEDICAL FLOOR RN REPORT AND PT LEFT PCU WITH ALL OF PERSONAL BELONGINGS. VSS.
== END 2023-12-03 15:47 | DRG 871 ==
LOC: ER 09:44 → PCU 12:23
PROVIDERS: Student in an Organized Health Care Education/Training Program; ADMIT Internal Medicine
DX: A41.9 Sepsis, unspecified organism (principal); J96.21 Acute and chronic respiratory failure with hypoxia; N39.0 Urinary tract infection, site not specified; J98.11 Atelectasis; F11.20 Opioid dependence, uncomplicated; R65.20 Severe sepsis without septic shock; F41.1 Generalized anxiety disorder; F32.9 Major depressive disorder, single episode, unspecified; G35 Multiple sclerosis; J44.9 Chronic obstructive pulmonary disease, unspecified; B96.20 Unspecified Escherichia coli [E. coli] as the cause of diseases classified elsewhere; G47.33 Obstructive sleep apnea (adult) (pediatric); I10 Essential (primary) hypertension; G89.4 Chronic pain syndrome; E11.65 Type 2 diabetes mellitus with hyperglycemia; Z74.01 Bed confinement status; Z99.81 Dependence on supplemental oxygen; Z79.51 Long term (current) use of inhaled steroids; Z86.14 Personal history of Methicillin resistant Staphylococcus aureus infection
CPT/HCPCS: 0241U; 36415; 71045; 80048; 80053; 81001; 82803; 82947; 83605; 83735; 84145; 85025; 85027; 87040; 87077; 87086; 87186; 93005; 93010; 94640; 94664; 94760; 94762; 96361; 96365; 96367; 97162; 99285-25; A9270; J0456; J0696; J1650; J7030; J7050; J7120

== ENCOUNTER 2024-07-03 09:30 | Inpatient (IN) | payer OTHER ==
[2024-07-03] VITALS (20 sets, daily range): BP systolic 95–148; BP diastolic 62–113
[~2024-07-03] VITALS: Ht 157.5 cm; Wt 89.0 kg
[~2024-07-03 09:30] MED LIST changes: +Etomidate 2MG / ML 10ML Vial IV ONE; +ONDA4ODT MM; +Rocuronium Bromide 10 MG/ML 5ML Injection IV ONE
[2024-07-03] MEDS ORDERED: NS 1,000 ML IV SCH (10:00)
[2024-07-03] MEDS ORDERED: Ondansetron HCl 2 MG / ML 2ML Vial IV ONE (10:00)
[2024-07-03 10:28] LABS: BASOPHILS ABSOLUTE AUTO 0.05 K/mm3 (0.00-0.23); BASOPHILS PERCENT AUTO 0 % (0-2); EOSINOPHILS ABSOLUTE AUTO 0.07 K/mm3 (0.00-0.68); EOSINOPHILS PERCENT AUTO 0 % (0-6); Hematocrit 51.4 % (33.0-51.0); Hemoglobin 15.9 g/dL (11.5-16.0); IMMATURE GRAN ABSOLUTE AUTO 0.07 K/mm3 (0.00-0.10); IMMATURE GRAN PERCENT AUTO 0 % (0-1); LYMPHOCYTES ABSOLUTE AUTO 1.06 K/mm3 (0.84-5.20); LYMPHOCYTES PERCENT AUTO 7 % (21-46); MONOCYTES ABSOLUTE AUTO 0.91 K/mm3 (0.16-1.47); MONOCYTES PERCENT AUTO 6 % (4-13); Mean Corpuscular HGB 30.4 pg (26.0-34.0); Mean Corpuscular HGB Conc 30.9 g/dL (31.5-36.5); Mean Corpuscular Volume 98 fL (80-100); NEUTROPHILS ABSOLUTE AUTO 13.88 K/mm3 (1.96-9.15); NEUTROPHILS PERCENT AUTO 87 % (41-73); Platelet Count 168 K/mm3 (150-400); RDW Standard Deviation 57.9 fL (35.1-46.3); Red Blood Cell Count 5.23 M/mm3 (3.80-5.20); White Blood Cell Count 16.04 K/mm3 (4.00-11.30)
[2024-07-03 10:49] LABS: Albumin, Blood 2.9 g/dL (3.4-5.0); Albumin/Globulin Ratio 0.7 (0.8-1.8); Bilirubin, Total 0.5 mg/dL (0.1-1.0); Bun/Creatinine Ratio 21.9 (12.0-20.0); Creatinine, Blood 0.55 mg/dL (0.40-1.00); Magnesium, Blood 2.4 mg/dL (1.6-2.4); Phosphorus, Blood 3.9 mg/dL (2.5-4.9); Potassium, Blood 5.2 mmol/L (3.5-5.5); Total Protein, Blood 6.9 g/dL (6.4-8.2)
[2024-07-03] MEDS ORDERED: Cefepime HCl 1,000 MG in NS 100 ML IV ONE (11:20)
[2024-07-03 11:29] LABS: Influenza A, PCR NEGATIVE (NEGATIVE); Influenza B, PCR NEGATIVE (NEGATIVE); Resp Syncytial Virus, PCR NEGATIVE (NEGATIVE); SARS-Cov-2 (COVID-19) PCR, MMC NEGATIVE (NEGATIVE)
[2024-07-03] MEDS ORDERED: NS 500 ML IV SCH (11:40)
[2024-07-03] MEDS ORDERED: Doxycycline Hyclate 100 MG in Dextrose 5% 250 ML IV ONE (12:35)
[2024-07-03 12:42] LABS: Base Excess Venous 5.4 mmol/L; Bicarbonate Venous 25.6 mmol/L (24.0-30.0); PCO2 Venous 101 mmHg (38-42); pH Blood Venous 7.14 (7.34-7.37)
[2024-07-03] MEDS ORDERED: Etomidate 2MG / ML 10ML Vial IV ONE (12:50)
[2024-07-03] MEDS ORDERED: Rocuronium Bromide 10 MG/ML 5ML Injection IV ONE (12:50)
[2024-07-03] MEDS ORDERED: FentaNYL Citrate 50 MCG/ML 2 ML Injection IV SCH (12:50)
[2024-07-03] MEDS ORDERED: propofoL 100 ML IV SCH (12:50)
[2024-07-03 13:12] LABS: Appearance, Urine Hazy (Clear); Bilirubin, Urine Neg (Neg); Blood, Urine 5+ (Neg); Color, Urine Yellow (P-Yellow); Glucose Qualitative, Urine 4+ (Neg); Ketones, Urine Neg (Neg); Leukocyte Esterase, Urine 2+ (Neg); Nitrite, Urine Neg (Neg); Protein, Urine 1+ (Neg); Urobilinogen, Urine NORM (Normal)
[2024-07-03 13:24] LABS: Bacteria Many /hpf; Squamous Epithelial Cells Many /hpf (Few)
[2024-07-03 13:25] LABS: Yeast/Fungi Urine Mod /hpf
[2024-07-03 13:40] LABS: Base Excess Venous 2.7 mmol/L; Bicarbonate Venous 23.6 mmol/L (24.0-30.0); PCO2 Venous 97.9 mmHg (38-42)
[2024-07-03 13:41] LABS: pH Blood Venous 7.12 (7.34-7.37)
[2024-07-03] MEDS ORDERED: fentaNYL citrate 1,000 MCG in NS 80 ML IV SCH (14:40)
[2024-07-03] MEDS ORDERED: fentaNYL citrate 1,000 MCG in NS 80 ML IV ONE (14:40)
[2024-07-03] MEDS ORDERED: Lactated Ringer's 1,000 ML IV SCH (14:55)
[2024-07-03] MEDS ORDERED: FLU VACC TS2024-25(6MOS UP)/PF 45 MCG/0.5 ML SYRINGE IM SCH (15:00)
[2024-07-03] MEDS ORDERED: LevoFLOXacin 750 MG/D5W 150ML 150 ML IV SCH (15:30)
[2024-07-03] MEDS ORDERED: Ipratropium/Albuterol SulF 2.5-0.5MG/3 ML Amp INH SCH ×2 (15:45→18:15)
[2024-07-03] MEDS ORDERED: Acetaminophen 650 MG Supp PR PRN (15:45)
[2024-07-03] MEDS ORDERED: CefTRIAXone Sodium 1,000 MG in NS 100 ML IV SCH (18:00)
--- NOTE | 2024-07-03 18:53 | NUR ---
ADMIT PT ARRIVED TO ICU 13 VIA BED. ON VENTILATOR, PROPOFOL AND FENTANYL INFUSING, BUT EYES OPEN AND PT RIGID WHEN TURNING HER. PROPOFOL INCREASED. Ashanti MALONEY TO THE BEDSIDE AND SPOKE WITH PT'S . PT'S JEWELRY GIVEN TO HER TO TAKE HOME - 2 BRACELETS, RING, WATCH AND NECKLACE.
[2024-07-03] MEDS ORDERED: Cetylpyridinium Chloride 1 EA MISC MT SCH (20:00)
[2024-07-03] MEDS ORDERED: Acetaminophen 325 MG TABLET PO PRN (20:40)
[2024-07-03] MEDS ORDERED: Lactobacil 2-S.Thermo-Bifido 1 1 Cap PO SCH (21:00)
[2024-07-03] MEDS ORDERED: MethylPREDNISolone Sod Succ 125 MG Vial IV SCH (21:00)
--- NOTE | 2024-07-03 22:16 | NUR ---
assumed care PATIENT'S XARE WAS TRANSFERED TO [place] @ 3547 FROM CHRISTOPHER LACKEY. PATIENT ON VENT SETTING AC/PC 24/5/30%, ET TUBE 7.5, 22 @GUMS. HAS PROPOFOL @ 40 MCG AND FENTANYL @50MCG. PATIENT HAS GONZALEZ DRAINING TO GRAVITY. PERIPHERAL IV'S AC RIGHT AND LEFT. PATIENT ABLE TO OPEN EYES AND LOOK AT NURSE. BILATERAL WRIST SOFT RESTRAINTS IN PLACE. CALL LIGHT WITHIN REACH
[2024-07-04] VITALS (42 sets, daily range): BP systolic 105–174; BP diastolic 62–108
[2024-07-04] MEDS ORDERED: Insulin Regular 100 UNIT/ML 10ML Vial SC SCH
[2024-07-04] MEDS ORDERED: Hydrogen Peroxide 1.5 % Solution MT SCH
[2024-07-04 03:28] LABS: BASOPHILS ABSOLUTE AUTO 0.01 K/mm3 (0.00-0.23); BASOPHILS PERCENT AUTO 0 % (0-2); EOSINOPHILS ABSOLUTE AUTO 0.01 K/mm3 (0.00-0.68); EOSINOPHILS PERCENT AUTO 0 % (0-6); Hematocrit 47.5 % (33.0-51.0); Hemoglobin 15.1 g/dL (11.5-16.0); IMMATURE GRAN ABSOLUTE AUTO 0.02 K/mm3 (0.00-0.10); IMMATURE GRAN PERCENT AUTO 0 % (0-1); LYMPHOCYTES ABSOLUTE AUTO 0.62 K/mm3 (0.84-5.20); LYMPHOCYTES PERCENT AUTO 6 % (21-46); MONOCYTES ABSOLUTE AUTO 0.11 K/mm3 (0.16-1.47); MONOCYTES PERCENT AUTO 1 % (4-13); Mean Corpuscular HGB 30.4 pg (26.0-34.0); Mean Corpuscular HGB Conc 31.8 g/dL (31.5-36.5); Mean Corpuscular Volume 96 fL (80-100); Mean Platelet Volume 10.6 fL (9.1-12.4); NEUTROPHILS ABSOLUTE AUTO 9.67 K/mm3 (1.96-9.15); NEUTROPHILS PERCENT AUTO 93 % (41-73); Platelet Count 165 K/mm3 (150-400); RDW Coefficient Variation 15.9 % (11.7-14.2); Red Blood Cell Count 4.96 M/mm3 (3.80-5.20); White Blood Cell Count 10.44 K/mm3 (4.00-11.30)
[2024-07-04 03:50] LABS: Albumin, Blood 2.7 g/dL (3.4-5.0); Albumin/Globulin Ratio 0.7 (0.8-1.8); Bilirubin, Total 1.1 mg/dL (0.1-1.0); Bun/Creatinine Ratio 24.3 (12.0-20.0); Calcium, Blood 9.1 mg/dL (8.5-10.1); Creatinine, Blood 0.66 mg/dL (0.40-1.00); Globulin, Blood 3.8 g/dL (2.2-4.0); Magnesium, Blood 1.8 mg/dL (1.6-2.4); Phosphorus, Blood 1.2 mg/dL (2.5-4.9); Potassium, Blood 3.6 mmol/L (3.5-5.5); Total Protein, Blood 6.5 g/dL (6.4-8.2)
[2024-07-04] MEDS ORDERED: fentaNYL citrate 1,000 MCG in NS 80 ML IV SCH (03:55)
[2024-07-04 04:06] LABS: PO2 Arterial 54.3 mmHg (80-100)
[2024-07-04 04:07] LABS: PCO2 Arterial 19.8 mmHg (35-45); pH Blood Arterial 7.65 (7.35-7.45)
[2024-07-04] MEDS ORDERED: Potassium Phosphate Dibasic 30 MM in Dextrose 5% 500 ML IV ONE (04:30)
--- NOTE | 2024-07-04 06:05 | NUR ---
SHIFT SUMMARY PATIENT INTUBATED AND SEDATED. VENT SETTING AC/PC 18/5/40%, 7.5 TUBE @ 22CM @GUMS. SBP 100-110'S, HR 80-90'S, AND TEMP 99.8-100.8. PATEINT HAD OG TUBE HOOKED UP TO LOW INTER SUCTION. PATIENT HAS RIGHT AND LEFT AC IV'S. PATIENT HAS SCARS ON HIPS AND BUTTOCKS FROM PREVIOUS WONDS. BILATERAL WRISTS IN RESTRAINTS. PROPROFOL RUNNING @50MCG AND FENTANYL RUNNING @75MCG/HR. CALL LIGHT WITHIN REACH.
[2024-07-04 06:16] LABS: Base Excess Venous 0.9 mmol/L; Bicarbonate Venous 26.6 mmol/L (24.0-30.0); PCO2 Venous 25.6 mmHg (38-42); pH Blood Venous 7.56 (7.34-7.37)
[2024-07-04] MEDS ORDERED: Enoxaparin 40 MG/0.4 ML SYR SC SCH (09:00)
--- NOTE | 2024-07-04 11:40 | NUR ---
OUTSIDE DRUG WASTE 50 MCG FENTANYL PATCH REMOVED FROM PT'S LEFT SHOULDER AND WASTED WITH SECOND NURSE, NAVID LACKEY.
[2024-07-04 12:13] LABS: PCO2 Arterial 41.9 mmHg (35-45); PO2 Arterial 69.4 mmHg (80-100); pH Blood Arterial 7.43 (7.35-7.45)
[2024-07-04] MEDS ORDERED: FentaNYL Citrate 50 MCG/ML 2 ML Injection IV PRN (13:45)
[2024-07-04] MEDS ORDERED: FentaNYL 25 MCG Patch TOP SCH (13:45)
[2024-07-04] MEDS ORDERED: Ipratropium/Albuterol SulF 2.5-0.5MG/3 ML Amp INH SCH (13:45)
[2024-07-04] MEDS ORDERED: Baclofen 10 MG Tab PO PRN (14:35)
[2024-07-04] MEDS ORDERED: FENTANYL1 EAC7 TOP (15:53)
[2024-07-04] MEDS ORDERED: BACLOFEN5 M1 PO (15:54)
[2024-07-04] MEDS ORDERED: JARDIANCE10 MG PO (15:54)
[2024-07-04] MEDS ORDERED: Pregabalin 50 MG Capsule PO SCH (16:00)
[2024-07-04] MEDS ORDERED: Bisacodyl 10 MG Supp PR PRN (16:20)
--- NOTE | 2024-07-04 16:23 | NUR ---
PROVIDER NOTIFICATION DR. CLINE NOTIFIED OF HTN AND COMPLETED MED REC. PROVIDER TO REVIEW AND PLACE ASSOCIATED ORDERS.
[2024-07-04] MEDS ORDERED: Mometasone/Formoterol MDI 100/5 mcg 13 GM INH SCH (16:25)
[2024-07-04] MEDS ORDERED: dilTIAZem HCL 30 MG TAB PO SCH (16:30)
--- NOTE | 2024-07-04 17:40 | NUR ---
END OF SHIFT SUMMARY PT SUCCESSFULLY EXTUBATED TO 2LNC THIS MORNING AT 1025 AFTER SAT/SBT. ALERT AND ORIENTED TO SELF, PLACE, YEAR. REQUIRES REORIENTATION TO DATE/TIME, SITUATION. HR, NS-ST, MILD HTN THIS AFTERNOON - DR. CLINE STARTED CARDIZEM AND RESUMED HOME JARDIANCE. CHO CONSISTENT, EASY TO CHEW DIET BUT PT HAS DECLINED FOOD, TRAY SET TO SIDE. GONZALEZ DISCONTINUED AT 1400, PUREWICK IN PLACE, 50ML UOP SINCE REMOVAL. PIV X2. FENTANYL PATCH TO LEFT ARM. BGS Q6. STATUS MEDICAL WITH TELEMETRY. SAFETY, COMFORT, HYGIENE ADDRESSED. BMX1.
[2024-07-04] MEDS ORDERED: Atorvastatin 10 MG Tab PO SCH (21:00)
[2024-07-05] VITALS (13 sets, daily range): BP systolic 114–152; BP diastolic 62–94
[2024-07-05 03:27] LABS: BASOPHILS ABSOLUTE AUTO 0.02 K/mm3 (0.00-0.23); BASOPHILS PERCENT AUTO 0 % (0-2); EOSINOPHILS ABSOLUTE AUTO 0.01 K/mm3 (0.00-0.68); EOSINOPHILS PERCENT AUTO 0 % (0-6); Hematocrit 45.4 % (33.0-51.0); Hemoglobin 14.7 g/dL (11.5-16.0); IMMATURE GRAN ABSOLUTE AUTO 0.02 K/mm3 (0.00-0.10); IMMATURE GRAN PERCENT AUTO 0 % (0-1); LYMPHOCYTES ABSOLUTE AUTO 1.52 K/mm3 (0.84-5.20); LYMPHOCYTES PERCENT AUTO 17 % (21-46); MONOCYTES ABSOLUTE AUTO 0.74 K/mm3 (0.16-1.47); MONOCYTES PERCENT AUTO 8 % (4-13); Mean Corpuscular HGB 30.2 pg (26.0-34.0); Mean Corpuscular HGB Conc 32.4 g/dL (31.5-36.5); Mean Corpuscular Volume 93 fL (80-100); Mean Platelet Volume 9.6 fL (9.1-12.4); NEUTROPHILS ABSOLUTE AUTO 6.65 K/mm3 (1.96-9.15); NEUTROPHILS PERCENT AUTO 74 % (41-73); Platelet Count 154 K/mm3 (150-400); RDW Coefficient Variation 16.5 % (11.7-14.2); RDW Standard Deviation 55.5 fL (35.1-46.3); Red Blood Cell Count 4.87 M/mm3 (3.80-5.20); White Blood Cell Count 8.96 K/mm3 (4.00-11.30)
[2024-07-05 03:42] LABS: Bun/Creatinine Ratio 27.1 (12.0-20.0); Calcium, Blood 8.9 mg/dL (8.5-10.1); Creatinine, Blood 0.66 mg/dL (0.40-1.00); Magnesium, Blood 1.9 mg/dL (1.6-2.4); Phosphorus, Blood 3.2 mg/dL (2.5-4.9); Potassium, Blood 3.9 mmol/L (3.5-5.5)
--- NOTE | 2024-07-05 05:46 | NUR ---
Pt is a/o to self/place/situation however she has poor short term memory retention. Pt remains hemodynamically stable. Pureick is in place however it is difficult to place properly due to BLE contractures so a brief is also in place requiring frequent changes throughout shift. Pt was also noted to have multiple small scabbed over wounds on coccyx and photos were taken and placed in chart and hospitalist notified. Pt was turned from side to side every 2 hours.
[2024-07-05] MEDS ORDERED: MethylPREDNISolone Sod Succ 40 MG VIAL IV SCH (09:00)
[2024-07-05] MEDS ORDERED: Empagliflozin 10 MG TAB PO SCH (09:00)
[2024-07-05] MEDS ORDERED: Cranberry Extract 250MG W/30 MG Vitamin C Tab PO SCH (09:00)
[2024-07-05] MEDS ORDERED: NS 250 ML IV PRN (10:40)
--- NOTE | 2024-07-05 10:45 | NUR ---
PT A/O TO PERSON, PLACE, AND SITUATION. HX OF MS BLE'S ARE CONTRACTED AND PT HAS NUMBNESS AND TINGLING. HANDS HAVE SOME CONTRACTURE BUT ABLE TO HOLD HER OWN WATER AND USES CALL LIGHT APPROPRIATELY. FREQUENT REPOSITIONS PER PT REQUEST FOR COMFORT. ON 2L NC WHICH PT STATES SHE WEARS AT HOME WELL. NO SIGN OF DISTRESS. PT IS TRANSFERING TO ROOM 306.
--- NOTE | 2024-07-05 17:13 | NUR ---
INITIAL PALLIATIVE CARE VISIT: MET WITH PT IN HER ROOM. PT IS AWAKE AND ABLE TO ANSWER QUESTIONS APPROPRIATELY. PT RECALLS EVENTS LEADING UP TO HER HOSPITALIZATION AND THINKS SHE GOT WEAK POSSIBLY FROM A UTI AND THAT IS WHY SHE ENDED UP HERE. PT DOES NOT RECALL BEING INTUBATED BUT DOES RECALL BEING EXTUBATED YESTERDAY. DISCUSSED HER CURRENT CODE STATUS WITH HAS IS FULL CODE AND EXPLAINED WHAT THAT MEANT SHE DID NOT UNDERSTAND. PT V/U. DISCUSSED WITH HER THAT HER POLST AND AD STATED DNR AND NO INTUBATION. I ASKED HER IF SHE WANTED TO CHANGE HER CODE STATUS BACK TO BEING A DNR. GLENNA INFORMED ME SHE WILL NOT MAKE THOSE KIND OF DECISIONS WITHOUT HER PRESENT. CODE STATUS AT THIS TIME TO REMAIN FULL CODE. PT REPORTED SHE HAD MUSCLE CRAMPS TO HER LEFT LEG. PT STATED SHE WAS JUST REPOSITIONED. SHE DENIES ANY OTHER CONCERNS AT THIS TIME. DISCUSSED PAIN MANAGEMENT WITH PRIMARY RN. ALEX REPORTED DR. CLINE THINKS PT RESPIRATORY STATUS WAS COMPROMISED DUE TO HER MEDICATIONS. ALEX STATED SHE IS ATTEMPTING TO TITRATE PAIN MEDICATIONS AND SHE HAS DISCUSSED THIS WITH THE PATIENT AND HAVE A PLAN TOGETHER. NO OTHER NEEDS IDENTIFIED AT THIS TIME.
--- NOTE | 2024-07-05 17:37 | NUR ---
SHIFT SUMMARY MS BRASWELL WAS TRANSFERED FROM ICU TO MEDICAL FLOOR THIS MORNING. ON BEDREST, MOVED OVER WITH SLIDE SHEET. ORIENTATED X4, APPROPRIATE CONVERSATION. WEANED FROM OXYGEN 2L NC TO ROOM AIR THIS AFTERNOON. SHE DENIES ANY FEELINGS OF SHORTNESS OF BREATH. ON TELEMETRY IN SR, NO CALLS FROM ZOOLOGY TEACHER. SHE HAS SEVERE LEG CONTRACTURES AND IS GENERALLY UNCOMFORTABLE, GETTING REPOSITIONIED Q1-2HOURS. NO EGGCRATE MATTRESS AVAILABLE IN HOUSE. INCONTINENT OF URINE, PUREWICK IN PLACE TO PROTECT HER SKIN AND FOR PT COMFORT. BED LOW, CALL LIGHT IN REACH AND PT ABLE TO USE IT APPROPRIATELY.
[2024-07-05] MEDS ORDERED: Insulin Regular 100 UNIT/ML 10ML Vial SC SCH (21:00)
[2024-07-06 00:03] VITALS: BP 151/81
--- NOTE | 2024-07-06 04:10 | NUR ---
SHIFT SUMMARY. PATIENT IS A&OX4. PATIENT HAS CONTRACTORS TO BLE. BILATERAL ARMS ARE SLIGHTY CONTRACTED. PATIENT IS PLEASANT AND COOPERATIVE WITH CARE. PATIENT IS INCONTINENT-PATIENT CHANGED Q2H WITH REPOSITIONING. PATIENT IS BEDBOUND AT BASELINE AND LIVES AT [facility]. PATIENT ON RA T/O NIGHT WITH NO C/O SOB. TELE IS ON WITH LEADS IN PLACE-NO NOTED EVENTS FROM TELE. BED IS LOCKED IN THE LOWEST POSITION WITH CALL LIGHT IN REACH. CARE IS ONGOING.
[2024-07-06 05:01] VITALS: BP 154/88
[2024-07-06 08:53] VITALS: BP 171/84
[2024-07-06] MEDS ORDERED: Mupirocin Calcium Oint 1 GM SCH (09:00)
[2024-07-06] MEDS ORDERED: Trimethoprim/Sulfamethoxazole DS Tab PO SCH (09:00)
[2024-07-06] MEDS ORDERED: Metoprolol Succinate 25 MG TABCR PO SCH (09:00)
--- NOTE | 2024-07-06 09:00 | NUR ---
Pt laying in bed awake a/ox3-4, pleasant and cooperative with care, follows commands well, lungs are clear but dim t/o, on r/a, no cough noted at this time, hrr, tele in place running sr in 70's, no edema noted, piv to lfa site is clear and patent, btx4, abd flat soft nontender, incont of bowel/bladder, purwick in place, briefs in place, ext are contracted, more on legs, can help with feeding, bedbound, skin is pink on bottom, otherwise c/w/d, polo, call light in reach.
[2024-07-06 12:49] VITALS: BP 160/91
[2024-07-06] MEDS ORDERED: METO25ER PO (13:04)
[2024-07-06] MEDS ORDERED: MUPIROCIN110 (13:05)
--- NOTE | 2024-07-06 13:05 | NUR ---
pt being returned to [facility], called report to aparna at [facility], wheelchair van here to transport her back. iv removed intact, left with spouce and all her belongings.
[2024-07-06] MEDS ORDERED: BACTRIM DS TAB1 EAC6 PO (13:06)
--- NOTE | 2024-07-06 14:53 | NUR ---
assumed care of pt. entered room and pt transport out side room. pt was changed and transfered to wheel chair. pt very contracted and modifications to wheelchair made to transfer pt safely. paperwork in order and report called in by shamir kohli hard copy script visualized and seen in transfer packet.
== END 2024-07-06 13:30 | DRG 871 ==
LOC: ER 09:30 → ICUE 14:54 → ERHOLD 14:54 → ICUE 15:39 → MEDS 07-05 10:48 → ENPENDDIS 07-06 12:04 → MEDS 07-06 13:30
PROVIDERS: Emergency Medicine; Internal Medicine; Internal Medicine Critical Care Medicine; ADMIT Internal Medicine
PROC: 3E03329 Introduction of Other Anti-infective into Peripheral Vein, Percutaneous Approach (ICD-10-PCS; principal; 2024-07-03)
PROC: 4A133R1 Monitoring of Arterial Saturation, Peripheral, Percutaneous Approach (ICD-10-PCS; 2024-07-03)
PROC: 5A1935Z Respiratory Ventilation, Less than 24 Consecutive Hours (ICD-10-PCS; 2024-07-03)
PROC: 0BH17EZ Insertion of Endotracheal Airway into Trachea, Via Natural or Artificial Opening (ICD-10-PCS; 2024-07-03)
PROC: 5A09357 Assistance with Respiratory Ventilation, Less than 24 Consecutive Hours, Continuous Positive Airway Pressure (ICD-10-PCS; 2024-07-03)
DX: A41.50 Gram-negative sepsis, unspecified (principal); G92.8 Other toxic encephalopathy; J96.01 Acute respiratory failure with hypoxia; J96.02 Acute respiratory failure with hypercapnia; N39.0 Urinary tract infection, site not specified; J44.1 Chronic obstructive pulmonary disease with (acute) exacerbation; E87.3 Alkalosis; G35 Multiple sclerosis; Z74.01 Bed confinement status; L89.152 Pressure ulcer of sacral region, stage 2; I12.9 Hypertensive chronic kidney disease with stage 1 through stage 4 chronic kidney disease, or unspecified chronic kidney disease; E11.22 Type 2 diabetes mellitus with diabetic chronic kidney disease; N18.2 Chronic kidney disease, stage 2 (mild); E78.2 Mixed hyperlipidemia; Z99.3 Dependence on wheelchair; Z87.891 Personal history of nicotine dependence; G89.4 Chronic pain syndrome; F41.1 Generalized anxiety disorder; F32.9 Major depressive disorder, single episode, unspecified; Z86.14 Personal history of Methicillin resistant Staphylococcus aureus infection; Z90.49 Acquired absence of other specified parts of digestive tract; Z98.890 Other specified postprocedural states; Z87.19 Personal history of other diseases of the digestive system
CPT/HCPCS: 0241U; 31500; 36415; 36600; 51702; 71045; 80048; 80053; 81001; 82330; 82803; 82947; 83605; 83735; 83880; 84100; 84145; 84484; 85025; 85379; 87070; 87077; 87086; 87106; 87147; 87186; 87205; 92610; 93005; 93010; 93306; 94002; 94003; 94640; 94660; 94664; 94760; 94762; 96361-59; 96365-59; 96375-59; 99285-25; A9270; J0692; J0696; J1650; J1815; J1956; J2405; J2704; J2919; J3010; J7030; J7050; J7060

== ENCOUNTER 2024-07-10 03:22 | Emergency (ER) | payer OTHER ==
[~2024-07-10] VITALS: Ht 165.1 cm; Wt 84.8 kg
[~2024-07-10 03:22] MED LIST changes: +BACLOFEN5 M1 PO; +BACTRIM DS TAB1 EAC6 PO; -Etomidate 2MG / ML 10ML Vial IV ONE; +FENTANYL1 EAC7 TOP; +JARDIANCE10 MG PO; +METO25ER PO; +MUPIROCIN110; -Rocuronium Bromide 10 MG/ML 5ML Injection IV ONE
[2024-07-10] MEDS ORDERED: Lactated Ringer's 1,000 ML IV ONE (03:50)
[2024-07-10] MEDS ORDERED: Pantoprazole Sodium 40 MG Injection IV ONE (03:50)
[2024-07-10 04:03] LABS: BASOPHILS ABSOLUTE AUTO 0.05 K/mm3 (0.00-0.23); BASOPHILS PERCENT AUTO 0 % (0-2); EOSINOPHILS ABSOLUTE AUTO 0.22 K/mm3 (0.00-0.68); EOSINOPHILS PERCENT AUTO 2 % (0-6); Hematocrit 50.8 % (33.0-51.0); Hemoglobin 16.8 g/dL (11.5-16.0); IMMATURE GRAN ABSOLUTE AUTO 0.06 K/mm3 (0.00-0.10); IMMATURE GRAN PERCENT AUTO 0 % (0-1); LYMPHOCYTES ABSOLUTE AUTO 2.05 K/mm3 (0.84-5.20); LYMPHOCYTES PERCENT AUTO 14 % (21-46); MONOCYTES ABSOLUTE AUTO 1.13 K/mm3 (0.16-1.47); MONOCYTES PERCENT AUTO 8 % (4-13); Mean Corpuscular HGB 30.4 pg (26.0-34.0); Mean Corpuscular HGB Conc 33.1 g/dL (31.5-36.5); Mean Corpuscular Volume 92 fL (80-100); Mean Platelet Volume 10.3 fL (9.1-12.4); NEUTROPHILS ABSOLUTE AUTO 11.05 K/mm3 (1.96-9.15); NEUTROPHILS PERCENT AUTO 76 % (41-73); Platelet Count 198 K/mm3 (150-400); RDW Coefficient Variation 15.5 % (11.7-14.2); Red Blood Cell Count 5.53 M/mm3 (3.80-5.20); White Blood Cell Count 14.56 K/mm3 (4.00-11.30)
[2024-07-10 04:28] LABS: Albumin/Globulin Ratio 0.8 (0.8-1.8); Bun/Creatinine Ratio 39.6 (12.0-20.0); Calcium, Blood 9.9 mg/dL (8.5-10.1); Creatinine, Blood 0.71 mg/dL (0.40-1.00); Globulin, Blood 3.7 g/dL (2.2-4.0); Potassium, Blood 4.6 mmol/L (3.5-5.5); Total Protein, Blood 6.7 g/dL (6.4-8.2)
[2024-07-10 06:00] VITALS: BP 106/72
== END 2024-07-10 08:11 | disposition home or self-care (01) ==
LOC: ER 03:22
PROVIDERS: Emergency Medicine
DX: R11.2 Nausea with vomiting, unspecified (principal); K21.9 Gastro-esophageal reflux disease without esophagitis; E11.8 Type 2 diabetes mellitus with unspecified complications; J44.9 Chronic obstructive pulmonary disease, unspecified
CPT/HCPCS: 74177; 80053; 83690; 84484; 85025; 93005; 93010; 96374; 99284-25; J2470; J7120; Q9967

== ENCOUNTER 2024-07-15 05:44 | Inpatient (IN) | payer OTHER ==
[2024-07-15] VITALS (24 sets, daily range): BP systolic 80–121; BP diastolic 58–89
[~2024-07-15] VITALS: Ht 165.1 cm; Wt 86.5 kg
[~2024-07-15 05:44] MED LIST changes: +ATOR10 PO; +GENTLE LAX400 MG/5 M PO; +LYRICA200 M1 PO; -PREG150 PO
[2024-07-15] MEDS ORDERED: Ondansetron HCl 2 MG / ML 2ML Vial IV ONE (06:05)
[2024-07-15] MEDS ORDERED: Pantoprazole Sodium 40 MG Injection IV ONE (06:15)
[2024-07-15] MEDS ORDERED: Morphine Sulfate 4 MG/1 ML Injection IV ONE (06:15)
[2024-07-15 06:23] LABS: BASOPHILS ABSOLUTE AUTO 0.06 K/mm3 (0.00-0.23); BASOPHILS PERCENT AUTO 0 % (0-2); EOSINOPHILS ABSOLUTE AUTO 0.13 K/mm3 (0.00-0.68); EOSINOPHILS PERCENT AUTO 1 % (0-6); Hematocrit 45.5 % (33.0-51.0); Hemoglobin 14.7 g/dL (11.5-16.0); IMMATURE GRAN ABSOLUTE AUTO 0.07 K/mm3 (0.00-0.10); IMMATURE GRAN PERCENT AUTO 1 % (0-1); LYMPHOCYTES ABSOLUTE AUTO 1.72 K/mm3 (0.84-5.20); LYMPHOCYTES PERCENT AUTO 12 % (21-46); MONOCYTES ABSOLUTE AUTO 0.98 K/mm3 (0.16-1.47); MONOCYTES PERCENT AUTO 7 % (4-13); Mean Corpuscular HGB 30.4 pg (26.0-34.0); Mean Corpuscular HGB Conc 32.3 g/dL (31.5-36.5); Mean Corpuscular Volume 94 fL (80-100); NEUTROPHILS ABSOLUTE AUTO 11.58 K/mm3 (1.96-9.15); NEUTROPHILS PERCENT AUTO 80 % (41-73); Platelet Count 191 K/mm3 (150-400); RDW Standard Deviation 51.8 fL (35.1-46.3); Red Blood Cell Count 4.83 M/mm3 (3.80-5.20); White Blood Cell Count 14.54 K/mm3 (4.00-11.30)
[2024-07-15 06:34] LABS: Albumin, Blood 2.7 g/dL (3.4-5.0); Albumin/Globulin Ratio 0.8 (0.8-1.8); Bilirubin, Total 0.5 mg/dL (0.1-1.0); Bun/Creatinine Ratio 63.8 (12.0-20.0); Calcium, Blood 10.1 mg/dL (8.5-10.1); Creatinine, Blood 0.52 mg/dL (0.40-1.00); Globulin, Blood 3.5 g/dL (2.2-4.0); Potassium, Blood 4.8 mmol/L (3.5-5.5); Total Protein, Blood 6.2 g/dL (6.4-8.2)
[2024-07-15] MEDS ORDERED: NS 1,000 ML IV SCH (07:45)
[2024-07-15] MEDS ORDERED: FentaNYL Citrate 50 MCG/ML 2 ML Injection IV ONE ×2 (08:05→09:40)
[2024-07-15] MEDS ORDERED: Midazolam HCl 1MG / ML 2ML Vial IV ONE ×2 (08:05→15:10)
[2024-07-15] MEDS ORDERED: propofoL 100 ML IV SCH (08:05)
[2024-07-15] MEDS ORDERED: fentaNYL citrate 1,000 MCG in NS 80 ML IV SCH (09:45)
[2024-07-15 10:03] LABS: Base Excess Venous 5.9 mmol/L; Bicarbonate Venous 28.9 mmol/L (24.0-30.0); pH Blood Venous 7.44 (7.34-7.37)
[2024-07-15] MEDS ORDERED: FentaNYL 25 MCG Patch TOP SCH (11:25)
[2024-07-15] MEDS ORDERED: FLU VACC TS2024-25(6MOS UP)/PF 45 MCG/0.5 ML SYRINGE IM PRN (11:25)
[2024-07-15] MEDS ORDERED: Metoclopramide HCl 5MG / ML 2ML Vial IV PRN (11:25)
[2024-07-15] MEDS ORDERED: NS KCl 20mEq 1,000 ML IV SCH (11:25)
[2024-07-15] MEDS ORDERED: Morphine Sulfate 4 MG/1 ML Injection IV PRN (11:25)
[2024-07-15] MEDS ORDERED: Insulin Human Lispro 100 Units/ML 3ML Syringe SC SCH (12:00)
[2024-07-15] MEDS ORDERED: Etomidate 2MG / ML 10ML Vial XX ONE (12:56)
[2024-07-15] MEDS ORDERED: Rocuronium Bromide 10 MG/ML 5ML Injection IV ONE (12:56)
[2024-07-15] MEDS ORDERED: Ketamine HCl 100 MG / ML 5ML Vial XX ONE (12:56)
[2024-07-15] MEDS ORDERED: Midazolam HCl 1MG / ML 2ML Vial XX ONE (12:56)
[2024-07-15 13:13] LABS: Hematocrit 40.2 % (33.0-51.0); Hemoglobin 12.9 g/dL (11.5-16.0)
[2024-07-15] MEDS ORDERED: EpiNEPhrine 1 MG/1 ML 1ML Vial ONE (13:31)
[2024-07-15 14:08] LABS: Source, Urine Foley catheter
--- NOTE | 2024-07-15 14:09 | NUR ---
07/15/24 1409 Rob Rodarte History, Chart, Medications and Allergies reviewed before start of procedure.MONITOR INTACT WITH CONTINUOUS PULSE OXIMETRY, CONTINUOUS END TITAL CO2, 3-LEAD EKG AND INTERMITTENT BLOOD PRESSURE.3-LEAD EKG REVIEWED WITH PHYSICIAN PRIOR TO START OF PROCEDURE.O2 VIA VENTILATOR THROUGHOUT SEDATION/PROCEDURE.ON PROPOFOL GTT.
[2024-07-15 14:21] LABS: Appearance, Urine Hazy (Clear); Bilirubin, Urine Neg (Neg); Blood, Urine 1+ (Neg); Glucose Qualitative, Urine 4+ (Neg); Ketones, Urine 2+ (Neg); Leukocyte Esterase, Urine 3+ (Neg); Nitrite, Urine Neg (Neg); Protein, Urine 1+ (Neg); Urobilinogen, Urine NORM (Normal)
[2024-07-15] MEDS ORDERED: NS 1,000 ML IV ONE ×2 (14:21→15:00)
[2024-07-15] MEDS ORDERED: Midazolam HCl 1MG / ML 2ML Vial ONE ×2 (14:22→14:24)
[2024-07-15 14:35] LABS: Color, Urine Pale Yellow (P-Yellow)
[2024-07-15 14:36] LABS: Bacteria Many /hpf; Squamous Epithelial Cells Rare /hpf (Few); White Blood Cells, Urine 25-50 /hpf (0-5)
[2024-07-15] MEDS ORDERED: Metoclopramide HCl 5MG / ML 2ML Vial IV ONE ×2 (15:00→17:00)
[2024-07-15] MEDS ORDERED: Pantoprazole Sodium 40 MG Injection IV STA (15:22)
[2024-07-15] MEDS ORDERED: Pantoprazole Sodium 40 MG in NS 50 ML IV SCH (15:25)
--- NOTE | 2024-07-15 15:40 | NUR ---
PT ARRIVAL TO ICU THIS NURSE ASSUMED CARE AT APPROXIMATELY 1245. PT HAD A FENTANYL PATCH ON THE R SHOULDER THAT WAS REMOVED AND WASTED WITH ENOC LACKEY CNC. PT INTUBATED AND SEDATED WITH A DOWNWARD TREND BP, MD NOTIFIED. PT RECIEVED 1L BOLUS ON HER WAY TO ICU AND ANOTHER 1L BOLUS DURING EGD. PT HAD OBVIOUS COFFEE GROUND EMESIS IN OG TUBE. MD REMOVED OG TUBE DURING EGD SINCE HE STATED THE STOMACH WAS EMPTY, SEE EGD REPORT. PT ABLE TO OPEN EYES AND FOLLOW COMMANDS. PT SEDATED ON PROPOFOL AND FENTANYL.
[2024-07-15 15:45] LABS: Hemoglobin 13.1 g/dL (11.5-16.0)
[2024-07-15] MEDS ORDERED: FentaNYL Citrate 50 MCG/ML 2 ML Injection IV PRN (16:20)
[2024-07-15] MEDS ORDERED: LORazepam 2 MG/ML 1ML Injection IV PRN (16:20)
--- NOTE | 2024-07-15 17:30 | NUR ---
SHIFT SUMMARY PT SEDATED AND INTUBATED ON PROPOFOL GTT AT 40MCG AND FENTANYL AT 50MCG WITH LEVO AT 3MCG. PT OPENS EYES TO VOICE AND FOLLOWS COMMANDS. PT LOWER HALF CONTRACTED AND STIFF D/T CHRONIC MS. PT SHAKES HEAD IN A NO DIRECTION WHEN ASKED IF PT IS EXPERIENCING ANY PAIN. WILL CONTINUE WITH THE PLAN OF CARE.
[2024-07-15] MEDS ORDERED: Lactated Ringer's 1,000 ML IV SCH (18:45)
[2024-07-15 19:35] LABS: Hematocrit 37.9 % (33.0-51.0); Hemoglobin 12.4 g/dL (11.5-16.0)
[2024-07-15 23:24] LABS: Hematocrit 36.1 % (33.0-51.0); Hemoglobin 11.8 g/dL (11.5-16.0)
[2024-07-16] VITALS (57 sets, daily range): BP systolic 80–147; BP diastolic 41–106
[2024-07-16 03:05] LABS: Acinetobacter baumannii DNA Not Detected copy/mL (NOT DETECT); Adenovirus DNA Not Detected (NOT DETECT); Chlamydia pneumonia Not Detected (NOT DETECT); Enterobacter cloacae DNA Not Detected copy/mL (NOT DETECT); Escherichia coli DNA Not Detected copy/mL (NOT DETECT); Haemophilus influenzae DNA Not Detected copy/mL (NOT DETECT); Human Coronavirus RNA Not Detected (NOT DETECT); Human Metapneumovirus RNA Not Detected (NOT DETECT); Influenza virus A RNA Not Detected (NOT DETECT); Influenza virus B RNA Not Detected (NOT DETECT); Klebsiella aerogenes DNA Not Detected copy/mL (NOT DETECT); Klebsiella oxytoca DNA Not Detected copy/mL (NOT DETECT); Klebsiella pneumoniae DNA Not Detected copy/mL (NOT DETECT); Legionella pneumophila Not Detected (NOT DETECT); Moraxella catarrhalis DNA Not Detected copy/mL (NOT DETECT); Mycoplasma pneumoniae Not Detected (NOT DETECT); Parainfluenza virus RNA Not Detected (NOT DETECT); Proteus sp DNA Not Detected copy/mL (NOT DETECT); Pseudomonas aeruginosa DNA Not Detected copy/mL (NOT DETECT); Respiratory syncytial Vir RNA Not Detected (NOT DETECT); Rhinovirus+Enterovirus RNA Not Detected (NOT DETECT); Serratia marcescens DNA Not Detected copy/mL (NOT DETECT); Staphylococcus aureus DNA Not Detected copy/mL (NOT DETECT); Streptococcus agalactiae DNA Not Detected copy/mL (NOT DETECT); Streptococcus pneumoniae DNA Not Detected copy/mL (NOT DETECT); Streptococcus pyogenes DNA Not Detected copy/mL (NOT DETECT)
[2024-07-16 04:56] LABS: BASOPHILS ABSOLUTE AUTO 0.04 K/mm3 (0.00-0.23); BASOPHILS PERCENT AUTO 0 % (0-2); EOSINOPHILS ABSOLUTE AUTO 0.13 K/mm3 (0.00-0.68); EOSINOPHILS PERCENT AUTO 1 % (0-6); Hematocrit 34.7 % (33.0-51.0); Hemoglobin 11.3 g/dL (11.5-16.0); IMMATURE GRAN ABSOLUTE AUTO 0.05 K/mm3 (0.00-0.10); IMMATURE GRAN PERCENT AUTO 0 % (0-1); LYMPHOCYTES ABSOLUTE AUTO 3.02 K/mm3 (0.84-5.20); LYMPHOCYTES PERCENT AUTO 25 % (21-46); MONOCYTES ABSOLUTE AUTO 0.88 K/mm3 (0.16-1.47); MONOCYTES PERCENT AUTO 7 % (4-13); Mean Corpuscular HGB 30.7 pg (26.0-34.0); Mean Corpuscular HGB Conc 32.6 g/dL (31.5-36.5); Mean Corpuscular Volume 94 fL (80-100); Mean Platelet Volume 11.3 fL (9.1-12.4); NEUTROPHILS ABSOLUTE AUTO 8.08 K/mm3 (1.96-9.15); NEUTROPHILS PERCENT AUTO 66 % (41-73); Platelet Count 146 K/mm3 (150-400); RDW Coefficient Variation 15.5 % (11.7-14.2); RDW Standard Deviation 53.2 fL (35.1-46.3); Red Blood Cell Count 3.68 M/mm3 (3.80-5.20)
[2024-07-16 05:31] LABS: Magnesium, Blood 1.7 mg/dL (1.6-2.4)
[2024-07-16 05:32] LABS: Albumin, Blood 2.2 g/dL (3.4-5.0); Albumin/Globulin Ratio 0.9 (0.8-1.8); Bilirubin, Total 0.4 mg/dL (0.1-1.0); Bun/Creatinine Ratio 57.5 (12.0-20.0); Calcium, Blood 8.5 mg/dL (8.5-10.1); Creatinine, Blood 0.64 mg/dL (0.40-1.00); Globulin, Blood 2.5 g/dL (2.2-4.0); Phosphorus, Blood 1.9 mg/dL (2.5-4.9); Potassium, Blood 4.1 mmol/L (3.5-5.5); Total Protein, Blood 4.7 g/dL (6.4-8.2)
--- NOTE | 2024-07-16 06:20 | NUR ---
SHIFT SUMMARY PT REMAINS INTUBATED AND SEDATED, STILL EASILY AROUSABLE BUT RESTS COMFROTABLY OTHERWISE. REMAINED OFF PRESSORS AND MAPS REMAINED GREATER THAN 65. H/H REMAINED STABLE WELL. NO OVERNIGHT EVENTS TO REPORT.
[2024-07-16] MEDS ORDERED: Sodium Phosphate 30 MM in Dextrose 5% 500 ML IV ONE (09:30)
[2024-07-16] MEDS ORDERED: EpiNEPhrine 1 MG/1 ML 1ML Vial ONE (09:36)
--- NOTE | 2024-07-16 09:48 | NUR ---
07/16/24 0948 Rob Rodarte History, Chart, Medications and Allergies reviewed before start of procedure.MONITOR INTACT WITH CONTINUOUS PULSE OXIMETRY, CONTINUOUS END TITAL CO2, 3-LEAD EKG AND INTERMITTENT BLOOD PRESSURE.3-LEAD EKG REVIEWED WITH PHYSICIAN PRIOR TO START OF PROCEDURE.O2 VIA VENTILATOR FOR SEDATION/PROCEDURE.
[2024-07-16] MEDS ORDERED: Midazolam HCl 1MG / ML 2ML Vial ONE (10:00)
[2024-07-16] MEDS ORDERED: Midazolam HCl 1MG / ML 2ML Vial IV ONE (10:10)
[2024-07-16] MEDS ORDERED: Metoclopramide HCl 5MG / ML 2ML Vial IV SCH (10:10)
--- NOTE | 2024-07-16 12:07 | NUR ---
REASSESSMENT PT REMAINED INTUBATED AND SEDATED THIS AM. SHE HAD HER EGD AND AFTER DR. VICTORIA GAVE OK TO EXTUBATE. PER DR. MALONEY, PROPOFOL OFF AND FENTANYL TURNED DOWN TO 25MCG/HR FOR WEANING TRIAL. PT CURRENTLY ON SPONTANEOUS AND TOLERATING. WAKING UP, OPENING EYES. LUNGS ARE CLEAR, SR, MAP 70S. NO OG IN PLACE PER DR. VICTORIA. GONZALEZ DRAINING YELLOW URINE. PT'S EXTREMITIES HAVE BEEN VERY STIFF AND DIFFICULT TO POSITION EVEN WHEN PT WAS ON SEDATION. RELIEVING PRESSURE POINTS MUCH POSSIBLE.
[2024-07-16] MEDS ORDERED: CefTRIAXone Sodium 1,000 MG in NS 100 ML IV SCH (13:09)
[2024-07-17] VITALS (12 sets, daily range): BP systolic 109–148; BP diastolic 48–126
[2024-07-17 04:04] LABS: BASOPHILS ABSOLUTE AUTO 0.03 K/mm3 (0.00-0.23); BASOPHILS PERCENT AUTO 0 % (0-2); EOSINOPHILS ABSOLUTE AUTO 0.15 K/mm3 (0.00-0.68); EOSINOPHILS PERCENT AUTO 2 % (0-6); Hematocrit 32.6 % (33.0-51.0); Hemoglobin 10.6 g/dL (11.5-16.0); IMMATURE GRAN ABSOLUTE AUTO 0.03 K/mm3 (0.00-0.10); IMMATURE GRAN PERCENT AUTO 0 % (0-1); LYMPHOCYTES ABSOLUTE AUTO 1.74 K/mm3 (0.84-5.20); LYMPHOCYTES PERCENT AUTO 21 % (21-46); MONOCYTES ABSOLUTE AUTO 0.58 K/mm3 (0.16-1.47); MONOCYTES PERCENT AUTO 7 % (4-13); Mean Corpuscular HGB 30.8 pg (26.0-34.0); Mean Corpuscular HGB Conc 32.5 g/dL (31.5-36.5); Mean Corpuscular Volume 95 fL (80-100); Mean Platelet Volume 10.6 fL (9.1-12.4); NEUTROPHILS ABSOLUTE AUTO 5.91 K/mm3 (1.96-9.15); NEUTROPHILS PERCENT AUTO 70 % (41-73); Platelet Count 126 K/mm3 (150-400); RDW Coefficient Variation 15.6 % (11.7-14.2); RDW Standard Deviation 54.1 fL (35.1-46.3); Red Blood Cell Count 3.44 M/mm3 (3.80-5.20); White Blood Cell Count 8.44 K/mm3 (4.00-11.30)
[2024-07-17 04:22] LABS: Albumin, Blood 2.2 g/dL (3.4-5.0); Albumin/Globulin Ratio 0.8 (0.8-1.8); Bilirubin, Total 0.5 mg/dL (0.1-1.0); Bun/Creatinine Ratio 25.7 (12.0-20.0); Calcium, Blood 7.6 mg/dL (8.5-10.1); Creatinine, Blood 0.51 mg/dL (0.40-1.00); Globulin, Blood 2.7 g/dL (2.2-4.0); Magnesium, Blood 1.7 mg/dL (1.6-2.4); Phosphorus, Blood 3.1 mg/dL (2.5-4.9); Potassium, Blood 3.8 mmol/L (3.5-5.5); Total Protein, Blood 4.9 g/dL (6.4-8.2)
[2024-07-17] MEDS ORDERED: Calcium Gluconate 10% 1,000 MG in NS 50 ML IV ONE (04:25)
--- NOTE | 2024-07-17 06:09 | NUR ---
SHIFT SUMMARY PATIENT MOANS OUT IN PAIN ALL THROUGH SHIFT. PATIENT WANTED TO BE TURNED FROM RIGHT SIDE TO LEFT SIDE EVERY 15 MINUTES. NURSE GAVE PRN PAIN MEDS PER EMAR. NURSE REPOSITIONED PATIENT. NURSE ASKED PATEINT WHAT THE GROUP HOME DOES FOR HER PAIN? PATIENT STATED "SHE COULD NOT REMEMBER". A&O X4, SBP IN THE 120-130'S AND HR IN THE 80-90'S. LOWER EXTERMITIES STIFF AND IN BENT POSITION. RIGTH ARM ATIFF AND HAS LIMITED MOVEMENT. PATEINT HAS GONZALEZ DRAINING TO GRAVITY. HAS PICC LINE IN RIGHT UPPER ARM AND A PERIPHERAL IN RIGHT FOREARM AND RIGHT WRIST. PROTONIX RUNNING @ 10MLS, FENTANYL @ 25 MCG. PATIENT IS ABLE TO USE CALL LIGHT AND IT IS WITHIN REACH.
[2024-07-17] MEDS ORDERED: FentaNYL 25 MCG Patch TOP SCH (08:00)
[2024-07-17] MEDS ORDERED: Baclofen 10 MG Tab PO PRN (09:10)
[2024-07-17] MEDS ORDERED: Pregabalin 50 MG Capsule PO SCH (09:10)
[2024-07-17] MEDS ORDERED: FentaNYL Citrate 50 MCG/ML 2 ML Injection IV PRN (13:00)
[2024-07-17] MEDS ORDERED: Morphine Sulfate 30 MG TabCR PO SCH (13:30)
[2024-07-17] MEDS ORDERED: Pantoprazole Sodium 40 MG Tab PO SCH (16:30)
--- NOTE | 2024-07-17 17:08 | NUR ---
SHIFT SUMMARY PT WAS VERY ANXIOUS AND PAINFUL THIS MORNING. SHE WAS REQUESTING TO BE TURNED FROM SIDE TO SIDE ABOUT EVERY 10 MINUTES AND COULD NOT GET COMFORTABLE. SPOKE WITH DR. MALONEY AND RECEIVED ORDERS FOR HER HOME DOSE OF LYRICA AND BACLOFEN. AFTER THOSE AND POSITIOINING PT IN THE CHAIR WITH AN EGG CRATE UNDER HER, PT SEEMED TO RELAX MORE. SHE STILL YELLS OUT WITH POSITION CHANGES AND WANTS TO BE TURNED EVERY HOUR, BUT SHE IS NOT CRYING IN BETWEEN TURNS. FENTANYL GTT TURNED OFF THIS AFTERNOON AND GIVING MS CONTIN PER DR. DEY'S ORDERS. HE ALSO GAVE ORDERS TO SWITCH PROTONIX GTT TO PO. GONZALEZ REMOVED AND PUREWICK IN PLACE. PT HAD ONLY ABOUT 100ML OF URINE OUT DURING THE FIRST 8 HOURS POST REMOVAL. BLADDER SCAN SHOWED 301ML. PT HAD SMALL BM TODAY. LUNGS REMAIN CLEAR, RA, SR, MAP 80S. PT'S VISITED AND WAS UPDATED BY NURSING STAFF AND DR. DEY.
[2024-07-18] VITALS (10 sets, daily range): BP systolic 92–126; BP diastolic 52–86
--- NOTE | 2024-07-18 05:32 | NUR ---
SHIFT SUMMARY PATIENT HAS SLEPT MOST OF SHIFT. USING CALL LIGHT VERY MINIMAL. PATIENT NOT YELLING OUT IN PAIN WHEN NURSE IS REPOSITIONING HER. PATIENT IS A&O X4 AND VERY COOPERATIVE IN CARE. SBP 110-120'S AND HR IN THE 80'S. PATIENT HAS PUREWICK IN PLACE WITH DEPENDS. HAS PICC LINE IN UPPER RIGHT ARM AND A PERIPHERAL IN RIGHT FA. CALL LIGHT WITHIN REACH.
[2024-07-18] MEDS ORDERED: Buprenorphine HCL/Naloxone HCL 2-0.5MG 1 EA SL ONE (07:50)
--- NOTE | 2024-07-18 08:00 | NUR ---
Floyd of care: Alert & pleasant but complaining of chronic pain of a 9/10. She says she only ever gets as low as 8/10. Vital signs stable with HR in 70s, NSR, blood pressure 120/63, oxygen saturations in high 90s on room air. Purewick in place with clear, yellow urine. PICC & PIV in place. Will continue to monitor.
[2024-07-18] MEDS ORDERED: Alteplase Recombinant 2 MG / Vial IV ONE (13:50)
[2024-07-18] MEDS ORDERED: Insulin Human Lispro 100 Units/ML 3ML Syringe SC SCH (16:30)
--- NOTE | 2024-07-18 17:34 | NUR ---
Shift summary: Alert, oriented, chronic pain but receiving scheduled pain medications. OOB to chair for most of the day with lift. In NSR in the 90s. Blood pressures & oxygen saturations stable on room air. Good appetite - seen by director corporate communications. Voiding with purewick in place. PICC line secure LIANA. Will continue to monitor.
--- NOTE | 2024-07-18 19:49 | NUR ---
ASSUMPTION OF CARE/ASSESSMENT: ASSUMED CARE OF PT AT 1900; REPORT RECIEVED FROM RENE LACKEY. PT CURRENTLY IN BED, A&O X 4, PLEASANT AND COOPERATIVE WITH CARE. PT CURRENTLY ON NC @ 2LPM, LUNGS CLEAR T/O, SPO2 94< AND DENIES SOB AT THIS TIME. SR IN THE 80'S ON MONITOR, SBP 100-110, AND DENIES CHEST PAIN. + BT, TOLERATING PO INTAKE. PUREWICK AND ATTENDS IN PLACE; CLEAR, YELLOW URINE NOTED. BED BOUND AT BASELINE. PPP X 4. PT HX OF CHRONIC PAIN; CURRENTLY RATING PAIN A 8.5/10 WITH A GOAL OF 8; PT STATES SHE IS COMFORTABLY AT THIS TIME, NO PRN MEDS GIVEN. CALL LIGHT IN REACH.
[2024-07-19] VITALS (7 sets, daily range): BP systolic 116–133; BP diastolic 53–70
--- NOTE | 2024-07-19 06:12 | NUR ---
PT SLEPT WITHOUT DIFFICULTY. PAIN CURRENTLY CONTROLLED WITH SCHEDULED MS CONTIN. PT TURNED Q2H, O2 AT [address], CALL LIGHT IN REACH, NO S/S OF DISTRESS NOTED
[2024-07-19] MEDS ORDERED: Buprenorphine HCL/Naloxone HCL 2-0.5MG 1 EA SL SCH (09:00)
[2024-07-19 14:07] LABS: Percent Saturation 13.1 % (15.0-50.0)
--- NOTE | 2024-07-19 18:36 | NUR ---
SUMMARY- PT A/O X4, DEPENDANT IN CARE, ROUTINE TURNS, SET UP FOR MEALS. PT TOLERATING FOOD AND FLUID. PUREWICK IN USE FOR INCONT. DR DEY SET UP A PROCESS WORKING WITH [facility] TO WEAN PT OFF FENT PACTH ONTO DIFFERENT LONG ACTING PAIN CONTROL REGIMINE. WHEN ASKED T/O THE DAY, PT STATES PAIN IS WELL CONTROLLED. PT SLEPT MOST OF THE DAY BUT AWAKENS EASILY, STATES SHE SLEPT A LOT MORE TODAY THAN USUAL. OXYGEN 2L NC (2L BASELINE) VSS, TELE SR 70'S. WILL REPORT TO NOC RN
[2024-07-20 00:14] VITALS: BP 111/58
[2024-07-20 03:57] VITALS: BP 116/63
--- NOTE | 2024-07-20 04:26 | NUR ---
SHIFT SUMMARY. SHIFT HAS BEEN UNREMARKABLE. PT AOX4, PLEASANT, COOPERATIVE WITH CARE, ABLE TO MAKE NEEDS KNOWN. HAS BEEN ABLE TO REST COMFORTABLY THROUGHOUT MOST OF SHIFT. VITALS HAVE REMAINED STABLE. PT HAS BEEN RUNNING SINUS THROUGHOUT SHIFT WITH RATE PRIMARILY SETTLING IN THE 80s-100s RANGE. MAINTAINING ADEQUATE SATURATION ON 2 L O2 VIA NC. PAIN HAS BEEN ADEQUATELY MANAGED VIA EMAR, NO NEED FOR BREAKTHROUGH FENTANYL FOR PAIN MANAGEMENT THUS FAR. Q2 HOUR REPOSITIONS. PUREWICK IN PLACE, FUNCTIONING WELL THROUGHOUT SHIFT. BED LOCKED IN LOWEST POSITION. CALL LIGHT LEFT WITHIN REACH. CONTINUING TO MONITOR.
[2024-07-20 05:32] LABS: BASOPHILS ABSOLUTE AUTO 0.03 K/mm3 (0.00-0.23); BASOPHILS PERCENT AUTO 0 % (0-2); EOSINOPHILS ABSOLUTE AUTO 0.12 K/mm3 (0.00-0.68); EOSINOPHILS PERCENT AUTO 2 % (0-6); Hematocrit 35.1 % (33.0-51.0); Hemoglobin 11.1 g/dL (11.5-16.0); IMMATURE GRAN ABSOLUTE AUTO 0.02 K/mm3 (0.00-0.10); IMMATURE GRAN PERCENT AUTO 0 % (0-1); LYMPHOCYTES PERCENT AUTO 29 % (21-46); MONOCYTES ABSOLUTE AUTO 0.53 K/mm3 (0.16-1.47); MONOCYTES PERCENT AUTO 8 % (4-13); Mean Corpuscular HGB 30.5 pg (26.0-34.0); Mean Corpuscular HGB Conc 31.6 g/dL (31.5-36.5); Mean Corpuscular Volume 96 fL (80-100); NEUTROPHILS ABSOLUTE AUTO 4.11 K/mm3 (1.96-9.15); NEUTROPHILS PERCENT AUTO 60 % (41-73); Platelet Count 148 K/mm3 (150-400); RDW Coefficient Variation 14.6 % (11.7-14.2); RDW Standard Deviation 51.2 fL (35.1-46.3); Red Blood Cell Count 3.64 M/mm3 (3.80-5.20); White Blood Cell Count 6.81 K/mm3 (4.00-11.30)
[2024-07-20 06:04] LABS: Albumin, Blood 2.3 g/dL (3.4-5.0); Albumin/Globulin Ratio 0.8 (0.8-1.8); Bilirubin, Total 0.4 mg/dL (0.1-1.0); Bun/Creatinine Ratio 15.4 (12.0-20.0); Calcium, Blood 8.4 mg/dL (8.5-10.1); Creatinine, Blood 0.52 mg/dL (0.40-1.00); Potassium, Blood 4.4 mmol/L (3.5-5.5); Total Protein, Blood 5.3 g/dL (6.4-8.2)
[2024-07-20 08:16] VITALS: BP 116/77
[2024-07-20] MEDS ORDERED: Buprenorphine HCL/Naloxone HCL 2-0.5MG 1 EA SL SCH (09:00)
--- NOTE | 2024-07-20 15:13 | NUR ---
SHIFT SUMMARY/ TRANSFER TO MEDICAL FLOOR: NO ACUTE CHANGES OR SIGNIFICANT EVENTS HAPPENED DURING THIS SHIFT. PT CALLED APPROPRIATELY AND SUZETTE NEEDS KNOWN TO STAFF. REPORT CALLED TO JACKIE Jeffrey RN. PT TRANSFERED TO ROOM 306 VIA GURNEY BY [facility]. BELONGINGS WERE COLLECTED AND TAKEN WITH PATIENT.
[2024-07-20 15:31] VITALS: BP 114/58
--- NOTE | 2024-07-20 15:34 | NUR ---
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 2LO2 TO MAINTAIN SATS. PATIENT BEDBOUND AT BASELINE. ORIENTED PATIENT TO ROOM AND USE OF CALL LIGHT. VSS, FALL PRECAUTIONS IN PLACE. PATIENT DENIES ANY NEEDS AT THIS TIME. SKIN INTACT ASIDE FROM SOME REDNESS TO PERIAREA.
[2024-07-20 20:22] VITALS: BP 116/70
[2024-07-21 02:36] VITALS: BP 110/69
--- NOTE | 2024-07-21 04:32 | NUR ---
SHIFT SUMMARY: PT AOX3-4 WITH SOME CONFUSION. WITHDRAWN AND FLAT. LEGS SEVERELY CONTRACTURED. MEPILEX AND FOAM PADDING IN PLACE ON LEFT HEEL DUE TO POSITIONING. ANY REPOSITIONING PT MOANS LOUDLY IN PAIN. IS THEN EASILY BACK TO SLEEP AFTERWARDS. PT INCONTINENT SO PURE WICK IS IN PLACE. PT ABLE TO FEED HERSELF A LITTLE BIT OF DINNER AND HOLD SOME WATER WHILE TAKING MEDS WITH ENOURAGEMENT. STILL NEEDED PILLS PLACED INTO MOUTH. PT MEDICATED PER EMR BUT HAS BEEN ABLE TO SLEEP THROUGH MOST OF THE NIGHT WITH NO ACUTE EVENTS. TOLERATING MEDICATIONS WELL. PT IN BED SLEEPING, BED IN LOWEST POSITION, CALL LIGHT IN REACH. CONTINUING CARE.
--- NOTE | 2024-07-21 05:28 | NUR ---
NURSING NOTE: PT MUCH MORE ALERT AND ORIENTED. SLIGHT CONFUSION BUT EASILY REORIENTED. ABLE TO TAKE PILLS IND AND HAVE FULL CONVERSATIONS. ANSWERED QUESTIONS APPROPRIATELY. ORIENTED TO CALL LIGHT AND ABLE TO OPERATE TV WITHOUT INSTRUCTION. PT VERY PLEASANT, DENIES PAIN. PT RESTING IN BED, BED IN LOWEST POSITION, CALL LIGHT IN REACH. CONTINUING CARE.
[2024-07-21 07:26] VITALS: BP 131/67
[2024-07-21] MEDS ORDERED: Buprenorphine HCL/Naloxone HCL 2-0.5MG 1 EA SL SCH ×2 (08:25→09:22)
[2024-07-21] MEDS ORDERED: Morphine Sulfate 30 MG TabCR PO ONE (09:00)
--- NOTE | 2024-07-21 16:30 | NUR ---
MET WITH PATIENT AND HER TO CLARIFY CODE STATUS. AFTER THROUGH DISCUSSION AND REVIEW OF POLST. THEY EXPRESSED THAT THEY WOULD WANT FULL CODE AND INTUBATION. DISCUSSED COMPLETING A NEW POLST WHILE SHE WAS HOSPILIZED TO REFLECT THESE WISHES.
--- NOTE | 2024-07-21 18:50 | NUR ---
SHIFT SUMMARY PATIENT MEDICATED FOR PAIN THROUGH SHIFT AND REPOSITIONED EVERY 1-2 HOURS. SHE IS QUIET WHEN BY HERSELF, SHE DOES MOAN WITH TURNING AND BATHING AND ADJUSTMENT OF HEAD OF BED. SHE HAS TAKEN SMALL SIPS OF PROTIEN DRINKS BUT OTHERWISE HAS HAD LITTLE APPETITE OR NOURISMENT. BED IN LOW POSITION, CALL LIGHT IN REACH. SHE IS CONCERNED ABOUT HAVING CALL LIGHT BUT DOES NOT USE IT, REQUIRES FREQUENT ROUNDING.
[2024-07-21 20:45] VITALS: BP 116/62
[2024-07-21] MEDS ORDERED: Morphine Sulfate 30 MG TabCR PO SCH (21:00)
[2024-07-21] MEDS ORDERED: Morphine Sulfate 15 MG TABCR PO SCH (21:00)
[2024-07-22 02:47] VITALS: BP 119/60
--- NOTE | 2024-07-22 05:58 | NUR ---
Shift Summary Pt medicated for pain with scheduled meds only this shift. She moans out in pain during patient care, but sleeps comfortably once she gets a few minutes of uninterrupted rest. Dilanwick in place and changed this AM. No BM this shift. Pt was fairly confused t/o the night, unsure of the day or month and sometimes speaking in broken sentences. She had a pill stuck to the roof of her mouth around 2300 which she was eventually able to swallow. Q2 turns, heavily contracted, AOx3.
[2024-07-22] MEDS ORDERED: Magnesium Hydroxide Conc 10 ML UDC PO PRN (07:25)
[2024-07-22 07:27] VITALS: BP 126/58
[2024-07-22] MEDS ORDERED: Polyethylene Glycol 3350 17 gm PO SCH (09:00)
[2024-07-22] MEDS ORDERED: Buprenorphine HCL/Naloxone HCL 2-0.5MG 1 EA SL SCH (09:00)
[2024-07-22] MEDS ORDERED: Docusate Sodium 100 MG Cap PO SCH (09:00)
--- NOTE | 2024-07-22 12:36 | NUR ---
PT REPORTS SIGNIFICANT 10/10 PAIN TO BLE. PT ALSO STATING "AM I DYING?" AND "I CANNOT BREATH". THSI RN REASSURES PT SHE IS NOT DYING AT THIS TIME. RN ASSESSES PT BREATH SOUNDS AND OXYGEN LEVELS, LUNGS CLEAR TO UPPER LOBES, O2 SATURATION LEVEL MAINTAINING 95-97% ON 2 L/MIN VIA NC. THIS RN CHANGED PT OXYGEN TUBING IT WAS OLD AND CRUSTED, ALSO ADDED HUMIDIFIER. RN ADMINISTERED 25 MCG FENTANYL PRIOR TO REPOSITIONING PT TO R SIDE AND ADMINISTERED BACLOFEN FOR MUSCLE SPASMS. APPROX 20 MINUTES AFTER INTERVENTONS COMPLETED PT SLEEPING PEACEFULLY IN HOSPITAL BED.
[2024-07-22 16:38] VITALS: BP 150/68
--- NOTE | 2024-07-22 16:49 | NUR ---
POLST COMPLETED AND LEFT ON DOOR FOR PROVIDER TO SIGN.
--- NOTE | 2024-07-22 18:10 | NUR ---
SHIFT SUMMARY NO ACUTE CHANGES, FULL CODE STATUS (SPOUSE SIGNED POLST TODAY, PROVIDER STILL NEEDS TO SIGN). A/O TO SELF AND SPOUSE, INTERMITTENT CONFUSION. CHRONIC PAIN - TREATED PER EMAR, PRIMARILY EFFECTIVE. WHEN PT LEFT ALONE TO REST APPEARS PEACEFUL, WHEN AWAKE OR PERSONAL CARE BEING COMPLETED PT REPORTS SIGNIFICANT PAIN. TREATED WITH 25 MCG FENTANYL PRIOR TO REPOSITIONING PER HOSPITALIST ORDERS. PT FEARFUL OF PASSING BUT MAKES COMMENTS STATING SHE IS TIRED OF BEING IN PAIN AND WANTS TO BE COMFORTABLE - SEE PREVIOUS NOTE. THIS RN TRIED TO CONTACT PALLIATIVE CARE TO DISCUSS PT GOALS AND CARE DISCUSSED IN PREVIOUS CONSULT AND THIS RN CONCERNS BUT PALLIATIVE RN HAD LEFT FOR DAY. PT HAS ONLY TAKEN SIPS OF FLUIDS TODAY, NO FOOD INTAKE. HOSPITALIST AWARE. PT CURRENTLY RESTING IN HOSPITAL BED WITH BED IN LOWEST POSITION AND CALL LIGHT WITHIN REACH.
--- NOTE | 2024-07-22 19:00 | NUR ---
RECEIVED REPORT FROM DAY SHIFT RN. WILL CONTINUE TO PROVIDE CARE. CALL LT IN REACH.
[2024-07-22 21:31] VITALS: BP 164/82
--- NOTE | 2024-07-23 04:50 | NUR ---
SHIFT SUMMARY PT A&OX2 -3 WITH RE-ORIENATING BUT REMAINS MOSTLY CONFUSED C/O PAIN WITH REPOSITIONING Q2HRS QUICKLY FALLS BACK TO SLEEP. PT CALLED OUT SEVERAL TIMES THROUGHOUT SHIFT BUT APPEARS TO BE RESTING COMFORTABLY NOW. PURWICK IN PLACE DRAINING YELLOW CLEAR, NO BM THIS SHIFT, HEAVILY CONTRACTURED BEDREST R/T CHRONIC HEALTH CONDITION, WILL CONTINUE TO MONTIOR AND REPORT NEEDED.
--- NOTE | 2024-07-23 05:17 | NUR ---
ASSUMED CARE OF PT. PT IS RESTING AT THIS TIME. WILL CONTINUE TO PROVIDE CARE.
[2024-07-23 05:55] VITALS: BP 163/82
[2024-07-23 07:24] VITALS: BP 155/94
[2024-07-23] MEDS ORDERED: Buprenorphine HCL/Naloxone HCL 2-0.5MG 1 EA SL SCH (09:00)
[2024-07-23 16:48] VITALS: BP 156/77
--- NOTE | 2024-07-23 18:25 | NUR ---
SHIFT SUMMARY NO ACUTE CHANGES THIS SHIFT, VSS, BEDBOUND, AC/HS CBG - NO INSULIN COVERAGE REQUIRED. A/Ox3. REPOSITIONED Q2H, MEDICATED PRIOR TO REPOSITIONING TO PROMOTE COMFORT. PAIN MANAGED AT REST WITH SCHEDULED PAIN REGIMEN. PT TOOK BITES OF MEALS TODAY WITH ENCOURAGEMENT. REMAINS INCONTINENT OF B&B - ATTENDS IN PLACE. DISCUSSED WITH PALLIATIVE CARE AND HOSPITALIST REGARDING PT STATEMENTS OF JUST WANTING TO BE COMFORTABLE AND NO LONGER WANTING TO TOLERATE HER PAIN. PT CURRENTLY RESTING IN HOSPITAL BED WITH BED IN LOWEST POSITION AND CALL LIGHT WITHIN REACH.
[2024-07-23 21:13] VITALS: BP 156/81
[2024-07-24 02:41] VITALS: BP 143/77
--- NOTE | 2024-07-24 03:22 | NUR ---
SHIFT SUMMARY NO ACUTE EVENTS DURING THIS SHIFT. HS B. O2 2L VIA NASAL CANNULA, SAT'S> 95%. PT DENIES SOB. PUREWICK DRAINING TEA COLOR URINE, ATTENDS IN PLACE. REPOSITIONED Q2HRS. PT C/O ALL OVER BODY PAIN, MOANING, CRYING. SCHEDULED MS CONTIN AND SUBOXONE ADMINISTERED @HS ORDERED. PT IS IN BEDREST. BED AT THE LOWEST POSITION, CALL LIGHT W/I REACH. PT IS ABLE TO MAKE HER NEEDS KNOWN.
[2024-07-24 07:22] VITALS: BP 135/74
[2024-07-24] MEDS ORDERED: Buprenorphine HCL/Naloxone HCL 2-0.5MG 1 EA SL SCH (09:00)
--- NOTE | 2024-07-24 16:20 | NUR ---
CALLED TO ROOM BY PRIMARY RN PT AND SPOUSE WERE ASKING FOR COMFORT MEASURES/HOSPICE SERVICES. GLENNA IS A/O X4. ABLE TO VOICE HER NEEDS. NOT ABLE TO REPOSITION SELF IN BED. DISPLAYED DIFFICULTY RAISING RIGHT HAND TO HER NOSE TO ADJUST OXYGEN TUBING. SHE REPORTS LEG PAIN 8/10 ONE HOUR AFTER ADMINISTRATION OF FETANYL (IV). HSBD, WILLAM REPORTS AN AVERAGE DAY FOR GLENNA IS [facility] [place] [facility]. HAVING HER HAIR, MAKEUP AND NAILS PAITED. HE ALSO REPORTS CHRONIC PAIN HAS BEEN MANAGED AN OUTPT WITH FENTANYL PATCHES. 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 PROVIDER TO PLACE NEW ORDERS. UPDATE PROVIDED TO PRIMARY RN AND CARE MANAGEMENT.
[2024-07-24 16:25] VITALS: BP 150/78
[2024-07-24] MEDS ORDERED: FentaNYL Citrate 50 MCG/ML 2 ML Injection IV PRN (16:25)
--- NOTE | 2024-07-24 17:36 | NUR ---
SHIFT SUMMARY NO ACUTE CHANGES. VSS. CBG STABLE. REMAINS ON BEDREST. PT CODE STATUS CHANGED TO DNR AND PLAN TO BE PLACED ON COMFORT CARE PER DISCUSSION WITH PT, PT SPOUSE, DR. CUEVAS, AND PALLIATIVE CARE RN LEANYA. MESSER SIGNED BY MASON FOR DNR STATUS. PT FEELS GOOD AND OKAY WITH DECISION, SHE IS READY TO BE OUT OF PAIN. RN NOTED IMPROVEMENT WITH REPOSITIONING AND CARES, PT NOT YELLING OUT MUCH AT THESE TIMES, HOWEVER PT DOES RATE PAIN BEING 8/10 AT THE LOWEST EVEN WITH PAIN MEDICATION ONBOARD. MASON INCREASED FENTANYL TO UP TO 50 MCG Q4H. PT MEDICATED PER EMAR. PT ONLY TAKING BITES OF MEALS. IMRPOVED WATER INTAKE TODAY. PT CURRENTLY RESTING IN HOSPTIAL BED WITH BED IN LOWEST POSITION AND CALL LIGHT WITHIN REACH. BED ALARM ON, PT DOES NOT OFTEN USE CALL LIGHT BUT WAITS FOR STAFF TO COME IN ROOM TO VOICE NEEDS.
[2024-07-24 19:52] VITALS: BP 152/80
--- NOTE | 2024-07-25 04:21 | NUR ---
SHIFT SUMMARY 68 YR F ADMITTED ON 07/15/24. DNR. NO ACUTE CHANGES THIS SHIFT. PT IS VERY PAINFUL AND ASKING FOR PAIN MEDICATION OFTEN. SHE HAS BEEN BETTER ABOUT USING HER CALL LIGHT THIS SHIFT. SHE IS TOLERATING REPOSITIONING WELL W/O YELLING OUT. PUREWIK IN PLACE AND WORKING WELL. NO OTHER CHANGES TO REPORT. WILL CONTINUE TO MONITOR. BED IN LOW POSITION AND CALL LIGHT IN REACH.
[2024-07-25 05:05] VITALS: BP 138/74
[2024-07-25 07:11] VITALS: BP 148/79
[2024-07-25] MEDS ORDERED: Buprenorphine HCL/Naloxone HCL 2-0.5MG 1 EA SL SCH (09:00)
[2024-07-25] MEDS ORDERED: Morphine Sulfate 15 MG TABCR PO SCH (09:00)
[2024-07-25] MEDS ORDERED: TUMS500 MG PO (12:03)
[2024-07-25] MEDS ORDERED: Florastor250 MG PO (12:08)
--- NOTE | 2024-07-25 17:06 | NUR ---
[facility]SPORT[facility] TO BE HERE AT 1800, MEDICATED FOR PAIN FOR TRANSPORT, CALL LIGHT WITH IN REACH
--- NOTE | 2024-07-25 18:06 | NUR ---
PATIENT TRANSPORTED VIA GURNEY TO [facility]
[2024-07-25] MEDS ORDERED: PANT40 PO (18:14)
== END 2024-07-25 17:54 | disposition hospice, home (50) | DRG 380 ==
LOC: ER 05:44 → ICUE 11:24 → MEDS 11:24 → ICUE 12:30 → PCU 07-18 20:58 → MEDS 07-20 15:21 → ENPENDDIS 07-25 11:11 → EDPENDDIS 07-25 11:11 → MEDS 07-25 17:54
PROVIDERS: Emergency Medicine; Family Medicine; Internal Medicine Critical Care Medicine; Internal Medicine Gastroenterology; ADMIT Internal Medicine
PROC: 0BH17EZ Insertion of Endotracheal Airway into Trachea, Via Natural or Artificial Opening (ICD-10-PCS; 2024-07-15)
PROC: 5A1945Z Respiratory Ventilation, 24-96 Consecutive Hours (ICD-10-PCS; 2024-07-15)
PROC: 0DB38ZX Excision of Lower Esophagus, Via Natural or Artificial Opening Endoscopic, Diagnostic (ICD-10-PCS; principal; 2024-07-15 15:00)
DX: K22.11 Ulcer of esophagus with bleeding (principal); G92.8 Other toxic encephalopathy; E87.3 Alkalosis; F11.20 Opioid dependence, uncomplicated; I13.0 Hypertensive heart and chronic kidney disease with heart failure and stage 1 through stage 4 chronic kidney disease, or unspecified chronic kidney disease; I50.32 Chronic diastolic (congestive) heart failure; N25.81 Secondary hyperparathyroidism of renal origin; J96.11 Chronic respiratory failure with hypoxia; K92.0 Hematemesis; G35 Multiple sclerosis; E11.22 Type 2 diabetes mellitus with diabetic chronic kidney disease; N18.2 Chronic kidney disease, stage 2 (mild); J44.9 Chronic obstructive pulmonary disease, unspecified; F41.1 Generalized anxiety disorder; E78.2 Mixed hyperlipidemia; K76.0 Fatty (change of) liver, not elsewhere classified; G89.4 Chronic pain syndrome; L89.92 Pressure ulcer of unspecified site, stage 2; K21.9 Gastro-esophageal reflux disease without esophagitis; D50.9 Iron deficiency anemia, unspecified; K44.9 Diaphragmatic hernia without obstruction or gangrene; R53.81 Other malaise; Z79.51 Long term (current) use of inhaled steroids; Z79.2 Long term (current) use of antibiotics; Z79.899 Other long term (current) drug therapy; Z86.14 Personal history of Methicillin resistant Staphylococcus aureus infection; Z74.01 Bed confinement status; Z90.49 Acquired absence of other specified parts of digestive tract; Z98.890 Other specified postprocedural states; Z87.891 Personal history of nicotine dependence; Z99.81 Dependence on supplemental oxygen; Z87.440 Personal history of urinary (tract) infections; Z79.84 Long term (current) use of oral hypoglycemic drugs
CPT/HCPCS: 0528U; 31500; 36415; 36569; 51703; 71045; 74177; 80053; 81001; 82330; 82728; 82803; 82947; 83540; 83550; 83735; 84100; 84484; 85014; 85018; 85025; 86850; 86900; 86901; 87070; 87077; 87086; 87186; 87205; 88305; 88312; 93005; 93010; 94003; 94760; 94762; 96374-59; 96375-59; 96376-59; 99285-25; A9270; C1751; J0171; J0572; J0612; J0696; J2060; J2250; J2270; J2405; J2470; J2704; J2765; J2997; J3010; J3480; J7030; J7060; J7120; Q9967

== ENCOUNTER → 2024-08-27 | Outpatient (CLI) | payer OTHER ==
[~2024-08-27] MED LIST changes: +PANT40 PO
[2024-08-27 11:50] LABS: BASOPHILS ABSOLUTE AUTO 0.06 K/mm3 (0.00-0.23); BASOPHILS PERCENT AUTO 0 % (0-2); EOSINOPHILS ABSOLUTE AUTO 0.12 K/mm3 (0.00-0.68); EOSINOPHILS PERCENT AUTO 1 % (0-6); Hematocrit 39.7 % (33.0-51.0); Hemoglobin 12.2 g/dL (11.5-16.0); IMMATURE GRAN ABSOLUTE AUTO 0.08 K/mm3 (0.00-0.10); IMMATURE GRAN PERCENT AUTO 1 % (0-1); LYMPHOCYTES PERCENT AUTO 6 % (21-46); MONOCYTES ABSOLUTE AUTO 0.64 K/mm3 (0.16-1.47); MONOCYTES PERCENT AUTO 4 % (4-13); Mean Corpuscular HGB 29.2 pg (26.0-34.0); Mean Corpuscular HGB Conc 30.7 g/dL (31.5-36.5); Mean Corpuscular Volume 95 fL (80-100); Mean Platelet Volume 10.7 fL (9.1-12.4); NEUTROPHILS ABSOLUTE AUTO 14.02 K/mm3 (1.96-9.15); NEUTROPHILS PERCENT AUTO 88 % (41-73); Platelet Count 193 K/mm3 (150-400); RDW Coefficient Variation 14.8 % (11.7-14.2); RDW Standard Deviation 51.4 fL (35.1-46.3); Red Blood Cell Count 4.18 M/mm3 (3.80-5.20); White Blood Cell Count 15.92 K/mm3 (4.00-11.30)
[2024-08-27 12:46] LABS: Albumin, Blood 2.5 g/dL (3.4-5.0); Albumin/Globulin Ratio 0.7 (0.8-1.8); Bilirubin, Total 0.6 mg/dL (0.1-1.0); Bun/Creatinine Ratio 22.5 (12.0-20.0); Calcium, Blood 8.6 mg/dL (8.5-10.1); Creatinine, Blood 0.49 mg/dL (0.40-1.00); Globulin, Blood 3.6 g/dL (2.2-4.0); Potassium, Blood 4.5 mmol/L (3.5-5.5); Total Protein, Blood 6.1 g/dL (6.4-8.2)
== END ==
LOC: LAB SHORT 11:42 → LAB 11:42
PROVIDERS: Internal Medicine
DX: J96.11 Chronic respiratory failure with hypoxia (principal); I12.9 Hypertensive chronic kidney disease with stage 1 through stage 4 chronic kidney disease, or unspecified chronic kidney disease; E11.22 Type 2 diabetes mellitus with diabetic chronic kidney disease
CPT/HCPCS: 80053; 85025

== ENCOUNTER 2024-10-29 10:45 | Inpatient (IN) | payer OTHER ==
[~2024-10-29] VITALS: Ht 175.3 cm; Wt 83.9 kg
[~2024-10-29 10:45] MED LIST changes: -GENTLE LAX400 MG/5 M PO
[2024-10-29 12:40] LABS: BASOPHILS ABSOLUTE AUTO 0.03 K/mm3 (0.00-0.23); BASOPHILS PERCENT AUTO 0 % (0-2); EOSINOPHILS ABSOLUTE AUTO 0.12 K/mm3 (0.00-0.68); EOSINOPHILS PERCENT AUTO 1 % (0-6); Hematocrit 40.7 % (33.0-51.0); Hemoglobin 12.3 g/dL (11.5-16.0); IMMATURE GRAN ABSOLUTE AUTO 0.07 K/mm3 (0.00-0.10); IMMATURE GRAN PERCENT AUTO 1 % (0-1); LYMPHOCYTES ABSOLUTE AUTO 1.78 K/mm3 (0.84-5.20); LYMPHOCYTES PERCENT AUTO 12 % (21-46); MONOCYTES ABSOLUTE AUTO 0.78 K/mm3 (0.16-1.47); MONOCYTES PERCENT AUTO 5 % (4-13); Mean Corpuscular HGB 27.6 pg (26.0-34.0); Mean Corpuscular HGB Conc 30.2 g/dL (31.5-36.5); Mean Corpuscular Volume 91 fL (80-100); Mean Platelet Volume 10.3 fL (9.1-12.4); NEUTROPHILS ABSOLUTE AUTO 12.47 K/mm3 (1.96-9.15); NEUTROPHILS PERCENT AUTO 82 % (41-73); Platelet Count 162 K/mm3 (150-400); RDW Coefficient Variation 14.9 % (11.7-14.2); RDW Standard Deviation 49.7 fL (35.1-46.3); Red Blood Cell Count 4.46 M/mm3 (3.80-5.20); White Blood Cell Count 15.25 K/mm3 (4.00-11.30)
[2024-10-29 13:02] LABS: Albumin, Blood 2.7 g/dL (3.4-5.0); Albumin/Globulin Ratio 0.6 (0.8-1.8); Bilirubin, Total 0.5 mg/dL (0.1-1.0); Bun/Creatinine Ratio 41.1 (12.0-20.0); Calcium, Blood 9.4 mg/dL (8.5-10.1); Creatinine, Blood 0.61 mg/dL (0.40-1.00); Globulin, Blood 4.2 g/dL (2.2-4.0); Potassium, Blood 4.6 mmol/L (3.5-5.5); Total Protein, Blood 6.9 g/dL (6.4-8.2)
[2024-10-29] MEDS ORDERED: CefTRIAXone Sodium 1,000 MG in NS 100 ML IV ONE (13:05)
[2024-10-29 13:28] LABS: Source, Urine Straight Cath
[2024-10-29 13:35] LABS: Appearance, Urine Turbid (Clear); Bilirubin, Urine Neg (Neg); Blood, Urine 5+ (Neg); Color, Urine Yellow (P-Yellow); Glucose Qualitative, Urine Neg (Neg); Ketones, Urine Neg (Neg); Leukocyte Esterase, Urine 3+ (Neg); Nitrite, Urine Neg (Neg); Protein, Urine 2+ (Neg); Urobilinogen, Urine NORM (Normal)
[2024-10-29 13:54] LABS: Bacteria Many /hpf
[2024-10-29 13:56] LABS: Squamous Epithelial Cells Mod /hpf (Few); White Blood Cells, Urine 50-100 /hpf (0-5)
[2024-10-29 13:57] LABS: Yeast/Fungi Urine Few /hpf
[2024-10-29] MEDS ORDERED: Morphine Sulfate 20 MG/1ML 1 ML Oral Syringe PO PRN (15:55)
--- NOTE | 2024-10-29 18:06 | NUR ---
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
[2024-10-29 20:43] VITALS: BP 166/91
[2024-10-30 03:52] VITALS: BP 160/91
--- NOTE | 2024-10-30 05:59 | NUR ---
SHIFT SUMMARY; PATIENT SLEPT IN SHORT INTERVALS, WAS CRYING OUT AT TIMES, HAD A LARGE BM, WAS RESISTENT TO ORAL CARE. GIVEN PAIN MEDS X 3. CALLED THE HOSPITALIST FOR CHANGE IN DIET ORDER.
[2024-10-30 08:04] VITALS: BP 154/91
[2024-10-30] MEDS ORDERED: LORazepam 2 MG/ML 1ML Injection IV PRN (08:10)
[2024-10-30] MEDS ORDERED: FentaNYL 50 MCG Patch TOP SCH (08:10)
[2024-10-30] MEDS ORDERED: LORazepam 1 MG Tab PO PRN (08:10)
[2024-10-30] MEDS ORDERED: FentaNYL Citrate 50 MCG/ML 2 ML Injection IV PRN ×2 (08:55→14:25)
[2024-10-30] MEDS ORDERED: Enoxaparin 40 MG/0.4 ML SYR SC SCH (09:00)
[2024-10-30] MEDS ORDERED: CefTRIAXone Sodium 1,000 MG in NS 100 ML IV SCH (09:00)
[2024-10-30] MEDS ORDERED: LORA.5 PO (13:20)
[2024-10-30] MEDS ORDERED: BACLOFEN5 M1 PO (13:21)
[2024-10-30] MEDS ORDERED: BISA10S PR (13:22)
[2024-10-30] MEDS ORDERED: PREG200 PO (13:22)
[2024-10-30] MEDS ORDERED: MIRALAX1714 PO (13:23)
[2024-10-30] MEDS ORDERED: Magnesium Hydroxide Conc 10 ML UDC PO PRN (13:25)
[2024-10-30] MEDS ORDERED: MORP20L SL ×2 (13:43→13:45)
[2024-10-30] MEDS ORDERED: OMEP20ER PO (13:45)
[2024-10-30] MEDS ORDERED: ONDA4 PO (13:46)
[2024-10-30] MEDS ORDERED: SENNA LAXATIVE8.6 MG PO (13:47)
[2024-10-30] MEDS ORDERED: Baclofen 10 MG Tab PO SCH (14:00)
[2024-10-30] MEDS ORDERED: Pregabalin 50 MG Capsule PO SCH (14:00)
[2024-10-30] MEDS ORDERED: Metoprolol Succinate 25 MG TABCR PO SCH (14:00)
[2024-10-30] MEDS ORDERED: Haloperidol Lactate Inj. 5 MG/ML Injection IV PRN (14:20)
--- NOTE | 2024-10-30 14:29 | NUR ---
PALLIATIVE CARE VISIT: MET WITH PT AND SPOUSE MOLLY IN ROOM. PT IS AWAKE AND ABLE TO ANSWER YES/NO QUESTIONS. DISCUSSED EVENTS WHICH LED TO HIS BEING SENT TO [facility]. MOLLY STATED HIS WAS ON PALLIATIVE CARE AT [facility] AND GOT SICK SO SHE DECIDED TO COME TO THE HOSPITAL EVEN THOUGH SHE HAD SAID IN THE PAST SHE NEVER WANTED TO GO TO THE HOSPITAL AGAIN. PT HAS LIVED AT [facility] FOR THE PAST 5 YEARS BECAUSE SHE HAS MS AND HE CANNOT TAKE CARE OF HER NEEDS. CALLED R AND SPOKE TO VAUGHAN NURSE ON DUTY. PER NITHYA PT IS IN THEIR PALLIATIVE CARE PROGRAM. PT WAS NOT ON HOSPICE SERVICES. THEY MANAGED HER PAIN, ANXIETY. PER NITHYA PT HAD COMPLETED A POLST STATING DNR, COMFORT MEASURES ONLY AND HAD TOLD THEM SHE NEVER WANTED TO GO BACK TO THE HOSPITAL, HOWEVER PT REVOKED THIS WHEN SHE BECAME ILL. [facility] CALLED EMS. REQUESTED MED REC FROM [facility]. RECONCILED INPATIENT MEDICATION LIST. CALLED DR. CUEVAS TO DISCUSS ABOVE CONVERATIONS AND PAIN MANAGEMENT. PT TAKES PAIN MEDICATIONS NOT ON MAR: LYRICA, BACLOFEN, SCHEDULED ROXANOL. DR. CUEVAS PLACED ORDERS FOR PAIN MANAGEMENT. UPDATED CM, PRIMARY RN. PT WILL NEED NEW POLST COMPLETED TO REFLECT LIMITED TREATMENT INSTEAD OF COMFORT MEASURES.
[2024-10-30 15:10] VITALS: BP 145/82
[2024-10-30] MEDS ORDERED: Omeprazole 20 MG CapCR PO SCH (16:30)
[2024-10-30 19:47] VITALS: BP 158/98
--- NOTE | 2024-10-30 19:51 | NUR ---
SHIFT SUMMARY PT AGITATED THROUGHOUT MOST OF SHIFT CRYING OUT LOUDLY IN PAIN STATING SHE WOULD LIKE TO . MD NOTIFIED MORE PAIN MEDICATION ORDERED AND ADMINISTERED. PT REMAINED SCREAMING IN PAIN, PALLIATIVE CARE CONSULTED AND SPOKE WITH VENKATA MAYORGA TO GET ACCURATE MED REC. HOME MEDS ORDERED, BUT PT AMS REFUSED TO TRY AND SWALLOW PILLS. REFUSED ALL MEALS. ORAL ATIVAN GIVEN WITH SL ROXINOL, PT SLEPT FOR 2 HOURS. PT WOKE UP SCREAMING IN PAIN, FENTANYL INCREASED TO 100 MCG Q 2, HALDOL ORDERED AND ADMINISTERED, PT RESTED FOR AN HOUR AFTER HALDOL. ATIVAN AND ROXINOL GIVEN THIS EVENING, AND PT SLEPT FOR REMAINDER OF SHIFT. RESPIRATIONS AT 18. Q [address] PL[address] ON R UPPER BACK.
[2024-10-30] MEDS ORDERED: Sennosides 8.6 MG Tab PO SCH (21:00)
[2024-10-30] MEDS ORDERED: Docusate Sodium 100 MG Cap PO SCH (21:00)
[2024-10-31 04:32] VITALS: BP 147/96
--- NOTE | 2024-10-31 05:24 | NUR ---
ASLEEP MOST OF TIME. VSS WHILE ON O2 NC 2LPM. STILL ON SEVERE ANXIETY / CONFUSION BUT IS MUCH BETTER THAN THE PREVIOUS NIGHTS. ADMINISTERED PRN MEDS FOR COMFORT. ONLY ABLE TO TOLERATE A FEW SIPS OF WATER W/ FEW TABS BUT WAS ABLE TO HAVE A VERY GOOD SLEEP AT NIGHT THEREAFTER.
[2024-10-31 08:33] VITALS: BP 128/72
--- NOTE | 2024-10-31 18:31 | NUR ---
SHIFT SUMMARY CLIENT A&O X3, WITH PERIODS OF CONFUSION. ROXINOL 10MG PO GIVEN AT 1814 FOR 610 PAIN. COMPLIANT WITH MEDICATIONS THIS SHIFT. AROUSABLE TO VOICE, BUT UNABLE TO MAINTAIN ATTENTION TO COOPERATE FULLY WITH ASSESSMENT OR EDUCATIONS ATTEMPTS. SLEPT MOST OF SHIFT. CLIENT ON 2L OF . BED IN LOW POSITION AND CALL LIGHT IS WITHIN REACH
[2024-10-31 19:55] VITALS: BP 144/77
[2024-11-01 02:58] VITALS: BP 135/86
--- NOTE | 2024-11-01 04:56 | NUR ---
SHIFT SUMMARY: AO TO SELF AND PLACE. LETHARGIC. PT AROUSABLE TO VOICE. NOTED CRACKLES TO KIM UPPER LOBES WHEN LISTENING TO LUNG SOUNDS. PT IS CURRENTLY ON BASELINE O2 OF 2L. PUREWICK IN PLACE, PT IS UNABLE TO WALK D/T PAIN AND STIFFNESS OF BLE. CALL LIGHT IS WITHIN REACH. BED ALARM IS ON. BED IS LOW AND LOCKED.
[2024-11-01] MEDS ORDERED: NS 250 ML IV PRN (08:35)
[2024-11-01 08:47] VITALS: BP 149/67
[2024-11-01] MEDS ORDERED: Morphine Sulfate 20 MG/1ML 1 ML Oral Syringe SL PRN (11:20)
--- NOTE | 2024-11-01 12:13 | NUR ---
"Spiritual care | Comfort Care Visit Pt. is resting but responds when I enter the room. Pt. is pleasant. Pt. is aware of the comfort care decisions the family have chosen, and verbalizes comfort about being able to be discharged home on hospice. Listen with emapthy and and encouragement. Consider matters of james and belief. Pastoral care is given. Prayed for the Pt. and family. pt. verbalized gratitude for the spiritual care visit. Will remain available to Pt., family, and staff."
--- NOTE | 2024-11-01 15:21 | NUR ---
DISCHARGE SUMMARY PT IV REMOVED. REPORT CALLED TO YAMILET OVER AT [facility]. PT PICKED UP VIA GURNEY TRANSPORT. CASE MANAGEMENT SENT OVER MED REC AND PACKET SENT WITH PATIENT. NO QUESTIONS OR CONCERNS PRIOR TO DC. FAMILY AWARE OF DISCHARGE BACK TO [facility] ON HOSPICE.
== END 2024-11-01 16:00 | DRG 91 ==
LOC: ER 10:45 → MEDS 10:46
PROVIDERS: Emergency Medicine; ADMIT Internal Medicine
DX: G92.8 Other toxic encephalopathy (principal); J96.01 Acute respiratory failure with hypoxia; F11.20 Opioid dependence, uncomplicated; I50.32 Chronic diastolic (congestive) heart failure; I13.0 Hypertensive heart and chronic kidney disease with heart failure and stage 1 through stage 4 chronic kidney disease, or unspecified chronic kidney disease; N25.81 Secondary hyperparathyroidism of renal origin; N39.0 Urinary tract infection, site not specified; Z66 Do not resuscitate; Z51.5 Encounter for palliative care; J98.11 Atelectasis; G89.29 Other chronic pain; G35 Multiple sclerosis; F41.1 Generalized anxiety disorder; F32.9 Major depressive disorder, single episode, unspecified; E78.2 Mixed hyperlipidemia; E11.22 Type 2 diabetes mellitus with diabetic chronic kidney disease; N18.2 Chronic kidney disease, stage 2 (mild); L89.899 Pressure ulcer of other site, unspecified stage; J44.9 Chronic obstructive pulmonary disease, unspecified; T40.605A Adverse effect of unspecified narcotics, initial encounter; E88.89 Other specified metabolic disorders; K44.9 Diaphragmatic hernia without obstruction or gangrene; D50.9 Iron deficiency anemia, unspecified; R53.81 Other malaise; B96.20 Unspecified Escherichia coli [E. coli] as the cause of diseases classified elsewhere; Z79.51 Long term (current) use of inhaled steroids; Z79.899 Other long term (current) drug therapy; Z86.14 Personal history of Methicillin resistant Staphylococcus aureus infection; Z90.49 Acquired absence of other specified parts of digestive tract; Z90.89 Acquired absence of other organs; Z98.890 Other specified postprocedural states; Z87.19 Personal history of other diseases of the digestive system; Z87.891 Personal history of nicotine dependence; Z74.01 Bed confinement status
CPT/HCPCS: 36415; 51701; 71045; 80053; 81001; 83605; 85025; 87040; 87077; 87086; 87186; 94760; 96365; 96372; 96375; 96376; 99285-25; A6590; A9270; G0378; J0696; J1630; J1650; J3010; J7050